=== PATIENT | female | born 1990 | race Caucasian/White ===

== ENCOUNTER 2019-09-01 00:07 | Outpatient (CLI) | payer OTHER, SELFPAY ==
[2019-09-01 18:06] LABS: SARS-CoV-2 RNA PCR Negative
== END 2019-09-01 00:08 | disposition home or self-care (01) ==
LOC: ANHCOVIDDT 00:07
PROVIDERS: PCP Internal Medicine; Visit Provider Surgery Plastic and Reconstructive Surgery
DX: Z01.812 Encounter for preprocedural laboratory examination (principal); Z20.828 Contact with and (suspected) exposure to other viral communicable diseases
CPT/HCPCS: 87635; C9803; U0003

== ENCOUNTER 2019-09-02 00:29 | Day surgery (SDC) | payer OTHER, SELFPAY ==
[2019-08-24 09:45] VITALS: BMI 21.4
[2019-09-02] VITALS (11 sets, daily range): BP systolic 100–120; BP diastolic 60–76; PULSE 66–99; RESP 11–26; TEMP 36.7–36.9; O2SAT 96–100; BMI 21.9
[2019-09-02] MEDS: LACTATED RINGERS 1,000 ML 30 ML IV CONT ×2 (07:45→10:05)
--- NOTE | 2019-09-02 08:25 | WPDHPUPDATE1 ---
History and Physical Update Update Date/Time: 09/02/19 08:25 History and Physical has been reviewed, including an updated exam of the patient. There are NO changes in the patient's condition. Risks, benefits, and alternatives have been discussed and questions answered. Patient agrees to proceed with procedure.
--- NOTE | 2019-09-02 08:26 | P.PNAN_ITS ---
Anes - Initial Pre Proc Eval Procedure: Operation Date: 09/02/19 09:00 Proposed Procedures p Bilateral Breast Augmentation - Gregor Nava MD Date/Time: 09/02/19 08:26 Surgeon: Gregor Nava MD Pre Op Diagnosis: Micromastia Patient Data Age: 29 Gender: F Height: 5 ft 4 in Weight: 57.9 kg Last Vital Signs Temp 36.9 C 09/02/19 07:59 Pulse 75 09/02/19 07:59 Resp 16 09/02/19 07:59 BP 101/71 09/02/19 07:59 Pulse Ox 100 09/02/19 07:59 Allergies Allergy/AdvReac Type Severity Reaction Status Date / Time No Known Drug Allergies Allergy Unknown Other Verified 09/02/19 08:02 Home Medications Medication Instructions Recorded Confirmed Type venlafaxine 37.5 mg 37.5 mg PO DAILY #90 cap 07/05/19 09/02/19 Rx capsule,extended release 24 hr alprazolam [Xanax] 0.25 mg PO HS PRN 08/24/19 09/02/19 History Patient hx anesthesia problems: none Family hx anesthesia problems: none [facility] Past Medical History Medical History (Updated 09/02/19 @ 08:26 by Artis Norris MD) Anxiety Family History Family History Mother Family history of type 2 diabetes mellitus Father Family history of type 2 diabetes mellitus Social History Social History Smoking status: Never smoker Alcohol intake: current Anes - Eval Final PreProcedure Day of Procedure 09/02/19 08:26 Patient weight: normal Heart: regular rate and rhythm Lungs: clear to auscultation Airway: Mallampati scale class II Neurological: alert and oriented Last oral intake: >/= 8 hours ASA classification: II Emergent: no Anesthetic plan: proceed Anesthesia type and monitoring: general LMA and standard monitoring Informed Consent: The patient's anesthetic plan and its attendant risks and benefits were discussed with the patient/family/POA. Questions were solicited and answers provided to the satisfaction of the patient/family/POA.
--- NOTE | 2019-09-02 08:43 | PM.PROC ---
Procedure Note - Detailed Date of procedure: 09/02/19 Pre-op diagnosis: Micromastia Post-op diagnosis: same Procedure performed: Bilateral Augmentation Mammoplasty Description of procedure: She is here today for bilateral breast augmentation. Previously and again today the risks, benefits, alternatives were discussed in extensive detail. I wanted her to be very realistic about the risks involved as well as expectations. We discussed aftercare and what to monitor for. Made sure answered all of her questions to her satisfaction today and consent was obtained. Marked in the preoperative holding area with their verification. The patient was taken to the operating room placed supine on the operating table. Anesthesia was provided by anesthesiology. A surgical time-out was taken. We cleansed the skin and 1% lidocaine and 0.25% Marcaine with epinephrine was used anesthetize as a field block. She was prepped and draped in a standard sterile fashion. Tegaderm nipple Altamirano were placed. A 15 blade used to make an incision along the inframammary fold. Dissection was continued at 45 degree angle until the chest wall as identified. I incised the pectoralis major along its inferior border and completely released the inferior border leaving the medial border intact. I created a subpectoral pocket in the appropriate dimensions based on our preoperative planning for the implant. I then copiously irrigated with saline solution and verified a strict hemostasis. Next the use a triple antibiotic and Betadine containing solution to irrigate the pocket. I washed my gloves with the triple antibiotic and Betadine solution. We washed the implant immediately upon opening it with this solution and only opened it when we needed it. I used implant funnel and no-touch technique. The implant was introduced into the pocket using the funnel. Having verified positioning of the implant this was closed using 2-0 Vicryl followed by 3-0 Monocryl in a running subcuticular 4-0 Monocryl followed by tissue glue. Fluffs, Emanuel wrap, and surgical bra were placed. Patient was awoke and taken to PACU without difficulty. All instrument sponge counts were correct at the end of the case. Implants: Karthik Mckeon SofTouch 360cc Right: REF SSM-360 SN [id number] Left: REF SSM-360 SN [id number] Anesthesia: GLMA Surgeon: Gregor Nava MD Estimated blood loss (mL): 10 Drains: No Packing: No Pathology: none sent Complications: No immediate complications Condition: stable Disposition: PACU
--- NOTE | 2019-09-02 08:49 | SUR.PREOP ---
0839; DR NOEL MARKED PT. RN IN ROOM
[2019-09-02] MEDS: ceFAZolin 2 GM/D5W 50 ML 2 GM/50 ML BAG IVPB (08:52)
[2019-09-02] MEDS: LIDO 1%/EPINEPHRINE 1:100,000 20 ML VIAL 80 ML INFILTRATE (09:27)
[2019-09-02] MEDS: ONDANSETRON INJ 4 MG/2 ML VIAL IV PUSH (11:47)
== END 2019-09-02 12:43 | disposition home or self-care (01) ==
PROVIDERS: PCP Internal Medicine; Visit Provider Surgery Plastic and Reconstructive Surgery
PROC: (CPT 19325; principal; 2019-09-02 09:00)
DX: Z41.1 Encounter for cosmetic surgery (principal); N64.82 Hypoplasia of breast; F41.9 Anxiety disorder, unspecified
CPT/HCPCS: 19325; A9270; J0131; J0690; J1100; J1580; J2250; J2405; J2704; J3010; J7120

== ENCOUNTER 2019-10-02 17:18 | Emergency (ER) | payer OTHER, SELFPAY ==
[2019-10-02 17:40] VITALS: BP 109/75; PULSE 66; RESP 16; TEMP 36.7; O2SAT 100
[2019-10-02 18:04] LABS: Basophils Percent Auto 0.6 % (0.2-1.2); Eosinophils Absolute Auto 0.2 K/mm3 (0-0.3); Eosinophils Percent Auto 2.6 % (0-4.4); Hemoglobin 14.2 g/dL (12.0-15.0); Immature Granulocyte Absolute 0.01 K/mm3 (0.00-0.031); Immature Granulocyte Percent A 0.2 % (0-0.5); Lymphocytes Absolute Auto 1.84 K/mm3 (0.9-3.2); Lymphocytes Percent Auto 29.3 % (18.3-44.2); Mean Corpuscular HGB Conc 34.6 g/dl (32-36); Mean Corpuscular Hemoglobin 30.5 pg (26-34); Mean Platelet Volume 9.3 fl (7.4-10.4); Monocytes Absolute Auto 0.5 K/mm3 (0.1-0.6); Neutrophils Absolute Auto 3.7 K/mm3 (1.3-6.7); Neutrophils Percent Auto 59.3 % (45.5-73.1); Platelet Count Result 260 k/mm3 (150-375); Red Blood Count 4.66 M/mm3 (4.2-5.4); White Blood Count 6.3 K/mm3 (4.5-10.0)
[2019-10-02 18:08] LABS: Add Urine Microscopic? YES; Appearance Urine Clear (Clear); Bacteria Urine Trace /hpf; Bilirubin Urine Negative (Negative); Blood Urine Negative (Negative); Color Urine Colorless (Yellow); Glucose Urine UA Negative (Negative); Ketones Urine Negative (Negative); Leukocyte Esterase Ur 2+ LEU/UL (Negative); Nitrate Urine Negative (Negative); Protein Urine Negative (Negative); RBC Urine 0-2 /hpf (0-2); Specific Grav Ur 1.005 (1.001-1.035); Squamous Epithelial Cell Urine Moderate /hpf (Few); Urobilinogen Urine Negative mg/dL (<2.0)
[2019-10-02 18:16] LABS: Alanine Aminotransferase 11 U/L (4-35); Albumin Level 4.7 g/dL (3.5-5.1); Alkaline Phosphatase 58 U/L (38-126); Aspartate Amino Transferase 22 U/L (14-36); Bilirubin,Total 0.2 mg/dL (0.2-1.3); Blood Urea Nitrogen 8 mg/dL (7-17); Calcium 9.4 mg/dL (8.4-10.2); Carbon Dioxide 32 mmol/L (22-30); Chloride 100 mmol/L (98-107); Estimated CRCL calculation 102 ml/min; Estimated Glomerular Filt Rate > 60; Glucose 95 mg/dL (65-105); Potassium 4.1 mmol/L (3.4-5.0); Sodium 139 mmol/L (137-145)
--- NOTE | 2019-10-02 18:39 | ED.GENADULT ---
HPI - General Adult General Chief complaint: Dizziness Stated complaint: dizzy, vertigo Time Seen by Provider: 10/02/19 18:39 Source: patient Mode of arrival: ambulatory Limitations: no limitations History of Present Illness HPI narrative: 22-year-old female patient presents to the emergency department with complaints of dizziness that started this morning. Patient states that she woke up and started having some dizziness and did have an episode of nausea and vomiting. Patient denies any vomiting since then. Patient states that the dizziness is worse when moving her head especially when she bends down and moves her head side to side. Patient states that she also did wake up with a slight sore throat but that has since resolved. Patient states she has been stuffy recently with her sinuses and did use some Flonase today. Patient denies any pain to the face. Headaches. Denies any lightheadedness. Patient denies any chest pain, shortness of breath, abdominal pain or diarrhea at this time. Patient denies or breast-feeding. Patient states she is currently not on control. Patient states that she did have 1 glass of wine last night. Denies any recreational drugs. Related Data Home Medications Medication Instructions Recorded Confirmed alprazolam [Xanax] 0.25 mg PO HS PRN 08/24/19 09/02/19 venlafaxine 37.5 mg PO HS 10/02/19 Allergies Allergy/AdvReac Type Severity Reaction Status Date / Time No Known Drug Allergies Allergy Unknown Other Verified 10/02/19 19:22 Review of Systems Review of Systems: Narrative: CONSTITUTIONAL: Denies fever, chills, or sweats. EYES: Denies visual changes, redness, or discharge. ENT: Positive rhinorrhea, congestion, sore throat that has since resolved, denies otalgia. CARDIOVASCULAR: Denies chest pain, palpitations, or edema. RESPIRATORY: Denies cough or dyspnea. GASTROINTESTINAL: Denies abdominal pain, nausea, vomiting, or diarrhea. GENITOURINARY: Denies dysuria or hematuria. SKIN: Denies rash or itching. MUSCULOSKELETAL: Denies back pain, joint pain, or myalgia. NEUROLOGIC: Denies headache, numbness, or weakness. Positive dizziness PSYCHIATRIC: Denies anxiety or depression. [facility] Past Medical History Medical History Anxiety Family History Family History Mother Family history of type 2 diabetes mellitus Father Family history of type 2 diabetes mellitus Social History Social History Smoking status: Never smoker Alcohol intake: current Comments At the time of my signature I agree with nursing past medical history, surgical, social, and family history. There is no relevant family history pertinent to the presenting complaint. Exam Narrative: Exam Narrative: GENERAL: Well-appearing, well-nourished, and in no acute distress. HEAD: Normocephalic, atraumatic. No tenderness noted to frontal maxillary sinuses on palpation EYES: PERRLA and EOMI. ENT: Nares with erythema and edema noted bilaterally, no active rhinorrhea or epistaxis. Mucous membranes moist. Posterior pharynx no erythema, tonsil management, exudates or lesions present. There is quite a bit of fluid noted to bilateral ears but no erythema, bulging. No foreign bodies noted to the canals NECK: Supple. No lymphadenopathy CHEST: Clear to auscultation. No respiratory distress. Patient able talk in clear complete sentences. No tripoding noted. HEART: Regular rate and rhythm. No murmur heard. Normal peripheral pulses. ABDOMEN: Soft, nontender, nondistended, normal active bowel sounds. EXTREMITIES: Normal range of motion. No edema. SKIN: Warm, dry, no rash. NEURO: Alert and oriented x4, GCS 15. Cranial nerves II through XII grossly intact. No focal neurological deficits. Normal muscle strength and tone. Normal deep tendon reflexes. Negative Babinski, normal
--- NOTE | 2019-10-02 18:48 | ECG_ITS ---
Measurements Intervals Paradox Rate: 50 P: 62 GA: 146 QRS: 64 QRSD: 93 T: 63 QT: 467 QTc: 429 Interpretive Statements SINUS BRADYCARDIA INCOMPLETE RIGHT BUNDLE BRANCH BLOCK BORDERLINE ECG Electronically Signed On 10-02-2019 19:32:21 CDT by Chema Altamirano D.O.
[2019-10-02] MEDS: MECLIZINE HCL 25 MG TABLET PO (19:04)
[2019-10-02] MEDS: SODIUM CHLORIDE 0.9% IV 1,000 ML 999 ML IV CONT (19:04)
[2019-10-02 19:19] VITALS: BP 111/77; PULSE 45; RESP 18; O2SAT 100
[2019-10-02 19:34] VITALS: BP 111/70; PULSE 58
[2019-10-02 19:35] VITALS: BP 116/74; PULSE 53
[2019-10-02 19:36] VITALS: BP 116/87; PULSE 68
[2019-10-02 20:27] VITALS: BP 104/70; PULSE 50; RESP 16; TEMP 36.6; O2SAT 100
== END 2019-10-02 20:31 | disposition home or self-care (01) ==
PROVIDERS: Emergency Medicine; Emergency Provider Nurse Practitioner Family; PCP Internal Medicine
DX: R42 Dizziness and giddiness (principal); H93.8X9 Other specified disorders of ear, unspecified ear; F41.9 Anxiety disorder, unspecified; R00.1 Bradycardia, unspecified; I45.10 Unspecified right bundle-branch block
CPT/HCPCS: 36415; 80053; 81001; 81025; 85025; 93005; 96360; 99283; A9270; J7030

== ENCOUNTER 2020-12-27 06:48 | Outpatient (CLI) | payer OTHER, SELFPAY ==
--- NOTE | ~2020-12-27 | MR_ITS ---
EXAMINATION: MR brain/brain stem wo/w con DATE: 12/27/2020 07:57 INDICATION: Headache, unspecified. TECHNIQUE: Magnetic resonance imaging (MRI) of the brain and brainstem was performed without and with 10 mL MultiHance intravenous contrast. Sequences included sagittal and axial T1-weighted FSE, axial diffusion-weighted FS EPI, axial T2*-weighted GRE, axial T2-weighted FLAIR Propeller, and axial T2-we ighted Propeller. Postcontrast sequences included axial and coronal T1-weighted FSE. Apparent diffusi on coefficient (ADC) maps were created. COMPARISON: None. FINDINGS: There is no intracranial hemorrhage, acute infarction, or abnormal intracranial mass lesion . The ventricles are normal in size. The paranasal sinuses are clear. The orbits are normal. The mast oid air cells are normal. IMPRESSION: 1. Normal brain. Reviewed, dictated and finalized at location A. IMPRESSION: 1. Normal brain.
[2020-12-27 07:22] LABS: Estimated Glomerular Filt Rate > 60
== END 2020-12-27 06:49 | disposition home or self-care (01) ==
LOC: ANHIMG 06:59
PROVIDERS: PCP Internal Medicine; Visit Provider Nurse Practitioner
DX: R51.9 Headache, unspecified (principal)
CPT/HCPCS: 70553; A9577

== ENCOUNTER 2024-04-05 09:24 | Emergency (ER) | payer OTHER, SELFPAY ==
--- NOTE | ~2024-04-05 | US_ITS ---
EXAMINATION: US OB <=14 wk fetus w TV DATE: 04/05/2024 12:09 TACO MAKER INDICATION: Left lower quadrant pain with vaginal bleeding. Intrauterine gestation on intraoffice ult rasound. No beta hCG. COMPARISON: None TECHNIQUE: Real-time transabdominal and transvaginal obstetric ultrasound. FINDINGS: 3 para 0 Estimated date of delivery by last menstrual period is 11/09/2024 The uterus measures 9.8 x 4.6 x 5.6 cm. No gestational sac is identified within the uterus. Multiple simple cysts detected within the lower u terine segment, within the cervix, the largest measuring 9.6 mm. The right ovary measures 2.3 x 1.5 x 2.2 cm. The left ovary measures 2.1 x 2.5 x 1.7 cm. IMPRESSION: No intrauterine gestation is identified. No significant free fluid within the pelvis Reviewed, dictated and finalized at location A. MAKER
[2024-04-05 09:40] VITALS: BP 121/77; PULSE 86; RESP 18; TEMP 36.4; O2SAT 100
--- NOTE | 2024-04-05 11:40 | ED.PREGNANCY ---
HPI - General Chief complaint: Vaginal Bleeding Stated complaint: vaginal bleeding, 8 weeks Time Seen by Provider: 04/05/24 11:11 Source: patient Mode of arrival: ambulatory Limitations: no limitations History of Present Illness HPI Narrative: Patient is a 33-year-old female who presents the ED with report of vaginal bleeding. Patient reports she was approximately 8 weeks gestation, , but began having bleeding on 03/27. States she has passed a large amount of blood with some tissue present, consistent with miscarriage. She has seen her OB for this. The bleeding has since persisted, but slowed significantly. She is now reporting feeling dizzy and lightheaded with movements. Was referred to the ED by OBGYN (Dr. Adams with [facility]). Had had confirmed IUP via ultrasound. Hx of previous miscarriage. C/o pain to L lower abdomen, nausea. Denies vomiting, fevers. Related Data Home Medications ?Medication ?Instructions ?Recorded ?Confirmed ?Last Taken ?Type fluticasone propionate 50 2 spray intranasal DAILY 02/01/20 12/22/20 Unknown History mcg/actuation nasal spray,suspension melatonin 5 mg capsule mg PO .QHS 02/01/20 12/22/20 Unknown History Allergies Allergy/AdvReac Type Severity Reaction Status Date / Time amoxicillin Allergy Mild Hives Verified 04/05/24 12:03 No Known Drug Allergies Allergy Unknown Other Verified 04/05/24 12:02 Review of Systems Review of Systems: All systems reviewed & are unremarkable except as noted in HPI. All systems reviewed & are unremarkable except as noted in HPI and below PMFSH Past Medical History Medical History Depression PCOS (polycystic ovarian syndrome) Hypercalcemia Low vitamin D level Headache Anxiety Surgical History Surgical History H/O breast augmentation August 2019 Family History Family History Mother Family history of type 2 diabetes mellitus Acute myocardial infarction Brain aneurysm Father Family history of type 2 diabetes mellitus Schizophrenia Social History Social History Smoking status: Never smoker Alcohol intake: current Exam Narrative: GENERAL: Well appearing, well-nourished, non-toxic, in no acute distress. HEAD: Normocephalic, atraumatic. RESPIRATORY: Airway patent, respirations nonlabored. Clear to auscultation bilaterally, no rales, rhonchi, wheezing. CARDIOVASCULAR: Regular rate and rhythm without murmurs, rubs, or gallops. ABDOMINAL: Soft, mild tenderness palpation in left lower quadrant, nondistended. Normoactive BS. MUSCULOSKELETAL: Moves all extremities. No gross deformities. SKIN: Warm, dry, normal color. NEURO: A&O X3. Speech clear. Cranial nerves II-XII grossly intact. Steady gait. No ataxic movements. PSYCHIATRIC: Mildly anxious, tearful. Normal interaction. Course Vital Signs Vital signs: Vital Signs Temperature 97.5 F L 04/05/24 09:40 Pulse Rate 86 04/05/24 09:40 Respiratory Rate 18 04/05/24 09:40 Blood Pressure 121/77 04/05/24 09:40 Pulse Oximetry 100 04/05/24 09:40 Oxygen Delivery Room Air 04/05/24 09:40 Temperature 97.5 F L 04/05/24 09:40 Pulse Rate 86 04/05/24 09:40 Respiratory Rate 18 04/05/24 09:40 Blood Pressure 121/77 04/05/24 09:40 Pulse Oximetry 100 04/05/24 09:40 Oxygen Delivery Room Air 04/05/24 09:40 MDM - OB/Uterine Contractions MDM Narrative Medical decision making narrative: Patient presented to ED with vaginal bleeding, confirmed miscarriage beginning last week. Was approximately 8 weeks gestation, . Vital signs stable upon arrival today. Patient does not appear in any acute distress. Laboratory studies are fairly unremarkable. No leukocytosis. Stable H&H, though no records to compare to. Stable electrolytes, stable kidney function. Beta hCG is 905. No records to compare to here, though patient reported her hcg prior to when the bleeding began was around 12,000. Urinalysis is clear here. Patient's blood type is A positive, no indication for RhoGAM. Ob ultrasound was obtained and without evidence of intrauterine gestation or retained products. Otherwise unremarkable. Patient updated on lab and imaging findings. She is feeling improved after fluids in the ED. Feel she is safe for discharge home with close follow-up with OB. Recommended to contact office today to make follow-up appointment for further evaluation. Given return precautions. She is in agreement with plan and feels comfortable discharge home. Discharged in stable condition. Medical Records Attestation: I reviewed the patient's medical records. Lab Data Attestation: I reviewed the patient's lab results. 04/05/24 12:04 04/05/24 12:04 Labs: Lab Results 04/05/24 04/05/24 Range/Units 12:04 12:53 WBC 7.4 (4.5-10.0) K/mm3 RBC 4.31 (4.2-5.4) M/mm3 Hgb 12.6 (12.0-15.0) g/dL Hct 38.0 (37.0-47.0) % MCV 88.2 (80-100) fl MCH 29.2 (26-34) pg MCHC 33.2 (32-36) g/dl RDW 13.1 (11.5-14.5) % Plt Count 416 H D (150-375) k/mm3 MPV 8.4 (7.4-10.4) fl Immature Gran % (Auto) 0.4 (0-0.5) % Neut % (Auto) 64.2 (45.5-73.1) % Lymph % (Auto) 28.2 (18.3-44.2) % [place] % (Auto) 5.5 (2.6-8.5) % Eos % (Auto) 1.3 (0-4.4) % Baso % (Auto) 0.4 (0.2-1.2) % Lymph # (Auto) 2.09 (0.9-3.2) K/mm3 [place] # (Auto) 0.4 (0.1-0.6) K/mm3 Eos # (Auto) 0.1 (0-0.3) K/mm3 Baso # (Auto) 0.0 (0.0-0.1) K/mm3 Abs Immat Gran (auto) 0.03 (0.00-0.031) K/mm3 Absolute Neuts (auto) 4.8 (1.3-6.7) K/mm3 Absolute Nucleated RBC 0.000 (0.0-0.012) K/mm3 Nucleated RBC % 0.0 (0.0-0.2) % PT 12.6 (11.1-14.7) Seconds INR 0.9 APTT 25.5 (22.3-36.8) Seconds Sodium 139 (137-145) mmol/L Potassium 4.1 (3.4-5.0) mmol/L Chloride 104 (98-107) mmol/L Carbon Dioxide 30 (22-30) mmol/L Anion Gap 5 (4-12) mmol/L BUN 5 L (7-17) mg/dL Creatinine 0.60 L (0.7-1.0) mg/dL Estim Creat Clear Calc 90 ml/min Estimated GFR > 60 (59 - ) Glucose 84 (65-110) mg/dL Calcium 9.2 (8.4-10.2) mg/dL Total Bilirubin 0.5 (0.2-1.3) mg/dL AST 25 (14-36) U/L ALT 24 (6-35) U/L Alkaline Phosphatase 72 (38-126) U/L Total Protein 8.0 (6.3-8.2) g/dL Albumin 4.4 (3.5-5.1) g/dL Beta HCG, Quant 905.03 mIU/ML Urine Color Yellow (Yellow) Urine Appearance Clear (Clear) Urine pH 7.5 (5.0-9.0) Ur Specific Beason 1.004 (1.001-1.035) Urine Protein Negative (Negative) mg/dL Urine Glucose (UA) Negative (Negative) mg/dL Urine Ketones Negative (Negative) mg/dL Ur Blood (Man) Trace (Negative) Urine Nitrate Negative (Negative) Urine Bilirubin Negative (Negative) Urine Urobilinogen 0.2 (<2.0) mg/dL Leukocyte Esterase Rfl Negative (Negative) STEFANIE/UL Urine RBC 0-2 (0-2) /hpf Urine WBC 0-5 (0-3) /hpf Ur Squamous Epith Cells None seen (Few) /hpf Urine Bacteria None seen /hpf Urine Casts 0-2 Blood Type A Positive Antibody Screen Negative Doses of RhIg Required 0 Imaging Data Attestation: I personally reviewed and interpreted this imaging study as follows: Radiologist's impression: ITS Impressions Obstetrics Ultrasound 04/05/24 12:02 IMPRESSION: No intrauterine gestation is identified. No significant free fluid within the pelvis ADDENDUM: 04/05/24 1217 Please correlate these findings to the serum beta hCG, which was not obtained at the time of this dictation. Discharge Plan Discharge Clinical Impression: Spontaneous , Lightheadedness Patient Disposition: Home, Self-Care Condition: Stable Instructions: Antibiotic Form, Miscarriage (ED), Abnormal (Dysfunctional) Uterine Bleeding (ED), Lightheadedness (ED) Additional Instructions: Your workup here was reassuring. Stay well hydrated at home. Rest as needed. Follow-up closely with your OBGYN for further evaluation and continued management. Return to the ED if you experience worsening or severe symptoms, severe bleeding, passing out, unable to keep down food or drink, persistent fevers, or any other symptoms of concern. Patient Language: Puerto Rican Prescriptions: No Action venlafaxine 37.5 mg capsule,extended release 24hr 37.5 mg PO HS Qty: 30 0RF melatonin 5 mg capsule PO .QHS fluticasone propionate 50 mcg/actuation spray,suspension 2 spray intranasal DAILY Rx Instructions: administer into each nostril cetirizine [Zyrtec] 10 mg tablet 10 mg PO DAILY Qty: 30 0RF sumatriptan succinate [Imitrex] 50 mg tablet See Rx Instructions PO .COMPLEX Qty: 10 0RF Rx Instructions: take 1 tab at onset of headache; if no relief may repeat 1 tab after at least 2 hrs; max = 4 tabs/24 hr PO Follow-up/Referrals: Gabriel Oh DO [Physician] - Time of Disposition: 14:30
[2024-04-05] MEDS: SODIUM CHLORIDE 0.9% IV 1,000 ML 999 ML IV CONT ×2 (12:07→13:05)
[2024-04-05] MEDS: ONDANSETRON INJ 4 MG/2 ML VIAL IV PUSH (12:08)
[2024-04-05 12:15] LABS: Basophils Percent Auto 0.4 % (0.2-1.2); Eosinophils Absolute Auto 0.1 K/mm3 (0-0.3); Eosinophils Percent Auto 1.3 % (0-4.4); Hemoglobin 12.6 g/dL (12.0-15.0); Immature Granulocyte Absolute 0.03 K/mm3 (0.00-0.031); Immature Granulocyte Percent A 0.4 % (0-0.5); Lymphocytes Absolute Auto 2.09 K/mm3 (0.9-3.2); Lymphocytes Percent Auto 28.2 % (18.3-44.2); Mean Corpuscular HGB Conc 33.2 g/dl (32-36); Mean Corpuscular Hemoglobin 29.2 pg (26-34); Mean Corpuscular Volume 88.2 fl (80-100); Mean Platelet Volume 8.4 fl (7.4-10.4); Monocytes Absolute Auto 0.4 K/mm3 (0.1-0.6); Monocytes Percent Auto 5.5 % (2.6-8.5); Neutrophils Absolute Auto 4.8 K/mm3 (1.3-6.7); Neutrophils Percent Auto 64.2 % (45.5-73.1); Platelet Count Result 416 k/mm3 (150-375); Red Blood Count 4.31 M/mm3 (4.2-5.4); Red Cell Distribution Width 13.1 % (11.5-14.5); White Blood Count 7.4 K/mm3 (4.5-10.0)
[2024-04-05 12:25] LABS: INR 0.9; Prothrombin Time 12.6 Seconds (11.1-14.7)
[2024-04-05 12:26] LABS: Partial Thromboplastin Time 25.5 Seconds (22.3-36.8)
[2024-04-05 12:33] LABS: Alanine Aminotransferase 24 U/L (6-35); Albumin Level 4.4 g/dL (3.5-5.1); Alkaline Phosphatase 72 U/L (38-126); Anion Gap 5 mmol/L (4-12); Aspartate Amino Transferase 25 U/L (14-36); Bilirubin,Total 0.5 mg/dL (0.2-1.3); Blood Urea Nitrogen 5 mg/dL (7-17); Calcium 9.2 mg/dL (8.4-10.2); Carbon Dioxide 30 mmol/L (22-30); Chloride 104 mmol/L (98-107); Estimated CRCL calculation 90 ml/min; Estimated Glomerular Filt Rate > 60; Glucose 84 mg/dL (65-110); Potassium 4.1 mmol/L (3.4-5.0); Sodium 139 mmol/L (137-145)
[2024-04-05 12:43] LABS: Beta HCG Quantitative 905.03 mIU/ML
[2024-04-05 13:04] LABS: Add Urine Microscopic? YES; Appearance Urine Clear (Clear); Bacteria Urine None Seen /hpf; Bilirubin Urine Negative (Negative); Blood Urine Trace (Negative); Color Urine Yellow (Yellow); Glucose Urine UA Negative (Negative); Ketones Urine Negative (Negative); Leukocyte Esterase Ur Negative LEU/UL (Negative); Nitrate Urine Negative (Negative); Non Pathogenic Casts 0-2; Protein Urine Negative (Negative); RBC Urine 0-2 /hpf (0-2); Specific Grav Ur 1.004 (1.001-1.035); Squamous Epithelial Cell Urine None Seen /hpf (Few); Urobilinogen Urine 0.2 mg/dL (<2.0); WBC Urine 0-5 /hpf (0-3); pH Urine 7.5 (5.0-9.0)
--- OUTSIDE RECORDS SUMMARY | 2024-04-12 22:17 | XMS_ITS | Encounter Summary ---
Author Organization [facility] Address [address] [place] [address]. [place] [address] [place] [address] Care Team Providers Care Import Coordination And Production Head Name Role Phone Unavailable Primary Care Provider Unavailabl e Encounter Details Date Type Department Care Team (Late st Contact Info) Description 05/10/2014 Abstract [facility] Family & Internal Medicine - [place] [address] [place] [address] Marylu Arroyo APNP Social History Tobacco Use Types Packs/Day Years Used Date Smoking Tobacco: Never Assessed Comments Unknown Sex and Gender Information Value Date Recorded Sex Assigned at Not on file Legal Sex Female 6:05 PM CDT Gender Identity Not on file Sexual Orientation Not on file documented as of this encounter Last Filed Vital Signs Vital Sign Reading Time Taken Comments Blood Pressure 92/62 05/10/2014 9:31 AM OCCUPATIONAL WORK EXPERIENCE TEACHER Pulse 84 05/10/2014 9:31 AM OCCUPATIONAL WORK EXPERIENCE TEACHER Temperature - - Respiratory Rate - - Oxygen Saturation - - Inhaled Oxygen Concentration - - Weight 50.8 kg (112 lb) 05/10/2014 9:31 AM OCCUPATIONAL WORK EXPERIENCE TEACHER Height 157.5 cm (5' 2 ) 05/10/2014 9:31 AM OCCUPATIONAL WORK EXPERIENCE TEACHER Body Mass Index 20.49 05/10/2014 9:31 AM OCCUPATIONAL WORK EXPERIENCE TEACHER documented in this encounter Progress Notes * DAYANA Barrios - 05/10/2014 9:30 AM CST Reason For Visit Reason For Visit: Acute Visit Chief Complaint pt c/o last swollen lymph nodes and nasal congestion, symptoms have gotten worse. OTC Mucinex this morning. History of Present Illness The patient is being seen for an initial evaluation of sinusitis. The sinusitis involves the frontal sinuses. The sinusitis is classified as acute. facial pressure nasal congestion The patient presents with complaints of gradual onset of constant episodes of moderate bilateral purulent rhinorrhea. Episodes started about 6 days ago. She is currently experiencing purulent rhinorrhea. Her symptoms are caused by no known event. Symptoms are worsening. Pertinent Medical History: allergic rhinitis. postnasal drainage Associated symptoms: ear fullness. Review of Systems See HPI for pertinent positives. Constitutional: feeling poorly. ENT: nasal discharge. Cardiovascular: Normal. Respiratory: Normal. Gastrointestinal: Normal. Genitourinary: Normal. Integumentary: Normal. Musculoskeletal: Normal. Neurological: Normal. Psychiatric: anxiety. Active Problems 1. Anxiety (300.00) (F41.9) 2. Depression (311) (F32.9) 3. Polycystic ovarian syndrome (256.4) (E28.2) Past Medical History 1. Denied: History of Epilepsy And Recurrent Seizures 2. History of chest pain (V13.89) (Z87.898) 3. History of fatigue (V13.89) (Z87.898) 4. History of hypotension (V12.59) (Z86.79) 5. History of polycystic ovarian syndrome (V13.29) (Z87.42) Surgical History 1. History of Dental Surgery ?? wisdom teeth Family History Mother 1. Family history of Bipolar Disorder NOS 2. Family history of Cancer 3. Family history of Diabetes Mellitus (V18.0) ?? onset age 45, overweight, sedentary, on disability 4. Family history of Hypertension (V17.49) 5. Family history of Stroke Syndrome (V17.1) Father 6. Family history of Bipolar Disorder NOS Family History 7. Family history of Bipolar Disorder NOS Social History ?? Being A Social Drinker ?? Denied: History of Exercising Regularly ?? Never a smoker ?? Sports Activities Tennis Current Meds 1. No Reported Medications Recorded CORRY = N; Record; Last Updated By: Lorena Galan; 05/10/2014 9:51:58 AM Allergies 1. No Known Drug Allergies Recorded By: Tara Rodriguez; 05/08/2012 1:26:09 PM Vitals Vital Signs [Data Includes: Current Encounter] Recorded by : Lorena Galan at [id number] 09:31AM Temperature 98.3 F Heart Rate 84 Respiration 16 Systolic 92 Diastolic 62 O2 Saturation 98 Height 5 ft 2 in Weight 112 lb BMI Calculated 20.49 BSA Calculated 1.49 Physical Exam Constitutional General appearance: Abnormal. Acutely ill and appears tired. Eyes Conjunctiva and lids: Abnormal. Conjunctiva Findings: bilateral hyperemia. Ears, Nose, Mouth, and Throat External inspection of ears and nose: Normal. Otoscopic examination: Tympanic membranes translucent with normal light reflex. Canals patent without erythema. Oropharynx: Abnormal. The posterior pharynx was erythematous. Pulmonary Respiratory effort: No increased work of breathing or signs of respiratory distress. Auscultation of lungs: Clear to auscultation. Cardiovascular Auscultation of heart: Normal rate and rhythm, normal S1 and S2, without murmurs. Lymphatic Palpation of lymph nodes in neck: Abnormal. Bilateral submandibular node enlargement. Musculoskeletal Gait and station: Normal. Psychiatric Orientation to person, place, and time: Normal. Mood and affect: Abnormal. Mood and Affect: anxious. Assessment 1. Acute sinusitis (461.9) (J01.90) Plan Acute sinusitis 1. Start: Azithromycin 250 MG Oral Tablet; TAKE 2 TABLETS ON DAY 1 THEN TAKE 1 TABLET A DAY FOR 4 DAYS Rx By: Marylu Arroyo; Dispense: 5 Days ; #:6 Tablet; Refill: 0; For: Acute sinusitis; CORRY = N; Verified Transmission to [facility] 43265; Last Updated By: [employer]; 05/10/2014 9:52:19 AM 2. Start: Loratadine-Pseudoephedrine ER 10-240 MG Oral Tablet Extended Release 24 Hour; TAKE 1 TABLET DAILY DIRECTED Rx By: Marylu Arroyo; Dispense: 7 Days ; #:7 Tablet Extended Release 24 Hour; Refill: 0; For: Acute sinusitis; CORRY = N; Print Rx 3. Start: Nasacort Allergy 24HR 55 MCG/ACT Nasal Aerosol; INSTILL 2 SQUIRT Every twelve hours Rx By: Marylu Arroyo; Dispense: 0 Days ; #:1 X 10.8 ML Bottle; Refill: 0; For: Acute sinusitis; CORRY = N; Verified Transmission to [facility] 12526; Last Updated By: ChinaCache; 05/10/2014 9:52:19 AM Discussion/Summary Acute Sinusitis in pt with allergies- ZPack, increased oral fluid intake, Nasocort and Tylenol/Ibuprofen. Instructed to reprot to ED if dysphagia or SOB with airway constriction. FU PRN Signatures Electronically signed by : Marylu Arroyo NP; May 10 2014 2:40PM OCCUPATIONAL WORK EXPERIENCE TEACHER (Author) documented in this encounter Plan of Treatment Not on file documented as of this encounter Visit Diagnoses Not on filedocumented in this encounter
--- OUTSIDE RECORDS SUMMARY | 2024-04-12 22:17 | XMS_ITS | Encounter Summary ---
Author Organization [facility] Address [address] [place] [address]. [place] [address] [place] [address] Care Team Providers Care Government Affairs Specialist Name Role Phone Unavailable Primary Care Provider Unavailabl e Encounter Details Date Type Department Care Team (Late st Contact Info) Description 03/17/2014 Abstract [facility] [address] [place] [id number] Milana Reyna APNP Social History Tobacco Use Types Packs/Day Years Used Date Smoking Tobacco: Never Assessed Comments Unknown Sex and Gender Information Value Date Recorded Sex Assigned at Not on file Legal Sex Female 6:05 PM CDT Gender Identity Not on file Sexual Orientation Not on file documented as of this encounter Plan of Treatment Not on file documented as of this encounter Visit Diagnoses Diagnosis Vomiting alone documented in this encounter
--- OUTSIDE RECORDS SUMMARY | 2024-04-12 22:17 | XMS_ITS | Encounter Summary ---
Author Organization [facility] Address [address] [place] [address]. [place] [address] [place] [address] Care Team Providers Care Water Treatment Plant Engineer Name Role Phone Unavailable Primary Care Provider Unavailabl e Encounter Details Date Type Department Care Team (Latest Contact Info) Description 05/08/2012 Abstract [facility] [place] [address] [facility] [address] [place] [id number] Social History Tobacco Use Types Packs/Day Years Used Date Smoking Tobacco: Never Assessed Comments Unknown Sex and Gender Information Value Date Recorded Sex Assigned at Not on file Legal Sex Female 6:05 PM CDT Gender Identity Not on file Sexual Orientation Not on file documented as of this encounter Last Filed Vital Signs Vital Sign Reading Time Taken Comments Blood Pressure 94/48 05/08/2012 1:20 PM ACUTE CARE ASSISTANT Pulse 80 05/08/2012 1:20 PM ACUTE CARE ASSISTANT Temperature - - Respiratory Rate - - Oxygen Saturation - - Inhaled Oxygen Concentration - - Weight 53.5 kg (118 lb) 05/08/2012 1:20 PM ACUTE CARE ASSISTANT Height 157.5 cm (5' 2 ) 05/08/2012 1:20 PM ACUTE CARE ASSISTANT Body Mass Index 21.58 05/08/2012 1:20 PM ACUTE CARE ASSISTANT documented in this encounter Progress Notes * Gabriel Houston MD - 05/08/2012 1:00 PM CST Reason For Visit Reason For Visit: New Patient Visit Chief Complaint Patient referred to us by Dr. Feliciano. She is having some depression/anxiety issues. She states her chest pain is only present when feeling anxious. History of Present Illness HPI Free Text: Dr. Feliciano thought would benefit from meds for depression and anxiety. Severe depressionn age 12, given Lexapro and Wellbutrin together, which helped. No meds for 6 years. Hard time falling asleep, frequent awakenings. Then naps during day. Gradual o nset of depression, fatigue, anxiety, panic attacks, episodes of hyperventilation. Chest pain occurs random times, never with exertion. Was frequent, now not happening very often, was once/day, now once/week. Review of Systems Complete ROS Female: Cardiovascular: palpitations and chest pain. Psychiatric: anxiety and depression. Complete-Female: Constitutional: fatigue. Cardiovascular: racing heart. Active Problems 1. Anxiety 300.00 2. Chest Pain 786.50 3. Depression 311 Past Medical History 1. History of Hypotension 458.9 2. History of Polycystic Ovarian Syndrome 256.4 Denied 3. History of Epilepsy And Recurrent Seizures Surgical History 08/15 wisdom teeth extracted Family History 1. Paternal history of Bipolar Disorder NOS 2. Maternal history of Bipolar Disorder NOS 3. Maternal history of Cancer 4. Maternal history of Diabetes Mellitus V18.0 onset age 45, overweight, sedentary, on disability 5. Maternal history of Hypertension V17.49 6. Maternal history of Stroke Syndrome V17.1 7. Family history of Bipolar Disorder NOS Social History ?? Being A Social Drinker ?? Never A Smoker ?? Sports Activities Tennis Denied ?? History of Exercising Regularly drinks glass of V8 juice daily raised by father's parents Current Meds 1. No Reported Medications Recorded; Record; Last Updated By: Tara Rodriguez Allergies 1. No Known Drug Allergies No Known Drug Allergies Vitals Vital Signs [Data Includes: Current Encounter] [id number] 01:20PM Temperature 98.3 F Heart Rate 80 Respiration 16 Systolic 94 Diastolic 48 O2 Saturation 99 BMI Calculated 21.71 BSA Calculated 1.52 Height 5 ft 2 in Weight 118 lb Physical Exam Constitutional General appearance: No acute distress, well appearing and well nourished. Well developed, well nourished, within normal limits of ideal weight, rested and not exhausted. Pulmonary Auscultation of lungs: Clear to auscultation. Cardiovascular Auscultation of heart: Normal rate and rhythm, normal S1 and S2, no murmurs. Examination of extremities for edema and/or varicosities: Normal. Psychiatric Judgment and insight: Normal. Orientation to person, place, and time: Normal. Mood and affect: Abnormal. Mood and Affect: anxious. Assessment 1. Chest Pain 786.50 2. Anxiety 300.00 3. Depression 311 4. Health Maintenance V70.0 5. Fatigue 780.79 Plan 1. EKG In Office Done: 08May2012 04:59PM Ordered; For: Chest Pain (786.50); Ordered By: Gabriel Houston Perform: In Office Due: 15May2012; Last Updated By: Tara Rodriguez 2. Venlafaxine HCl ER 37.5 MG Oral Capsule Extended Release 24 Hour; TAKE 1 CAPSULE After meals at breakfast daily, after two weeks may increase to two with breakfast daily; Therapy: [id number] to (Evaluate:[id number]) Requested for: 08May2012; Last Rx:[id number]; Edited Ordered; For: Chest Pain (786.50), Depression (311); Rx By: Gabriel Houston; Dispense: 15 Days ; #:45Capsule Extended Release 24 Hour; Refill: 11; Verified Transmission to [facility]; Msg to Pharmacy: can refill at 75 mg dose when refills 3. Vitamin B12 And Folate Requested for: 08May2012 Ordered; For: Fatigue (780.79); Ordered By: Gabriel Houston Perform: [facility] Due: 15May2012; Last Updated By: Tara Rodriguez 4. Hemoglobin A1C ( HA1C ) Requested for: 08May2012 Ordered; For: Health Maintenance (V70.0); Ordered By: Gabriel Houston Perform: [facility] Due: 15May2012; Last Updated By: Tara Rodriguez 5. Lipid W Direct LDL Requested for: 08May2012 Ordered; For: Health Maintenance (V70.0); Ordered By: Gabriel Houston Perform: [facility] Due: 15May2012; Last Updated By: Tara Rodriguez 6. Compr Metabolic Prof ( CMP ) Requested for: 08May2012 Ordered; For: Health Maintenance (V70.0), Chest Pain (786.50), Depression (311); Ordered By: Gabriel Houston Perform: [facility] Due: 15May2012; Last Updated By: Tara Rodriguez begin walking or light tennis aim for 30 minutes/day at least 5 days/week plant based diet--just watch the YouTube videos Follow-up visit in 6 weeks Outpatient Follow-up Status: Hold For - Scheduling Requested for: 08May2012 Ordered; For: Chest Pain (786.50), Depression (311), Fatigue (780.79); Ordered By: Gabriel Houston Performed: Due: [id number] Discussion/Summary obtain office notes from Viviana Adams RN TURN OPERATOR in [place] Signatures Electronically signed by : Gabriel Houston M.D.; Aug 04 2012 4:57AM (Author) E CARE ASSISTANT documented in this encounter Plan of Treatment Not on file documented as of this encounter Visit Diagnoses Not on filedocumented in this encounter
--- OUTSIDE RECORDS SUMMARY | 2024-04-12 22:17 | XMS_ITS | Encounter Summary ---
Author Organization [facility] Address [address] [place] [address]. [place] [address] [place] [address] Care Team Providers Care Guard Supervisor Name Role Phone Unavailable Primary Care Provider Unavailabl e Encounter Details Date Type Department Care Team (Late st Contact Info) Description 08/04/2012 Abstract [facility] Emergency Room [address] [place] [address] Tobi Baig MD Social History Tobacco Use Types Packs/Day Years [...] of this encounter Visit Diagnoses Diagnosis Vomiting of , antepartum (HHS/HCC) Unspecified vomiting of , antepartum documented in this encounter
--- OUTSIDE RECORDS SUMMARY | 2024-04-12 22:17 | XMS_ITS | Encounter Summary ---
Author Organization [facility] Address [address] [place] [address]. [place] [address] [place] [address] Care Team Providers Care Associate Professor Of Mathematics Name Role Phone Unavailable Primary Care Provider Unavailabl e Encounter Details Date Type Department Care Team (Late st Contact Info) Description 03/01/2013 Abstract [facility] [address] [place] [id number] , Generic Conversion, Social History Tobacco Use Types Packs/Day Years [...]
--- OUTSIDE RECORDS SUMMARY | 2024-04-12 22:17 | XMS_ITS | Encounter Summary ---
Author Organization [facility] Address [address] [place] [address]. [place] [address] [place] [address] Care Team Providers Care General Surgeon Name Role Phone Unavailable Primary Care Provider Unavailabl e Encounter Details Date Type Department Care Team (Late st Contact Info) Description 08/20/2015 Abstract [facility] [address] [place] [address] Social History Tobacco Use Types Packs/Day Years Used Date Smoking Tobacco: Never Assessed Comments Unknown Sex and Gender Information Value Date Recorded Sex Assigned at Not on file Legal Sex Female 6:05 PM CDT Gender Identity Not on file Sexual Orientation Not on file documented as of this encounter Plan of Treatment Not on file documented as of this encounter Visit Diagnoses Diagnosis Respiratory system disease complicating in second trimester (HHS/HCC) Other current maternal conditions classifiable elsewhere, antepartum documented in this encounter
--- OUTSIDE RECORDS SUMMARY | 2024-04-12 22:17 | XMS_ITS | Encounter Summary ---
Author Organization [facility] Address [address] [place] [address]. [place] [address] [place] [address] Care Team Providers Care Charge Hand Name Role Phone Unavailable Primary Care Provider Unavailabl e Encounter Details Date Type Department Care Team (Latest Contact Info) Description 05/15/2012 Abstract [facility] , Luba Hobbs MD Social History Tobacco Use Types Packs/Day Years Used Date Smoking Tobacco: Never Assessed Comments Unknown Sex and Gender Information Value Date Recorded Sex Assigned at Not on file Legal Sex Female 6:05 PM CDT Gender Identity Not on file Sexual Orientation Not on file documented as of this encounter Progress Notes * Gabriel Houston MD - 05/15/2012 2:17 PM CST Message Leanna called in stating the venlafaxine she is on isn't working for her. She feels groggy, tired, and nauseous. She was wondering what else she could try. We suggested zoloft 50mg daily and she stated she has previously tried and failed on this. Dr. Houston's next suggestion was to give her a Viibryd starter kit. LVM for Leanna in regards to this and asked her to call the office and let us know ifnkechi is interested. MIW Current Meds 1. Venlafaxine HCl ER 37.5 MG Oral Capsule Extended Release 24 Hour; TAKE 1 CAPSULE After meals at breakfast daily, after two weeks may increase to two with breakfast daily; Therapy: [id number] to (Evaluate:[id number]) Requested for: [id number]; Last Rx:[id number] Signatures Electronically signed by : Amber Mccall, ; May 15 2012 2:20PM (Author) TAPPER documented in this encounter Plan of Treatment Not on file documented as of this encounter Visit Diagnoses Not on filedocumented in this encounter
--- OUTSIDE RECORDS SUMMARY | 2024-04-12 22:17 | XMS_ITS | Encounter Summary ---
Author Organization [facility] Address [address] [place] [address]. [place] [address] [place] [address] Care Team Providers Care Sort Worker Name Role Phone Unavailable Primary Care Provider Unavailabl e Encounter Details Date Type Department Care Team (Late st Contact Info) Description 06/03/2014 Abstract [facility] [address] [place] [address] Gabriel Oh, DO [address] [place] [id number] Social History Tobacco Use Types Packs/Day Years [...]
--- OUTSIDE RECORDS SUMMARY | 2024-04-12 22:17 | XMS_ITS | Encounter Summary ---
Author Organization [facility] Address [address] [place] [address]. [place] [address] [place] [address] Care Team Providers Care Code Enforcement Officer Name Role Phone Unavailable Primary Care Provider Unavailabl e Encounter Details Date Type Department Care Team (Late st Contact Info) Description 09/13/2016 Abstract [facility] Emergency Room [address] [facility] [place] [place] [id number] Social History Tobacco Use Types Packs/Day Years Used Date Smoking Tobacco: Never Assessed Comments Unknown Sex and Gender Information Value Date Recorded Sex Assigned at Not on file Legal Sex Female 6:05 PM CDT Gender Identity Not on file Sexual Orientation Not on file documented as of this encounter Plan of Treatment Not on file documented as of this encounter Visit Diagnoses Diagnosis Other chest pain documented in this encounter
--- OUTSIDE RECORDS SUMMARY | 2024-04-12 22:17 | XMS_ITS | Encounter Summary ---
Author Organization [facility] Address [address] [place] [address]. [place] [address] [place] [address] Care Team Providers Care Operations Research Group Manager Name Role Phone Unavailable Primary Care Provider Unavailabl e Encounter Details Date Type Department Care Team (Late st Contact Info) Description 06/02/[address] [facility] [address] [facility] [address] [place] [id number] Social History Tobacco Use Types Packs/Day Years Used Date Smoking Tobacco: Never Assessed Comments Unknown Sex and Gender Information Value Date Recorded Sex Assigned at Not on file Legal Sex Female 6:05 PM CDT Gender Identity Not on file Sexual Orientation Not on file documented as of this encounter Plan of Treatment Not on file documented as of this encounter Visit Diagnoses Diagnosis Chronic sinusitis Unspecified sinusitis (chronic) documented in this encounter
--- OUTSIDE RECORDS SUMMARY | 2024-04-12 22:17 | XMS_ITS | Encounter Summary ---
Author Organization [facility] Address [address] [place] [address]. [place] [address] [place] [address] Care Team Providers Care Conference Assistant Name Role Phone Unavailable Primary Care Provider Unavailabl e Encounter Details Date Type Department Care Team (Latest Contact Info) Description 06/15/2013 Abstract [facility] Medical Group Social History Tobacco Use Types Packs/Day Years [...]
--- OUTSIDE RECORDS SUMMARY | 2024-04-12 22:17 | XMS_ITS | Clinical Summary ---
Author Organization [facility] Address [address] [place] [address]. [place] [address] [place] [address] Care Team Providers Care Featheredge Machine Operator Name Role Phone Unavailable Primary Care Provider Unavailabl e Social History Tobacco Use Types Packs/Day Years Used Date Smoking Tobacco: Never Assessed Comments Unknown Sex and Gender Information Value Date Recorded Sex Assigned at Not on file Legal Sex Female 6:05 PM CDT Gender Identity Not on file Sexual Orientation Not on file Last Filed Vital Signs Vital Sign Reading Time Taken Comments Blood Pressure 92/62 05/10/2014 9:31 AM MUNICIPAL ENGINEER Pulse 84 05/10/2014 9:31 AM MUNICIPAL ENGINEER Temperature - - Respiratory Rate - - Oxygen Saturation - - Inhaled Oxygen Concentration - - Weight 50.8 kg (112 lb) 05/10/2014 9:31 AM MUNICIPAL ENGINEER Height 157.5 cm (5' 2 ) 05/10/2014 9:31 AM MUNICIPAL ENGINEER Body Mass Index 20.49 05/10/2014 9:31 AM MUNICIPAL ENGINEER Plan of Treatment Health Maintenance Due Date Last Done Comments Cervical Cancer Screening Pa p Smear (Age 30 to 64) Every 3 Years 1990 Annual Physical 1993 Hepatitis C 2008 DTaP, Tdap and Td Vaccines ( 1 - Tdap) 2009 Hepatitis B Vaccines (1 of 3 - 19+ 3-dose series) 2009 Cervical Cancer Screening Pa p with HPV Testing (Age 30 to 64) Every 5 Years 2020 Cervical Cancer Screening with HPV 2020 COVID-19 Vaccine ( - 2023-2 5 season) 2023 Influenza Adult (#1) 2024 HPV Vaccines Aged Out No longer eligi ble based on patient's age to complete this topic Meningococcal Vaccine Aged Out No elle nato eligible based on patient's age to complete this topic Pneumococcal Vaccine: Pediat rics (0 to 5 Years) and At-Risk Patients (6 to 64 Years) Aged Out No longer eligible b ased on patient's age to complete this topic RSV Immunizations Under 20 Months Aged Out No longer eligible based on patient's age to complete this topic
--- OUTSIDE RECORDS SUMMARY | 2024-04-12 22:18 | XMS_ITS | Encounter Summary ---
Author Organization [facility] Address [address] [place] [address]. [place] [address] [place] [address] Care Team Providers Care Lead Military Analyst Name Role Phone Unavailable Primary Care Provider Unavailabl e Encounter Details Date Type Department Care Team (Late st Contact Info) Description 04/13/2012 Abstract [facility] [address] [place] [address] Viviana Adams, DISPATCHER CHIEF COAL SLURRY [address] [place] [address] Social History Tobacco Use Types Packs/Day Years Used Date Smoking Tobacco: Never Assessed Comments Unknown Sex and Gender Information Value Date Recorded Sex Assigned at Not on file Legal Sex Female 6:05 PM CDT Gender Identity Not on file Sexual Orientation Not on file documented as of this encounter Plan of Treatment Not on file documented as of this encounter Visit Diagnoses Diagnosis Symptom associated with female genital organs Unspecified symptom associated with female genital organs documented in this encounter
--- OUTSIDE RECORDS SUMMARY | 2024-04-12 22:18 | XMS_ITS | Encounter Summary ---
Author Organization [facility] Address [address] [place] [address]. [place] [address] [place] [address] Care Team Providers Care Embroiderer Name Role Phone Unavailable Primary Care Provider Unavailabl e Encounter Details Date Type Department Care Team (Late st Contact Info) Description 04/08/2012 Abstract [facility] [address] [place] [address] Viviana Adams, ORANGE PICKER MACHINE OPERATOR [address] [place] [address] Social History Tobacco Use Types Packs/Day Years Used Date Smoking Tobacco: Never Assessed Comments Unknown Sex and Gender Information Value Date Recorded Sex Assigned at Not on file Legal Sex Female 6:05 PM CDT Gender Identity Not on file Sexual Orientation Not on file documented as of this encounter Plan of Treatment Not on file documented as of this encounter Visit Diagnoses Diagnosis Scanty or infrequent menstruation documented in this encounter
--- OUTSIDE RECORDS SUMMARY | 2024-04-12 22:25 | XMS_ITS | Encounter Summary ---
Author Organization [facility] Healthcare Address [address] [place] [address] Care Team Providers Care Washing Machine Mechanic Name Role Phone Guilherme Michelle MD Primary Care Provider [phone] Tiago Randle MD Unavailable [phone] Encounter Details Date Type Department Care Team (Late st Contact Info) Description 03/12/2024 10:00 AM FARM MACHINERY ERECTOR Lab [facility] Medical [facility] Outpatient Lab at [address] [address] Encounter for medical examination to establish care (Primary Dx) Social History Tobacco Use Types Packs/Day Years Used Date Smoking Tobacco: Never Smokeless Tobacco: Never AUDIT-C Answer Date Recorded Q1: How often do you have a drink containing alc ohol? 2-4 times a month 02/04/2023 Q2: How many drinks containi ng alcohol do you have on a typical day when you are drinking? 1 or 2 02/04/2023 Q3: How often do you have si x or more drinks on one occasion? Never 02/04/2023 PHQ-2 Answer Date Recorded PHQ-2 Total Score 0 06/09/2023 Education Answer Date Recorded What is the highest level of school you have completed or the highest degree you have received? 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
--- OUTSIDE RECORDS SUMMARY | 2024-04-12 22:25 | XMS_ITS | Encounter Summary ---
Author Organization [facility] Healthcare Address [address] [place] [address] Care Team Providers Care Optical Lab Technician Name Role Phone Guilherme Michelle MD Primary Care Provider [phone] Tiago Randle MD [facility] [phone] Encounter Details Date Type Department Care Team (Late st Contact Info) Description 06/02/2023 Orders Only [facility] Medical [facility] Women's Health Care at [address] [address] Racheal Adams MD [address] [place] [address] Social History Tobacco Use Types Packs/Day Years [...] PHQ-2 Answer Date Recorded PHQ-2 Total Score (If total score is 3 or more points, staff should administer the PHQ-9) 6 02/04/2023 Education Answer Date Recorded What is the highest level of school you have completed or the highest degree you have received? 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 Comment [facility] - 01 Comment: Material submitted: ?. uterus - PRODUCTS OF CONCEPTION . Comment [facility] - 01 Comment: Clinician provided ICD-10: O20.0 . Comment [facility] 02 Comment: Diagnosis: PRODUCTS OF CONCEPTION: NECROTIC DECIDUA. NO CHORIONIC VILLI IDENTIFIED. COMMENT: ALL MATERIAL IS SUBMITTED FOR REVIEW. SHN ??06/05/2023 ??1144 Local . Comment [facility] 02 Comment: Electronically signed: ? . Boris Baig MD, Pathologist . Comment [facility] 03 Comment: Gross description: ? . 1 Container, formalin-filled, labeled with patient identification. PRODUCTS OF CONCEPTION: RECEIVED ARE 11.0 GRAMS OF PINK-CAMILO AND RED TISSUE. ??NO PARTS ARE IDENTIFIED GROSSLY. ALL MATERIAL IS SUBMITTED IN CASSETTE(S) A1-A5. THE WEIGHT IS CONFIRMED TO THE NEAREST TENTH OF A GRAM. JASIEL/JASIEL ??06/04/2023 ??0159 Local . Comment [facility] 02 Comment: Pathologist provided ICD-10: O03.9 . Comment [facility] 02 Comment: CPT ?. [id number] 06/02/2023 06/02/2023 Narrative [facility] - 06/05/2023 12:12 PM HOSPITAL LIBRARIAN Performed at: ??01 - [facility] [address] [place] [address] ??[id number] Design Engineering Specialist: Bhavik Barillas MD, Phone: ??[phone] Performed at: ??02 - [facility] [address] [facility] [address], [place], [place] ??[id number] Design Engineering Specialist: Aundrea Blandon MD, Phone: ??[phone] Performed at: ??03 - [facility] [address] [place] [address] ??[id number] Design Engineering Specialist: Bhavik Barillas MD, Phone: ??[phone] Specimen Comment: No. of containers..01 Tissue us Racheal Adams MD LAB PATHOLOGY ORDER FELICITAS Final Result [facility] - 01 [facility] 02 [facility] 03 documented in this encounter Visit Diagnoses Not on filedocumented in this encounter Care Teams Optical Lab Technician Relationship Specialty Start Date End Date Guilherme Michelle MD [address] [place] [address] PCP - General Family Medicine 07/06/21 Tiago Randle MD [address] [place] [address] Referring Physician Obstetrics and Gynecology 07/11/21 Thalia Hopper 07/11/21 documented as of this encounter
--- OUTSIDE RECORDS SUMMARY | 2024-04-12 22:25 | XMS_ITS | Encounter Summary ---
Author Organization [facility] Healthcare Address [address] [place] [address] Care Team Providers Care Pump Servicer Name Role Phone Guilherme Michelle MD Primary Care Provider [phone] Tiago Randle MD Unavailable [phone] Encounter Details Date Type Department Care Team (Late st Contact Info) Description 08/30/2023 Orders Only [facility] Primary Care at [address] [address] Guilherme Michelle MD [address] [place] [address] [address] [place] [address] Mood disorder of depressed type (Primary Dx) Social History Tobacco Use Types [...] Master's degree (e.g., MA, MS, Verenice, MEd, COMPUTER HARDWARE ENGINEER, GIOVANNI) 07/11/2021 Comments Yes Sex and Gender Information Value Date Recorded Sex Assigned at Not on file Legal Sex Female 8:21 AM GENERAL LOT ATTENDANT Gender Identity Female 11/14/2021 10:22 AM CDT Sexual Orientation Not on file 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 Not on file Not on f ile documented as of this encounter Ordered Prescriptions Prescription Sig Dispense Quantity Refills Last Filled Start Date End Date venlafaxine XR (EFFEXOR-XR) 75 mg 24 hr capsuleIndications :major depressive disorder Take 1 capsule (75 mg total) by mouth daily 90 capsule 3 08/30/2023 documented in this encounter Plan of Treatment Not on file documented as of this encounter Visit Diagnoses Diagnosis Mood disorder of depressed type- Primary documented in this encounter Discontinued Medications Medication Sig Discontinue Reason Start Date End Da te venlafaxine XR (EFFEXOR-XR) 75 mg 24 hr capsuleIndications:major depressive disorder Take 1 capsule (75 mg total) by mouth daily Reorder 07/25/2023 08/30/2023 documented as of this encounter Care Teams Pump Servicer Relationship Specialty Start Date End Date Guilherme Michelle MD [address] [place] [address] PCP - General Family Medicine 07/06/21 Tiago Randle MD [address] [place] [address] Referring Physician Obstetrics and Gynecology 07/11/21 Thalia Hopper 07/11/21 documented as of this encounter
--- OUTSIDE RECORDS SUMMARY | 2024-04-12 22:25 | XMS_ITS | Encounter Summary ---
Author Organization [facility] Healthcare Address [address] [place] [address] Care Team Providers Care Airport Maintenance Chief Name Role Phone Guilherme Michelle MD Primary Care Provider [phone] Tiago Randle MD Unavailable [phone] Reason for Visit * Reason Comments Ultrasound * Diagnostic Imaging (Routine) - Closed Specialty Diagnoses / Procedures Referred By Asim t Referred To Contact Diagnoses Threatened Procedures US Ob Transvaginal Racheal Adams MD [address] [place] [address] [place] [address] Phone: tel: Charli Devi [address] [place] [address] [facility] [address] [place] [address] Phone: tel: fax: Referral ID Status Reason Start Date Expiration Date Visits Re quested Visits Authorized [id number] Closed 06/02/2023 07/01/2024 1 1 Encounter Details Date Type Department Care Team (Latest Contact Info) Description 06/04/2023 8:30 AM DIRECTOR PAYER Ancillary Procedure Charli Devi [address] [place] [address] [address] [place] [address] Threatened Social History Tobacco Use Types Packs/Day Years [...] Master's degree (e.g., MA, MS, Verenice, MEd, AQUATICS ASSISTANT DEPARTMENT HEAD, GIOVANNI) 07/11/2021 Comments Yes Sex and Gender Information Value Date Recorded Sex Assigned at Not on file Legal Sex Female 8:21 AM DIRECTOR PAYER Gender Identity Female 11/14/2021 10:22 AM CDT Sexual Orientation Not on file 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 ?? The uterus is enlarged. ??The lower uterine segment contains a collapsed gestational sac. ??There is no evidence of viable . ??This is consistent with a missed or incomplete AB please correlate clinically.2. ??Normal appearing ovaries. ?? Narrative Procedure Note Racheal Adams MD - 06/04/2023 IMPRESSION: 1. The uterus is enlarged. The lower uterine segment contains acollapsed gestational sac. There is no evidence of viable .This is consistent with a missed or incomplete AB please correlateclinically.2. Normal appearing ovaries. us Racheal Adams MD IMG OB US PROCEDURE S Final Result documented in this encounter Visit Diagnoses Diagnosis Threatened documented in this encounter Care Teams Airport Maintenance Chief Relationship Specialty Start Date End Date Guilherme Michelle MD [address] [place] [address] PCP - General Family Medicine 07/06/21 Tiago Randle MD [address] [place] [address] Referring Physician Obstetrics and Gynecology 07/11/21 Thalia Hopper 07/11/21 documented as of this encounter
--- OUTSIDE RECORDS SUMMARY | 2024-04-12 22:25 | XMS_ITS | Referral Summary ---
Author Organization [facility] [address] [place] [id number] Care Team Providers Care Pain Management Specialist Name Role Phone Guilherme Michelle MD Primary Care Provider [phone] Tiago Randle MD Unavailable [phone] Encounters Date Type Department Care Team Description 04/05/2024 Telephone [facility] Care at [address] [address] Racheal Adams MD 04/02/2024 Telephone Lila Devi [address] [place] [address] [place] [address] Racheal Adams MD 03/24/2024 8:40 PM DIRECTOR OF HEMOPHILIA - 03/24/2024 11:59 PM DIRECTOR OF HEMOPHILIA Hospital Encounter [address] [address] Iron deficiency Discharge Disposition: Discharge to home or self care 03/24/2024 11:30 AM DIRECTOR OF HEMOPHILIA Lab [facility] Outpatient Lab at [address] [address] Encounter for medical examination to establish care (Primary Dx) 03/22/2024 2:00 PM DIRECTOR OF HEMOPHILIA Ancillary Procedure Lila Devi [address] [facility] [address] [place] [address] Encounter to determine viability of , single or unspecified fetus 03/12/2024 9:54 AM DIRECTOR OF HEMOPHILIA - 03/12/2024 11:59 PM DIRECTOR OF HEMOPHILIA Hospital Encounter [address] [address] Missed period Discharge Disposition: Discharge to home or self care 03/12/2024 10:00 AM DIRECTOR OF HEMOPHILIA Lab [facility] Outpatient Lab at [address] [address] Encounter for medical examination to establish care (Primary Dx) 03/10/2024 Telephone Lila GUAMAN [facility] [address] [facility] [address] [place] [address] Racheal Adams MD Test Results 03/09/2024 10:27 AM DIRECTOR OF HEMOPHILIA - 03/09/2024 11:59 PM DIRECTOR OF HEMOPHILIA Hospital Encounter [address] [address] Missed period Discharge Disposition: Discharge to home or self care 03/09/2024 10:30 AM DIRECTOR OF HEMOPHILIA Lab [facility] Outpatient Lab at [address] [address] Missed period (Primary Dx) 03/08/2024 4:00 PM DIRECTOR OF HEMOPHILIA Ancillary Procedure Lila GUAMAN [facility] [address] [facility] [address] [place] [address] Missed period; Encounter to establish gestational age using ultrasound 02/12/2024 Telephone Lila GUAMAN [employer] [address] [facility] [address] [place] [address] Racheal Adams MD 02/09/2024 9:58 AM DIRECTOR OF HEMOPHILIA - 02/09/2024 11:59 PM DIRECTOR OF HEMOPHILIA Hospital Encounter [address] [address] Screening for STD (sexually transmitted disease) Discharge Disposition: Discharge to home or self care 02/09/2024 10:15 AM DIRECTOR OF HEMOPHILIA Lab [facility] Outpatient Lab at [address] [address] Weight gain (Primary Dx); Vitamin D deficiency; Well woman exam 02/09/2024 9:15 AM DIRECTOR OF HEMOPHILIA Office Visit [facility] at [address] [address] Racheal Adams MD Well woman exam (Primary Dx); Encounter for evaluation regarding contraception options; Pelvic and perineal pain; Diarrhea, unspecified type; Screening for STD (sexually transmitted disease); Encounter to establish care 02/03/2024 3:00 PM CDT Lab [facility] 4 [place], [place] Healthcare maintenance 02/03/2024 2:30 PM CDT Ancillary Procedure [facility] [address] [place] [phone] Abnormal uterine bleeding from Last 3 Months Allergies Active Allergy Reactions Criticality Noted Date Comments Sulfamethoxazole-Trimethoprim Hives Medium 2021 Medications ondansetron ODT (ZOFRAN-ODT) 4 mg disintegrating tabletIndications: Excessive Vomiting in Take 1 tablet (4 mg total) by mouth every 8 (eight) hours as needed for nausea or vomiting 40 tablet 2 09/24/19 23 Active cholecalciferol (VITAMIN D-3) 5,000 unit capsule Take one capsule daily with food. 30 capsule 11 04/18/19 24 Active venlafaxine XR (EFFEXOR-XR) 75 mg 24 hr capsuleIndications :major depressive disorder Take 1 capsule (75 mg total) by mouth daily 90 capsule 3 08/30/19 24 Active etonogestreL-ethin yl estradioL (NUVARING, ELURYNG) 0.12-0.015 mg/24 hr vaginal ring Insert vaginally and leave in place for 3 consecutive weeks, then remove for 1 week. 1 each 12 11/10/19 24 025 Active Active Problems Problem Noted Date Diagnosed Date Pelvic and perineal pain 02/09/2024 Assessment & Plan (02/09/2024 4:25 PM DIRECTOR OF HEMOPHILIA): Will see how it is if she can get the diarrhea under control Will see how it is if she leaves the ring in during sex and gets her full hormone dose To std testing Encounter for evaluation regarding contraception options 02/09/2024 Assessment & Plan (02/09/2024 9:46 AM DIRECTOR OF HEMOPHILIA): Options discussed She will stay with the ring for now Not to take out when she is having sex. Diarrhea 02/09/2024 Assessment & Plan (02/09/2024 4:24 PM DIRECTOR OF HEMOPHILIA): Has been going on for about four weeks. Pain started about three weeks ago. To see PCP Mood disorder of depressed type 02/08/2023 Overview (02/08/2023): refilled Effexor XR Assessment & Plan (02/08/2023 12:02 PM CDT): Will cross taper to Wellbutrin, which should cause less weight gain, less risk of withdrawal, also spares the libido more Discussed supplements that might be helpful, e.g Lion's Toan, Cashiers tail, ashwagandha. Interactions are still possible, of course, between those and the prescriptions Well woman exam 10/18/2022 Assessment & Plan (02/09/2024 9:51 AM DIRECTOR OF HEMOPHILIA): Will do at her next appt To gc/ct and serum screening today Assessment & Plan (06/04/2023 2:54 PM DIRECTOR OF HEMOPHILIA): She will need to have Pap smear 6 weeks after she completes her miscarriage Assessment & Plan (10/18/2022 6:59 PM CDT): She is due Weight gain 10/18/2022 Assessment & Plan (10/18/2022 7:00 PM CDT): She was seeing Dr. Michelle for this Did not get the labs he ordered Will reorder Diet/activity level briefly reviewed. Incomplete 09/23/2022 Assessment & Plan (06/23/2023 2:25 PM CDT): She will come for ultrasound so that we can see what is left of the uterus I will see her afterwards She is interested in active management of her incomplete Bleeding profile was reviewed Hemodynamically she is currently stable Assessment & Plan (06/09/2023 2:21 PM DIRECTOR OF HEMOPHILIA): I think she has passed everything To beta in 2 weeks Rto 6 weeks for pelvic exam Will try to do the nexplanon at the same time. Will send for labs them Assessment & Plan (06/04/2023 2:53 PM DIRECTOR OF HEMOPHILIA): Ultrasound shows retained products of conception This is not surprising based on her history and exam from Friday Options were discussed She would like to avoid surgery She use Cytotec last time and will do again Use was reviewed She was encouraged to call me if she feels that she has passed everything Otherwise I will follow up with her next week She will need serial beta-hCGs to make sure her levels go down to 0 Her partner was here today and voices understanding We briefly reviewed the workup of labs and ultrasound that we will do at 6 weeks as this is her 2nd loss We briefly discussed progesterone supplementation and other options for her next . Assessment & Plan (10/18/2022 6:58 PM CDT): I think the uterus is empty Will follow betas to zero No sex until then Emotions around loss discussed Assessment & Plan (10/10/2022 10:53 AM CDT): Usg done that confirms exam Options discussed She will take the second dose of cytotec Wants to avoid D&C Has my number if she has concerns F/u Friday in [facility]. Assessment & Plan (10/09/2022 9:45 AM CDT): Options discussed She would like to try the cytotec Use reviewed and outcomes discussed We discussed that this is not an pill Bleeding precautions given Rto tomorrow at 9am. Assessment & Plan (09/27/2022 1:25 AM CDT): Options discuss Since she had the episode of bleeding it is possible that she does not have a viable To serial beta To usg We discussed the order of appearance in and that as she is early there may not yet be a baby with FHT She will return after. Recurrent major depression 03/06/2022 Cyndie Martínez infection 08/16/2021 Vitamin D deficiency 08/16/2021 Encounter for medical examination to establish c are 07/13/2021 Assessment & Plan (07/13/2021 10:26 AM CDT): A initial well visit to establish care has been performed today. Leanna Kaur is not up to date on screening tests. She is in need of Cervical cancer screening- these have been ordered. She is not up to date on needed preventative vaccinations; She is in need of Covid-19 (booster). These have been ordered/arranged unless otherwise indicated. Awaiting labs. EBV test ordered, possible the pharyngitis caused by that virus (or CMV, which I might test for if it is negative) ENT referral is likely Thyroid dysfunction will be ruled out (it could be possibly causative for menstrual dysfunction, weight gain, fatigue) History of mononucleosis syndrome 07/13/2021 Pharyngitis, chronic 07/11/2021 Estimated Date of Delivery Comme nts Yes 11/06/2024 Based on Ultraso und Resolved Problems Problem Noted Date Diagnosed Date Resolved Date Missed menses 09/27/2022 09/27/2022 Immunizations Name Administration Dates Next Due Influenza, Trivalent, Preser vative Free, Intramuscular 01/14/2017 Influenza, Unspecified 02/04/2023(Deferr ed: Patient Refused),04/07/2022(Deferred: Patient Refused),03/06/2022(Deferred: Patient Refused),04/07/2020(Deferred: Patient Refused) Moderna SARS-CoV-2 Monovalen t Vaccination (12+ YRS) 06/24/2020 Tdap 10/07/2015 Social History Tobacco Use Types Packs/Day Years Used Date Smoking Tobacco: Never Smokeless Tobacco: Never Tobacco Cessation:Counseling Given: Not Answered AUDIT-C Answer Date Recorded Q1: How often [...] Master's degree (e.g., MA, MS, Verenice, MEd, PROMOTIONAL MARKETING ANALYST, GIOVANNI) 07/11/2021 Estimated Date of Delivery Comme nts Yes 11/06/2024 Based on Ultraso und Sex and Gender Information Value Date Recorded Sex Assigned at Not on file Legal Sex Female 8:21 AM DIRECTOR OF HEMOPHILIA Gender Identity Female 11/14/2021 10:22 AM CDT Sexual Orientation Not on file 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 Not on file Not on file Not on f ile Last Filed Vital Signs Vital Sign Reading Time Taken Comments Blood Pressure 110/70 02/09/2024 9:18 AM DIRECTOR OF HEMOPHILIA Pulse 70 06/09/2023 2:12 PM DIRECTOR OF HEMOPHILIA Temperature 37.1 ??C (98.7 ??F) 05/22/2023 4:22 PM CS T Respiratory Rate 20 05/22/2023 4:22 PM DIRECTOR OF HEMOPHILIA Oxygen Saturation 98% 05/22/2023 4:22 PM DIRECTOR OF HEMOPHILIA Inhaled Oxygen Concentration - - Weight 60.3 kg (133 lb) 02/09/2024 9:18 AM DIRECTOR OF HEMOPHILIA Height 162.6 cm (5' 4 ) 02/09/2024 9:18 AM DIRECTOR OF HEMOPHILIA Body Mass Index 22.83 02/09/2024 9:18 AM DIRECTOR OF HEMOPHILIA Plan of Treatment Not on file Procedures Procedure Name Priority Date/Time Associated Diagnosis Comments DIFFERENTIAL AUTO Routine 03/24/2024 11: 30 AM DIRECTOR OF HEMOPHILIA Iron deficiency IRON PROFILE W/ IBC Routine 03/24/2024 1 1:30 AM DIRECTOR OF HEMOPHILIA Iron deficiency CBC WITH AUTO DIFFERENTIAL Routine 03/24/2024 11:30 AM DIRECTOR OF HEMOPHILIA Iron deficiency US OB LIMITED Schedule Routine, Read Routine (OP Routine) 03/22/2024 4:32 PM DIRECTOR OF HEMOPHILIA Encounter to determine viability of , single or unspecified fetus HCG, BLOOD, QUANTITATIVE Routine 03/12/2024 9:54 AM DIRECTOR OF HEMOPHILIA Missed period HCG, BLOOD, QUANTITATIVE Routine 03/09/2024 10:27 AM DIRECTOR OF HEMOPHILIA Missed period US OB TRANSVAGINAL Schedule Routine, Read Routine (OP Routine) 03/08/2024 4:52 PM DIRECTOR OF HEMOPHILIA Missed period Encounter to establish gestational age using ultrasound HEPATITIS B SURFACE ANTIGEN Routine 02/09/2024 9:58 AM DIRECTOR OF HEMOPHILIA Screening for STD (sexually transmitted disease) HEPATITIS C ANTIBODY Routine 02/09/2024 9:58 AM DIRECTOR OF HEMOPHILIA Screening for STD (sexually transmitted disease) RPR Routine 02/09/2024 9:58 AM DIRECTOR OF HEMOPHILIA Screening for STD (sexually transmitted disease) HIV 1/2 ANTIBODY PLUS P24 ANTIGEN Routine 02/09/2024 9:58 AM DIRECTOR OF HEMOPHILIA Screening for STD (sexually transmitted disease) HSV 1 ANTIBODY, IGG Routine 02/09/2024 9 :58 AM DIRECTOR OF HEMOPHILIA Screening for STD (sexually transmitted disease) HSV 2 ANTIBODY, IGG Routine 02/09/2024 9 :58 AM DIRECTOR OF HEMOPHILIA Screening for STD (sexually transmitted disease) N. GONORRHOEAE/C. TRACHOMATIS AMPLIFICATION Routine 02/09/2024 9:58 AM DIRECTOR OF HEMOPHILIA Screening for STD (sexually transmitted disease) US TRANSVAGINAL Routine 02/03/2024 3:09 PM CDT Abnormal uterine bleeding VITAMIN D 25 HYDROXY Routine 02/03/2024 3:00 PM CDT Healthcare maintenance IRON PROFILE W/ IBC Routine 02/03/2024 3 :00 PM CDT Healthcare maintenance from Last 3 Months Results * Differential, auto (03/24/2024 11:30 AM DIRECTOR OF HEMOPHILIA) Neutrophil abs 5.9 1.5 - 6.5 K/cumm Imm gran abs 0.0 0.0 - 0.1 K/cumm [facility] Lymphocyte abs 1.7 0.8 - 3.3 K/cumm [facility] Monocyte abs 0.7 0.2 - 0.8 K/cumm [facility] Eosinophil abs 0.1 0.0 - 0.5 K/cumm [facility] Basophil abs 0.0 0.0 - 0.1 K/cumm [facility] Neutrophil pct 70.8 % [facility] Comment: Interpretive Data Percent cell count reference ranges are not reported, since discordance with absolute values may lead to misinterpretation of CBC data. Current Interpretive Data was last revised on 2017. Imm gran pct 0.4 % [facility] Comment: Interpretive Data Percent cell count reference ranges are not reported, since discordance with absolute values may lead to misinterpretation of CBC data. Current Interpretive Data was last revised on 2017. Lymphocyte pct 20.0 % [facility] Comment: Interpretive Data Percent cell count reference ranges are not reported, since discordance with absolute values may lead to misinterpretation of CBC data. Current Interpretive Data was last revised on 2017. Monocyte pct 7.8 % [facility] Comment: Interpretive Data Percent cell count reference ranges are not reported, since discordance with absolute values may lead to misinterpretation of CBC data. Current Interpretive Data was last revised on 2017. Eosinophil pct 0.6 % [facility] Comment: Interpretive Data Percent cell count reference ranges are not reported, since discordance with absolute values may lead to misinterpretation of CBC data. Current Interpretive Data was last revised on 2017. Basophil pct 0.4 % [facility] Comment: Interpretive Data Percent cell count reference ranges are not reported, since discordance with absolute values may lead to misinterpretation of CBC data. Current Interpretive Data was last revised on 2017. Blood 03/24/2024 11:3 0 AM DIRECTOR OF HEMOPHILIA 03/24/2024 8:43 PM DIRECTOR OF HEMOPHILIA us Guilherme Michelle MD LAB BLOOD ORDERABLES Final Result [facility] [id number] [place] [address] * Iron profile w/ IBC (03/24/2024 11:30 AM DIRECTOR OF HEMOPHILIA) Iron 76 35 - 145 mcg/dL Comment:Testing performed by : [facility], [address] [place] [address] TIBC 299 250 - 400 mcg/dL [facility] CH Comment:Testing performed by : [facility], [address] [place]., [address] Transferrin saturation 25 20 - 50 % [facility] CH Comment:Testing performed by : [facility], [address] [place]., [address] Blood 03/24/2024 11:3 0 AM DIRECTOR OF HEMOPHILIA 03/24/2024 8:42 PM DIRECTOR OF HEMOPHILIA Guilherme Michelle MD LAB BLOOD ORDERABLES Final Result [facility] [id number] [place] [address] * (ABNORMAL) CBC with auto differential (03/24/2024 11:30 AM DIRECTOR OF HEMOPHILIA) WBC 8.3 3.8 - 9.9 K/cumm Hgb 12.6 11.9 - 15.5 g/dL [facility] Hct 40.2 35.6 - 45.5 % [facility] Plt 253 150 - 400 K/cumm [facility] MPV 9.2 9.1 - 12.3 fL [facility] RBC 4.42 3.90 - 5.20 M/cumm [facility] MCV 91.0 81.3 - 96.4 fL [facility] MCH 28.5 27.1 - 33.3 pg [facility] MCHC 31.3(L) 32.3 - 35.7 g/dL [facility] RDW CV 13.2 11.1 - 14.9 % [facility] RDW SD 44.6 35.7 - 48.1 fL [facility] NRBC abs 0.00 0.00 - 0.01 K/cumm [facility] Blood 03/24/2024 11:3 0 AM DIRECTOR OF HEMOPHILIA 03/24/2024 8:43 PM DIRECTOR OF HEMOPHILIA Guilherme Michelle MD LAB BLOOD ORDERABLES Final Result [facility] KILPATRICK [id number] [place] [address] * US Ob Limited (03/22/2024 4:32 PM DIRECTOR OF HEMOPHILIA) Anatomical Region Laterality Modality Abdomen N/A Ultrasound 03/22/2024 2:33 PM DIRECTOR OF HEMOPHILIA Impressions 03/24/2024 3:45 PM DIRECTOR OF HEMOPHILIA There is a single IUP at 6 weeks and 6 days and an EDC of 8/5/25. ??When compared to the prior ultrasound dated 03/08/2024, there has been appropriate interval development. Narrative Procedure Note Racheal Adams MD - 03/24/2024 IMPRESSION: There is a single IUP at 6 weeks and 6 days and an EDC of 8/25. Whencompared to the prior ultrasound dated 03/08/2024, there has beenappropriate interval development. us Racheal Adams MD IMG OB US PROCEDURE S Final Result * (ABNORMAL) hCG, blood, quantitative (03/12/2024 9:54 AM DIRECTOR OF HEMOPHILIA) hCG, quant 12,234.0( H) 0.0 - 5.0 IUnits/L Comment: Interpretive Data Male: < 5 IU/L Non- premenopausal Female: <5 IU/L The [employer] hCG Beta Quant assay procedure was used. Results from different manufacturers or methods may not be comparable. ??Serial testing should be performed using the same method. Interpretive Data was last revised on 2023 Blood 03/12/2024 9:54 AM DIRECTOR OF HEMOPHILIA 03/12/2024 3:44 PM DIRECTOR OF HEMOPHILIA us Racheal Adams MD LAB BLOOD ORDERABLE S Final Result [facility] [id number] [place] [address] * (ABNORMAL) hCG, blood, quantitative (03/09/2024 10:27 AM DIRECTOR OF HEMOPHILIA) hCG, quant 3,770.0(H ) 0.0 - 5.0 IUnits/L Comment: Interpretive Data Male: < 5 IU/L Non- premenopausal Female: <5 IU/L The [employer] hCG Beta Quant assay procedure was used. Results from different manufacturers or methods may not be comparable. ??Serial testing should be performed using the same method. Interpretive Data was last revised on 2023 Blood 03/09/2024 10:2 7 AM DIRECTOR OF HEMOPHILIA 03/09/2024 5:04 PM DIRECTOR OF HEMOPHILIA us Racheal Adams MD LAB BLOOD ORDERABLE S Final Result [facility] [id number] [place] [address] * US OB Transvaginal (03/08/2024 4:52 PM DIRECTOR OF HEMOPHILIA) Anatomical Region Laterality Modality Abdomen N/A Ultrasound 03/08/2024 4:44 PM DIRECTOR OF HEMOPHILIA Impressions 03/10/2024 5:16 PM DIRECTOR OF HEMOPHILIA 1. ?? There is a single gestational sac within the endometrium measuring 5 weeks 2 days with EDC of 11/06/24. ??Recommend repeat ultrasound in 2 weeks to ensure appropriate interval development.2. Normal pelvic anatomy. Narrative Procedure Note Racheal Adams MD - 03/10/2024 IMPRESSION: 1. There is a single gestational sac within the endometrium measuring 5weeks 2 days with EDC of 8. Recommend repeat ultrasound in 2 weeksto ensure appropriate interval development.2. Normal pelvic anatomy. us Racheal Adams MD IMG OB US PROCEDURE S Final Result * N. gonorrhoeae/C. trachomatis Amplification Urine (02/09/2024 9:58 AM DIRECTOR OF HEMOPHILIA) C. trachomatis Not Detected [facility] Comment:Testing performed by : [facility], [address] [place]., [address] N. gonorrhoeae Not Detected [facility] KILPATRICK Comment: Interpretive Data This assay detects Chlamydia trachomatis and Neisseria gonorrhoeae by nucleic acid amplification testing (NAAT). This assay has been cleared by the [place] Food and Drug administration. The performance characteristics of this test have been verified by the [facility] Infectious Disease laboratory. The performance characteristics of this test have not been evaluated in individuals less than 14 years of age. Current Interpretive Data was last revised on 2023. Testing performed by: [facility], [address] [place]., [address] Urine (None) 02/09/2024 9:58 AM DIRECTOR OF HEMOPHILIA 02/10/2024 10:39 AM DIRECTOR OF HEMOPHILIA Racheal Adams MD LAB MICROBIOLOGY - GENERAL ORDERABLES Final Result Performing Organization Address [facility] Co de Phone Number [facility] KILPATRICK [id number] [place] [address] [facility] * HIV 1/2 Antibody plus p24 Antigen Blood (02/09/2024 9:58 AM DIRECTOR OF HEMOPHILIA) HIV 1/2 ab + p24 ag Nonreactive Nonreactive Comment: Nonreactive for HIV-1 antigen and HIV-1/HIV-2 antibodies. No laboratory evidence of HIV infection. If acute HIV infection is suspected, consider testing for HIV-1 RNA. Blood 02/09/2024 9:58 AM DIRECTOR OF HEMOPHILIA 02/09/2024 6:08 PM DIRECTOR OF HEMOPHILIA Racheal Adams MD LAB MICROBIOLOGY - GENERAL ORDERABLES Final Result Performing Organization Address [facility] [place] [address] [address] [place] [address] * Hepatitis C antibody Blood (02/09/2024 9:58 AM DIRECTOR OF HEMOPHILIA) Hep C Ab Nonreactive Nonreactive Comment: Interpretive Data Nonreactive: Antibodies to HCV not detected. Does NOT exclude the possibility of recent exposure to HCV. Equivocal: Equivocal for HCV antibodies. Supplemental molecular testing will be automatically performed to determine infection status in accordance with current CDC screening recommendations. ?? Reactive: Positive for HCV antibodies. ??This may represent current or past HCV infection. Supplemental molecular testing will be automatically performed to determine ??current infection status in accordance with current CDC screening recommendations. Interpretive data was last revised on 2019. Blood 02/09/2024 9:58 AM DIRECTOR OF HEMOPHILIA 02/09/2024 6:08 PM DIRECTOR OF HEMOPHILIA Racheal Adams MD LAB MICROBIOLOGY - GENERAL ORDERABLES Final Result Performing Organization Address [facility] de Phone Number ALLYN [id number] [facility] [place] [address] * HSV 2 IgG Antibody Blood (02/09/2024 9:58 AM DIRECTOR OF HEMOPHILIA) HSV 2 IgG Nonreactive Nonreactive Comment: Interpretive Data 1. Nonreactive: No detectable IgG antibody to HSV-2. 2. Equivocal: Presence or absence of detectable antibodies to HSV-2 cannot be determined and the test should be repeated. 3. Reactive: Indicates presence of detectable IgG antibody to HSV-2. Current interpretive data was last revised on 2022. Testing performed by: [facility], [address] [place] [address]., [id number] Blood 02/09/2024 9:58 AM DIRECTOR OF HEMOPHILIA 02/10/2024 9:44 AM DIRECTOR OF HEMOPHILIA Racheal Adams MD LAB MICROBIOLOGY - GENERAL ORDERABLES Final Result Performing Organization Address [facility] de Phone Number [facility] [address] [address] [facility] [place] [address] * (ABNORMAL) HSV 1 IgG Antibody Blood (02/09/2024 9:58 AM DIRECTOR OF HEMOPHILIA) HSV 1 IgG Equivocal (A) Nonreactive Comment: Interpretive Data 1. Nonreactive: No detectable IgG antibody to HSV-1. 2. Equivocal: Presence or absence of detectable antibodies to HSV-1 cannot be determined and the test should be repeated. 3. Reactive: Indicates presence of detectable IgG antibody to HSV-1. Current interpretive data was last revised on 2016. Testing performed by: [facility], [address] [facility], [place]., [address] Blood 02/09/2024 9:58 AM DIRECTOR OF HEMOPHILIA 02/10/2024 9:44 AM DIRECTOR OF HEMOPHILIA Racheal Adams MD LAB MICROBIOLOGY - GENERAL ORDERABLES Final Result Performing Organization Address [facility] Co de Phone Number ALLYN KILPATRICK [address] [place] [address] * RPR Blood (02/09/2024 9:58 AM DIRECTOR OF HEMOPHILIA) RPR Nonreactive Nonreactive Blood 02/09/2024 9:58 AM DIRECTOR OF HEMOPHILIA 02/09/2024 6:08 PM DIRECTOR OF HEMOPHILIA us Racheal Adams MD LAB MICROBIOLOGY - GENERAL ORDERABLES Final Result Performing Organization Address [facility] Co de Phone Number ALLYN [address] [place] [address] * Hepatitis B Surface Antigen Blood (02/09/2024 9:58 AM DIRECTOR OF HEMOPHILIA) HepBsAg Nonreactive Nonreactive Blood 02/09/2024 9:58 AM DIRECTOR OF HEMOPHILIA 02/09/2024 6:08 PM DIRECTOR OF HEMOPHILIA Racheal Adams MD LAB MICROBIOLOGY - GENERAL ORDERABLES Final Result Performing Organization Address [facility] Co de Phone Number ALLYN [address] [address] [facility] [place] [address] * US Transvaginal (02/03/2024 3:09 PM CDT) Cul de Sac No free fluid visualized VIEWPOINT Endometrial Thickness 6.4 mm&millim eters VIEWPOINT Anatomical Region Laterality Modality Pelvis N/A Ultrasound 02/03/2024 3:02 PM CDT Impressions 02/09/2024 9:35 AM DIRECTOR OF HEMOPHILIA Normal pelvic ultrasound. ?? Narrative Procedure Note Racheal Adams MD - 02/09/2024 IMPRESSION: Normal pelvic ultrasound. us Racheal Adams MD IMG US PROCEDURES F inal Result * (ABNORMAL) Iron profile w/ IBC (02/03/2024 3:00 PM CDT) Iron 51 35 - 145 mcg/dL TIBC 416(H) 250 - 400 mcg/dL [facility] ([place]) Transferrin saturation 12(L) 20 - 50 % [facility] ([place]) Blood 02/03/2024 3:00 PM CDT 02/03/2024 3:50 PM CDT Lisy Snyder FINANCIAL SERVICES PROFESSIONAL LAB BLOOD ORDERABLES Final Result Performing Organization Address [facility] Co de Phone Number [facility] ([place]) 1 [facility] [employer] [address] * Vitamin D 25 hydroxy (02/03/2024 3:00 PM CDT) Vitamin D 25-OH 43 30 - 80 ng/mL Blood 02/03/2024 3:00 PM CDT 02/03/2024 3:50 PM CDT Lisy Snyder FINANCIAL SERVICES PROFESSIONAL LAB BLOOD ORDERABLES Final Result Performing Organization Address City/[facility]/ZIP Co de Phone Number [facility] ([facility] 1 [facility] [place] [address] from Last 3 Months Insurance [facility] CHOICE PLUS [facility] CHOICE PLUS Care Teams Pain Management Specialist Relationship Specialty Start Date End Date Guilherme Michelle MD [address] [place] [address] PCP - General Family Medicine 07/06/21 Tiago Randle MD [address] [place] [address] Referring Physician Obstetrics and Gynecology 07/11/21 Thalia Hopper 07/11/21
--- OUTSIDE RECORDS SUMMARY | 2024-04-12 22:25 | XMS_ITS | Encounter Summary ---
Author Organization [facility] Healthcare Address [address] [place] [address] Care Team Providers Care Boot And Saddle Repair Person Name Role Phone Guilherme Michelle MD Primary Care Provider [phone] Tiago Randle MD [facility] [phone] Encounter Details Date Type Department Care Team (Latest Contact Info) Description 02/09/2024 9:58 AM TECHNICAL SYSTEMS ARCHITECT - 02/09/2024 11:59 PM TECHNICAL SYSTEMS ARCHITECT Hospital Encounter [address] [phone] Screening for STD (sexually transmitted disease) Discharge Disposition: Discharge to home or self care Social History Tobacco Use Types Packs/Day Years [...] degree (e.g., MA, MS, Verenice, MEd, SUPERVISOR CD AREA, GIOVANNI) 07/11/2021 Comments No Sex and Gender Information Value Date Recorded Sex Assigned at Not on file Legal Sex Female 8:21 AM TECHNICAL SYSTEMS ARCHITECT Gender Identity Female 11/14/2021 10:22 AM CDT Sexual Orientation Not on file 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 30 capsule 11 04/18/2023 etonogestreL-ethiny l estradioL (NUVARING, ELURYNG) 0.12-0.015 mg/24 hr vaginal ring Insert vaginally and leave in place for 3 consecutive weeks, then remove for 1 week. 1 each 12 11/10/2023 11/10/19 25 ondansetron ODT (ZOFRAN-ODT) 4 mg disintegrating tabletIndications:E xcessive Vomiting in Take 1 tablet (4 mg total) by mouth every 8 (eight) hours as needed for nausea or vomiting 40 tablet 2 09/23/2022 venlafaxine XR (EFFEXOR-XR) 75 mg 24 hr capsuleIndications: major depressive disorder Take 1 capsule (75 mg total) by mouth daily 90 capsule 3 08/30/2023 documented as of this encounter Discharge Disposition Disposition Code Departure Means Destination Discharge to home or self care documented in this encounter Plan of Treatment Not on file documented as of this encounter Procedures Procedure Name Priority Date/Time Associated Diagnosis Comments N. GONORRHOEAE/C. TRACHOMATIS AMPLIFICATION Routine 02/09/2024 9:58 AM TECHNICAL SYSTEMS ARCHITECT Screening for STD (sexually transmitted disease) HIV 1/2 ANTIBODY PLUS P24 ANTIGEN Routine 02/09/2024 9:58 AM TECHNICAL SYSTEMS ARCHITECT Screening for STD (sexually transmitted disease) HEPATITIS C ANTIBODY Routine 02/09/2024 9:58 AM TECHNICAL SYSTEMS ARCHITECT Screening for STD (sexually transmitted disease) HSV 2 ANTIBODY, IGG Routine 02/09/2024 9 :58 AM TECHNICAL SYSTEMS ARCHITECT Screening for STD (sexually transmitted disease) HSV 1 ANTIBODY, IGG Routine 02/09/2024 9 :58 AM TECHNICAL SYSTEMS ARCHITECT Screening for STD (sexually transmitted disease) RPR Routine 02/09/2024 9:58 AM TECHNICAL SYSTEMS ARCHITECT Screening for STD (sexually transmitted disease) HEPATITIS B SURFACE ANTIGEN Routine 02/09/2024 9:58 AM TECHNICAL SYSTEMS ARCHITECT Screening for STD (sexually transmitted disease) documented in this encounter Results * Hepatitis B Surface Antigen Blood (02/09/2024 9:58 AM TECHNICAL SYSTEMS ARCHITECT) Pathologist [facility] HepBsAg Nonreactive Nonreactive Blood 02/09/2024 9:58 AM TECHNICAL SYSTEMS ARCHITECT 02/09/2024 6:08 PM TECHNICAL SYSTEMS ARCHITECT Racheal Adams MD LAB MICROBIOLOGY - GENERAL ORDERABLES Final Result Performing Organization Address [facility] de Phone Number ALLYN [address] [place] [address] * Hepatitis C antibody Blood (02/09/2024 9:58 AM TECHNICAL SYSTEMS ARCHITECT) Pathologist [facility] Hep C Ab Nonreactive Nonreactive Comment: Interpretive [...] revised on 2019. Blood 02/09/2024 9:58 AM TECHNICAL SYSTEMS ARCHITECT 02/09/2024 6:08 PM TECHNICAL SYSTEMS ARCHITECT Racheal Adams MD LAB MICROBIOLOGY - GENERAL ORDERABLES Final Result Performing Organization Address [facility] [place] Number [place] [address] [address] [facility] [email or web address] [email or web address], [place] [id number] * RPR Blood (02/09/2024 9:58 AM TECHNICAL SYSTEMS ARCHITECT) Pathologist [facility] RPR Nonreactive Nonreactive Blood 02/09/2024 9:58 AM TECHNICAL SYSTEMS ARCHITECT 02/09/2024 6:08 PM TECHNICAL SYSTEMS ARCHITECT Racheal Adams MD LAB MICROBIOLOGY - GENERAL ORDERABLES Final Result Performing Organization Address City/[facility] Co de Phone Number ALLYN KILPATRICK [address] [address] Department [employer] [place], [place] [id number] * HIV 1/2 Antibody plus p24 Antigen Blood (02/09/2024 9:58 AM TECHNICAL SYSTEMS ARCHITECT) Pathologist [facility] HIV 1/2 ab + p24 ag Nonreactive Nonreactive Comment: Nonreactive for HIV-1 antigen and HIV-1/HIV-2 antibodies. No laboratory evidence of HIV infection. If acute HIV infection is suspected, consider testing for HIV-1 RNA. Blood 02/09/2024 9:58 AM TECHNICAL SYSTEMS ARCHITECT 02/09/2024 6:08 PM TECHNICAL SYSTEMS ARCHITECT Racheal Adams MD LAB MICROBIOLOGY - GENERAL ORDERABLES Final Result Performing Organization Address [facility] de Phone Number ALLYN KILPATRICK [address] [address] Department [employer] [place], [place] [id number] * (ABNORMAL) HSV 1 IgG Antibody Blood (02/09/2024 9:58 AM TECHNICAL SYSTEMS ARCHITECT) [facility] HSV 1 IgG Equivocal (A) Nonreactive Comment: Interpretive Data 1. Nonreactive: No detectable IgG antibody to HSV-1. 2. Equivocal: Presence or absence of detectable antibodies to HSV-1 cannot be determined and the test should be repeated. 3. Reactive: Indicates presence of detectable IgG antibody to HSV-1. Current interpretive data was last revised on 2016. Testing performed by: [facility], [address] [place]., [address] Blood 02/09/2024 9:58 AM TECHNICAL SYSTEMS ARCHITECT 02/10/2024 9:44 AM TECHNICAL SYSTEMS ARCHITECT Racheal Adams MD LAB MICROBIOLOGY - GENERAL ORDERABLES Final Result Performing Organization Address [facility] Co de Phone Number ALLYN KILPATRICK [address] [address] [facility] [place] [address] * HSV 2 IgG Antibody Blood (02/09/2024 9:58 AM TECHNICAL SYSTEMS ARCHITECT) [facility] HSV 2 IgG Nonreactive Nonreactive Comment: Interpretive Data 1. Nonreactive: No detectable IgG antibody to HSV-2. 2. Equivocal: Presence or absence of detectable antibodies to HSV-2 cannot be determined and the test should be repeated. 3. Reactive: Indicates presence of detectable IgG antibody to HSV-2. Current interpretive data was last revised on 2022. Testing performed by: [facility], [address] [place]., [address] Blood 02/09/2024 9:58 AM TECHNICAL SYSTEMS ARCHITECT 02/10/2024 9:44 AM TECHNICAL SYSTEMS ARCHITECT Racheal Adams MD LAB MICROBIOLOGY - GENERAL ORDERABLES Final Result Performing Organization Address City/[facility] Co de Phone Number ALLYN KILPATRICK [address] [address] [email or web address] [address] * N. gonorrhoeae/C. trachomatis Amplification Urine (02/09/2024 9:58 AM TECHNICAL SYSTEMS ARCHITECT) Pathologist [facility] C. trachomatis Not Detected [facility] Comment:Testing performed by : [facility], [address] [place] [address]., [id number] N. gonorrhoeae Not Detected ALLYN KILPATRICK Comment: Interpretive Data This assay detects Chlamydia trachomatis and Neisseria gonorrhoeae by nucleic acid amplification testing (NAAT). This assay has been cleared by the [place] Food and Drug administration. The performance characteristics of this test have been verified by the [facility] Molecular Infectious Disease laboratory. The performance characteristics of this test have not been evaluated in individuals less than 14 years of age. Current Interpretive Data was last revised on 2023. Testing performed by: [facility], [address] [place] [address]., [id number] Urine (None) 02/09/2024 9:58 AM TECHNICAL SYSTEMS ARCHITECT 02/10/2024 10:39 AM TECHNICAL SYSTEMS ARCHITECT Racheal Adams MD LAB MICROBIOLOGY - GENERAL ORDERABLES Final Result Performing Organization Address City/[facility]/ZIP Co de Phone Number ALLYN KILPATRICK [address] [address] [place] [address] [facility] documented in this encounter Visit Diagnoses Diagnosis Screening for STD (sexually transmitted disease) documented in this encounter Care Teams Boot And Saddle Repair Person Relationship Specialty Start Date End Date Guilherme Michelle MD [address] [place] [address] PCP - General Family Medicine 07/06/21 Tiago Randle MD [address] [place] [address] Referring Physician Obstetrics and Gynecology 07/11/21 Thalia Hopper 07/11/21 documented as of this encounter
--- OUTSIDE RECORDS SUMMARY | 2024-04-12 22:25 | XMS_ITS | Encounter Summary ---
Author Organization [facility] Healthcare Address [address] [place] [address] Care Team Providers Care Commissary Helper Name Role Phone Guilherme Michelle MD Primary Care Provider [phone] Tiago Randle MD [facility] [phone] Encounter Details Date Type Department Care Team (Late st Contact Info) Description 04/05/2024 Telephone [facility] Medical Group [facility] at [address] [phone] Racheal Adams MD [address] [place] [address] Social History Tobacco Use Types Packs/Day Years [...] Master's degree (e.g., MA, MS, Verenice, MEd, EMR TRAINER, GIOVANNI) 07/11/2021 Estimated Date of Delivery Comme nts Yes 11/06/2024 Based on Ultraso und Sex and Gender Information Value Date Recorded Sex Assigned at Not on file Legal Sex Female 8:21 AM CUT OUT OPERATOR Gender Identity Female 11/14/2021 10:22 AM CDT Sexual Orientation Not on file 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 She will keep us posted. PARAG Keller RN OUT OPERATOR * Telephone Encounter - Kusum Meza RN - 04/05/2024 8:48 AM CST [phone] Called patient after she sent my chart message stating she has been out of town and that is why shenever messaged because regarding her new patient appt. Patient states she started bleeding a week ago on Friday and then had heavier bleeding on . Patient states she was changing 1-2 pads an hour and passing clots. Patient states she is not bleeding now, but does feel like her heart isracing and fatigue. Spoke with Dr. Adams and we will send for a beta and CBC today and then a repeat beta on Friday. We will update her with those results and then decide on an usg time. PARAG Keller, ARTEM OUT OPERATOR documented in this encounter Plan of Treatment Scheduled Orders Name Type Priority Associated Diagnoses Orde r Schedule hCG, blood, quantitative Lab Routine Threatened Expected: 04/07/2024, Expires: 04/05/2025 hCG, blood, quantitative Lab Routine Threatened Expected: 04/05/2024, Expires: 04/05/2025 CBC with auto differential Lab Routine Threatened Expected: 04/05/2024, Expires: 04/05/2025 documented as of this encounter Visit Diagnoses Diagnosis Threatened - Primary documented in this encounter Care Teams Commissary Helper Relationship Specialty Start Date End Date Guilherme Michelle MD [address] [place] [address] PCP - General Family Medicine 07/06/21 Tiago Randle MD [address] [place] [address] Referring Physician Obstetrics and Gynecology 07/11/21 Thalia Hopper 07/11/21 documented as of this encounter
--- OUTSIDE RECORDS SUMMARY | 2024-04-12 22:25 | XMS_ITS | Encounter Summary ---
Author Organization [facility] Address [address] [place] [address] Care Team Providers Care Rn Delivery Name Role Phone Guilherme Michelle MD Primary Care Provider [phone] Tiago Randle MD Unavailable [phone] Reason for Visit * Reason Comments Ultrasound * Diagnostic Imaging (Routine) - Pending Review Specialty Diagnoses / Procedures Referred By Contac t Referred To Contact Diagnoses Missed period Encounter to establish gestational age using ultrasound Procedures US OB Transvaginal US Ob Under 14 Weeks Racheal Adams MD [address] [place] [address] [address] [place] [address] Phone: tel: [facility] [address] [place] [address] [address] [place] [address] Phone: tel: fax: Referral ID Status Reason Start Date Expiration Date V isits Requested Visits Authorized [id number] Pending Review 03/08/2024 04/07/2025 1 1 Encounter Details Date Type Department Care Team (Latest Contact Info) Description 03/08/2024 4:00 PM FISHER EEL Ancillary Procedure [facility]byl[facility]i [address] [place] [address] [address] [place] [address] Missed period; Encounter to establish gestational age using ultrasound Social History Tobacco Use Types Packs/Day Years [...] Master's degree (e.g., MA, MS, Verenice, MEd, GASOLINE TESTER, GIOVANNI) 07/11/2021 Comments No Sex and Gender Information Value Date Recorded Sex Assigned at Not on file Legal Sex Female 8:21 AM FISHER EEL Gender Identity Female 11/14/2021 10:22 AM CDT Sexual Orientation Not on file 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 ?? There is a single gestational sac within the endometrium measuring 5 weeks 2 days with EDC of 8/2/25. ??Recommend repeat ultrasound in 2 weeks to ensure appropriate interval development.2. Normal pelvic anatomy. Narrative Procedure Note Racheal Adams MD - 03/10/2024 IMPRESSION: 1. There is a single gestational sac within the endometrium measuring 5weeks 2 days with EDC of 8/2/25. Recommend repeat ultrasound in 2 weeksto ensure appropriate interval development.2. Normal pelvic anatomy. us Racheal Adams MD IMG OB US PROCEDURE S Final Result documented in this encounter Visit Diagnoses Diagnosis Missed period Encounter to establish gestational age using ultrasound Encounter for routine screening for malformation using ultrasonics documented in this encounter Care Teams Rn Delivery Relationship Specialty Start Date End Date Guilherme Michelle MD [address] [place] [address] PCP - General Family Medicine 07/06/21 Tiago Randle MD [address] [place] [address] Referring Physician Obstetrics and Gynecology 07/11/21 Thalia Hopper 07/11/21 documented as of this encounter
--- OUTSIDE RECORDS SUMMARY | 2024-04-12 22:25 | XMS_ITS | Encounter Summary ---
Author Organization [facility] Healthcare Address [address] [place] [address] Care Team Providers Care Clearing House Clerk Name Role Phone Guilherme Michelle MD Primary Care Provider [phone] Tiago Randle MD [facility] [phone] Encounter Details Date Type Department Care Team (Late st Contact Info) Description 08/11/2023 10:15 AM CDT [address] Incomplete Social History Tobacco Use Types Packs/Day Years [...] Master's degree (e.g., MA, MS, Verenice, MEd, TUBE CARRIER, GIOVANNI) 07/11/2021 Comments Yes Sex and Gender Information Value Date Recorded Sex Assigned at Not on file Legal Sex Female 8:21 AM LIBRARY MONITOR Gender Identity Female 11/14/2021 10:22 AM CDT Sexual Orientation Not on file 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 It will not let me send in her orthocyclen. Could you try please? LM 08/11/23 @ 2:58 PM Racheal Adams MD documented in this encounter Plan of Treatment Not on file documented as of this encounter Procedures Procedure Name Priority Date/Time Associated Diagnosis Comments HCG, BLOOD, QUANTITATIVE Routine 08/11/2023 10:16 AM CDT Incomplete documented in this encounter Results * hCG, blood, quantitative (08/11/2023 10:16 AM CDT) hCG, quant <5.0 0.0 - 5.0 IUnits/L Comment: Interpretive Data Male: < 5 IU/L Non- premenopausal Female: <5 IU/L The [employer] hCG Beta Quant assay procedure was used. Results from different manufacturers or methods may not be comparable. ??Serial testing should be performed using the same method. Interpretive Data was last revised on 2023 Blood 08/11/2023 10:1 6 AM CDT 08/11/2023 1:37 PM CDT us Racheal Adams MD LAB BLOOD ORDERABLE S Edited Result - Final [facility]) 1 [facility] [place] [address] documented in this encounter Visit Diagnoses Diagnosis Incomplete Legally unspecified , incomplete, without mention of complication documented in this encounter Discontinued Medications Medication Sig Discontinue Reason Start Date End Da te norgestimate-ethinyl estradioL (ORTHO-CYCLEN) 0.25-35 mg-mcg per tablet Take 1 tablet by mouth daily Alternate therapy 01/10/2023 08/11/2023 documented as of this encounter Care Teams Clearing House Clerk Relationship Specialty Start Date End Date Guilherme Michelle MD [address] [place] [address] PCP - General Family Medicine 07/06/21 Tiago Randle MD [address] [place] [address] Referring Physician Obstetrics and Gynecology 07/11/21 Thalia Hopper 07/11/21 documented as of this encounter
--- OUTSIDE RECORDS SUMMARY | 2024-04-12 22:25 | XMS_ITS | Encounter Summary ---
Author Organization [facility] Healthcare Address [address] [place] [address] Care Team Providers Care Railroad Track Mechanic Name Role Phone Guilherme Michelle MD Primary Care Provider [phone] Tiago Randle MD Unavailable [phone] Reason for Visit * Reason Comments Follow-up Pt is here for a f/u p after usg, TAB. Pt states that she still bleeding, changing once every 4 hours. Encounter Details Date Type Department Care Team (Late st Contact Info) Description 06/04/2023 9:00 AM WARM IN Office Visit [facility] [address] [place] [address] [address] [place] [address] Racheal Adams MD [address] [place] [address] Incomplete (Primary Dx); Well woman exam Social History Tobacco Use Types Packs/Day Years [...] Master's degree (e.g., MA, MS, Verenice, MEd, CUTTER OPERATOR HELPER, GIOVANNI) 07/11/2021 Comments Yes Sex and Gender Information Value Date Recorded Sex Assigned at Not on file Legal Sex Female 8:21 AM WARM IN Gender Identity Female 11/14/2021 10:22 AM CDT Sexual Orientation Not on file 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 file Not on file Not on f ile documented as of this encounter Last Filed Vital Signs Vital Sign Reading Time Taken Comments Blood Pressure 120/76 06/04/2023 9:01 AM WARM IN Pulse 67 06/04/2023 9:01 AM WARM IN Temperature - - Respiratory Rate - - Oxygen Saturation - - Inhaled Oxygen Concentration - - Weight 65.5 kg (144 lb 6.4 oz) 06/04/2023 9:01 A M WARM IN Height 162.6 cm (5' 4 ) 06/04/2023 9:01 AM WARM IN Body Mass Index 24.79 06/04/2023 9:01 AM WARM IN documented in this encounter Ordered Prescriptions Prescription Sig Dispense Quantity Refills Last Filled Start Date End Date miSOPROStoL (CYTOTEC) 200 mcg tablet Take 4 tablets (800 mcg total) by mouth nightly Can repeat in 24 hours if needed. 8 tablet 06/04/2023 documented in this encounter Progress Notes * Racheal Admas MD - 06/04/2023 9:00 AM CST Images from the original note were not included. Fur Dyer Visit Follow-up (Pt is here for a f/up after usg, TAB. /Pt states that she still bleeding, changing once every 4 hours. ) Subjective: Leanna Kaur is a 33 y.o. year old female who presents for follow-up after ultrasound. Please see the nursing note. Patient's last menstrual period was 04/14/2023 (exact date). Menstrual History: Patient's last menstrual period was 04/14/2023 (exact date). Sexual History: OB History 5 Para 2 Term 2 AB 1 Living 2 SAB 1 IAB Ectopic Multiple Live Births 2 # Outcome Date GA Labor/2nd Weight Sex Delivery Anes PTL Lv A1 A5 1 SAB 2 3 Term 03/2013 3.402 kg (7 lb 8 oz) M Vag-Spont Living 4 Term 01/2016 3.402 kg (7 lb 8 oz) F Vag-Spont Living 5 Current Objective: BP 120/76 (BP Location: Right arm, Patient Position: Sitting) Pulse 67 Ht 162.6 cm (5' 4 ) Wt144 lb 6.4 oz (65.5 kg) LMP 04/14/2023 (Exact Date) BMI 24.79 kg/m?? Physical Exam: She is a well-developed well-nourished female in no apparent distress OBGyn Exam Assessment and Plan: Diagnoses and all orders for this visit: Incomplete (Primary) Assessment & Plan: Ultrasound shows retained products of conception This [...] at 6 weeks as this is her 2ndloss We briefly discussed progesterone supplementation and other options for her next . Well woman exam Assessment & Plan: She will need to have Pap smear 6 weeks after she completes her miscarriage Other orders - miSOPROStoL (CYTOTEC) 200 mcg tablet; Take 4 tablets (800 mcg total) by mouth nightly Can repeat in 24 hours if needed. Return in about 1 week (around 06/11/2023) for f/u of incomplete ab. Racheal Adams MD 06/04/2023 IN documented in this encounter Miscellaneous Notes * Assessment & Plan Note - Racheal Adams MD - 06/04/2023 2:54 PM CSTAssociated Problem(s): Well woman exam She will need to have Pap smear 6 weeks after she completes her miscarriage IN * Assessment & Plan Note - Racheal Adams MD - 06/04/2023 2:53 PM CSTAssociated Problem(s): Incomplete Ultrasound shows retained products of conception This [...] at 6 weeks as this is her 2ndloss We briefly discussed progesterone supplementation and other options for her next . IN documented in this encounter Plan of Treatment Not on file documented as of this encounter Visit Diagnoses Diagnosis Incomplete - Primary Legally unspecified , incomplete, without mention of complication Well woman exam Routine general medical examination at a health care facility documented in this encounter Care Teams Railroad Track Mechanic Relationship Specialty Start Date End Date Guilherme Michelle MD [address] [place] [address] PCP - General Family Medicine 07/06/21 Tiago Randle MD [address] [place] [address] Referring Physician Obstetrics and Gynecology 07/11/21 Thalia Hopper 07/11/21 documented as of this encounter
--- OUTSIDE RECORDS SUMMARY | 2024-04-12 22:25 | XMS_ITS | Encounter Summary ---
Author Organization [facility] Healthcare Address [address] [place] [address] Care Team Providers Care Summer Associate Name Role Phone Guilherme Michelle MD Primary Care Provider [phone] Tiago Randle MD [facility] [phone] Encounter Details Date Type Department Care Team (Late st Contact Info) Description 04/02/2024 Telephone [employer] [address] [facility] [address] [place] [address] Racheal Adams MD [address] [place] [address] [address] [place] [address] Social History Tobacco Use Types Packs/Day [...] Master's degree (e.g., MA, MS, Verenice, MEd, FIELD STAFF MANAGER, GIOVANNI) 07/11/2021 Estimated Date of Delivery Comme nts Yes 11/06/2024 Based on Ultraso und Sex and Gender Information Value Date Recorded Sex Assigned at Not on file Legal Sex Female 8:21 AM INFORMATION ENGINEER Gender Identity Female 11/14/2021 10:22 AM CDT Sexual Orientation Not on file 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 With Dr. Adams. I advised patient to call back and stated I would send her a my chart messageas well. Kusum RN RMATION ENGINEER documented in this encounter Plan of Treatment Not on file documented as of this encounter Visit Diagnoses Not on filedocumented in this encounter Care Teams Summer Associate Relationship Specialty Start Date End Date Guilherme Michelle MD [address] [place] [address] PCP - General Family Medicine 07/06/21 Tiago Randle MD [address] [place] [address] Referring Physician Obstetrics and Gynecology 07/11/21 Thalia Hopper 07/11/21 documented as of this encounter
--- OUTSIDE RECORDS SUMMARY | 2024-04-12 22:25 | XMS_ITS | Encounter Summary ---
Author Organization [facility] Healthcare Address [address] [place] [address] Care Team Providers Care Armored Machine Operator Name Role Phone Guilherme Michelle MD Primary Care Provider [phone] Tiago Randle MD [facility] [phone] Encounter Details Date Type Department Care Team (Late st Contact Info) Description 08/11/2023 Telephone [facility] at [address] [address] Racheal Adams MD [address] [place] [address] Social History Tobacco Use Types Packs/Day [...] Master's degree (e.g., MA, MS, Verenice, MEd, GEAR MACHINE OPERATOR, GIOVANNI) 07/11/2021 Comments Yes Sex and Gender Information Value Date Recorded Sex Assigned at Not on file Legal Sex Female 8:21 AM CARRIER WASHER Gender Identity Female 11/14/2021 10:22 AM CDT Sexual Orientation Not on file 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 file Not on file Not on f ile documented as of this encounter Ordered Prescriptions Prescription Sig Dispense Quantity Refills Last Filled Start Date End Date norgestimate-ethin yl estradioL (ORTHO-CYCLEN) 0.25-35 mg-mcg per tablet Take 1 tablet by mouth daily 28 tablet 12 08/11/2023 11/10/2023 documented in this encounter Miscellaneous Notes * Telephone Encounter - Indy Delgado RN - 08/11/2023 3:22 PM CDT See mychart message * Telephone Encounter - Indy Delgado RN - 08/11/2023 3:08 PM CDT ----- Message from Racheal Adams MD sent at 08/11/2023 3:02 PM CDT ----- Spoke with patient Reviewed results She had [...] tired and I will send her for [facility], where do we stand with her Nexplanon. It will not let me send in her orthocyclen. Could you try please? LM 08/11/23 @ 2:58 PM Racheal Adams MD documented in this encounter Plan of Treatment Not on file documented as of this encounter Visit Diagnoses Not on filedocumented in this encounter Care Teams Armored Machine Operator Relationship Specialty Start Date End Date Guilherme Michelle MD [address] [place] [address] PCP - General Family Medicine 07/06/21 Tiago Randle MD [address] [place] [address] Referring Physician Obstetrics and Gynecology 07/11/21 Thalia Hopper 07/11/21 documented as of this encounter
--- OUTSIDE RECORDS SUMMARY | 2024-04-12 22:25 | XMS_ITS | Encounter Summary ---
Author Organization [facility] Healthcare Address [address] [place] [address] Care Team Providers Care Stick Roller Name Role Phone Guilherme Michelle MD Primary Care Provider [phone] Tiago Randle MD [facility] [phone] Encounter Details Date Type Department Care Team (Late st Contact Info) Description 02/03/2024 3:[address] PM [address]T [address] Healthcare maintenance Social History Tobacco Use Types Packs/Day Years [...] Master's degree (e.g., MA, MS, Verenice, MEd, CAR CONSTRUCTION SUPERINTENDENT, GIOVANNI) 07/11/2021 Comments Yes Sex and Gender Information Value Date Recorded Sex Assigned at Not on file Legal Sex Female 8:21 AM BOX REPAIRER Gender Identity Female 11/14/2021 10:22 AM CDT Sexual Orientation Not on file 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 on file Not on file Not on f ile documented as of this encounter Plan of Treatment Not on file documented as of this encounter Procedures Procedure Name Priority Date/Time Associated Diagnosis Comments IRON PROFILE W/ IBC Routine 02/03/2024 3 :00 PM CDT Healthcare maintenance VITAMIN D 25 HYDROXY Routine 02/03/2024 3:00 PM CDT Healthcare maintenance documented in this encounter Results * Vitamin D 25 hydroxy (02/03/2024 3:00 PM CDT) Vitamin D 25-OH 43 30 - 80 ng/mL Blood 02/03/2024 3:00 PM CDT 02/03/2024 3:50 PM CDT Lisy Snyder [facility] LAB BLOOD ORDERABLES Final Result [facility] ([place]) [facility] [address] [place] [address] * (ABNORMAL) Iron profile w/ IBC (02/03/2024 3:00 PM CDT) Iron 51 35 - 145 mcg/dL TIBC 416(H) 250 - 400 mcg/dL [facility] ([place]) Transferrin saturation 12(L) 20 - 50 % [facility] ([place]) Blood 02/03/2024 3:00 PM CDT 02/03/2024 3:50 PM CDT Lisy Snyder NP LAB BLOOD ORDERABLES Final Result ALL[facility] HERNANDEZ ([place]) 1 [facility] [address] [place] [address] documented in this encounter Visit Diagnoses Diagnosis Healthcare maintenance documented in this encounter Care Teams Stick Roller Relationship Specialty Start Date End Date Guilherme Michelle MD [address] [place] [address] PCP - General Family Medicine 07/06/21 Tiago Randle MD [address] [place] [address] Referring Physician Obstetrics and Gynecology 07/11/21 Thalia Hopper 07/11/21 documented as of this encounter
--- OUTSIDE RECORDS SUMMARY | 2024-04-12 22:25 | XMS_ITS | Encounter Summary ---
Author Organization [facility] Healthcare Address [address] [place] [address] Care Team Providers Care Dairy Manager Name Role Phone Guilherme Michelle MD Primary Care Provider [phone] Tiago Randle MD Unavailable [phone] Reason for Visit * Diagnostic Imaging (Routine) - Closed Specialty Diagnoses / Procedures Referred By Contlorne roldan Referred To Contact Diagnoses Abnormal uterine bleeding Procedures US Transvaginal US Pelvis W Endovaginal Racheal Adams MD [address] [place] [address] [address] Phone: tel: [facility] Medical Group Referral ID Status Reason Start Date Expiration Date Visits Re quested Visits Authorized [id number] Closed 01/27/2024 02/25/2025 1 1 Encounter Details Date Type Department Care Team (Latest Contact Info) Description 02/03/2024 2:30 PM CDT Ancillary Procedure [facility] [address] [place] [address] Abnormal uterine bleeding Social History Tobacco Use Types Packs/Day Years [...] Master's degree (e.g., MA, MS, Verenice, MEd, WORD PROCESSING MACHINE OPERATOR, GIOVANNI) 07/11/2021 Comments Yes Sex and Gender Information Value Date Recorded Sex Assigned at Not on file Legal Sex Female 8:21 AM POURER Gender Identity Female 11/14/2021 10:22 AM CDT Sexual Orientation Not on file 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 Not on file Not on file Not on f ile documented as of this encounter Plan of Treatment Not on file documented as of this encounter Procedures Procedure Name Priority Date/Time Associated Diagnosis Comments US TRANSVAGINAL Routine 02/03/2024 3:09 PM CDT Abnormal uterine bleeding documented in this encounter Results * US Transvaginal (02/03/2024 3:09 PM CDT) Cul de Sac No free fluid visualized [facility] Endometrial Thickness 6.4 mm&millim eters [facility] Anatomical Region Laterality Modality Pelvis N/A Ultrasound 02/03/2024 3:02 PM CDT Impressions 02/09/2024 9:35 AM POURER Normal pelvic ultrasound. ?? Narrative Procedure Note Racheal Adams MD - 02/09/2024 IMPRESSION: Normal pelvic ultrasound. us Racheal Adams MD IMG US PROCEDURES F inal Result documented in this encounter Visit Diagnoses Diagnosis Abnormal uterine bleeding Unspecified disorder of menstruation and other abnormal bleeding from female genital tract documented in this encounter Care Teams Dairy Manager Relationship Specialty Start Date End Date Guilherme Michelle MD [address] [place] [address] PCP - General Family Medicine 07/06/21 Tiago Randle MD [address] [place] [address] Referring Physician Obstetrics and Gynecology 07/11/21 Thalia Hopper 07/11/21 documented as of this encounter
--- OUTSIDE RECORDS SUMMARY | 2024-04-12 22:25 | XMS_ITS | Encounter Summary ---
Author Organization [facility] Address [address] [place] [address] Care Team Providers Care Broacher Name Role Phone Guilherme Michelle MD Primary Care Provider [phone] Tiago Randle MD Unavailable [phone] Reason for Referral * Consultation (Routine) - Closed Specialty Diagnoses / Procedures Referred By Contlorne t Referred To Contact Internal Medicine Diagnoses Encounter to establish care Racheal Adams MD [address] [place] [address] [address] SMALLS [address] [place] [address] Phone: tel: Guilherme Michelle MD [address] [place] [address] Phone: tel: fax: Referral ID Status Reason Start Date Expiration Date V isits Requested Visits Authorized [id number] Closed Specialty Services Required 02/09/2024 03/10/2025 1 1 Question Answer Please select the performing region: [facility] [[id number]] To provider: GUILHERME MICHELLE [[id number]] # of visits: 1 R SERVICES TECHNICIAN Reason for Visit * Reason Comments follow up after ultrasound Encounter Details Date Type Department Care Team (Late st Contact Info) Description 02/09/2024 9:15 AM DONOR SERVICES TECHNICIAN Office Visit [facility] Women's Health Care at [address] [address] Racheal Adams MD [address] [place] [address] [address] Well woman exam (Primary Dx); Encounter for evaluation regarding contraception options; Pelvic and perineal pain; Diarrhea, unspecified type; Screening for STD (sexually transmitted disease); Encounter to establish care Social History Tobacco Use Types Packs/Day [...] Master's degree (e.g., MA, MS, Verenice, MEd, REMELT FURNACE EXPEDITER, GIOVANNI) 07/11/2021 Comments No Sex and Gender Information Value Date Recorded Sex Assigned at Not on file Legal Sex Female 8:21 AM DONOR SERVICES TECHNICIAN Gender Identity Female 11/14/2021 10:22 AM CDT Sexual Orientation Not on file 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 on file Not on file Not on f ile documented as of this encounter Last Filed Vital Signs Vital Sign Reading Time Taken Comments Blood Pressure 110/70 02/09/2024 9:18 AM DONOR SERVICES TECHNICIAN Pulse - - Temperature - - Respiratory Rate - - Oxygen Saturation - - Inhaled Oxygen Concentration - - Weight 60.3 kg (133 lb) 02/09/2024 9:18 AM DONOR SERVICES TECHNICIAN Height 162.6 cm (5' 4 ) 02/09/2024 9:18 AM DONOR SERVICES TECHNICIAN Body Mass Index 22.83 02/09/2024 9:18 AM DONOR SERVICES TECHNICIAN documented in this encounter Progress Notes * Racheal Adams MD - 02/09/2024 9:15 AM CST Field Map Technician Visit follow up after ultrasound Subjective: Leanna Kaur is a 33 y.o. year old female who presents for f/u after usg for pelvic pain. It was reviewed as normal. Her pain persist, mostly on the left Bm 4 times a day Not related to eating. All diarrhea. She is taking ozympic Doesn't think the diarrhea is related to it She is having pain with sex Better this past week. Contraceptive options dicussed. She had bleeding a week early this month with the ring This is her third month. She is changing q 1 hour x 12 days this past month when she started bleeding early Usually it is six days. She could not remember to take the pill. This amount of bleeding is no worse. Contraception:Nuvaring Are you wanting to be in the next year?no Patient's last menstrual period was 01/23/2024 (exact date). Menstrual History: Patient's last menstrual period was 01/23/2024 (exact date). Sexual History: OB History 5 Para 2 Term 2 AB 1 Living 2 SAB 1 IAB Ectopic Multiple Live Births 2 # Outcome Date GA Labor/2nd Weight Sex Type Anes PTL Lv A1 A5 1 SAB 2 3 Term 03/2013 3.402 kg (7 lb 8 oz) M Vag-Spont Living 4 Term 01/2016 3.402 kg (7 lb 8 oz) F Vag-Spont Living 5 Objective: BP 110/70 Ht 162.6 cm (5' 4 ) Wt 133 lb (60.3 kg) LMP 01/23/2024 (Exact Date) BreastfeedingUnknown BMI 22.83 kg/m?? Physical Exam: wdwn female in nad OBGyn Exam Assessment and Plan: Diagnoses and all orders for this visit: Well woman exam (Primary) Assessment & Plan: Will do at her next appt To gc/ct and serum screening today Encounter for evaluation regarding contraception options Assessment & Plan: Options discussed She will stay with the ring for now Not to take out when she is having sex. Pelvic and perineal pain Assessment & Plan: Will see how it is if she can get the diarrhea under control Will see how it is if she leaves the ring in during sex and gets her full hormone dose To std testing Diarrhea, unspecified type Assessment & Plan: Has been going on for about four weeks. Pain started about three weeks ago. To see PCP Screening for STD (sexually transmitted disease) - Hepatitis B Surface Antigen Blood; Future - Hepatitis C antibody Blood; Future - RPR Blood; Future - HIV 1/2 Antibody plus p24 Antigen Blood; Future - HSV 1 IgG Antibody Blood; Future - HSV 2 IgG Antibody Blood; Future - N. gonorrhoeae/C. trachomatis Amplification Urine; Future Encounter to establish care - Ambulatory referral to Internal Medicine; Future Return in about 3 months (around 05/11/2024) for wwe and f/u on DUB. Racheal Adams MD 02/09/2024 R SERVICES TECHNICIAN documented in this encounter Miscellaneous Notes * Assessment & Plan Note - Racheal Adams MD - 02/09/2024 4:25 PM CSTAssociated Problem(s): Pelvic and perineal pain Will see how it is if she can get the diarrhea under control Will see how it is if she leaves the ring in during sex and gets her full hormone dose To std testing R SERVICES TECHNICIAN * Assessment & Plan Note - Racheal Adams MD - 02/09/2024 9:51 AM CSTAssociated Problem(s): Well woman exam Will do at her next appt To gc/ct and serum screening today R SERVICES TECHNICIAN * Assessment & Plan Note - Racheal Adams MD - 02/09/2024 9:46 AM CSTAssociated Problem(s): Encounter for evaluation regarding contraception options Options discussed She will stay with the ring for now Not to take out when she is having sex. R SERVICES TECHNICIAN * Assessment & Plan Note - Racheal Adams MD - 02/09/2024 9:46 AM CSTAssociated Problem(s): Diarrhea Has been going on for about four weeks. Pain started about three weeks ago. To see PCP R SERVICES TECHNICIAN R SERVICES TECHNICIAN documented in this encounter Plan of Treatment Scheduled Referrals Name Type Priority Associated Diagnoses Order Schedule Ambulatory referral to Internal Medicine Outpatient Referral Routine Encounter to establish care Expected: 02/23/2024 (Approximate), Expires: 02/08/2025 documented as of this encounter Results * N. gonorrhoeae/C. trachomatis Amplification Urine (02/09/2024 9:58 AM DONOR SERVICES TECHNICIAN) C. trachomatis Not Detected [facility] Comment:Testing performed by : [facility], [address] [place] [address]., [id number] N. gonorrhoeae Not Detected [facility] Comment: Interpretive Data This assay detects Chlamydia trachomatis and Neisseria gonorrhoeae by nucleic acid amplification testing (NAAT). This assay has been cleared by the [place] Food and Drug administration. The performance characteristics of this test have been verified by the [facility] Molecular Infectious Disease laboratory. The performance characteristics of this test have not been evaluated in individuals less than 14 years of age. Current Interpretive Data was last revised on 2023. Testing performed by: [facility], [address] [place] [address]., [id number] Urine (None) 02/09/2024 9:58 AM DONOR SERVICES TECHNICIAN 02/10/2024 10:39 AM DONOR SERVICES TECHNICIAN Racheal Adams MD LAB MICROBIOLOGY - GENERAL ORDERABLES Final Result [facility] [address] [address] Department [place] [address] [facility] * HSV 2 IgG Antibody Blood (02/09/2024 9:58 AM DONOR SERVICES TECHNICIAN) HSV 2 IgG Nonreactive Nonreactive Comment: Interpretive Data 1. Nonreactive: No detectable IgG antibody to HSV-2. 2. Equivocal: Presence or absence of detectable antibodies to HSV-2 cannot be determined and the test should be repeated. 3. Reactive: Indicates presence of detectable IgG antibody to HSV-2. Current interpretive data was last revised on 2022. Testing performed by: [facility], [address] [place] [address]., [id number] Blood 02/09/2024 9:58 AM DONOR SERVICES TECHNICIAN 02/10/2024 9:44 AM DONOR SERVICES TECHNICIAN Racheal Adams MD LAB MICROBIOLOGY - GENERAL ORDERABLES Final Result Performing Organization Address [facility] Co de Phone Number [facility] [address] [address] [facility] [place] [address] * (ABNORMAL) HSV 1 IgG Antibody Blood (02/09/2024 9:58 AM DONOR SERVICES TECHNICIAN) HSV 1 IgG Equivocal (A) Nonreactive Comment: Interpretive Data 1. Nonreactive: No detectable IgG antibody to HSV-1. 2. Equivocal: Presence or absence of detectable antibodies to HSV-1 cannot be determined and the test should be repeated. 3. Reactive: Indicates presence of detectable IgG antibody to HSV-1. Current interpretive data was last revised on 2016. Testing performed by: [facility], [address] [place] [address]., [id number] Blood 02/09/2024 9:58 AM DONOR SERVICES TECHNICIAN 02/10/2024 9:44 AM DONOR SERVICES TECHNICIAN Racheal Adams MD LAB MICROBIOLOGY - GENERAL ORDERABLES Final Result Performing Organization Address [facility] Co de Phone Number [facility] [address] [address] [facility] [address] * HIV 1/2 Antibody plus p24 Antigen Blood (02/09/2024 9:58 AM DONOR SERVICES TECHNICIAN) HIV 1/2 ab + p24 ag Nonreactive Nonreactive Comment: Nonreactive for HIV-1 antigen and HIV-1/HIV-2 antibodies. No laboratory evidence of HIV infection. If acute HIV infection is suspected, consider testing for HIV-1 RNA. Blood 02/09/2024 9:58 AM DONOR SERVICES TECHNICIAN 02/09/2024 6:08 PM DONOR SERVICES TECHNICIAN Racheal Adams MD LAB MICROBIOLOGY - GENERAL ORDERABLES Final Result Performing Organization Address [facility] Co de Phone Number [facility] [address] [address] [facility] [address] * RPR Blood (02/09/2024 9:58 AM DONOR SERVICES TECHNICIAN) [facility] RPR Nonreactive Nonreactive Blood 02/09/2024 9:58 AM DONOR SERVICES TECHNICIAN 02/09/2024 6:08 PM DONOR SERVICES TECHNICIAN Racheal Adams MD LAB MICROBIOLOGY - GENERAL ORDERABLES Final Result Performing Organization Address [facility] Co de Phone Number [facility] [address] [address] [facility] [address] * Hepatitis C antibody Blood (02/09/2024 9:58 AM DONOR SERVICES TECHNICIAN) [facility] Hep C Ab Nonreactive Nonreactive Comment: Interpretive [...] revised on 2019. Blood 02/09/2024 9:58 AM DONOR SERVICES TECHNICIAN 02/09/2024 6:08 PM DONOR SERVICES TECHNICIAN Racheal Adams MD LAB MICROBIOLOGY - GENERAL ORDERABLES Final Result Performing Organization Address [facility] Co de Phone Number [facility] [address] [address] [facility] [address] * Hepatitis B Surface Antigen Blood (02/09/2024 9:58 AM DONOR SERVICES TECHNICIAN) [facility] HepBsAg Nonreactive Nonreactive Blood 02/09/2024 9:58 AM DONOR SERVICES TECHNICIAN 02/09/2024 6:08 PM DONOR SERVICES TECHNICIAN Racheal Adams MD LAB MICROBIOLOGY - GENERAL ORDERABLES Final Result [facility] [address] [address] Department [place] [address] documented in this encounter Visit Diagnoses Diagnosis Well woman exam- Primary Routine general medical examination at a health care facility Encounter for evaluation regarding contraception options Pelvic and perineal pain Diarrhea, unspecified type Screening for STD (sexually transmitted disease) Encounter to establish care documented in this encounter Discontinued Medications Medication Sig Discontinue Reason Start Date End Da te buPROPion (WELLBUTRIN) 75 mg tablet Take 1 tablet (75 mg total) by mouth 2 (two) times a day for 7 days, THEN 2 tablets (150 mg total) 2 (two) times a day for 23 days. Therapy completed 02/08/2023 02/09/2024 cyclobenzaprine (FLEXERIL) 5 mg tablet Take 1 tablet (5 mg total) by mouth 3 (three) times a day as needed for muscle spasms Therapy completed 02/04/2023 02/09/2024 miSOPROStoL (CYTOTEC) 200 mcg tablet Take 4 tablets (800 mcg total) by mouth nightly Can repeat in 24 hours if needed. Therapy completed 06/04/2023 02/09/2024 documented as of this encounter Care Teams Broacher Relationship Specialty Start Date End Date Guilherme Michelle MD [address] [place] [address] PCP - General Family Medicine 07/06/21 Tiago Randle MD [address] [place] [address] Referring Physician Obstetrics and Gynecology 07/11/21 Thalia Hopper 07/11/21 documented as of this encounter
--- OUTSIDE RECORDS SUMMARY | 2024-04-12 22:25 | XMS_ITS | Encounter Summary ---
Author Organization [facility] Healthcare Address [address] [place] [address] Care Team Providers Care Newborn Hearing Screener Name Role Phone Guilherme Michelle MD Primary Care Provider [phone] Tiago Randle MD Unavailable [phone] Reason for Visit * Reason Onset Date Comments Test Results 03/10/2024 Encounter Details Date Type Department Care Team (Late st Contact Info) Description 03/10/2024 Telephone [facility] [address] 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 I stated that Dr. Adams would like us to repeat her level tomorrow to see how it is rising. Patient is aware to go tomorrow for repeat labs and then we will notify her once that result is back. Patient verbalized understanding. ARTEM Noe H DESIGNER documented in this encounter Plan of Treatment Not on file documented as of this encounter Results * (ABNORMAL) hCG, blood, quantitative (03/12/2024 9:54 AM FLASH DESIGNER) hCG, quant 12,234.0( H) 0.0 - 5.0 IUnits/L Comment: Interpretive Data Male: < 5 IU/L Non- premenopausal Female: <5 IU/L The [employer] hCG Beta Quant assay procedure was used. Results from different manufacturers or methods may not be comparable. ??Serial testing should be performed using the same method. Interpretive Data was last revised on 2023 Blood 03/12/2024 9:54 AM FLASH DESIGNER 03/12/2024 3:44 PM FLASH DESIGNER us Racheal Adams MD LAB BLOOD ORDERABLE S Final Result [facility] [address] [address] Department [place] [address] documented in this encounter Visit Diagnoses Diagnosis Missed period- Primary documented in this encounter Care Teams Newborn Hearing Screener Relationship Specialty Start Date End Date Guilherme Michelle MD [address] [place] [address] PCP - General Family Medicine 07/06/21 Tiago Randle MD [address] [place] [address] Referring Physician Obstetrics and Gynecology 07/11/21 Thalia Hopper 07/11/21 documented as of this encounter
--- OUTSIDE RECORDS SUMMARY | 2024-04-12 22:25 | XMS_ITS | Encounter Summary ---
Author Organization [facility] Healthcare Address [address] [place] [address] Care Team Providers Care Distribution Specialist Name Role Phone Guilherme Michelle MD Primary Care Provider [phone] Tiago Randle MD Unavailable [phone] Encounter Details Date Type Department Care Team (Late st Contact Info) Description 03/09/2024 10:30 AM SUPERVISOR ASSEMBLY Lab [facility] Medical Group Outpatient Lab at [address] [address] Missed period (Primary Dx) Social History Tobacco Use Types [...] Master's degree (e.g., MA, MS, Verenice, MEd, FINAL CANOE INSPECTOR, GIOVANNI) 07/11/2021 Comments No Sex and Gender Information Value Date Recorded Sex Assigned at Not on file Legal Sex Female 8:21 AM SUPERVISOR ASSEMBLY Gender Identity Female 11/14/2021 10:22 AM CDT Sexual Orientation Not on file 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
--- OUTSIDE RECORDS SUMMARY | 2024-04-12 22:25 | XMS_ITS | Encounter Summary ---
Author Organization [facility] Healthcare Address [address] [place] [address] Care Team Providers Care Conservation Agent Name Role Phone Guilherme Michelle MD Primary Care Provider [phone] Tiago Randle MD [facility] [phone] Encounter Details Date Type Department Care Team (Latest Contact Info) Description 03/09/2024 10:27 AM CRAB FISHERMAN - 03/09/2024 11:59 PM CRAB FISHERMAN Hospital Encounter [address] [id number] Missed period Discharge Disposition: Discharge to home [...] Master's degree (e.g., MA, MS, Verenice, MEd, SIZE ROLLER OPERATOR, GIOVANNI) 07/11/2021 Comments No Sex and Gender Information Value Date Recorded Sex Assigned at Not on file Legal Sex Female 8:21 AM CRAB FISHERMAN Gender Identity Female 11/14/2021 10:22 AM CDT Sexual Orientation Not on file 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 30 capsule 11 04/18/2023 etonogestreL-ethiny l estradioL (NUVARING, ELURYNG) 0.12-0.015 mg/24 hr vaginal ring Insert vaginally and leave in place for 3 consecutive weeks, then remove for 1 week. 1 each 11/10/2023 11/10/19 25 ondansetron ODT (ZOFRAN-ODT) 4 [...] Associated Diagnosis Comments HCG, BLOOD, QUANTITATIVE Routine 03/09/2024 10:27 AM CRAB FISHERMAN Missed period documented in this encounter Results * (ABNORMAL) hCG, blood, quantitative (03/09/2024 10:27 AM CRAB FISHERMAN) hCG, quant 3,770.0(H ) 0.0 - 5.0 IUnits/L Comment: Interpretive Data Male: < 5 IU/L Non- premenopausal Female: <5 IU/L The [facility] hCG Beta Quant assay procedure was used. Results from different manufacturers or methods may not be comparable. ??Serial testing should be performed using the same method. Interpretive Data was last revised on 2023 Blood 03/09/2024 10:2 7 AM CRAB FISHERMAN 03/09/2024 5:04 PM CRAB FISHERMAN us Racheal Adams MD LAB BLOOD ORDERABLE S Final Result [facility] [address] [address] Department [place] [address] documented in this encounter Visit Diagnoses Diagnosis Missed period documented in this encounter Care Teams Conservation Agent Relationship Specialty Start Date End Date Guilherme Michelle MD [address] [place] [address] PCP - General Family Medicine 07/06/21 Tiago Randle MD [address] [place] [address] Referring Physician Obstetrics and Gynecology 07/11/21 Thalia Hopper 07/11/21 documented as of this encounter
--- OUTSIDE RECORDS SUMMARY | 2024-04-12 22:25 | XMS_ITS | Encounter Summary ---
Author Organization [facility] Healthcare Address [address] [place] [address] Care Team Providers Care Park Interpretive Ranger Name Role Phone Guilherme Michelle MD Primary Care Provider [phone] Tiago Randle MD Unavailable [phone] Encounter Details Date Type Department Care Team (Late st Contact Info) Description 07/01/2023 Telephone [facility] Medical Group Primary Care at [address] [address] Brittany Shrestha MA Social History Tobacco Use Types Packs/Day Years [...] degree (e.g., MA, MS, Verenice, MEd, SUPERVISOR ADULT EDUCATION, GIOVANNI) 07/11/2021 Comments Yes Sex and Gender Information Value Date Recorded Sex Assigned at Not on file Legal Sex Female 8:21 AM CLOUD AUTOMATION TESTER Gender Identity Female 11/14/2021 10:22 AM CDT Sexual Orientation Not on file 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 file Not on file Not on f ile documented as of this encounter Miscellaneous Notes * Telephone Encounter - Brittany Shrestha MA - 07/01/2023 8:54 AM CDT No Show, called pt, left message documented in this encounter Plan of Treatment Not on file documented as of this encounter Visit Diagnoses Not on filedocumented in this encounter Care Teams Park Interpretive Ranger Relationship Specialty Start Date End Date Guilherme Michelle MD [address] [place] [address] PCP - General Family Medicine 07/06/21 Tiago Randle MD [address] [place] [address] Referring Physician Obstetrics and Gynecology 07/11/21 Thalia Hopper 07/11/21 documented as of this encounter
--- OUTSIDE RECORDS SUMMARY | 2024-04-12 22:25 | XMS_ITS | Encounter Summary ---
Author Organization [facility] Healthcare Address [address] [place] [address] Care Team Providers Care Branch Operations Specialist Name Role Phone Guilherme Michelle MD Primary Care Provider [phone] Tiago Randle MD [facility] [phone] Encounter Details Date Type Department Care Team (Late st Contact Info) Description 02/12/2024 Telephone [facility] [address] [facility] [address] [place] [address] Racheal Adams MD [address] [place] [address] [address] [place] [address] Social History Tobacco Use Types [...] Master's degree (e.g., MA, MS, Verenice, MEd, WINDOWS APPLICATION PACKAGER, GIOVANNI) 07/11/2021 Comments No Sex and Gender Information Value Date Recorded Sex Assigned at Not on file Legal Sex Female 8:21 AM MILL HELPER Gender Identity Female 11/14/2021 10:22 AM CDT Sexual Orientation Not on file 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 HELPER * Telephone Encounter - Mel Otto MA - 02/12/2024 5:45 PM MILL HELPER ----- Message from Racheal Adams MD sent at 02/12/2024 9:06 AM MILL HELPER ----- Please let who ever ordered the hsv that I do not do that one. Please let Leanna know these are all negative once the gc/ct are back HELPER documented in this encounter Plan of Treatment Not on file documented as of this encounter Visit Diagnoses Not on filedocumented in this encounter Care Teams Branch Operations Specialist Relationship Specialty Start Date End Date Guilherme Michelle MD [address] [place] [address] PCP - General Family Medicine 07/06/21 Tiago Randle MD [address] [place] [address] Referring Physician Obstetrics and Gynecology 07/11/21 Thalia Hopper 07/11/21 documented as of this encounter
--- OUTSIDE RECORDS SUMMARY | 2024-04-12 22:25 | XMS_ITS | Encounter Summary ---
Author Organization [facility] Healthcare Address [address] [place] [address] Care Team Providers Care Certified Technician Specialist Name Role Phone Guilherme Michelle MD Primary Care Provider [phone] Tiago Randle MD Unavailable [phone] Encounter Details Date Type Department Care Team (Late st Contact Info) Description 06/09/[address] 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 on file Not on file Not on f ile documented as of this encounter Miscellaneous Notes * Telephone Encounter - Morales Ching - 06/09/2023 3:44 PM CST Lvm to have pt call us back to schedule 6wk bc insertion PRINTER INSTALLER documented in this encounter Plan of Treatment Not on file documented as of this encounter Visit Diagnoses Not on filedocumented in this encounter Care Teams Certified Technician Specialist Relationship Specialty Start Date End Date Guilherme Michelle MD [address] [place] [address] PCP - General Family Medicine 07/06/21 Tiago Randle MD [address] [place] [address] Referring Physician Obstetrics and Gynecology 07/11/21 Thalia Hopper 07/11/21 documented as of this encounter
--- OUTSIDE RECORDS SUMMARY | 2024-04-12 22:25 | XMS_ITS | Encounter Summary ---
Author Organization [facility] Healthcare Address [address] [place] [address] Care Team Providers Care Medical Lab Scientist Name Role Phone Guilherme Michelle MD Primary Care Provider [phone] Tiago Randle MD Unavailable [phone] Reason for Visit * Reason Comments Follow-up Pt is here for a f/u p, incomplete AB Encounter Details Date Type Department Care Team (Late st Contact Info) Description 06/09/2023 2:15 PM SUPERINTENDENT OVERHEAD DISTRIBUTION Office Visit [facility] Medical Group Women's Health Care at [address] [address] Racheal Adams MD [address] [place] [address] Incomplete (Primary Dx) Social History Tobacco Use Types [...] Master's degree (e.g., MA, MS, Verenice, MEd, BUSINESS TRANSFORMATION MANAGER, GIOVANNI) 07/11/2021 Comments Yes Sex and Gender Information Value Date Recorded Sex Assigned at Not on file Legal Sex Female 8:21 AM SUPERINTENDENT OVERHEAD DISTRIBUTION Gender Identity Female 11/14/2021 10:22 AM CDT Sexual Orientation Not on file 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 Not on file Not on file Not on f ile documented as of this encounter Last Filed Vital Signs Vital Sign Reading Time Taken Comments Blood Pressure 110/72 06/09/2023 2:12 PM SUPERINTENDENT OVERHEAD DISTRIBUTION Pulse 70 06/09/2023 2:12 PM SUPERINTENDENT OVERHEAD DISTRIBUTION Temperature - - Respiratory Rate - - Oxygen Saturation - - Inhaled Oxygen Concentration - - Weight 64.1 kg (141 lb 4.8 oz) 06/09/2023 2:12 P M SUPERINTENDENT OVERHEAD DISTRIBUTION Height 162.6 cm (5' 4 ) 06/09/2023 2:12 PM SUPERINTENDENT OVERHEAD DISTRIBUTION Body Mass Index 24.25 06/09/2023 2:12 PM SUPERINTENDENT OVERHEAD DISTRIBUTION documented in this encounter Progress Notes * Racheal Adams MD - 06/09/2023 2:15 PM CST Images from the original note were not included. International Trade Analyst Visit Follow-up (Pt is here for a f/up, incomplete AB ) Subjective: Leanna Kaur is a 33 y.o. year old female who presents for f/u of incomplete ab. She took the cytotec and had a large amount of cramping and bleeding Cramping is better Still bleeding some. Changing one time a day She would like to get the nexplanon Bleeding profile reviewed Will sign papers Contraception:None Are you wanting to be in the next year?no Patient's last menstrual period was 04/14/2023 (exact [...] F Vag-Spont Living 5 Current Objective: BP 110/72 (BP Location: Left arm, Patient Position: Sitting) Pulse 70 Ht 162.6 cm (5' 4 ) Wt 141 lb 4.8 oz (64.1 kg) LMP 04/14/2023 (Exact Date) BMI 24.25 kg/m?? Physical Exam: wdwn female in nad OBGyn Exam Assessment and Plan: Diagnoses and all orders for this visit: Incomplete (Primary) Assessment & Plan: I think she has passed everything To beta in 2 weeks Rto 6 weeks for pelvic exam Will try to do the nexplanon at the same time. Will send for labs them Return in about 6 weeks (around 07/21/2023) for pelvic exam and labs after SAB. Racheal Adams MD 06/09/2023 RINTENDENT OVERHEAD DISTRIBUTION documented in this encounter Miscellaneous Notes * Assessment & Plan Note - Racheal Adams MD - 06/09/2023 2:21 PM CSTAssociated Problem(s): Incomplete I think she has passed everything To beta in 2 weeks Rto 6 weeks for pelvic exam Will try to do the nexplanon at the same time. Will send for labs them RINTENDENT OVERHEAD DISTRIBUTION * Addendum Note - Linda Otto MA - 06/09/2023 2:15 PM CSTAddended by: LINDA OTTO on: 06/09/2023 02:30 PM Modules accepted: Orders RINTENDENT OVERHEAD DISTRIBUTION * Addendum Note - Ciara Hartman CLT - 06/09/2023 2:15 PM CSTAddended by: CIARA HARTMAN on: 08/11/2023 10:16 AM Modules accepted: Orders documented in this encounter Plan of Treatment Not on file documented as of this encounter Results * hCG, blood, quantitative [...] BLOOD ORDERABLE S Edited Result - Final [facility] [place] [address] documented in this encounter Visit Diagnoses Diagnosis Incomplete - Primary Legally unspecified , incomplete, without mention of complication documented in this encounter Care Teams Medical Lab Scientist Relationship Specialty Start Date End Date Guilherme Michelle MD [address] [place] [address] PCP - General Family Medicine 07/06/21 Tiago Randle MD [address] [place] [address] Referring Physician Obstetrics and Gynecology 07/11/21 Thalia Hopper 07/11/21 documented as of this encounter
--- OUTSIDE RECORDS SUMMARY | 2024-04-12 22:25 | XMS_ITS | Encounter Summary ---
Author Organization [facility] Healthcare Address [address] [place] [address] Care Team Providers Care Green Belt Name Role Phone Guilherme Michelle MD Primary Care Provider [phone] Tiago Randle MD Unavailable [phone] Reason for Visit * Reason Onset Date Comments Med Refill 08/30/2023 Encounter Details Date Type Department Care Team (Late st Contact Info) Description 08/30/2023 Telephone [facility] Medical Group Primary Care at [address] [address] Guilherme Michelle MD [address] [place] [address] [address] [place] [address] Med Refill Social History Tobacco Use Types Packs/Day Years [...] Master's degree (e.g., MA, MS, Verenice, MEd, VISUAL STYLIST, GIOVANNI) 07/11/2021 Comments Yes Sex and Gender Information Value Date Recorded Sex Assigned at Not on file Legal Sex Female 8:21 AM WAN SUPPORT SPECIALIST Gender Identity Female 11/14/2021 10:22 AM CDT Sexual Orientation Not on file 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 LVM regarding above. * Telephone Encounter - Joanie Granger RN - 08/30/2023 8:31 PM CDT Pt stated her pharmacy has contacted the office multiple times for a refill of her Effexor and no response. Pt is concerned since she called this morning, has no medication and her pharmacy is closing. Pt also expressed concerns about being suddenly off of the medication. Pt is requesting a refill be sent to her pharmacy. Pt also expressed concerns about being suddenly off of the medication. Above discussed via secure chat with Dr. Michelle and then LVM secure chat present. * Telephone Encounter - Stephanie Sanz - 08/30/2023 11:13 AM CDT Medication Refill Patient's last Office/Video Visit: 07/01/23 Patient's next Office/Video Visit: NA Medication(s) Name/Dose: EFFEXOR Pharmacy (s) medication(s) should be sent to: [facility] [phone] Additional Comments: NO Does message need to be routed? Yes-Action Needed documented in this encounter Plan of Treatment Not on file documented as of this encounter Visit Diagnoses Not on filedocumented in this encounter Care Teams Green Belt Relationship Specialty Start Date End Date Guilherme Michelle MD [address] [place] [address] PCP - General Family Medicine 07/06/21 Tiago Randle MD [address] [place] [address] Referring Physician Obstetrics and Gynecology 07/11/21 Thalia Hopper 07/11/21 documented as of this encounter
--- OUTSIDE RECORDS SUMMARY | 2024-04-12 22:25 | XMS_ITS | Encounter Summary ---
Author Organization [facility] Healthcare Address [address] [place] [address] Care Team Providers Care School Childcare Attendant Name Role Phone Guilherme Michelle MD Primary Care Provider [phone] Tiago Randle MD [facility] [phone] Encounter Details Date Type Department Care Team (Late st Contact Info) Description 06/10/2023 Telephone [facility] [address] [place] [address] Racheal Adams MD [address] [place] [address] [address] [place] [address] Social History Tobacco Use Types [...] Master's degree (e.g., MA, MS, Verenice, MEd, BANKING AND FINANCE INSTRUCTOR, GIOVANNI) 07/11/2021 Comments Yes Sex and Gender Information Value Date Recorded Sex Assigned at Not on file Legal Sex Female 8:21 AM PROCESS ANALYST Gender Identity Female 11/14/2021 10:22 AM CDT Sexual Orientation Not on file 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 CT wants to see her in about 6wks for Nexplanon Insertion, Pelvic Exam, And f\up SAB/Labs. Informed pt in the message that the appt was scheduled without talking to her so the spot could be saved since CT's schedule is so busy. Told her if this does not work to call us back and we could see what else we could find, but CT is rather booked out. ESS ANALYST documented in this encounter Plan of Treatment Not on file documented as of this encounter Visit Diagnoses Not on filedocumented in this encounter Care Teams School Childcare Attendant Relationship Specialty Start Date End Date Guilherme Michelle MD [address] [place] [address] PCP - General Family Medicine 07/06/21 Tiago Randle MD [address] [place] [address] Referring Physician Obstetrics and Gynecology 07/11/21 Thalia Hopper 07/11/21 documented as of this encounter
--- OUTSIDE RECORDS SUMMARY | 2024-04-12 22:25 | XMS_ITS | Encounter Summary ---
Author Organization [facility] Healthcare Address [address] [place] [address] Care Team Providers Care Bin Worker Name Role Phone Guilherme Michelle MD Primary Care Provider [phone] Tiago Randle MD [facility] [phone] Encounter Details Date Type Department Care Team (Latest Contact Info) Description 03/12/2024 9:54 AM CONTROL SYSTEM COMPUTER SCIENTIST - 03/12/2024 11:59 PM CONTROL SYSTEM COMPUTER SCIENTIST Hospital Encounter [address] [id number] Missed period Discharge Disposition: Discharge to home [...] Master's degree (e.g., MA, MS, Verenice, MEd, AMERICAN HISTORY PROFESSOR, GIOVANNI) 07/11/2021 Estimated Date of Delivery Comme nts Yes 11/06/2024 Based on Ultraso und Sex and Gender Information Value Date Recorded Sex Assigned at Not on file Legal Sex Female 8:21 AM CONTROL SYSTEM COMPUTER SCIENTIST Gender Identity Female 11/14/2021 10:22 AM CDT Sexual Orientation Not on file 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 Results from different manufacturers or methods may not be comparable. ??Serial testing should be performed using the same method. Interpretive Data was last revised on 2023 Blood 03/12/2024 9:54 AM CONTROL SYSTEM COMPUTER SCIENTIST 03/12/2024 3:44 PM CONTROL SYSTEM COMPUTER SCIENTIST us Racheal Adams MD LAB [place]LOOD [place] [address] [address] Department of Laboratories [place], [place] [id number] documented in this encounter Visit Diagnoses Diagnosis Missed period documented in this encounter Care Teams Bin Worker Relationship Specialty Start Date End Date Guilherme Michelle MD [address] [place] [address] PCP - General Family Medicine 07/06/21 Tiago Randle MD [address] [place] [address] Referring Physician Obstetrics and Gynecology 07/11/21 Thalia Hopper 07/11/21 documented as of this encounter
--- OUTSIDE RECORDS SUMMARY | 2024-04-12 22:25 | XMS_ITS | Encounter Summary ---
Author Organization [facility] Address [address] [place] [address] Care Team Providers Care Bull Fiddle Player Name Role Phone Guilherme Michelle MD Primary Care Provider [phone] Tiago Randle MD Unavailable [phone] Reason for Visit * Reason Comments Ultrasound * Diagnostic Imaging (Routine) - Closed Specialty Diagnoses / Procedures Referred By Contac t Referred To Contact Diagnoses Encounter to determine viability of , single or unspecified fetus Procedures US Ob Limited Racheal Adams MD [address] [facility] [address] [address] Phone: tel: Referral ID Status Reason Start Date Expiration Date Visits Re quested Visits Authorized [id number] Closed 03/12/2024 04/11/2025 1 1 Encounter Details Date Type Department Care Team (Latest Contact Info) Description 03/22/2024 2:00 PM SUPERVISOR STRIPPING Ancillary Procedure [facility] [address] [place] [address] Encounter to determine viability of , single or unspecified fetus Social History Tobacco Use Types Packs/Day Years [...] Master's degree (e.g., MA, MS, Verenice, MEd, TALENT ACQUISITION ASSISTANT, GIOVANNI) 07/11/2021 Estimated Date of Delivery Comme nts Yes 11/06/2024 Based on Ultraso und Sex and Gender Information Value Date Recorded Sex Assigned at Not on file Legal Sex Female 8:21 AM SUPERVISOR STRIPPING Gender Identity Female 11/14/2021 10:22 AM CDT Sexual Orientation Not on file 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 Not on file Not on file Not on f ile documented as of this encounter Plan of Treatment Not on file documented as of this encounter Procedures Procedure Name Priority Date/Time Associated Diagnosis Comments US OB LIMITED Schedule Routine, Read Routine (OP Routine) 03/22/2024 4:32 PM SUPERVISOR STRIPPING Encounter to determine viability of , single or unspecified fetus documented in this encounter Results * US Ob Limited (03/22/2024 4:32 PM SUPERVISOR STRIPPING) Anatomical Region Laterality Modality Abdomen N/A Ultrasound 03/22/2024 2:33 PM SUPERVISOR STRIPPING Impressions 03/24/2024 3:45 PM SUPERVISOR STRIPPING There is a single IUP at 6 weeks and 6 days and an EDC of 8/5/25. ??When compared to the prior ultrasound dated 03/08/2024, there has been appropriate interval development. Narrative Procedure Note Racheal Adams MD - 03/24/2024 IMPRESSION: There is a single IUP at 6 weeks and 6 days and an EDC of 8/5/25. Whencompared to the prior ultrasound dated 03/08/2024, there has beenappropriate interval development. us Racheal Adams MD IMG OB US PROCEDURE S Final Result documented in this encounter Visit Diagnoses Diagnosis Encounter to determine viability of , single or unspecified fetus documented in this encounter Care Teams Bull Fiddle Player Relationship Specialty Start Date End Date Guilherme Michelle MD [address] [place] [address] PCP - General Family Medicine 07/06/21 Tiago Randle MD [address] [place] [address] Referring Physician Obstetrics and Gynecology 07/11/21 Thalia Hopper 07/11/21 documented as of this encounter
--- OUTSIDE RECORDS SUMMARY | 2024-04-12 22:25 | XMS_ITS | Clinical Summary ---
Author Organization [facility] [place] [address] [place] Address [address] [place] [phone] Care Team Providers Care Applied Research Director Name Role Phone Guilherme Michelle MD Primary Care Provider [phone] Tiago Randle MD Unavailable [phone] Allergies Active Allergy Reactions Criticality Noted Date [...] 02/09/2024 Assessment & Plan (02/09/2024 4:25 PM JUNIOR ACCOUNTANT): Will see how it is if she can get the diarrhea under control Will see how it is if she leaves the ring in during sex and gets her full hormone dose To std testing Encounter for evaluation regarding contraception options 02/09/2024 Assessment & Plan (02/09/2024 9:46 AM JUNIOR ACCOUNTANT): Options discussed She will stay with the ring for now Not to take out when she is having sex. Diarrhea 02/09/2024 Assessment & Plan (02/09/2024 4:24 PM JUNIOR ACCOUNTANT): Has been going on for about four [...] that might be helpful, e.g Lion's Toan, Sunset tail, ashwagandha. Interactions are still possible, of course, between those and the prescriptions Well woman exam 10/18/2022 Assessment & Plan (02/09/2024 9:51 AM JUNIOR ACCOUNTANT): Will do at her next appt To gc/ct and serum screening today Assessment & Plan (06/04/2023 2:54 PM JUNIOR ACCOUNTANT): She will need to have Pap smear [...] stable Assessment & Plan (06/09/2023 2:21 PM JUNIOR ACCOUNTANT): I think she has passed everything To beta in 2 weeks Rto 6 weeks for pelvic exam Will try to do the nexplanon at the same time. Will send for labs them Assessment & Plan (06/04/2023 2:53 PM JUNIOR ACCOUNTANT): Ultrasound shows retained products of conception This [...] if she has concerns F/u Friday in [facility]. Assessment & Plan (10/09/2022 9:45 AM [...] Date Resolved Date Missed menses 09/27/2022 09/27/2022 Encounters Date Type Department Care Team Description 04/05/2024 Telephone [facility] Women's Health Care at [address] [phone] Racheal Adams MD 04/02/2024 Telephone [facility] [address] [place] [address] [address] [place] [address] Racheal Adams MD 03/24/2024 8:40 PM JUNIOR ACCOUNTANT - 03/24/2024 11:59 PM JUNIOR ACCOUNTANT Hospital Encounter [address] [address] Iron deficiency Discharge Disposition: Discharge to home or self care 03/24/2024 11:30 AM JUNIOR ACCOUNTANT Lab [facility] Outpatient Lab at [address] [phone] Encounter for medical examination to establish care (Primary Dx) 03/22/2024 2:00 PM JUNIOR ACCOUNTANT Ancillary Procedure [facility] [address] [facility] [address] [place] [address] Encounter to determine viability of , single or unspecified fetus 03/12/2024 10:00 AM JUNIOR ACCOUNTANT Lab [facility] Outpatient Lab at [address] [phone] Encounter for medical examination to establish care (Primary Dx) 03/12/2024 9:54 AM JUNIOR ACCOUNTANT - 03/12/2024 11:59 PM JUNIOR ACCOUNTANT Hospital Encounter [address] [address] Missed period Discharge Disposition: Discharge to home or self care 03/10/2024 Telephone [facility] 4 [facility] [address] [place] [phone] Racheal Adams MD Test Results 03/09/2024 10:30 AM JUNIOR ACCOUNTANT Lab [facility] Outpatient Lab at [address] [phone] Missed period (Primary Dx) 03/09/2024 10:27 AM JUNIOR ACCOUNTANT - 03/09/2024 11:59 PM JUNIOR ACCOUNTANT Hospital Encounter [address] [address] Missed period Discharge Disposition: Discharge to home or self care 03/08/2024 4:00 PM JUNIOR ACCOUNTANT Ancillary Procedure Lila Devi [address] [facility] [address] [place] [address] Missed period; Encounter to establish gestational age using ultrasound 02/12/2024 Telephone [facility] 4 [facility] [address], [place] [address] Racheal Adams MD 02/09/2024 10:15 AM JUNIOR ACCOUNTANT Lab [facility] Outpatient Lab at [address] [phone] Weight gain (Primary Dx); Vitamin D deficiency; Well woman exam 02/09/2024 9:58 AM JUNIOR ACCOUNTANT - 02/09/2024 11:59 PM JUNIOR ACCOUNTANT Hospital Encounter [address] [address] Screening for STD (sexually transmitted disease) Discharge Disposition: Discharge to home or self care 02/09/2024 9:15 AM JUNIOR ACCOUNTANT Office Visit [facility] Women's Health Care at [address] [phone] Racheal Adams MD Well woman exam (Primary Dx); Encounter for evaluation regarding contraception options; Pelvic and perineal pain; Diarrhea, unspecified type; Screening for STD (sexually transmitted disease); Encounter to establish care 02/03/2024 3:00 PM CDT Lab [address] Healthcare maintenance 02/03/2024 2:30 PM CDT Ancillary Procedure [facility] [address] [place] [address] [address] [place] [address] Abnormal uterine bleeding from Last 3 Months Immunizations Name Administration Dates Next Due Influenza, Trivalent, Preser vative Free, Intramuscular 01/14/2017 Influenza, Unspecified 02/04/2023(Deferr ed: Patient Refused),04/07/2022(Deferred: Patient Refused),03/06/2022(Deferred: Patient Refused),04/07/2020(Deferred: Patient Refused) Moderna SARS-CoV-2 Monovalen t Vaccination (12+ YRS) 06/24/2020 Tdap 10/07/2015 Surgical History Surgery Date Site/Laterality Comments BREAST SURGERY augmentation WISDOM TOOTH EXTRACTION 04/07/2011 - 04/06/2012 TRANSUMBILICAL AUGMENTATION MAMMAPLASTY 04/07/2019 - 04/06/2020 silicon Medical History Medical History Date Comments Anxiety Depression Dysmenorrhea as of 2021, work up has been noncontributory History of mononucleosis syndrome 07/13/2021 Vitamin D deficiency 08/16/2021 Family History Medical History Relation Name Comments Depression Brother Depression Father No Known Problems Maternal Grandfather No Known Problems Maternal Grandmother Bipolar disorder Mother Breast cancer Mother stage 4; on Ho spice Cerebral aneurysm Mother Diabetes Mother Heart disease Mother Lung cancer Mother Schizophrenia Mother Stroke Mother No Known Problems Paternal Grandfather No Known Problems Paternal Grandmother Depression Sister 1 Depression Sister 2 Relation Name Status Comments Brother Alive Father Alive Maternal Grandfather Maternal Grandmother Mother Paternal Grandfather Paternal Grandmother Sister 1 Alive Sister 2 Alive Social History Tobacco Use Types Packs/Day Years [...] degree you have received? 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 Not on file Not on file Not on f ile Obstetrics History Para Term AB IAB SAB Ectopic Multiple Livin g Live Births 6 2 2 1 1 2 2 Date Outcome GA Total Labor Labor/2nd/3rd Weight Sex Type Anes PTL Carolyne A1 A5 Name Clin SAB 3 Term 3.402 kg (7 lb 8 oz) M Vag-S pont Living 6 Term 3.402 kg (7 lb 8 oz) F Vag-S pont Living Current Summary Episode Dates Number of Fetuses Estimated Date of Delivery 03/10/2024 - Present (04/12/2024) 11/06/2024 (set by Mel Otto MA on 03/11/2024 based on Ultrasound on 03/08/2024) Dating Summary Based On [place] Diff Last Menstrual Period on 01/23/2024 10/29/2024 +1w1d Ultrasound on 03/08/2024 11/06/2024 Working GA:5w2d Ultrasound on 03/22/2024 11/09/2024 -3d GA:6w6d Last Filed Vital Signs Vital Sign Reading Time Taken Comments Blood Pressure 110/70 02/09/2024 9:18 AM JUNIOR ACCOUNTANT Pulse 70 06/09/2023 2:12 PM JUNIOR ACCOUNTANT Temperature 37.1 ??C (98.7 ??F) 05/22/2023 4:22 PM CS T Respiratory Rate 20 05/22/2023 4:22 PM JUNIOR ACCOUNTANT Oxygen Saturation 98% 05/22/2023 4:22 PM JUNIOR ACCOUNTANT Inhaled Oxygen Concentration - - Weight 60.3 kg (133 lb) 02/09/2024 9:18 AM JUNIOR ACCOUNTANT Height 162.6 cm (5' 4 ) 02/09/2024 9:18 AM JUNIOR ACCOUNTANT Body Mass Index 22.83 02/09/2024 9:18 AM JUNIOR ACCOUNTANT Plan of Treatment Health Maintenance Due Date Last Done Comments Cervical Cancer Screening 1990 Varicella Vaccines (1 of 2 - 13+ 2-dose series) 2003 Hepatitis B Screening 2008 Regular Well Visit/Exam 18-64 07/11/2022 07/11/2021 Covid-19 Vaccine (3 - season) 2023 06/24/2020, 05/25/2020 Influenza Vaccine (#1) 2023 01/14/2017 Depression Screening 06/08/2024 06/09/2023, 02/04/2023, 02/04/2023, Additional history exists DTaP/Tdap/Td Vaccine (2 - Td or Tdap) 10/06/2025 10/07/2015 Hepatitis C Screening Completed 02/09/2024 HPV Vaccines Aged Out No longer eligi ble based on patient's age to complete this topic Pneumococcal vaccine <65 Aged Out No longer eligible based on patient's age to complete this topic Procedures Procedure Name Priority Date/Time Associated Diagnosis Comments DIFFERENTIAL AUTO Routine 03/24/2024 11: 30 AM JUNIOR ACCOUNTANT Iron deficiency IRON PROFILE W/ IBC Routine 03/24/2024 1 1:30 AM JUNIOR ACCOUNTANT Iron deficiency CBC WITH AUTO DIFFERENTIAL Routine 03/24/2024 11:30 AM JUNIOR ACCOUNTANT Iron deficiency US OB LIMITED Schedule Routine, Read Routine (OP Routine) 03/22/2024 4:32 PM JUNIOR ACCOUNTANT Encounter to determine viability of , single or unspecified fetus HCG, BLOOD, QUANTITATIVE Routine 03/12/2024 9:54 AM JUNIOR ACCOUNTANT Missed period HCG, BLOOD, QUANTITATIVE Routine 03/09/2024 10:27 AM JUNIOR ACCOUNTANT Missed period US OB TRANSVAGINAL Schedule Routine, Read Routine (OP Routine) 03/08/2024 4:52 PM JUNIOR ACCOUNTANT Missed period Encounter to establish gestational age using ultrasound HEPATITIS B SURFACE ANTIGEN Routine 02/09/2024 9:58 AM JUNIOR ACCOUNTANT Screening for STD (sexually transmitted disease) HEPATITIS C ANTIBODY Routine 02/09/2024 9:58 AM JUNIOR ACCOUNTANT Screening for STD (sexually transmitted disease) RPR Routine 02/09/2024 9:58 AM JUNIOR ACCOUNTANT Screening for STD (sexually transmitted disease) HIV 1/2 ANTIBODY PLUS P24 ANTIGEN Routine 02/09/2024 9:58 AM JUNIOR ACCOUNTANT Screening for STD (sexually transmitted disease) HSV 1 ANTIBODY, IGG Routine 02/09/2024 9 :58 AM JUNIOR ACCOUNTANT Screening for STD (sexually transmitted disease) HSV 2 ANTIBODY, IGG Routine 02/09/2024 9 :58 AM JUNIOR ACCOUNTANT Screening for STD (sexually transmitted disease) N. GONORRHOEAE/C. TRACHOMATIS AMPLIFICATION Routine 02/09/2024 9:58 AM JUNIOR ACCOUNTANT Screening for STD (sexually transmitted disease) US TRANSVAGINAL Routine 02/03/2024 3:09 PM CDT Abnormal uterine bleeding VITAMIN D 25 HYDROXY Routine 02/03/2024 3:00 PM CDT Healthcare maintenance IRON PROFILE W/ IBC Routine 02/03/2024 3 :00 PM CDT Healthcare maintenance from Last 3 Months Results * Differential, auto (03/24/2024 11:30 AM JUNIOR ACCOUNTANT) Neutrophil abs 5.9 1.5 - 6.5 K/cumm Imm gran abs 0.0 0.0 - 0.1 K/cumm [facility] Lymphocyte abs 1.7 0.8 - 3.3 K/cumm [facility] Monocyte abs 0.7 0.2 - 0.8 K/cumm [facility] Eosinophil abs 0.1 0.0 - 0.5 K/cumm [facility] Basophil abs 0.0 0.0 - 0.1 K/cumm [facility] Neutrophil pct 70.8 % [facility] Comment: Interpretive Data Percent cell count reference ranges are not reported, since discordance with absolute values may lead to misinterpretation of CBC data. Current Interpretive Data was last revised on 2017. Imm gran pct 0.4 % [facility] Comment: Interpretive Data Percent cell count reference ranges are not reported, since discordance with absolute values may lead to misinterpretation of CBC data. Current Interpretive Data was last revised on 2017. Lymphocyte pct 20.0 % [facility] Comment: Interpretive Data Percent cell count reference ranges are not reported, since discordance with absolute values may lead to misinterpretation of CBC data. Current Interpretive Data was last revised on 2017. Monocyte pct 7.8 % [facility] Comment: Interpretive Data Percent cell count reference ranges are not reported, since discordance with absolute values may lead to misinterpretation of CBC data. Current Interpretive Data was last revised on 2017. Eosinophil pct 0.6 % [facility] Comment: Interpretive Data Percent cell count reference ranges are not reported, since discordance with absolute values may lead to misinterpretation of CBC data. Current Interpretive Data was last revised on 2017. Basophil pct 0.4 % [facility] Comment: Interpretive Data Percent cell count reference ranges are not reported, since discordance with absolute values may lead to misinterpretation of CBC data. Current Interpretive Data was last revised on 2017. Blood 03/24/2024 11:3 0 AM JUNIOR ACCOUNTANT 03/24/2024 8:43 PM JUNIOR ACCOUNTANT Guilherme Michelle MD LAB BLOOD ORDERABLES Final Result Performing Organization Address City/[facility]/ZIP Co de Phone Number ALLYN KILPATRICK [address] [address] [facility] [email or web address] [place], [place] [id number] * Iron profile w/ IBC (03/24/2024 11:30 AM JUNIOR ACCOUNTANT) Pathologist [facility] Iron 76 35 - 145 mcg/dL Comment:Testing performed by : [facility], [address] [place]., [address] TIBC 299 250 - 400 mcg/dL [facility] Comment:Testing performed by : [facility], [address] [place]., [address] Transferrin saturation 25 20 - 50 % [facility] Comment:Testing performed by : [facility], [address] [place]., [address] Blood 03/24/2024 11:3 0 AM JUNIOR ACCOUNTANT 03/24/2024 8:42 PM JUNIOR ACCOUNTANT Guilherme Michelle MD LAB BLOOD ORDERABLES Final Result Performing Organization Address [facility] Co de Phone Number ALLYN KILPATRICK [address] [address] Department [email or web address] [address] * (ABNORMAL) CBC with auto differential (03/24/2024 11:30 AM JUNIOR ACCOUNTANT) Pathologist [facility] WBC 8.3 3.8 - 9.9 K/cumm Hgb 12.6 11.9 - 15.5 g/dL [facility] Hct 40.2 35.6 - 45.5 % [facility] Plt 253 150 - 400 K/cumm [facility] MPV 9.2 9.1 - 12.3 fL [facility] RBC 4.42 3.90 - 5.20 M/cumm [facility] MCV 91.0 81.3 - 96.4 fL [facility] MCH 28.5 27.1 - 33.3 pg [facility] MCHC 31.3(L) 32.3 - 35.7 g/dL [facility] RDW CV 13.2 11.1 - 14.9 % [facility] RDW SD 44.6 35.7 - 48.1 fL [facility] NRBC abs 0.00 0.00 - 0.01 K/cumm [facility] Blood 03/24/2024 11:3 0 AM JUNIOR ACCOUNTANT 03/24/2024 8:43 PM JUNIOR ACCOUNTANT us Guilherme Michelle MD LAB BLOOD ORDERABLES Final Result ALLYN [address] [address] Department [place] [address] * US Ob Limited (03/22/2024 4:32 PM JUNIOR ACCOUNTANT) Anatomical Region Laterality Modality Abdomen N/A Ultrasound 03/22/2024 2:33 PM JUNIOR ACCOUNTANT Impressions 03/24/2024 3:45 PM JUNIOR ACCOUNTANT There is a single IUP at 6 [...] (ABNORMAL) hCG, blood, quantitative (03/12/2024 9:54 AM JUNIOR ACCOUNTANT) hCG, quant 12,234.0( H) 0.0 - 5.0 IUnits/L Comment: Interpretive Data Male: < 5 IU/L Non- premenopausal Female: <5 IU/L [employer] hCG Beta Quant assay procedure was used. Results from different manufacturers or methods may not be comparable. ??Serial testing should be performed using the same method. Interpretive Data was last revised on 2023 Blood 03/12/2024 9:54 AM JUNIOR ACCOUNTANT 03/12/2024 3:44 PM JUNIOR ACCOUNTANT Racheal Adams MD LAB BLOOD ORDERABLE S Final Result Performing Organization Address [facility] de Phone Number ALLYN KILPATRICK [address] [address] [facility] [place] [address] * (ABNORMAL) hCG, blood, quantitative (03/09/2024 10:27 AM JUNIOR ACCOUNTANT) hCG, quant 3,770.0(H ) 0.0 - 5.0 IUnits/L Comment: Interpretive Data Male: < 5 IU/L Non- premenopausal Female: <5 IU/L [employer] hCG Beta Quant assay procedure was used. Results from different manufacturers or methods may not be comparable. ??Serial testing should be performed using the same method. Interpretive Data was last revised on 2023 Blood 03/09/2024 10:2 7 AM JUNIOR ACCOUNTANT 03/09/2024 5:04 PM JUNIOR ACCOUNTANT Racheal Adams MD LAB BLOOD ORDERABLE S Final Result Performing Organization Address [facility] de Phone Number ALLYN KILPATRICK [address] [address] [facility] [email or web address] [address] * US OB Transvaginal (03/08/2024 4:52 PM JUNIOR ACCOUNTANT) Anatomical Region Laterality Modality Abdomen N/A Ultrasound 03/08/2024 4:44 PM JUNIOR ACCOUNTANT Impressions 03/10/2024 5:16 PM JUNIOR ACCOUNTANT 1. ?? There is a single gestational sac within the endometrium measuring 5 weeks 2 days with EDC of 11/06/24. ??Recommend repeat ultrasound in 2 weeks to ensure appropriate interval development.2. Normal pelvic anatomy. Narrative Procedure Note Racheal Adams MD - 03/10/2024 IMPRESSION: 1. There is a single gestational sac within the endometrium measuring 5weeks 2 days with EDC of 11/06/24. Recommend repeat ultrasound in 2 weeksto ensure appropriate interval development.2. Normal pelvic anatomy. Result [facility] Racheal Adams MD IMG OB US PROCEDURE S Final Result * N. gonorrhoeae/C. trachomatis Amplification Urine (02/09/2024 9:58 AM JUNIOR ACCOUNTANT) C. trachomatis Not Detected [facility] Comment:Testing performed by : [facility], [address] [place] [address]., [address] N. gonorrhoeae Not Detected ALLYN KILPATRICK Comment: Interpretive Data This assay detects Chlamydia trachomatis and Neisseria gonorrhoeae by nucleic acid amplification testing (NAAT). This assay has been cleared by the [place] Food and Drug administration. The performance characteristics of this test have been verified by the [facility] Molecular Infectious Disease laboratory. The performance characteristics of this test have not been evaluated in individuals less than 14 years of age. Current Interpretive Data was last revised on 2023. Testing performed by: [facility], [address] [place] [address]., [address] Urine (None) 02/09/2024 9:58 AM JUNIOR ACCOUNTANT 02/10/2024 10:39 AM JUNIOR ACCOUNTANT Result [facility] Racheal Adams MD LAB MICROBIOLOGY - GENERAL ORDERABLES Final Result ALLYN [address] [address] Department of Laboratories [place], [place] [id number] [facility] * HIV 1/2 Antibody plus p24 Antigen Blood (02/09/2024 9:58 AM JUNIOR ACCOUNTANT) HIV 1/2 ab + p24 ag Nonreactive Nonreactive Comment: Nonreactive for HIV-1 antigen and HIV-1/HIV-2 antibodies. No laboratory evidence of HIV infection. If acute HIV infection is suspected, consider testing for HIV-1 RNA. Blood 02/09/2024 9:58 AM JUNIOR ACCOUNTANT 02/09/2024 6:08 PM JUNIOR ACCOUNTANT Result [facility] Racheal Adams MD LAB MICROBIOLOGY - GENERAL ORDERABLES Final Result Performing Organization Address [facility] [place] [address] [address] Department [email or web address] [address] * Hepatitis C antibody Blood (02/09/2024 9:58 AM JUNIOR ACCOUNTANT) Hep C Ab Nonreactive Nonreactive Comment: Interpretive [...] revised on 2019. Blood 02/09/2024 9:58 AM JUNIOR ACCOUNTANT 02/09/2024 6:08 PM JUNIOR ACCOUNTANT Racheal Adams MD LAB MICROBIOLOGY - GENERAL ORDERABLES Final Result Performing Organization Address [facility] [place] [address] [address] [email or web address] [address] * HSV 2 IgG Antibody Blood (02/09/2024 9:58 AM JUNIOR ACCOUNTANT) HSV 2 IgG Nonreactive Nonreactive Comment: Interpretive Data 1. Nonreactive: No detectable IgG antibody to HSV-2. 2. Equivocal: Presence or absence of detectable antibodies to HSV-2 cannot be determined and the test should be repeated. 3. Reactive: Indicates presence of detectable IgG antibody to HSV-2. Current interpretive data was last revised on 2022. Testing performed by: [facility], [address] [place]., [address] Blood 02/09/2024 9:58 AM JUNIOR ACCOUNTANT 02/10/2024 9:44 AM JUNIOR ACCOUNTANT Racheal Adams MD LAB MICROBIOLOGY - GENERAL ORDERABLES Final Result Performing Organization Address City/[facility]/ZIP Co de Phone Number ALLYN KILPATRICK [address] [address] Department [email or web address] [address] * (ABNORMAL) HSV 1 IgG Antibody Blood (02/09/2024 9:58 AM JUNIOR ACCOUNTANT) Pathologist [facility] HSV 1 IgG Equivocal (A) Nonreactive Comment: Interpretive Data 1. Nonreactive: No detectable IgG antibody to HSV-1. 2. Equivocal: Presence or absence of detectable antibodies to HSV-1 cannot be determined and the test should be repeated. 3. Reactive: Indicates presence of detectable IgG antibody to HSV-1. Current interpretive data was last revised on 2016. Testing performed by: [facility], [address] [place] [address]., [address] Blood 02/09/2024 9:58 AM JUNIOR ACCOUNTANT 02/10/2024 9:44 AM JUNIOR ACCOUNTANT Racheal Adams MD LAB MICROBIOLOGY - GENERAL ORDERABLES Final Result Performing Organization Address [facility] Co de Phone Number ALLYN [address] [address] Department [email or web address] [address] * RPR Blood (02/09/2024 9:58 AM JUNIOR ACCOUNTANT) Pathologist [facility] RPR Nonreactive Nonreactive Blood 02/09/2024 9:58 AM JUNIOR ACCOUNTANT 02/09/2024 6:08 PM JUNIOR ACCOUNTANT Racheal Adams MD LAB MICROBIOLOGY - GENERAL ORDERABLES Final Result Performing Organization Address City/[facility] [place] [address] [address] Department [email or web address] [address] * Hepatitis B Surface Antigen Blood (02/09/2024 9:58 AM JUNIOR ACCOUNTANT) Pathologist [facility] HepBsAg Nonreactive Nonreactive Blood 02/09/2024 9:58 AM JUNIOR ACCOUNTANT 02/09/2024 6:08 PM JUNIOR ACCOUNTANT Racheal Adams MD LAB MICROBIOLOGY - GENERAL ORDERABLES Final Result Performing Organization Address [facility]/ZIP Co de Phone Number ALLYN [address] [address] [place] [address] * US Transvaginal (02/03/2024 3:09 PM CDT) Cul de Sac No free fluid visualized [facility] Endometrial Thickness 6.4 mm&millim eters [facility] Anatomical Region Laterality Modality Pelvis N/A Ultrasound 02/03/2024 3:02 PM CDT Impressions 02/09/2024 9:35 AM JUNIOR ACCOUNTANT Normal pelvic ultrasound. ?? Narrative Procedure Note Racheal Adams MD - 02/09/2024 IMPRESSION: Normal pelvic ultrasound. Racheal Adams MD IMG US PROCEDURES F inal Result * (ABNORMAL) Iron profile w/ IBC (02/03/2024 3:00 PM CDT) Pathologist [facility] Iron 51 35 - 145 mcg/dL TIBC 416(H) 250 - 400 mcg/dL [facility] ([facility]) Transferrin saturation 12(L) 20 - 50 % [facility] ([facility]) Blood 02/03/2024 3:00 PM CDT 02/03/2024 3:50 PM CDT Lisy Snyder NP LAB BLOOD ORDERABLES Final Result [facility] ([facility]) 1 [facility] [place] [address] * Vitamin D 25 hydroxy (02/03/2024 3:00 PM CDT) Vitamin D 25-OH 43 30 - 80 ng/mL Blood 02/03/2024 3:00 PM CDT 02/03/2024 3:50 PM CDT Lisy M. Hoem[employer] LAB BLOOD ORDERABLES Final Result Performing Organization Address City/State/[facility] de Phone Number [facility]) 1 [facility] Department of Laboratories [place] [phone] from Last 3 Months Insurance [facility] Care Teams Applied Research Director Relationship Specialty Start Date End Date Guilherme Michelle MD [address] [place] [address] PCP - General Family Medicine 07/06/21 Tiago Randle MD [address] [address] [facility] [address] [place] [address] Referring Physician Obstetrics and Gynecology 07/11/21 Thalia Hopper 07/11/21
--- OUTSIDE RECORDS SUMMARY | 2024-04-12 22:25 | XMS_ITS | Encounter Summary ---
Author Organization [facility] Healthcare Address [address] [place] [address] Care Team Providers Care Environmental Planner Name Role Phone Guilherme Michelle MD Primary Care Provider [phone] Tiago Randle MD Unavailable Reason for Referral * Diagnostic Imaging (Routine) - Closed Specialty Diagnoses / Procedures Referred By Contlorne t Referred To Contact Diagnoses Threatened Procedures Ob Transvaginal Racheal Adams MD [address] [place] [address] [address] [place] [address] Phone: tel: [facility] [address] [facility] [address] [place] [address] Phone: tel: fax: Referral ID Status Reason Start Date Expiration Date Visits Re quested Visits Authorized [id number] Closed 06/02/2023 07/01/2024 1 1 HBOARD FILLING MACHINE OPERATOR Reason for Visit * Reason Comments Follow-up Encounter Details Date Type Department Care Team (Late st Contact Info) Description 06/02/2023 4:00 PM PUNCHBOARD FILLING MACHINE OPERATOR Office Visit [facility] Women's Health Care at [address] [address] Racheal Adams MD [address] [facility] [address] [place] [address] Threatened (Primary Dx); Incomplete Social History Tobacco Use Types Packs/Day [...] Master's degree (e.g., MA, MS, Verenice, MEd, DREDGE OPERATOR SUPERVISOR, GIOVANNI) 07/11/2021 Comments Yes Sex and Gender Information Value Date Recorded Sex Assigned at Not on file Legal Sex Female 8:21 AM PUNCHBOARD FILLING MACHINE OPERATOR Gender Identity Female 11/14/2021 10:22 AM CDT Sexual Orientation Not on file 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 Machine Specialist Visit Follow-up Subjective: Leanna Kaur is a 33 y.o. year old female who presents for f/u. She had labs on Friday for confirmation. Friday started bleeding. It has gotten progressively worse as has the cramping Now it is worse than when she had her SAB. She is changing q 2 hours with clots. Are you wanting to be in the next year?yes. Patient's last menstrual period was 04/14/2023 (exact [...] F Vag-Spont Living 5 Current Objective: BP 102/60 (BP Location: Left arm, Patient Position: Sitting) LMP 04/14/2023 (Exact Date) Physical Exam: Physical Exam Vitals reviewed. Exam conducted with a special delivery mail carrier present. Constitutional: Appearance: Normal appearance. She is normal weight. HENT: Head: Normocephalic and atraumatic. Genitourinary: Pelvic exam was performed with patient supine. Rectum normal, vagina normal and uterus normal. Right labia: normal. Left Labia: normal. Right adnexa: normal. Left adnexa: normal. Cervix: Normal exam. Genitourinary Comments: BUS negative There appears to be products of conception at the cervical os I tried to tease out with a ring forceps but the patient was unable to tolerate this The small amount that was retrieved will be sent for pathology. The cervix is 1 cm dilated. Musculoskeletal: Right lower leg: No edema. Left lower leg: No edema. Neurological: Mental Status: She is alert. Psychiatric: Mood and Affect: Mood normal. Behavior: Behavior normal. Thought Content: Thought content normal. Judgment: Judgment normal. Assessment and Plan: Diagnoses and all orders for this visit: Threatened (Primary) - Surgical pathology; Future - US Ob Transvaginal; Future Incomplete Assessment & Plan: She will come for ultrasound so that we can see what is left of the uterus I will see her afterwards She is interested in active management of her incomplete Bleeding profile was reviewed Hemodynamically she is currently stable No follow-ups on file. Racheal Adams MD 06/02/2023 documented in this encounter Miscellaneous Notes * Assessment & Plan Note - Racheal Adams MD - 06/23/2023 2:24 PM CDTAssociated Problem(s): Incomplete She will come for ultrasound so that we can see what is left of the uterus I will see her afterwards She is interested in active management of her incomplete Bleeding profile was reviewed Hemodynamically she is currently stable documented in this encounter Plan of Treatment Scheduled Orders Name Type Priority Associated Diagnoses Orde r Schedule Surgical pathology Pathology and Cytology Routine Threatened Expected: 06/02/2023, Expires: 06/02/2024 documented as of this encounter Results * US Ob Transvaginal (06/04/2023 8:36 AM PUNCHBOARD FILLING MACHINE OPERATOR) Endometrial Thickness 16.7 mm&millime ters VIEWPOINT Anatomical Region Laterality Modality Abdomen N/A Ultrasound 06/04/2023 8:57 AM PUNCHBOARD FILLING MACHINE OPERATOR Impressions 06/04/2023 9:16 AM PUNCHBOARD FILLING MACHINE OPERATOR 1. ?? The uterus is enlarged. ??The [...] incomplete AB please correlateclinically.2. Normal appearing ovaries. Racheal Adams MD IMG OB US PROCEDURE S Final Result documented in this encounter Visit Diagnoses Diagnosis Threatened - Primary Incomplete Legally unspecified , incomplete, without mention of complication Threatened documented in this encounter Care Teams Environmental Planner Relationship Specialty Start Date End Date Guilherme Michelle MD [address] [place] [address] PCP - General Family Medicine 07/06/21 Tiago Randle MD [address] [place] [address] Referring Physician Obstetrics and Gynecology 07/11/21 Thalia Hopper 07/11/21 documented as of this encounter
--- OUTSIDE RECORDS SUMMARY | 2024-04-12 22:25 | XMS_ITS | Encounter Summary ---
Author Organization [facility] Healthcare Address [address] [place] [address] Care Team Providers Care Personal Care Worker Name Role Phone Guilherme Michelle MD Primary Care Provider [phone] Tiago Randle MD Unavailable [phone] Encounter Details Date Type Department Care Team (Late st Contact Info) Description 02/09/2024 10:15 AM MECHANICAL MAINTENANCE FOREMAN Lab [facility] Outpatient Lab at [address] [address] Weight gain (Primary Dx); Vitamin D deficiency; Well woman exam Social History Tobacco Use [...] Master's degree (e.g., MA, MS, Verenice, MEd, SENIOR COPYWRITER, GIOVANNI) 07/11/2021 Comments No Sex and Gender Information Value Date Recorded Sex Assigned at Not on file Legal Sex Female 8:21 AM MECHANICAL MAINTENANCE FOREMAN Gender Identity Female 11/14/2021 10:22 AM CDT Sexual Orientation Not on file 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 on file Not on file Not on f ile documented as of this encounter Plan of Treatment Not on file documented as of this encounter Visit Diagnoses Diagnosis Weight gain- Primary Other symptoms concerning nutrition, metabolism, and development Vitamin D deficiency Well woman exam Routine general medical examination at a health care facility documented in this encounter Care Teams Personal Care Worker Relationship Specialty Start Date End Date Guilherme Michelle MD [address] [place] [address] PCP - General Family Medicine 07/06/21 Tiago Randle MD [address] [place] [address] Referring Physician Obstetrics and Gynecology 07/11/21 Thalia Hopper 07/11/21 documented as of this encounter
--- OUTSIDE RECORDS SUMMARY | 2024-04-12 22:25 | XMS_ITS | Encounter Summary ---
Author Organization [facility] Healthcare Address [address] [place] [address] Care Team Providers Care Mask Layout Designer Name Role Phone Guilherme Michelle MD Primary Care Provider [phone] Tiago Randle MD Unavailable [phone] Reason for Visit * Reason Comments Cold Symptoms Has had symptoms for at least two months. Will start to get better for a couple of days and then get sick. Headache Nasal Congestion Fatigue Cough Greenish yellow sput um every once in awhile. At home covid tests have been negative. Encounter Details Date Type Department Care Team (Late st Contact Info) Description 05/22/2023 4:15 PM MANAGER PACKAGING Office Visit [facility] Convenient Care at [address] [address] Tracie Westbrook, OFFENSIVE COORDINATOR [address] [place] [address] [address] [place] [address] Acute bacterial sinusitis (Primary Dx) Social History Tobacco Use Types [...] degree (e.g., MA, MS, Verenice, MEd, TUBE KNITTER, GIOVANNI) 07/11/2021 Comments Unknown Sex and Gender Information Value Date Recorded Sex Assigned at Not on file Legal Sex Female 8:21 AM MANAGER PACKAGING Gender Identity Female 11/14/2021 10:22 AM CDT Sexual Orientation Not on file 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 on file Not on file Not on f ile documented as of this encounter Last Filed Vital Signs Vital Sign Reading Time Taken Comments Blood Pressure 116/70 05/22/2023 4:22 PM MANAGER PACKAGING Pulse 71 05/22/2023 4:22 PM MANAGER PACKAGING Temperature 37.1 ??C (98.7 ??F) 05/22/2023 4:22 PM CS T Respiratory Rate 20 05/22/2023 4:22 PM MANAGER PACKAGING Oxygen Saturation 98% 05/22/2023 4:22 PM MANAGER PACKAGING Inhaled Oxygen Concentration - - Weight 65.8 kg (145 lb) 05/22/2023 4:22 PM MANAGER PACKAGING Height 162.6 cm (5' 4 ) 05/22/2023 4:22 PM MANAGER PACKAGING Body Mass Index 24.89 05/22/2023 4:22 PM MANAGER PACKAGING documented in this encounter Patient Instructions * Patient Instructions* Tracie Westbrook NP - 05/22/2023 4:15 PM MANAGER PACKAGING If you have no improvement or worsening of your symptoms, please follow up with your Primary Care Provider, Convenient Care and or Emergency Room. I strive to provide you with EXCELLENT service. You may receive a survey after your visit today. If you cannot rate your experience as EXCELLENT, please let us know how we can improve and better meet your needs. Thank you for choosing [facility]! It was my pleasure to see you today, I hope you feel better soon! Tracie Westbrook POULTRY HATCHERY MANAGER GER PACKAGING * Attachments The following attachments cannot be sent through Care Everywhere. * Sinusitis (AfterCare(R) Instructions(ER/ED)) (Ukrainian) documented in this encounter Ordered Prescriptions Prescription Sig Dispense Quantity Refills Last Filled Start Date End Date amoxicillin-clavul anate (AUGMENTIN) 875-125 mg per tabletIndications: Acute bacterial sinusitis Take 1 tablet by mouth 2 (two) times a day for 10 days 20 tablet 05/22/2023 06/01/2023 documented in this encounter Progress Notes * Tracie Westbrook, OFFENSIVE COORDINATOR - 05/22/2023 4:15 PM CST Images from the original note were not included. Subjective/Objective Patient ID: Leanna Kaur is a 33 y.o. female. Chief Complaint Cold Symptoms (Has had symptoms for at least two months. Will start to get better for a couple of days and then get sick. ), Headache, Nasal Congestion, Fatigue, and Cough (Greenish yellow sputum every once in awhile. At home covid tests have been negative. ) 33-year-old female patient presents today with complaints of intermittent cold symptoms, headache, congestion, fatigue, cough over the last several months. Patient reports that she we will start feeling better for a few days and then get sick again. Patient reports sinus pressure and pain. Denies sob or chest pain. Reports she is 5-6 weeks . Headache Fatigue Associated symptoms include coughing, fatigue and headaches. Cough Associated symptoms include headaches. Review of Systems Constitutional: Positive for fatigue. Respiratory: Positive for cough. Neurological: Positive for headaches. All other systems reviewed and are negative. Physical Exam Constitutional: Appearance: Normal appearance. She is normal weight. She is not ill-appearing. HENT: Head: Normocephalic. Right Ear: Tympanic membrane, ear canal and external ear normal. Left Ear: Tympanic membrane, ear canal and external ear normal. Nose: Right Turbinates: Enlarged. Left Turbinates: Enlarged. Right Sinus: Maxillary sinus tenderness and frontal sinus tenderness present. Left Sinus: Maxillary sinus tenderness and frontal sinus tenderness present. Mouth/Throat: Mouth: Mucous membranes are moist. Pharynx: Oropharynx is clear. Eyes: Pupils: Pupils are equal, round, and reactive to light. Cardiovascular: Rate and Rhythm: Normal rate and regular rhythm. Pulses: Normal pulses. Heart sounds: Normal heart sounds. Pulmonary: Effort: Pulmonary effort is normal. Breath sounds: Normal breath sounds. Musculoskeletal: General: Normal range of motion. Cervical back: Normal range of motion. Skin: General: Skin is warm and dry. Capillary Refill: Capillary refill takes less than 2 seconds. Neurological: General: No focal deficit present. Mental Status: She is alert and oriented to person, place, and time. Mental status is at baseline. Psychiatric: Mood and Affect: Mood normal. Behavior: Behavior normal. Thought Content: Thought content normal. Judgment: Judgment normal. Vitals: 05/22/23 1622 BP: 116/70 BP Location: Left arm Patient Position: Sitting Pulse: 71 Resp: 20 Temp: 37.1 ??C (98.7 ??F) TempSrc: Oral SpO2: 98% Weight: 65.8 kg (145 lb) Height: 162.6 cm (5' 4 ) No results found. Past Medical History: Diagnosis Date Anxiety Depression Dysmenorrhea as of 2021, workup has been noncontributory History of mononucleosis syndrome 07/13/2021 Vitamin D deficiency 08/16/2021 Current Outpatient Medications: cholecalciferol (VITAMIN D-3) 5,000 unit capsule, Take one capsule daily with food., Disp: 30 capsule, Rfl: 11 norgestimate-ethinyl estradioL (ORTHO-CYCLEN) 0.25-35 mg-mcg per tablet, Take 1 tablet by mouth daily, Disp: 28 tablet, Rfl: 2 ondansetron ODT (ZOFRAN-ODT) 4 mg disintegrating tablet, Take 1 tablet (4 mg total) by mouth every 8 (eight) hours as needed for nausea or vomiting, Disp: 40 tablet, Rfl: 2 amoxicillin-clavulanate (AUGMENTIN) 875-125 mg per tablet, Take 1 tablet by mouth 2 (two) times a day for 10 days, Disp: 20 tablet, Rfl: 0 buPROPion (WELLBUTRIN) 75 mg tablet, Take 1 tablet (75 mg total) by mouth 2 (two) times a day for 7days, THEN 2 tablets (150 mg total) 2 (two) times a day for 23 days., Disp: 106 tablet, Rfl: 0 cyclobenzaprine (FLEXERIL) 5 mg tablet, Take 1 tablet (5 mg total) by mouth 3 (three) times a day as needed for muscle spasms, Disp: 45 tablet, Rfl: 0 venlafaxine XR (EFFEXOR-XR) 37.5 mg 24 hr capsule, Take 2 capsules (75 mg total) by mouth daily for7 days, THEN 1 capsule (37.5 mg total) daily for 7 days., Disp: 21 capsule, Rfl: 0 Allergies Allergen Reactions Bactrim [Sulfamethoxazole-Trimethoprim] Hives Social History Tobacco Use Smoking status: Never Smokeless tobacco: Never Substance and Sexual Activity Drug use: Yes Types: Alcohol, Marijuana Comment: Pt states that she uses MJ and drinks occasionally Sexual activity: Yes Partners: Male control/protection: None Alcohol Use: Not At Risk (02/04/2023) AUDIT-C Frequency of Alcohol Consumption: 2-4 times a month Average Number of Drinks: 1 or 2 Frequency of Binge Drinking: Never Past Surgical History: Procedure Laterality Date BREAST SURGERY augmentation TRANSUMBILICAL AUGMENTATION MAMMAPLASTY 2019 silicon WISDOM TOOTH EXTRACTION 2011 Procedures Assessment/Plan No results found for this or any previous visit (from the past 4 hour(s)). Diagnoses and all orders for this visit: Acute bacterial sinusitis (Primary) - amoxicillin-clavulanate (AUGMENTIN) 875-125 mg per tablet; Take 1 tablet by mouth 2 (two) times aday for 10 days Patient has had intermittent symptoms for several weeks including sinus pressure/pain which has notresolved. Possibly bacterial in nature. Will give patient course of Augmentin. If continued issues,recommend follow up with pcp. Disposition Treatment plan including expectations, follow up, and return precautions discussed with patient/parent, verbalizes understanding. Medication dosage, use, and potential adverse reactions discussed with patient/parent. Advised to follow up with PCP if symptoms do not resolve as expected or sooner if condition worsens. Signs/symptoms warranting ER evaluation reviewed. Patient and/or guardian was given an opportunity to ask questions, questions answered. Tracie Westbrook NP GER PACKAGING documented in this encounter Plan of Treatment Not on file documented as of this encounter Visit Diagnoses Diagnosis Acute bacterial sinusitis- Primary Acute sinusitis, unspecified documented in this encounter Care Teams Mask Layout Designer Relationship Specialty Start Date End Date Guilherme Michelle MD [address] [place] [address] PCP - General Family Medicine 07/06/21 Tiago Randle MD [address] [place] [address] Referring Physician Obstetrics and Gynecology 07/11/21 Thalia Hopper 07/11/21 documented as of this encounter
--- OUTSIDE RECORDS SUMMARY | 2024-04-12 22:25 | XMS_ITS | Encounter Summary ---
Author Organization [facility] Healthcare Address [address] [place] [address] Care Team Providers Care Cable Installation Technician Name Role Phone Guilherme Michelle MD Primary Care Provider [phone] Tiago Randle MD Unavailable [phone] Encounter Details Date Type Department Care Team (Late st Contact Info) Description 03/24/2024 11:30 AM CIVIL LABORATORY TECHNICIAN Lab [facility] Outpatient Lab at [address] [address] Encounter for medical examination to [...] Master's degree (e.g., MA, MS, Verenice, MEd, ANCILLARY SPECIALIST, GIOVANNI) 07/11/2021 Estimated Date of Delivery Comme nts Yes 11/06/2024 Based on Ultraso und Sex and Gender Information Value Date Recorded Sex Assigned at Not on file Legal Sex Female 8:21 AM CIVIL LABORATORY TECHNICIAN Gender Identity Female 11/14/2021 10:22 AM CDT Sexual Orientation Not on file 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
--- OUTSIDE RECORDS SUMMARY | 2024-04-12 22:25 | XMS_ITS | Encounter Summary ---
Author Organization [facility] Healthcare Address [address] [place] [address] Care Team Providers Care Explosive Operator Grenade Name Role Phone Guilherme Michelle MD Primary Care Provider [phone] Tiago Randle MD [facility] [phone] Encounter Details Date Type Department Care Team (Latest Contact Info) Description 03/24/2024 8:40 PM PAINTING TECHNICIAN - 03/24/2024 11:59 PM PAINTING TECHNICIAN Hospital Encounter [address] [id number] Iron deficiency Discharge Disposition: Discharge to home [...] Master's degree (e.g., MA, MS, Verenice, MEd, AIR HOIST OPERATOR, GIOVANNI) 07/11/2021 Estimated Date of Delivery Comme nts Yes 11/06/2024 Based on Ultraso und Sex and Gender Information Value Date Recorded Sex Assigned at Not on file Legal Sex Female 8:21 AM PAINTING TECHNICIAN Gender Identity Female 11/14/2021 10:22 AM CDT Sexual Orientation Not on file 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 Not on file Not [...] DIFFERENTIAL AUTO Routine 03/24/2024 11: 30 AM PAINTING TECHNICIAN Iron deficiency IRON PROFILE W/ IBC Routine 03/24/2024 1 1:30 AM PAINTING TECHNICIAN Iron deficiency CBC WITH AUTO DIFFERENTIAL Routine 03/24/2024 11:30 AM PAINTING TECHNICIAN Iron deficiency documented in this encounter Results * Differential, auto (03/24/2024 11:30 AM PAINTING TECHNICIAN) Neutrophil abs 5.9 1.5 - 6.5 K/cumm Imm gran abs 0.0 0.0 - 0.1 K/cumm [facility] Lymphocyte abs 1.7 0.8 - 3.3 K/cumm [facility] Monocyte abs 0.7 0.2 - 0.8 K/cumm [facility] Eosinophil abs 0.1 0.0 - 0.5 K/cumm [facility] Basophil abs 0.0 0.0 - 0.1 K/cumm [facility] Neutrophil pct 70.8 % [facility] Comment: Interpretive Data Percent cell count reference [...] revised on 2017. Lymphocyte pct 20.0 % [facility] Comment: Interpretive Data Percent cell count reference [...] revised on 2017. Basophil pct 0.4 % [facility] Comment: Interpretive Data Percent cell count reference ranges are not reported, since discordance with absolute values may lead to misinterpretation of CBC data. Current Interpretive Data was last revised on 2017. Blood 03/24/2024 11:3 0 AM PAINTING TECHNICIAN 03/24/2024 8:43 PM PAINTING TECHNICIAN us Guilherme Michelle MD LAB BLOOD ORDERABLES Final Result [facility] [address] [address] [place] [address] * Iron profile w/ IBC (03/24/2024 11:30 AM PAINTING TECHNICIAN) Iron 76 35 - 145 mcg/dL Comment:Testing performed by : [facility], [address] [place]., [address] TIBC 299 250 - 400 mcg/dL [facility] Comment:Testing performed by : [facility], [address] [place]., [address] Transferrin saturation 25 20 - 50 % [facility] Comment:Testing performed by : [facility], [address] [place]., [address] Blood 03/24/2024 11:3 0 AM PAINTING TECHNICIAN 03/24/2024 8:42 PM PAINTING TECHNICIAN Guilherme Michelle MD LAB BLOOD ORDERABLES Final Result [facility] [address] [address] [address] * (ABNORMAL) CBC with auto differential (03/24/2024 11:30 AM PAINTING TECHNICIAN) WBC 8.3 3.8 - 9.9 K/cumm Hgb 12.6 11.9 - 15.5 g/dL [facility] Hct 40.2 35.6 - 45.5 % [facility] Plt 253 150 - 400 K/cumm [facility] MPV 9.2 9.1 - 12.3 fL [facility] RBC 4.42 3.90 - 5.20 M/cumm [facility] MCV 91.0 81.3 - 96.4 fL [facility] MCH 28.5 27.1 - 33.3 pg [facility] MCHC 31.3(L) 32.3 - 35.7 g/dL [facility] RDW CV 13.2 11.1 - 14.9 % [facility] RDW SD 44.6 35.7 - 48.1 fL [facility] NRBC abs 0.00 0.00 - 0.01 K/cumm [facility] Blood 03/24/2024 11:3 0 AM PAINTING TECHNICIAN 03/24/2024 8:43 PM PAINTING TECHNICIAN Guilherme Michelle MD LAB BLOOD ORDERABLES Final Result Performing Organization Address City/[facility]/ZIP Co de Phone Number [facility] [address] [address] [facility] [employer] [place] [address] documented in this encounter Visit Diagnoses Diagnosis Iron deficiency Disorders of iron metabolism documented in this encounter Care Teams Explosive Operator Grenade Relationship Specialty Start Date End Date Guilherme Michelle MD [address] [place] [address] PCP - General Family Medicine 07/06/21 Tiago Randle MD [address] [place] [address] Referring Physician Obstetrics and Gynecology 07/11/21 Thalia Hopper 07/11/21 documented as of this encounter
--- OUTSIDE RECORDS SUMMARY | 2024-04-12 22:25 | XMS_ITS | Encounter Summary ---
Author Organization [facility] Address [address] [place] [address] Care Team Providers Care Electronics Recycler Name Role Phone Guilherme Michelle MD Primary Care Provider [phone] Tiago Randle MD Unavailable [phone] Reason for Visit * Reason Onset Date Comments Nexplanon-CM 11/03/2023 Encounter Details Date Type Department Care Team (Late st Contact Info) Description 11/03/2023 Telephone Vault Dragon 4 [facility] [address] [place] [address] Racheal Adams MD [address] [place] [address] Nexplanon-CM Social History Tobacco Use Types Packs/Day Years [...] Master's degree (e.g., MA, MS, Verenice, MEd, RELAY ENGINEER, GIOVANNI) 07/11/2021 Comments Yes Sex and Gender Information Value Date Recorded Sex Assigned at Not on file Legal Sex Female 8:21 AM CELL TENDER HELPER Gender Identity Female 11/14/2021 10:22 AM CDT Sexual Orientation Not on file 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 1 each 11/10/2023 documented in this encounter Miscellaneous Notes * Addendum Note - Briana Gonzales MA - 11/10/2023 4:27 PM CDTAddended by: BRIANA GONZALES on: 11/10/2023 04:27 PM Modules accepted: Orders * Telephone Encounter - Briana Gonzales MA - 11/03/2023 3:[phone] Adams, Reached out to pt to see if she was still interested in Nexplanon. States she is and would like to come in Friday. Advised Dr. Adams is out this week and we are unable to insert this week. Asked LMP, states 10/20/23. Encouraged to call on first day of next period and we will schedule her within a five day window. Pt refused stating it will not work with her schedule and she needs to schedule ead. States it has been difficult to get in but she cancelled twice and no showed twice. Offered 2 week process, to come in and complete urine hcg and then repeat in two weeks at the same time as insertion as long as test remains negative and she does not have intercourse in that time. Pt asked if it was necessary to be scheduled for urine hcg as she can just stop in. Advised we need to have it on the schedule for documenting and results. Pt then refused and said our office has charged her enough this year and she will not be coming in for multiple appts. Pt asked for Nuvaryng to be sent in and she would not like to schedule an appt. Advised you were out of office until 11/11/23 and she hung up on me. Nexplanon being put back in rotation. documented in this encounter Plan of Treatment Not on file documented as of this encounter Visit Diagnoses Not on filedocumented in this encounter Discontinued Medications Medication Sig Discontinue Reason Start Date End Da te norgestimate-ethinyl estradioL (ORTHO-CYCLEN) 0.25-35 mg-mcg per tablet Take 1 tablet by mouth daily Alternate therapy 08/11/2023 11/10/2023 documented as of this encounter Care Teams Electronics Recycler Relationship Specialty Start Date End Date Guilherme Michelle MD [address] [place] [address] PCP - General Family Medicine 07/06/21 Tiago Randle MD [address] [place] [address] Referring Physician Obstetrics and Gynecology 07/11/21 Thalia Hopper 07/11/21 documented as of this encounter
--- OUTSIDE RECORDS SUMMARY | 2024-04-12 22:26 | XMS_ITS | Encounter Summary ---
Author Organization [facility] Healthcare Address [address] [place] [address] Care Team Providers Care Phonograph Cartridge Assembler Name Role Phone Guilherme Michelle MD Primary Care Provider [phone] Tiago Randle MD [facility] [phone] Encounter Details Date Type Department Care Team (Late st Contact Info) Description 10/07/2022 2:10 PM CDT Lab [address] Threatened Social History Tobacco Use Types Packs/Day Years Used Date Smoking Tobacco: Never Smokeless Tobacco: Never AUDIT-C Answer Date Recorded Q1: How often do you have a drink containing alc ohol? 2-3 times a week 09/26/2022 Q2: How many drinks containi ng alcohol do you have on a typical day when you are drinking? 1 or 2 09/26/2022 Q3: How often do you have si x or more drinks on one occasion? Less than monthly 09/26/2022 PHQ-2 Answer Date Recorded PHQ-2 Total Score 3 09/26/2022 Education Answer Date Recorded What is the highest level of school you have completed or the highest degree you have received? 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 Not on file Not on f ile documented as of this encounter Plan of Treatment Not on file documented as of this encounter Procedures Procedure Name Priority Date/Time Associated Diagnosis Comments ABO/RH Routine 10/07/2022 2:14 PM CDT Threatened ANTIBODY SCREEN Routine 10/07/2022 2:14 PM CDT Threatened HC ANTIBODY SCREEN RBC Routine 10/07/2022 2:14 PM CDT Threatened HCG, BLOOD, QUANTITATIVE Routine 10/07/2022 2:14 PM CDT Threatened documented in this encounter Results * Antibody screen (10/07/2022 2:14 PM CDT) Sachin, indirect, Gel Interpretation Negative ABSC [facility] Blood 10/07/2022 2:14 PM CDT 10/07/2022 3:51 PM CDT Narrative [facility] - 10/07/2022 4:54 PM CDT Has the patient had Daratumumab or Isatuximab in the past 6 months?->Unknown Racheal Adams MD LAB BLOOD BANK TEST ORDERABLES Final Result Performing Organization Address City/[facility]/ZIP Co de Phone Number [facility] ([place]) [address] [facility] [place] [address] * ABO/Rh (10/07/2022 2:14 PM CDT) ABO/Rh A Positive [facility] Blood 10/07/2022 2:14 PM CDT 10/07/2022 3:51 PM CDT Narrative [facility] - 10/07/2022 4:54 PM CDT Has the patient had Daratumumab or Isatuximab in the past 6 months?->Unknown Racheal Adams MD LAB BLOOD BANK TEST ORDERABLES Final Result [facility] ([place] [address] [facility] [place] [address] * (ABNORMAL) hCG, blood, quantitative (10/07/2022 2:14 PM CDT) hCG, quant 24,621.0( H) 0.0 - 5.0 IUnits/L [facility] ([place]) Comment: Interpretive Data Non- Female premenopausal: < or = 5.0 IUnits/L Men: < 5.0 IUnits/L Weeks of Gestation ? Reference Interval ?? 3 to 6 ? 5.8-31,795 IUnits/L ?? 7 to 10 ? 3,697-186,977 IUnits/L ??12 to 15 ?27,832- 70,791 IUnits/L ??16 to 18 ? 9,040- 58,179 IUnits/L The [employer] hCG Beta Quant assay procedure was used. Results from different manufacturers or methods may not be comparable. Serial testing should be performed using the same method. Current Interpretive Data was last revised on 2021. Blood 10/07/2022 2:14 PM CDT 10/07/2022 3:51 PM CDT us Racheal Adams MD LAB BLOOD ORDERABLE S Final Result [facility] [address] [facility] [place] [address] documented in this encounter Visit Diagnoses Diagnosis Threatened documented in this encounter Care Teams Phonograph Cartridge Assembler Relationship Specialty Start Date End Date Guilherme Michelle MD [address] [place] [address] PCP - General Family Medicine 07/06/21 Tiago Randle MD [address] [place] [address] Referring Physician Obstetrics and Gynecology 07/11/21 Thalia Hopper 07/11/21 documented as of this encounter
--- OUTSIDE RECORDS SUMMARY | 2024-04-12 22:26 | XMS_ITS | Encounter Summary ---
Author Organization [facility] Healthcare Address [address] [place] [address] Care Team Providers Care Board Finisher Name Role Phone Guilherme Michelle MD Primary Care Provider [phone] Tiago Randle MD Unavailable [phone] Encounter Details Date Type Department Care Team (Late st Contact Info) Description 01/29/2023 Documentation [facility] Primary Care at [address] [address] Cee Adams MA Social History Tobacco Use Types Packs/Day [...] Master's degree (e.g., MA, MS, Verenice, MEd, WORKFORCE CONSULTANT, GIOVANNI) 07/11/2021 Comments No Sex and Gender Information Value Date Recorded Sex Assigned at Not on file Legal Sex Female 8:21 AM REGIONAL CONSTRUCTION 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 No answer, LMOM to call back. documented in this encounter Plan of Treatment Not on file documented as of this encounter Visit Diagnoses Not on filedocumented in this encounter Care Teams Board Finisher Relationship Specialty Start Date End Date Guilherme Michelle MD [address] [place] [address] PCP - General Family Medicine 07/06/21 Tiago Randle MD [address] [place] [address] Referring Physician Obstetrics and Gynecology 07/11/21 Thalia Hopper 07/11/21 documented as of this encounter
--- OUTSIDE RECORDS SUMMARY | 2024-04-12 22:26 | XMS_ITS | Encounter Summary ---
Author Organization [facility] Address [address] [address] Care Team Providers Care Channel Opener Outsoles Name Role Phone Guilherme Michelle MD Primary Care Provider [phone] Tiago Randle MD Unavailable [phone] Reason for Visit * Reason Comments Follow-up Encounter Details Date Type Department Care Team (Late st Contact Info) Description 10/14/2022 1:00 PM CDT Office Visit [facility] Women's Health Care at [address] [address] Racheal Adams MD [address] [place] [id number] SAB (spontaneous ) (Primary Dx); Weight gain; Incomplete ; Well woman exam Social History Tobacco Use [...] Master's degree (e.g., MA, MS, Verenice, MEd, GIZZARD PULLER, GIOVANNI) 07/11/2021 Comments No Sex and Gender Information Value Date Recorded Sex Assigned at Not on file Legal Sex Female 8:21 AM TIRE MOLDER Gender Identity Female 11/14/2021 10:22 AM CDT Sexual Orientation Not on file 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 Alliance Director Visit Follow-up Subjective: Leanna Kaur is a 32 y.o. year old female who presents for f/u of incomplete ab. She had bleeding off and on over the weekend off and on. Did pass clots. Down to spotting today. Phenergan helped nausea. Are you wanting to be in the next year?no Patient's last menstrual period was 08/18/2022 (approximate). Menstrual History: Patient's last menstrual period was 08/18/2022 (approximate). Sexual History: OB History 3 Para 2 Term 2 AB 1 Living 2 SAB 1 IAB Ectopic Multiple Live Births 2 # Outcome Date GA Labor/2nd Weight Sex Delivery Anes PTL Lv A1 A5 1 SAB 2 Term 03/2013 3.402 kg (7 lb 8 oz) M Vag-Spont Living 3 Term 01/2016 3.402 kg (7 lb 8 oz) F Vag-Spont Living Objective: BP 114/76 (BP Location: Right arm, Patient Position: Sitting) Pulse 78 Wt 141 lb (64 kg) LMP 08/18/2022 (Approximate) BMI 24.98 kg/m?? Physical Exam: Physical Exam Vitals reviewed. Exam conducted with a fire and safety helper present. Constitutional: Appearance: Normal appearance. She is normal weight. HENT: Head: Normocephalic and atraumatic. Genitourinary: Pelvic exam was performed with patient supine. Rectum normal, vagina normal and uterus normal. Right labia: normal. Left Labia: normal. Right adnexa: normal. Cervix: Normal exam. Genitourinary Comments: BUS negative Bleeding is less Os is closed Musculoskeletal: Right lower leg: No edema. Left lower leg: No edema. Neurological: Mental Status: She is alert. Psychiatric: Mood and Affect: Mood normal. Behavior: Behavior normal. Thought Content: Thought content normal. Judgment: Judgment normal. Assessment and Plan: Diagnoses and all orders for this visit: SAB (spontaneous ) (Primary) - hCG, blood, quantitative; Future Weight gain - TSH; Future - Vitamin D 25 hydroxy; Future Incomplete Assessment & Plan: I think the uterus is empty Will follow betas to zero No sex until then Emotions around loss discussed Return in about 4 weeks (around 11/11/2022). Racheal Adams MD 10/14/2022 documented in this encounter Miscellaneous Notes * Assessment & Plan Note - Racheal Adams MD - 10/18/2022 7:00 PM CDTAssociated Problem(s): Weight gain She was seeing Dr. Michelle for this Did not get the labs he ordered Will reorder Diet/activity level briefly reviewed. * Assessment & Plan Note - Racheal Adams MD - 10/18/2022 6:59 PM CDTAssociated Problem(s): Well woman exam She is due * Assessment & Plan Note - Racheal Adams MD - 10/18/2022 6:58 PM CDTAssociated Problem(s): Incomplete I think the uterus is empty Will follow betas to zero No sex until then Emotions around loss discussed * Addendum Note - Megan Salas - 10/14/2022 1:00 PM CDTAddended by: MEGAN SALAS on: 04/14/2023 11:26 AM Modules accepted: Orders MOLDER documented in this encounter Plan of Treatment Not on file documented as of this encounter Results * (ABNORMAL) Vitamin D 25 hydroxy (04/14/2023 11:26 AM TIRE MOLDER) Vitamin D 25-OH 20(L) 30 - 80 ng/mL [facility] Blood 04/14/2023 11:2 6 AM TIRE MOLDER 04/14/2023 7:56 PM TIRE MOLDER us Racheal Adams MD LAB BLOOD ORDERABLE S Final Result Performing Organization Address [facility] de Phone Number [facility] [address] [place] [address] * TSH (04/14/2023 11:26 AM TIRE MOLDER) Thyroid Stimulating Hormone 0.56 0.30 - 4.20 mcIUnit/mL [facility] Blood 04/14/2023 11:2 6 AM TIRE MOLDER 04/14/2023 7:56 PM TIRE MOLDER us Racheal Adams MD LAB BLOOD ORDERABLE S Final Result Performing Organization Address [facility] de Phone Number [facility] [address] [place] [address] * hCG, blood, quantitative (04/14/2023 11:26 AM TIRE MOLDER) hCG, quant <0.1 0.0 - 5.0 IUnits/L [facility] Comment: Interpretive Data Non- Female premenopausal: < [...] Data was last revised on 2021. Blood 04/14/2023 11:2 6 AM TIRE MOLDER 04/14/2023 7:56 PM TIRE MOLDER us Racheal Adams MD LAB BLOOD ORDERABLE S Final Result Performing Organization Address City/State/[facility] Phone Number [facility] [address] Department [place] [address] documented in this encounter Visit Diagnoses Diagnosis SAB (spontaneous )- Primary Unspecified spontaneous without mention of complication Weight gain Other symptoms concerning nutrition, metabolism, and development Incomplete Legally unspecified , incomplete, without mention of complication Well woman exam Routine general medical examination at a health care facility documented in this encounter Care Teams Channel Opener Outsoles Relationship Specialty Start Date End Date Guilherme Michelle MD [address] [place] [address] PCP - General Family Medicine 07/06/21 Tiago Randle MD [address] [place] [address] Referring Physician Obstetrics and Gynecology 07/11/21 Thalia Hopper 07/11/21 documented as of this encounter
--- OUTSIDE RECORDS SUMMARY | 2024-04-12 22:26 | XMS_ITS | Encounter Summary ---
Author Organization [facility] Address [address] [facility] [address] [place] [address] Care Team Providers Care Printing Grey Cloth Tender Name Role Phone Guilherme Michelle MD Primary Care Provider [phone] Tiago Randle MD Unavailable [phone] Reason for Visit * Reason Onset Date Comments Cough 07/16/2022 Encounter Details Date Type Department Care Team (Late st Contact Info) Description 07/16/2022 Nurse Triage [facility] Primary Care at [address] [address] Guilherme Michelle MD [address] [place] [address] [address] [place] [address] Social History Tobacco Use Types Packs/Day Years Used Date Smoking Tobacco: Never Smokeless Tobacco: Never AUDIT-C Answer Date Recorded Q1: How often do you have a drink containing alcohol? 4 or more times a week 07/11/2021 Q2: How many drinks containi ng alcohol do you have on a typical day when you are drinking? 1 or 2 Q3: How often do you have si x or more drinks on one occasion? Never 07/11/2021 PHQ-2 Answer Date Recorded PHQ-2 Total Score (If total score is 3 or more points, staff should administer the PHQ-9) 0 07/10/2022 Education Answer Date Recorded What is the highest level of school you have completed or the highest degree you have received? 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 Hx: Seen in office on: 07/10. Rx'd: - azithromycin (ZITHROMAX) 250 mg - benzonatate (TESSALON) 100 mg Sx Onset: worsening over the past few days Sx: productive cough with green phlegm, deeper, more frequent. Patient denies fever, SOB, trouble breathing. Action requested: Patient states abx/medication have not helped her Sx. Refusing SDA and requestingPCP guidance from Dr. Michelle. Message routed for PCP determination Callback # [phone] Preferred Pharmacy [id number] - [place], [place] - [address] [facility] [address] [id number] [address] Allergies as of 07/16/2022 - Reviewed 07/10/2022 Allergen Reaction Noted ??? Bactrim [sulfamethoxazole-trimethoprim] Hives 08/16/2021 Reason for Disposition ??? Continuous (nonstop) coughing interferes with work or school and no improvement using cough treatment per Care Advice Protocols used: [id number] * Telephone Encounter - Virginia Vang RN - 07/16/2022 9:24 AM CDT Regarding: shortness of breath, worsening cough ----- Message from Aisha Au MA sent at 07/16/2022 9:22 AM CDT ----- Symptom Based Call Caller's Callback #: [phone] Chief Complaint(s): shortness of breath, worsening cough Duration: 2 months but worsening What type of symptom(s) is the patient experiencing? Red Flag. Is the patient concerned they are experiencing a medical emergency requiring an ambulance? No Additional Comments: Patient called to report that she is experiencing a worsening cough & shortness of breath. She states that it's difficult to walk up steps. (Unable to answer from 9:30 - 10am) Does message need to be routed?Yes-Action Needed documented in this encounter Plan of Treatment Not on file documented as of this encounter Visit Diagnoses Not on filedocumented in this encounter Care Teams Printing Grey Cloth Tender Relationship Specialty Start Date End Date Guilherme Michelle MD [address] [place] [address] PCP - General Family Medicine 07/06/21 Tiago Randle MD [address] [place] [address] Referring Physician Obstetrics and Gynecology 07/11/21 Thalia Hopper 07/11/21 documented as of this encounter
--- OUTSIDE RECORDS SUMMARY | 2024-04-12 22:26 | XMS_ITS | Encounter Summary ---
Author Organization [facility] Address [address] [place] [address] Care Team Providers Care Boiler House Inspector Name Role Phone Guilherme Michelle MD Primary Care Provider [phone] Tiago Randle MD Unavailable [phone] Reason for Visit * Reason Comments Follow-up Encounter Details Date Type Department Care Team (Late st Contact Info) Description 10/10/2022 9:00 AM CDT Office Visit [facility] 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 Garbage Stoker Visit Follow-up Subjective: Leanna Kaur is a 32 y.o. year old female who presents for f/u of incomplete ab. She states she took the cytotec, but only had minimal cramping. Bleeding has been better. Patient's last menstrual period was 08/18/2022 (approximate). [...] 8 oz) F Vag-Spont Living Objective: BP 130/68 (BP Location: Right arm, Patient Position: Sitting) Wt 143 lb (64.9 kg) LMP 08/18/2022 (Approximate) BMI 25.33 kg/m?? Physical Exam: Physical Exam Vitals reviewed. Exam conducted with a eyeglass frame truer present. Constitutional: Appearance: Normal appearance. She is normal weight. HENT: Head: Normocephalic and atraumatic. Genitourinary: Pelvic exam was performed with patient supine. Rectum normal, vagina normal and uterus normal. Right labia: normal. Left Labia: normal. Right adnexa: normal. Left adnexa: normal. Cervix: Normal exam. Genitourinary Comments: BUS negative Minimal blood in the vault today. Os is open and I can still feel products. Musculoskeletal: Right lower leg: No edema. Left lower leg: No edema. Neurological: Mental Status: She is alert. Psychiatric: Mood and Affect: Mood normal. Behavior: Behavior normal. Thought Content: Thought content normal. Judgment: Judgment normal. Assessment and Plan: Diagnoses and all orders for this visit: Threatened (Primary) Incomplete Assessment & Plan: Usg done that confirms exam Options discussed She will take the second dose of cytotec Wants to avoid D&C Has my number if she has concerns F/u Friday in [facility]. No follow-ups on file. Racheal Adams MD 10/10/2022 documented in this encounter Miscellaneous Notes * Assessment & Plan Note - Racheal Adams MD - 10/10/2022 10:53 AM CDTAssociated Problem(s): Incomplete Usg done that confirms exam Options discussed She will take the second dose of cytotec Wants to avoid D&C Has my number if she has concerns F/u Friday in [facility]. documented in this encounter Plan of Treatment Not on file documented as of this encounter Visit Diagnoses Diagnosis Threatened - Primary Incomplete Legally unspecified , incomplete, without mention of complication documented in this encounter Care Teams Boiler House Inspector Relationship Specialty Start Date End Date Guilherme Michelle MD [address] [place] [address] PCP - General Family Medicine 07/06/21 Tiago Randle MD [address] [place] [address] Referring Physician Obstetrics and Gynecology 07/11/21 Thalia Hopper 07/11/21 documented as of this encounter
--- OUTSIDE RECORDS SUMMARY | 2024-04-12 22:26 | XMS_ITS | Encounter Summary ---
Author Organization [facility] Address [address] [place] [address] Care Team Providers Care Property Custodian Name Role Phone Guilherme Michelle MD Primary Care Provider [phone] Tiago Randle MD Unavailable Reason for Visit * Reason Comments Sore Throat Pt states she has brar d a cough for a few months and throat started hurting over the weekend. Also c/o sharp lower back pain and sharp abdominal pain Encounter Details Date Type Department Care Team (Late st Contact Info) Description 07/08/2022 6:15 PM CDT Office Visit [facility] [address] [address] [place] [address] [place] [address] [address] [place] [address] Acute pharyngitis, unspecified etiology (Primary Dx); Left upper quadrant abdominal pain; Urinary frequency; Exposure to strep throat; Chronic cough Social History Tobacco Use Types Packs/Day Years [...] points, staff should administer the PHQ-9) 6 03/06/2022 Education Answer Date Recorded What is the highest level of school you have completed or the highest degree you have received? 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 file Not on file Not on f ile documented as of this encounter Last Filed Vital Signs Vital Sign Reading Time Taken Comments Blood Pressure 118/74 07/08/2022 6:16 PM CDT Pulse 81 07/08/2022 6:16 PM CDT Temperature 36.7 ??C (98.1 ??F) 07/08/2022 6:16 PM CD T Respiratory Rate 18 07/08/2022 6:16 PM CDT Oxygen Saturation 97% 07/08/2022 6:16 PM CDT Inhaled Oxygen Concentration - - Weight 65.3 kg (144 lb) 07/08/2022 6:16 PM CDT Height 162.6 cm (5' 4 ) 07/08/2022 6:16 PM CDT Body Mass Index 24.72 07/08/2022 6:16 PM CDT documented in this encounter Progress Notes * Celi Bella NP - 07/08/2022 6:15 PM CDT Images from the original note were not included. Subjective/Objective Patient ID: Leanna Kaur is a 32 y.o. female. Chief Complaint Sore Throat (Pt states she has had a cough for a few months and throat started hurting over the weekend. Also c/o sharp lower back pain and sharp abdominal pain) Pt [facility] for: Cough for couple months, worse after talking a lot at work Then this weekend started feeling run down . No nausea, vomiting, or diarrhea. Patient denies any recent travel Family had covid 1 month ago (pt tested negative) and strep couple weeks ago. Patient is vaccinated for COVID No flu vaccine. Cough This is a recurrent problem. The current episode started more than 1 month ago. The problem has been gradually worsening. The problem occurs every few hours. The cough is Non-productive. Associated symptoms include a sore throat. Pertinent negatives include no chest pain, chills, ear pain, fever, headaches, myalgias, postnasal drip, rash, rhinorrhea, shortness of breath or wheezing. Exacerbated by: Talking. Risk factors: Denies. Treatments tried: Mucinex, ibuporfen. The treatment provided mild relief. There is no history of asthma, bronchiectasis, bronchitis, COPD, emphysema or pneumonia. Gastric reflux UTI This is a new problem. The current episode started in the past 7 days. The problem occurs intermittently. The problem has been unchanged. The pain is at a severity of 0/10. The patient is experiencing no pain. There has been no fever. Associated symptoms include frequency. Pertinent negatives include no chills, flank pain, hematuria, nausea, urgency or vomiting. Treatments tried: AZO. The treatment provided no relief. There is no history of catheterization, kidney stones, recurrent UTIs or a urological procedure. Gastric reflux Review of Systems Constitutional: Negative for appetite change, chills, diaphoresis, fatigue and fever. HENT: Positive for sore throat. Negative for congestion, ear discharge, ear pain, postnasal drip, rhinorrhea, sinus pressure, sinus pain, sneezing and trouble swallowing. Respiratory: Positive for cough. Negative for chest tightness, shortness of breath and wheezing. Cardiovascular: Negative. Negative for chest pain. Gastrointestinal: Positive for abdominal pain. Negative for constipation, diarrhea, nausea and vomiting. Patient states she has chronic gastric reflux Genitourinary: Positive for frequency. Negative for difficulty urinating, dysuria, flank pain, hematuria, urgency, vaginal bleeding and vaginal discharge. Musculoskeletal: Positive for back pain. Negative for myalgias, neck pain and neck stiffness. Skin: Negative for rash. Neurological: Negative for dizziness and headaches. Hematological: Negative for adenopathy. Physical Exam Vitals and nursing note reviewed. Constitutional: General: She is awake. She is not in acute distress. Appearance: Normal appearance. She is not ill-appearing. HENT: Head: Normocephalic and atraumatic. Right Ear: Tympanic membrane and ear canal normal. Left Ear: Tympanic membrane and ear canal normal. Nose: No congestion or rhinorrhea. Right Sinus: No maxillary sinus tenderness or frontal sinus tenderness. Left Sinus: No maxillary sinus tenderness or frontal sinus tenderness. Mouth/Throat: Lips: [place]. Mouth: Mucous membranes are moist. Tongue: Tongue does not deviate from midline. Pharynx: Uvula midline. Posterior oropharyngeal erythema present. No pharyngeal swelling, oropharyngeal exudate or uvula swelling. Tonsils: No tonsillar exudate or tonsillar abscesses. 0 on the right. 0 on the left. Eyes: General: Lids are normal. Pupils: Pupils are equal, round, and reactive to light. Cardiovascular: Rate and Rhythm: Normal rate and regular rhythm. Pulses: Normal pulses. Heart sounds: Normal heart sounds. Pulmonary: Effort: Pulmonary effort is normal. No respiratory distress. Breath sounds: Normal breath sounds. No decreased breath sounds, wheezing, rhonchi or rales. Comments: No cough noted on exam or with deep breath Abdominal: General: Bowel sounds are normal. Palpations: Abdomen is soft. Tenderness: There is abdominal tenderness (mild) in the left upper quadrant. There is no right CVA tenderness, left CVA tenderness, guarding or rebound. Musculoskeletal: Cervical back: Full passive range of motion without pain, normal range of motion and neck supple. Lymphadenopathy: Cervical: No cervical adenopathy. Skin: General: Skin is warm and dry. Neurological: Mental Status: She is alert and oriented to person, place, and time. Gait: Gait is intact. Gait normal. Psychiatric: Mood and Affect: Mood normal. Behavior: Behavior normal. Behavior is cooperative. Vitals: 07/08/22 1816 BP: 118/74 Pulse: 81 Resp: 18 Temp: 36.7 ??C (98.1 ??F) SpO2: 97% Weight: 65.3 kg (144 lb) Height: 162.6 cm (5' 4 ) No results found. Past Medical History: Diagnosis Date Anxiety Depression Dysmenorrhea as of 2021, workup has been noncontributory History of mononucleosis syndrome 07/13/2021 Vitamin D deficiency 08/16/2021 Current Outpatient Medications: fluticasone propionate (FLONASE) 50 mcg/actuation nasal spray, Administer 1 spray into each nostrildaily, Disp: , Rfl: venlafaxine XR (EFFEXOR-XR) 75 mg 24 hr capsule, Take 1 capsule (75 mg total) by mouth daily, Disp:90 capsule, Rfl: 3 ergocalciferol (VITAMIN D) 50,000 unit capsule, Take 1 capsule (50,000 Units total) by mouth once aweek, Disp: 8 capsule, Rfl: 0 Allergies Allergen Reactions Bactrim [Sulfamethoxazole-Trimethoprim] Hives Social History Tobacco Use Smoking status: Never Smokeless tobacco: Never Substance and Sexual Activity Drug use: Yes Types: Alcohol, Marijuana Sexual activity: Not on file Alcohol Use: Not At Risk Frequency of Alcohol Consumption: 4 or more times a week Average Number of Drinks: 1 or 2 Frequency of Binge Drinking: Never Past Surgical History: Procedure Laterality Date BREAST SURGERY augmentation TRANSUMBILICAL AUGMENTATION MAMMAPLASTY 2019 silicon WISDOM TOOTH EXTRACTION 2011 Assessment/Plan Diagnoses and all orders for this visit: Acute pharyngitis, unspecified etiology (Primary) - POCT rapid strep A - Throat culture Throat; Future - Influenza A/B, RSV, and COVID-19 PCR Nasopharyngeal; Future Left upper quadrant abdominal pain Urinary frequency - POCT UA, AUTO W/O SCOPE - Urine culture Urine, clean voided; Future Exposure to strep throat - POCT rapid strep A - Throat culture Throat; Future - Influenza A/B, RSV, and COVID-19 PCR Nasopharyngeal; Future Chronic cough - Influenza A/B, RSV, and COVID-19 PCR Nasopharyngeal; Future Follow-up with Dr. Michelle Recent Results (from the past 4 hour(s)) POCT rapid strep A Collection Time: 07/08/22 6:37 PM Result Value Ref Range Rapid Strep A, POC Negative Negative POCT UA, AUTO W/O SCOPE Collection Time: 07/08/22 6:42 PM Result Value Ref Range Color, Urine, POC [place] Clarity, ur, POC Clear Clear Glucose, ur, POC Negative Negative MG/DL Bilirubin, ur, POC Negative Negative, Small, Moderate, Large Ketones, ur, POC Negative Negative Specific [place], POC 1.005 1.005 - 1.030 Blood, ur, POC Negative Negative pH, ur, POC 5.5 5.0 - 8.0 Protein, ur, POC Negative Negative Urobilinogen, Urine, POC 0.2 mg/dL Leukocytes, ur, POC Negative Negative Nitrite, ur, POC Negative Negative Appearance, fld Clear Clear Discussed with patient the need for follow-up with Dr. Michelle, her primary care provider. Advised ifsymptoms worsen at all, increased abdominal pain, fever, vomiting etc. present to the emergency room. Patient states understanding. Patient Education: -Take all antibiotic medications as prescribed. -We will notify you of urine culture results -Push fluids, especially water. This also helps prevent future infections. -Urinate when you feel the urge. Do not hold your urine. Urinate as soon as you feel you have to. -Cranberry juice has been shown to promote healing, use at your discretion. -Make sure to always wipe from front to back after urinating. -If you are sexually active make sure to urinate Before AND after sex to help prevent bladder infections. -Avoid intercourse until your symptoms are resolved for one week. -Do not drink alcohol, caffeine, and citrus juices. These can irritate your bladder and increase your symptoms. Seek care (go to Urgent Care or ER) immediately if: ?? You are urinating very little or not at all. ?? You are vomiting. ?? You have a high fever with shaking chills. ?? You have side or back pain that gets worse. ??Contact your primary care doctor or SENIOR CREDIT ANALYST if: ?? You have a fever. ?? You have white or yellow discharge from your vagina. ?? You do not feel better after 2 days of taking antibiotics. Disposition Treatment plan including expectations, follow up, and return precautions discussed with patient/parent, verbalizes understanding. Medication dosage, use, and potential adverse reactions discussed with patient/parent. Advised to follow up with PCP if symptoms do not resolve as expected or sooner if condition worsens. Signs/symptoms warranting ER evaluation reviewed. Patient and/or guardian was given an opportunity to ask questions, questions answered. Celi Bella NP Cosigned by Gabriel Monte MD at 07/08/2022 7:28 PM CDT documented in this encounter Plan of Treatment Not on file documented as of this encounter Procedures Procedure Name Priority Date/Time Associated Diagnosis Comments POCT URINALYSIS, AUTO W/O SCOPE Routine 07/08/2022 6:42 PM CDT Urinary frequency POCT RAPID STREP Routine 07/08/2022 6:37 PM CDT Acute pharyngitis, unspecified etiology Exposure to strep throat documented in this encounter Results * Influenza A/B, RSV, and COVID-19 PCR Nasopharyngeal (07/08/2022 6:44 PM CDT) COVID-19 RNA Negative Negative [facility] Influenza A RNA Negative Negative [facility] Influenza B RNA Negative Negative [facility] RSV RNA Negative Negative [facility] Comment: Interpretive data: This test is performed using the [employer] Xpert Xpress CoV-2/Flu/RSV plus assay. This is a multiplex, real-time reverse transcriptase PCR assay intended for the qualitative detection of nucleic acid from SARS-CoV-2, influenza A, influenza B, and respiratory syncytial virus. This assay has been reviewed by the FDA for Emergency Use Authorization (EUA). The performance characteristics have been verified by the performing laboratory. Results must be considered in the clinical context, and a negative result does not rule out infection. Interpretive Data last revised 2021. Nasopharyngeal 07/08/2022 6: 44 PM CDT 07/08/2022 9:39 PM CDT Narrative [facility] - 07/08/2022 10:41 PM CDT Is the Patient experiencing symptoms consistent with COVID?->Yes Date of Symptom Onset->06/02/22 Reason for testing?->Symptomatic Celi Bella NP LAB MICROBIOLOGY - GENERAL JONH FOWLER Final Result [facility] [id number] Department of Laboratories [place], [place] [id number] * Throat culture Throat (07/08/2022 6:44 PM CDT) Report Final Report: No growth of pathogens. [facility] Comment:Testing performed by : [facility], [address] [place]., [address] Throat 07/08/2022 6:44 PM CDT 07/09/2022 12:46 AM CDT Narrative [facility] - 07/09/2022 7:36 PM CDT Testing performed by [facility] ([phone]). Celi Bella NP LAB MICROBIOLOGY - GENERAL ORDE RABCIRA Final Result Performing Organization Address [facility] Co de Phone Number HERNANDEZLARRY KILPATRICK [id number] Department [place] [address] * Urine culture Urine, clean voided (07/08/2022 6:44 PM CDT) Report Final Report: Less than 100,000 colonies/mL (clinically insignificant growth based on current clinical standards) [facility] Comment:Testing performed by : [facility], [address] [place]., [address] Organism (CLINICALLY INSIGNIFICANT GROWTH [facility] Urine, clean voided 07/08/2022 6:44 PM CDT 07/09/2022 12:45 AM CDT Narrative [facility] - 07/10/2022 10:09 AM CDT Testing performed by [facility] ([phone]) Celi Bella NP LAB MICROBIOLOGY - GENERAL ORDE MALCOLM Final Result Performing Organization Address [facility] Co de Phone Number [facility] FINESSE [address] [facility] [place] [address] * POCT UA, AUTO W/O SCOPE (07/08/2022 6:42 PM CDT) Color, Urine, POC [place] Clarity, ur, POC Clear Clear Glucose, ur, POC Negative Negative MG/DL Bilirubin, ur, POC Negative Negative, Small, Moderate, Large Ketones, ur, POC Negative Negative Specific [place], POC 1.005 1.005 - 1.030 Blood, ur, POC Negative Negative pH, ur, POC 5.5 5.0 - 8.0 Protein, ur, POC Negative Negative Urobilinogen, Urine, POC 0.2 mg/dL Leukocytes, ur, POC Negative Negative Nitrite, ur, POC Negative Negative Appearance, fld Clear Clear Urine, clean voided 07/08/2022 6:42 PM CDT Celi Bella REEL CUTTER POINT OF CARE TEST ORDERABLES F inal Result * POCT rapid strep A (07/08/2022 6:37 PM CDT) Rapid Strep A, POC Negative Negative Swab 07/08/2022 6:37 PM CDT Celi Bella REEL CUTTER POINT OF CARE TEST ORDERABLES F inal Result documented in this encounter Visit Diagnoses Diagnosis Acute pharyngitis, unspecified etiology- Primary Left upper quadrant abdominal pain Urinary frequency Exposure to strep throat Contact with or exposure to other communicable diseases Chronic cough Cough Acute pharyngitis, unspecified etiology Exposure to strep throat Contact with or exposure to other communicable diseases Chronic cough Cough Urinary frequency documented in this encounter Care Teams Property Custodian Relationship Specialty Start Date End Date Guilherme Michelle MD [address] [place] [address] PCP - General Family Medicine 07/06/21 Tiago Randle MD [address] [facility] [address] [place] [address] Referring Physician Obstetrics and Gynecology 07/11/21 Thalia Hopper 07/11/21 documented as of this encounter
--- OUTSIDE RECORDS SUMMARY | 2024-04-12 22:26 | XMS_ITS | Encounter Summary ---
Author Organization [facility] Address [address] [place] [address] Care Team Providers Care Tension Worker Name Role Phone Guilherme Michelle MD Primary Care Provider [phone] Tiago Randle MD Unavailable [phone] Reason for Visit * Reason Onset Date Comments Lab Reminders 11/07/2022 Encounter Details Date Type Department Care Team (Late st Contact Info) Description 11/07/2022 Telephone [facility] [address] [place] [address] Racheal Adams MD [address] [place] [address] [address] [place] [address] Lab Reminders Social History Tobacco Use Types Packs/Day Years [...] Master's degree (e.g., MA, MS, Verenice, MEd, CAMPUS SECURITY DIRECTOR, [employer]) 07/11/2021 Comments No Sex and Gender Information Value Date Recorded Sex Assigned at Not on file Legal Sex Female 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 Every1Mobile message also sent on 11/19/22 that has not been read. * Telephone Encounter - Briana Bhakta MA - 11/19/2022 2:27 PM CDT LVM that labs still need to be completed. To call back with any questions. * Telephone Encounter - Brinaa Bhakta MA - 11/07/2022 8:30 AM CDT LVM that she has labs that need to be completed this month. If any questions to give us a return call. documented in this encounter Plan of Treatment Not on file documented as of this encounter Visit Diagnoses Not on filedocumented in this encounter Care Teams Tension Worker Relationship Specialty Start Date End Date Guilherme Michelle MD [address] [place] [address] PCP - General Family Medicine 07/06/21 Tiago Randle MD [address] [facility] [address] [place] [address] Referring Physician Obstetrics and Gynecology 07/11/21 Thalia Hopper 07/11/21 documented as of this encounter
--- OUTSIDE RECORDS SUMMARY | 2024-04-12 22:26 | XMS_ITS | Encounter Summary ---
Author Organization [facility] Healthcare Address [address] [place] [address] Care Team Providers Care Fiber Glass Worker Name Role Phone Guilherme Michelle MD Primary Care Provider [phone] Tiago Randle MD [facility] [phone] Encounter Details Date Type Department Care Team (Latest Contact Info) Description 07/08/2022 6:44 PM CDT - 07/08/2022 11:59 PM CDT Hospital Encounter [address] [id number] Acute pharyngitis, unspecified etiology; Exposure to strep throat; Chronic cough; Urinary frequency Discharge Disposition: Discharge to home or self [...] Master's degree (e.g., MA, MS, Verenice, MEd, GROUND CONTROL APPROACH TECHNICIAN, GIOVANNI) 07/11/2021 Comments No Sex and Gender Information Value Date Recorded Sex Assigned at Not on file Legal Sex Female 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 Gender Identity Female 11/14/2021 10:22 AM CDT Sexual Orientation Not on file 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 Not on file Not on file Not on f ile documented as of this encounter Medications at Time of Discharge ergocalciferol (VITAMIN D) 50,000 unit capsule Take 1 capsule (50,000 Units total) by mouth once a week 8 capsule 09/20/2021 3 fluticasone propionate (FLONASE) 50 mcg/actuation nasal spray Administer 1 spray into each nostril daily 3 venlafaxine XR (EFFEXOR-XR) 75 mg 24 hr capsuleIndicatio ns:major depressive disorder Take 1 capsule (75 mg total) by mouth daily 90 capsule 3 03/06/2022 3 documented as of this encounter Discharge Disposition Disposition Code Departure Means Destination Discharge to home or self care documented in this encounter Miscellaneous Notes * Result Encounter Note - Ifeoma Nunez NP - 07/08/2022 11:59 PM CDT Please notify patient of negative COVID-19/FLU/RSV test. Patient should rest, stay hydrated, and take OTC medications as needed. Monitor symptoms and if they worsen follow up with primary care doctoror ER if needed. * Result Encounter Note - Jeffery Adams MA - 07/08/2022 11:59 PM CDT Viewed on muzu tvhart * Result Encounter Note - Celi Bella NP - 07/08/2022 11:59 PM CDT Please notify patient that urine culture was negative. Patient can stop taking antibiotics if they were prescribed at the time of visit. If s/s are still present patient should follow up PCP. documented in this encounter Plan of Treatment Not on file documented as of this encounter Procedures Procedure Name Priority Date/Time Associated Diagnosis Comments INFLUENZA A/B, RSV, AND COVID-19 PCR Routine 07/08/2022 6:44 PM CDT Acute pharyngitis, unspecified etiology Exposure to strep throat Chronic cough URINE CULTURE Routine 07/08/2022 6:44 PM CDT Urinary frequency THROAT CULTURE Routine 07/08/2022 6:44 PM CDT Acute pharyngitis, unspecified etiology Exposure to strep throat documented in this encounter Results * Urine culture Urine, clean voided (07/08/2022 6:44 PM CDT) Report Final Report: Less than 100,000 colonies/mL (clinically insignificant growth based on current clinical standards) ALLYN KILPATRICK Comment:Testing performed by : [facility], [address] [place] [address]., [id number] Organism (CLINICALLY INSIGNIFICANT GROWTH ALLYN KILPATRICK Urine, clean voided 07/08/2022 6:44 PM CDT 07/09/2022 12:45 AM CDT Narrative ALLYN KILPATRICK - 07/10/2022 10:09 AM CDT Testing performed by [facility] Microbiology Laboratory ([phone]) Celi Bella NP LAB MICROBIOLOGY - [facility] Final Result ALLYN KILPATRICK [address] Department of Laboratories [place], [place] [id number] * Throat culture Throat (07/08/2022 6:44 PM CDT) Report Final Report: No growth of pathogens. ALLYN KILPATRICK Comment:Testing performed by : [address] [address] Throat 07/08/2022 6:44 PM CDT 07/09/2022 12:46 AM CDT Narrative ALLYN KILPATRICK - 07/09/2022 7:36 PM CDT Testing performed by [facility] Microbiology Laboratory ([phone]). Celi Bella NP LAB MICROBIOLOGY - [facility] Final Result Performing Organization Address [facility]/ZIP Co de Phone Number ALLYN KILPATRICK [address] [place] [employer] [place] [address] * Influenza A/B, RSV, and COVID-19 PCR Nasopharyngeal (07/08/2022 6:44 PM CDT) [facility] COVID-19 RNA Negative Negative [facility] Influenza A RNA Negative Negative [facility] Influenza B RNA Negative Negative [facility] RSV RNA Negative Negative [facility] Comment: Interpretive data: This test is performed using the Sample6 Xpert Xpress CoV-2/Flu/RSV plus assay. This is [...] PM CDT 07/08/2022 9:39 PM CDT Narrative [facility] - 07/08/2022 10:41 PM CDT Is the Patient experiencing symptoms consistent with COVID?->Yes Date of Symptom Onset->06/02/22 Reason for testing?->Symptomatic Celi Bella NP LAB MICROBIOLOGY [facility] Final Result ALLYN KILPATRICK [address] Department [employer] [place], [place] [id number] documented in this encounter Visit Diagnoses Diagnosis Acute pharyngitis, unspecified etiology Exposure to strep throat Contact with or exposure to other communicable diseases Chronic cough Cough Urinary frequency documented in this encounter Additional Health Concerns Infection Onset Date Last Indicated Resolved Time COVID: Suspected 07/08/2022 07/08/2022 07/08/2022 10:42 PM CDT documented as of this encounter Care Teams Fiber Glass Worker Relationship Specialty Start Date End Date Guilherme Michelle MD [address] [place] [address] PCP - General Family Medicine 07/06/21 Tiago Randle MD [address] [place] [address] Referring Physician Obstetrics and Gynecology 07/11/21 Thalia Hopper 07/11/21 documented as of this encounter
--- OUTSIDE RECORDS SUMMARY | 2024-04-12 22:26 | XMS_ITS | Encounter Summary ---
Author Organization [facility] Healthcare Address [address] [place] [address] Care Team Providers Care Pathologist Assistant Name Role Phone Guilherme Michelle MD Primary Care Provider [phone] Tiago Randle MD Unavailable [phone] Reason for Visit * Reason Onset Date Comments Depression 01/29/2023 Encounter Details Date Type Department Care Team (Late st Contact Info) Description 01/29/2023 Nurse Triage [facility] Medical [facility] Primary Care at [address] [address] Guilherme Michelle MD [address] [place] [address] [address] [place] [address] Social History Tobacco Use Types [...] Master's degree (e.g., MA, MS, Verenice, MEd, RN NIGHT, GIOVANNI) 07/11/2021 Comments No Sex and Gender Information Value Date Recorded Sex Assigned at Not on file 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 Protocols used: [id number] Pt is depressed, is unable to work due to crying and hasn't eaten today. Pt feels hopeless, crying,has no support. She denies suicidal thoughts and states she has no intention of hurting herself. Her kids are going to be with their father jose. She states she has been taking care of them and her personal hygiene. Disposition per guideline: GO TO ED NOW. Advised pt of [facility] Behavioral [facility] urgent care and [facility] behavioral health. She declines both. Only wants to talk to PCP. No appts this week. Secure chat sent to PCP PCP/STORE STOCK ASSOCIATE contacted via secure chat for ED disposition consult. Recommendation from provider:Other: per PCP the office will reach out to her. Attempted to call pt and let her know. Message left for pt * Telephone Encounter - Kayleen Perdomo RN - 01/29/2023 3:04 PM CDT Regarding: epression, hopelessness ----- Message from Rayna Cabello sent at 01/29/2023 2:56 PM CDT ----- Symptom Based Call Chief Complaint(s): depression, hopelessness Duration: about a week What type of symptom(s) is the patient experiencing? Red Flag. Is the patient concerned they are experiencing a medical emergency requiring an ambulance? No Additional Comments: Patient called to schedule appointment today or tomorrow to be seen to discussmedication changes and her depression. Patient crying and inconsolable, stating she feels depressedand hopeless. Patient states she does not feel suicidal or have any thoughts of harming herself or others. Patient states she feels very lost. Patient very upset. Due to patients current emotional state [facility] is sending high priority. Patient denies 911 symptoms/suicidal and homicidal thoughts. Does message need to be routed? Yes-Action Needed documented in this encounter Plan of Treatment Not on file documented as of this encounter Visit Diagnoses Not on filedocumented in this encounter Care Teams Pathologist Assistant Relationship Specialty Start Date End Date Guilherme Michelle MD [address] [place] [address] PCP - General Family Medicine 07/06/21 Tiago Randle MD [address] [place] [address] Referring Physician Obstetrics and Gynecology 07/11/21 Thalia Hopper 07/11/21 documented as of this encounter
--- OUTSIDE RECORDS SUMMARY | 2024-04-12 22:26 | XMS_ITS | Encounter Summary ---
Author Organization [facility] Healthcare Address [address] [place] [address] Care Team Providers Care Parking Garage Manager Name Role Phone Guilherme Michelle MD Primary Care Provider [phone] Tiago Randle MD Unavailable [phone] Reason for Visit * Reason Comments Depression Believes depression is causing her headaches Encounter Details Date Type Department Care Team (Late st Contact Info) Description 02/04/2023 4:15 PM CDT Office Visit [facility] Primary Care at [address] [address] Guilherme Michelle MD [address] [place] [address] [address] [place] [address] Mood disorder of depressed type [...] Master's degree (e.g., MA, MS, Verenice, MEd, STUDY HALL SUPERVISOR, GIOVANNI) 07/11/2021 Comments Unknown Sex and Gender Information Value Date Recorded Sex Assigned at Not on file 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 Gender Identity Female 11/14/2021 10:22 AM CDT Sexual Orientation Not on file 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 file Not on file Not on f ile documented as of this encounter Last Filed Vital Signs Vital Sign Reading Time Taken Comments Blood Pressure 98/72 02/04/2023 4:09 PM CDT Pulse 71 02/04/2023 4:09 PM CDT Temperature 36.8 ??C (98.2 ??F) 02/04/2023 4:09 PM CD T Respiratory Rate 17 02/04/2023 4:09 PM CDT Oxygen Saturation 98% 02/04/2023 4:09 PM CDT Inhaled Oxygen Concentration - - Weight 66.1 kg (145 lb 11.2 oz) 02/04/2023 4:09 PM CDT Height 162.6 cm (5' 4 ) 02/04/2023 4:09 PM CDT Body Mass Index 25.01 02/04/2023 4:09 PM CDT documented in this encounter Patient Instructions * Patient Instructions* Guilherme Michelle MD - 02/04/2023 4:15 PM CDT Will cross taper to Wellbutrin, which should cause less weight gain, less risk of withdrawal, also spares the libido more Cyclobenzaprine short-term to affect neck spasm Discussed supplements that might be helpful, e.g Lion's Toan, Firth tail, ashwagandha. Interactions are still possible, of course, between those and the prescriptions. Thanks for coming in today! My medical assistants and I are thankful you have trusted us with your care, and hope that you received EXCELLENT care today! Please do not hesitate to call if you have any questions or concerns at [phone]. You may receive a phone call, text, MYCHART message, or e-mail asking about your care today. We would love to hear your feedback on how EXCELLENT your care wastoday! Wishing you better health, always. Dr. Michelle * Attachments The following attachments cannot be sent through Care Everywhere. * Neck Exercises (General Information) (Brazilian) documented in this encounter Ordered Prescriptions Prescription Sig Dispense Quantity Refills Last Filled Start Date End Date buPROPion (WELLBUTRIN) 75 mg tablet Take 1 tablet (75 mg total) by mouth 2 (two) times a day for 7 days, THEN 2 tablets (150 mg total) 2 (two) times a day for 23 days. 106 tablet 02/08/2023 4 buPROPion (WELLBUTRIN) 75 mg tablet Take 1 tablet (75 mg total) by mouth 2 (two) times a day for 7 days, THEN 2 tablets (150 mg total) 2 (two) times a day for 23 days. 106 tablet 02/04/2023 3 venlafaxine XR (EFFEXOR-XR) 37.5 mg 24 hr capsuleIndications :major depressive disorder Take 2 capsules (75 mg total) by mouth daily for 7 days, THEN 1 capsule (37.5 mg total) daily for 7 days. 21 capsule 02/04/2023 4 documented in this encounter Progress Notes * Guilherme Michelle MD - 02/04/2023 4:15 PM CDT Images from the original note were not included. Subjective/Objective Patient ID: Leanna Kaur is a 32 y.o. female. Chief Complaint Depression (Believes depression is causing her headaches ) Headache not improving despite remedies. It start in the neck and works cephalad. She is seeing a counselor now, and feels that she is better mentally. Anxiety component is fixed but there is stillsadness. Her counselor (Estrella Patel) wants her checked into IOP or similar (Leanna is not interest). She sees the counselor 1ce a week. She had stopped going to counseling in June, but resumed after her call to us last week. The headache doesn't feel like a migraine. Pressure and cloudiness Mother passed, miscarried in October. DepressionPatient presents with the following symptoms: decreased concentration and nervousness/anxiety. Patient is not experiencing: palpitations, shortness of breath and suicidal ideas. Current Outpatient Medications: norgestimate-ethinyl estradioL (ORTHO-CYCLEN) 0.25-35 mg-mcg per tablet, Take 1 tablet by mouth daily, Disp: 28 tablet, Rfl: 2 ondansetron ODT (ZOFRAN-ODT) 4 mg disintegrating tablet, Take 1 tablet (4 mg total) by mouth every 8 (eight) hours as needed for nausea or vomiting, Disp: 40 tablet, Rfl: 2 buPROPion (WELLBUTRIN) 75 mg tablet, Take 1 [...] 7 days., Disp: 21 capsule, Rfl: 0 Review of Systems Constitutional: Negative. HENT: Negative. Respiratory: Negative for cough, shortness of breath and wheezing. Cardiovascular: Negative for chest pain and palpitations. Gastrointestinal: Negative. Genitourinary: Negative. Musculoskeletal: Negative for neck pain. Neurological: Negative for headaches. Psychiatric/Behavioral: Positive for decreased concentration, dysphoric mood and sleep disturbance.Negative for suicidal ideas. The patient is nervous/anxious. BP 98/72 (BP Location: Left arm, Patient Position: Sitting) Pulse 71 Temp 36.8 ??C (98.2 ??F) (Temporal) Resp 17 Ht 162.6 cm (5' 4 ) Wt 66.1 kg (145 lb 11.2 oz) SpO2 98% BMI 25.01 kg/m?? Physical Exam Vitals reviewed. Neurological: Mental Status: She is alert and oriented to person, place, and time. Mental status is at baseline. Psychiatric: Mood and Affect: Mood is depressed. Mood is not anxious or elated. Affect is not flat. Speech: Speech normal. Behavior: Behavior is uncooperative. Thought Content: Thought content does not include suicidal ideation. Thought content does not include suicidal plan. Cognition and Memory: Cognition and memory normal. No visits with results within 1 Month(s) from this visit. Latest known visit with results is: Ancillary Procedure on 10/10/2022 Component Date Value Ref Range Status Endometrial Thickness 10/10/2022 15.3 mm&millimeters Final Assessment/Plan Diagnoses and all orders for this visit: Mood disorder of depressed type (Primary) Assessment & Plan: Will cross taper to Wellbutrin, which should cause less weight gain, less risk of withdrawal, also spares the libido more Discussed supplements that might be helpful, e.g Lion's Toan, Firth tail, ashwagandha. Interactions are still possible, of course, between those and the prescriptions Orders: - venlafaxine XR (EFFEXOR-XR) 37.5 mg 24 hr capsule; Take 2 capsules (75 mg total) by mouth daily for 7 days, THEN 1 capsule (37.5 mg total) daily for 7 days. Other orders - buPROPion (WELLBUTRIN) 75 mg tablet; Take 1 tablet (75 mg total) by mouth 2 (two) times a day for7 days, THEN 2 tablets (150 mg total) 2 (two) times a day for 23 days. My total encounter time on 02/04/2023 was 30 minutes which was spent in the activities documented in the note. This includes time spent prior to the visit and after the visit in direct care of the patient. This time does not include time spent in any separately reportable services. Guilherme Michelle MD This office note has been partially dictated using [employer] software, and as a result portions of the record may have been created with this software. Occasional wrong-word or '[id number]' substitutions may have occurred due to the inherent limitations of voice recognition software. Read the chartcarefully and recognize, using context, where substitutions have occurred. documented in this encounter Miscellaneous Notes * Assessment & Plan Note - Guilherme Michelle MD - 02/08/2023 12:02 PM CDT Associated Problem(s): Mood disorder of depressed type Will cross taper to Wellbutrin, which should cause less weight gain, less risk of withdrawal, also spares the libido more Discussed supplements that might be helpful, e.g Lion's Toan, Firth tail, ashwagandha. Interactions are still possible, of course, between those and the prescriptions documented in this encounter Plan of Treatment Not on file documented as of this encounter Visit Diagnoses Diagnosis Mood disorder of depressed type- Primary documented in this encounter Discontinued Medications Medication Sig Discontinue Reason Start Date End Da te ergocalciferol (VITAMIN D) 50,000 unit capsule Take 1 capsule (50,000 Units total) by mouth once a week Therapy completed 09/20/2021 02/04/2023 promethazine (PHENERGAN) 25 mg tabletIndications:Thre atened Take 1 tablet (25 mg total) by mouth every 6 (six) hours as needed for nausea or vomiting 10/11/2022 02/04/2023 promethazine (PHENERGAN) 12.5 mg suppository Insert 1 suppository (12.5 mg total) into the rectum every 6 (six) hours as needed for nausea or vomiting 10/11/2022 02/04/2023 miSOPROStoL (CYTOTEC) 200 mcg tabletIndications:inco mplete ab Take 4 tablets (800 mcg total) by mouth daily May repeat in 24 hours per doctors instructions. 10/09/2022 02/04/2023 venlafaxine XR (EFFEXOR-XR) 75 mg 24 hr capsuleIndications:sanchez or depressive disorder Take 1 capsule (75 mg total) by mouth daily Reorder 07/10/2022 02/04/2023 buPROPion (WELLBUTRIN) 75 mg tablet Take 1 tablet (75 mg total) by mouth 2 (two) times a day for 7 days, THEN 2 tablets (150 mg total) 2 (two) times a day for 23 days. 02/06/2023 02/08/2023 documented as of this encounter Care Teams Parking Garage Manager Relationship Specialty Start Date End Date Guilherme Michelle MD [address] [place] [address] PCP - General Family Medicine 07/06/21 Tiago Randle MD [address] [place] [address] Referring Physician Obstetrics and Gynecology 07/11/21 Thalia Hopper 07/11/21 documented as of this encounter
--- OUTSIDE RECORDS SUMMARY | 2024-04-12 22:26 | XMS_ITS | Encounter Summary ---
Author Organization [facility] Healthcare Address [address] [place] [address] Care Team Providers Care Superintendent Recreation Name Role Phone Guilherme Michelle MD Primary Care Provider [phone] Tiago Randle MD [facility] [phone] Encounter Details Date Type Department Care Team (Latest Contact Info) Description 09/25/2022 3:20 PM CDT - 09/25/2022 11:59 PM CDT Hospital Encounter [address] [phone] Threatened ; Healthcare maintenance Discharge Disposition: Discharge to home or self [...] Master's degree (e.g., MA, MS, Verenice, MEd, SOLID PLASTERER, GIOVANNI) 07/11/2021 Comments Yes Sex and Gender Information Value Date Recorded Sex Assigned at Not on file Legal 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 Gender Identity Female 11/14/2021 10:22 AM CDT Sexual Orientation Not on file 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 Not on file Not on f ile documented as of this encounter Medications at Time of Discharge ondansetron ODT (ZOFRAN-ODT) 4 mg disintegrating tabletIndications:Ex cessive Vomiting in Take 1 tablet (4 mg total) by mouth every 8 (eight) hours as needed for nausea or vomiting 40 tablet 2 09/23/2022 ergocalciferol (VITAMIN D) 50,000 unit capsule Take 1 capsule (50,000 Units total) by mouth once a week 8 capsule 09/20/2021 3 promethazine (PHENERGAN) 25 mg tabletIndications:Th reatened Take 1 tablet (25 mg total) by mouth every 6 (six) hours as needed for nausea or vomiting 30 tablet 2 09/23/2022 3 venlafaxine XR (EFFEXOR-XR) 75 mg 24 hr capsuleIndications:m ajor depressive disorder Take 1 capsule (75 mg total) by mouth daily 90 capsule 3 07/10/2022 3 documented as of this encounter Discharge Disposition Disposition Code Departure Means Destination Discharge to home or self care documented in this encounter Plan of Treatment Not on file documented as of this encounter Procedures Procedure Name Priority Date/Time Associated Diagnosis Comments DIFFERENTIAL AUTO Routine 09/25/2022 3:2 0 PM CDT Threatened IRON PROFILE W/ IBC Routine 09/25/2022 3 :20 PM CDT Healthcare maintenance CBC WITH AUTO DIFFERENTIAL Routine 09/25/2022 3:20 PM CDT Threatened HCG, BLOOD, QUANTITATIVE Routine 09/25/2022 3:20 PM CDT Threatened FERRITIN Routine 09/25/2022 3:20 PM CDT Healthcare maintenance documented in this encounter Results * Differential, auto (09/25/2022 3:20 PM CDT) Neutrophil abs 4.7 1.7 - 6.5 K/cumm [facility] Imm gran abs 0.0 0.0 - 0.1 K/cumm [facility] Lymphocyte abs 2.1 0.8 - 3.3 K/cumm [facility] Monocyte abs 0.6 0.2 - 0.8 K/cumm [facility] Eosinophil abs 0.1 0.0 - 0.5 K/cumm [facility] Basophil abs 0.0 0.0 - 0.1 K/cumm [facility] Neutrophil pct 63.1 % [facility] Comment: Interpretive Data Percent cell count reference ranges are not reported, since discordance with absolute values may lead to misinterpretation of CBC data. Current Interpretive Data was last revised on 2017. Imm gran pct 0.4 % [facility] Comment: Interpretive Data Percent cell count reference ranges are not reported, since discordance with absolute values may lead to misinterpretation of CBC data. Current Interpretive Data was last revised on 2017. Lymphocyte pct 27.3 % [facility] Comment: Interpretive Data Percent cell count reference ranges are not reported, since discordance with absolute values may lead to misinterpretation of CBC data. Current Interpretive Data was last revised on 2017. Monocyte pct 8.0 % [facility] Comment: Interpretive Data Percent cell count reference ranges are not reported, since discordance with absolute values may lead to misinterpretation of CBC data. Current Interpretive Data was last revised on 2017. Eosinophil pct 0.7 % [facility] Comment: Interpretive Data Percent cell count reference ranges are not reported, since discordance with absolute values may lead to misinterpretation of CBC data. Current Interpretive Data was last revised on 2017. Basophil pct 0.5 % [facility] Comment: Interpretive Data Percent cell count reference ranges are not reported, since discordance with absolute values may lead to misinterpretation of CBC data. Current Interpretive Data was last revised on 2017. Blood 09/25/2022 3:20 PM CDT 09/25/2022 7:42 PM CDT us Racheal Adams MD LAB BLOOD ORDERABLE S Final Result ALLYN [address] Department [place] [address] * Ferritin (09/25/2022 3:20 PM CDT) Ferritin 19 15 - 150 ng/mL [facility] Blood 09/25/2022 3:20 PM CDT 09/25/2022 7:42 PM CDT Racheal Adams MD LAB BLOOD ORDERABLE S Final Result Performing Organization Address [facility]/ZIP Co de Phone Number [facility] [address] [address] Department [place] [email or web address] [address] * (ABNORMAL) Iron profile w/ IBC (09/25/2022 3:20 PM CDT) Pathologist [facility] Iron 38 35 - 145 mcg/dl [facility] TIBC 348 250 - 400 mcg/dL [facility] Transferrin saturation 11(L) 20 - 50 % [facility] Blood 09/25/2022 3:20 PM CDT 09/25/2022 7:42 PM CDT Racheal Adams MD LAB BLOOD ORDERABLE S Final Result Performing Organization Address [facility] de Phone Number [facility] [address] [facility] [email or web address] [address] * (ABNORMAL) hCG, blood, quantitative (09/25/2022 3:20 PM CDT) Pathologist [facility] hCG, quant 7,827.0(H ) 0.0 - 5.0 IUnits/L [facility] Comment: Interpretive Data Non- Female premenopausal: < [...] Data was last revised on 2021. Blood 09/25/2022 3:20 PM CDT 09/25/2022 7:42 PM CDT Racheal Adams MD LAB BLOOD ORDERABLE S Final Result Performing Organization Address [facility] Co de Phone Number [facility] KILPATRICK [address] [address] [place] [address] * CBC with auto differential (09/25/2022 3:20 PM CDT) WBC 7.5 3.8 - 9.9 K/cumm [facility] Hgb 13.5 11.9 - 15.5 g/dL [facility] Hct 41.3 35.6 - 45.5 % [facility] Plt 295 150 - 400 K/cumm [facility] MPV 9.9 9.1 - 12.3 fL [facility] RBC 4.51 3.90 - 5.20 M/cumm [facility] MCV 91.6 81.3 - 96.4 fL [facility] MCH 29.9 27.1 - 33.3 pg [facility] MCHC 32.7 32.3 - 35.7 g/dL [facility] RDW CV 13.4 11.1 - 14.9 % [facility] RDW SD 45.3 35.7 - 48.1 fL [facility] NRBC abs 0.00 0.00 - 0.01 K/cumm [facility] Blood 09/25/2022 3:20 PM CDT 09/25/2022 7:42 PM CDT Racheal Adams MD LAB BLOOD ORDERABLE S Final Result Performing Organization Address City/[facility]/ZIP Co de Phone Number HERNANDEZLARRY KILPATRICK [address] [address] Department [email or web address] [address] documented in this encounter Visit Diagnoses Diagnosis Threatened Healthcare maintenance documented in this encounter Care Teams Superintendent Recreation Relationship Specialty [place] [address] [place] [address] PCP - General Family Medicine 07/06/21 Tiago Randle MD [address] [place] [address] Referring Physician Obstetrics and Gynecology 07/11/21 Thalia Hopper 07/11/21 documented as of this encounter
--- OUTSIDE RECORDS SUMMARY | 2024-04-12 22:26 | XMS_ITS | Encounter Summary ---
Author Organization [facility] Healthcare Address [address] [place] [address] Care Team Providers Care [employer] Team Member Name Role Phone Guilherme Michelle MD Primary Care Provider [phone] Tiago Randle MD Unavailable [phone] Reason for Visit * Reason Onset Date Comments Headache 02/04/2023 medication question 02/04/2023 Encounter Details Date Type Department Care Team (Late st Contact Info) Description 02/04/2023 Nurse Triage [facility] Primary Care at [address] [address] Guilherme Michelle MD [address] [place] [address] Social History Tobacco Use Types Packs/Day [...] Master's degree (e.g., MA, MS, Verenice, MEd, BULK PALLET BUILDER, GIOVANNI) 07/11/2021 Comments Unknown Sex and Gender Information Value Date Recorded Sex Assigned at Not on file Legal Sex Female 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 Calling back frustrated as she went to milk pickup driver rx, but muscle relaxer was not sent to pharmacy (Cyclobenzaprine). Asking if you could send this in tonoc as she is having severe GEE. Also notes unable to milk pickup driver Wellbutrin. Pharmacy is stating that an outside pharmacy has already billed insurance for this rx. Pt would have to pay out of pocket for this. Pharmacy says pt will needto call her insurance company to sort this out. They were able to send Effexor rx through her insurance. Disp: call pcp now. Will [place] provider to see if he can send in muscle relaxer tonoc. Rx sent to pharmacy per Dr Michelle. Call placed to pt to make aware rx had been sent. Advised the Effexor could be filled, but she willneed to f/u with her insurance company regarding the Wellbutrin. Care advice given. Patient agrees to call back with any worsening symptoms or further questions/concerns. Reason for Disposition [1] Caller has URGENT medicine question about med that PCP or specialist prescribed AND [2] triagerunable to answer question [1] Prescription not at pharmacy AND [2] was prescribed by PCP recently (Exception: Triager has access to EMR and prescription is recorded there. Go to Home Care and confirm for pharmacy.) Protocols used: Medication Question [id number] * Telephone Encounter - Amber Blanton RN - 02/04/2023 6:03 PM CDT Regarding: Severe Headache ----- Message from Tara Rowe sent at 02/04/2023 5:59 PM CDT ----- Symptom Based Call Chief Complaint(s): Severe Headache Duration: A week What type of symptom(s) is the patient experiencing? Red Flag. Is the patient concerned they are experiencing a medical emergency requiring an ambulance? No Additional Comments: The patient stated that she is currently experiencing severe headaches and wasseen in the office today however she has been unable to get the medications that was prescribed andis needing some medical advice Does message need to be routed? Yes-Action Needed documented in this encounter Plan of Treatment Not on file documented as of this encounter Visit Diagnoses Not on filedocumented in this encounter Care Teams [employer] Team Member Relationship Specialty Start Date End Date Guilherme Michelle MD [address] [place] [address] PCP - General Family Medicine 07/06/21 Tiago Randle MD [address] [facility] [address] [place] [address] Referring Physician Obstetrics and Gynecology 07/11/21 Thalia Hopper 07/11/21 documented as of this encounter
--- OUTSIDE RECORDS SUMMARY | 2024-04-12 22:26 | XMS_ITS | Encounter Summary ---
Author Organization [facility] Medical Group Address [address] [facility] [address] [place] [address] Care Team Providers Care Phone Screener Name Role Phone Guilherme Michelle MD Primary Care Provider [phone] Tiago Randle MD Unavailable [phone] Encounter Details Date Type Department Care Team (Late st Contact Info) Description 10/09/2022 Orders Only [facility] Medical [facility] Care at [address] [address] Racheal Rebolledo MD [address] [place] [address] Social History Tobacco Use Types Packs/Day Years [...] Master's degree (e.g., ALEX, MS, Verenice, MEd, GI ASST, GIOVANNI) 07/11/2021 Comments No Sex and Gender Information Value Date Recorded Sex Assigned at Not on file Legal Sex Female 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 Comment [facility] - 01 Comment: Material submitted: ?. uterus - PRODUCTS OF CONCEPTION . Comment [facility] 02 Comment: Diagnosis: PRODUCTS OF CONCEPTION: THE SPECIMEN CONSISTS OF BLOOD, DECIDUA AND ONE FRAGMENT OF ATYPICAL TISSUE WHICH IS MOST CONSISTENT WITH REACTIVE TROPHOBLAST. IN ORDER TO EXCLUDE THIS FROM BEING SQUAMOUS DYSPLASIA A P16 STAIN WAS PERFORMED. IT IS NEGATIVE AND THEREFOR SUPPORTS THIS NOT BEING SQUAMOUS IN ORIGIN. IT IS ENTIRELY LIKELY THAT THE ATYPIA IS SIMPLY THE MORE USUAL TYPE OF REACTIVE CHANGES SEEN IN TROPHOBLAST. THE OFFICE WAS NOTIFIED OF THE FINDINGS BY VOICEMAIL TO DR REBOLLEDO'S NURSE BY DR OSORIO ON 10/24/22 AT 10:31 AM EDT. Note: Unless stated otherwise, special stains listed use formalin-fixed paraffin-embedded tissue and results are interpreted manually. Control tissues were confirmed to stain appropriately for the microscopic tissue targets, including individual components of multiplex assays. Technical component was performed by [facility] [place], [place]. ??Tests with Analyte Specific Reagents (ASRs) were developed and their performance characteristics determined by the analyzing laboratory, which have not been cleared or approved by the U.S. FDA. ??ASRs do not require FDA approval because these laboratories are CLIA-certified to perform high complexity tests. [facility] ??10/24/2022 ??1033 Local . Comment [facility] 02 Comment: Electronically signed: ? . Sheila Osorio MD, Pathologist . Comment [facility] - Comment: Gross description: ? . RECEIVED IN FORMALIN LABELED WITH THE PATIENT'S NAME IS A 5.4G PORTION OF DARK RED CLOTTED BLOOD AND POSSIBLE TISSUE MEASURING 4.3 X 2.4 X 1.4 CM. NO PARTS ARE IDENTIFIED GROSSLY. ENTIRELY SUBMITTED IN FOUR CASSETTES. ??/SL BETHANY/TMZ ??10/17/2022 ??1312 Local . Comment [facility] 02 Comment: CPT ?. [id number] 10/09/2022 1:14 PM CDT 10/10/2022 Narrative [facility] - 10/24/2022 11:12 AM CDT Performed at: ??01 - [facility] [address] [place] [id number] Facilities Assistant: Steve Roberts MD, Phone: ??[phone] Performed at: ??02 - [facility] [address], [place] ??[id number] Facilities Assistant: Sheila Osorio MD, Phone: ??[phone] us Racheal Rebolledo MD LAB PATHOLOGY ORDER FELICITAS Final Result Performing Organization Address City/State/[facility] Co de Phone Number [facility] - 01 [facility] 02 documented in this encounter Visit Diagnoses Not on filedocumented in this encounter Care Teams Phone Screener Relationship Specialty Start Date End Date Guilherme Michelle MD [address] [place] [address] PCP - General Family Medicine 07/06/21 Tiago Randle MD [address] [place] [address] Referring Physician Obstetrics and Gynecology 07/11/21 Thalia Hopper 07/11/21 documented as of this encounter
--- OUTSIDE RECORDS SUMMARY | 2024-04-12 22:26 | XMS_ITS | Encounter Summary ---
Author Organization [facility] Medical Group Address [address] [facility] [address] [place] [address] Care Team Providers Care Enrobing Machine Corder Name Role Phone Guilherme Michelle MD Primary Care Provider [phone] Tiago Randle MD Unavailable [phone] Encounter Details Date Type Department Care Team (Late st Contact Info) Description 10/24/2022 Telephone [facility] [address] [facility] [address] [place] [address] Racheal Adams MD [address] [facility] [address] [place] [address] Social History Tobacco Use Types [...] Master's degree (e.g., ALEX, MS, Verenice, MEd, LEAN LEADER, GIOVANNI) 07/11/2021 Comments No Sex and Gender Information Value Date Recorded Sex Assigned at Not on file 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 Gender Identity Female 11/14/2021 10:22 AM CDT Sexual Orientation Not on file 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 file Not on file Not on f ile documented as of this encounter Miscellaneous Notes * Telephone Encounter - Mel Otto MA - 10/24/2022 10:43 AM CDT Sheila Blandon MD, Pathologist with [facility] left a VM stating that no return call needed but wanted to notify Dr Adams that she is releasing the pathology results Dr Adams Please review and advise Thank you Mel documented in this encounter Plan of Treatment Not on file documented as of this encounter Visit Diagnoses Not on filedocumented in this encounter Care Teams Enrobing Machine Corder Relationship Specialty Start Date End Date Guilherme Michelle MD [address] [place] [address] PCP - General Family Medicine 07/06/21 Tiago Randle MD [address] [place] [address] Referring Physician Obstetrics and Gynecology 07/11/21 Thalia Hopper 07/11/21 documented as of this encounter
--- OUTSIDE RECORDS SUMMARY | 2024-04-12 22:26 | XMS_ITS | Encounter Summary ---
Author Organization [facility] Medical [facility] Address [address] [facility] [address] [place] [address] Care Team Providers Care Canoe Inspector Final Name Role Phone Guilherme Michelle MD Primary Care Provider [phone] Tiago Randle MD Unavailable [phone] Reason for Referral * Diagnostic Imaging (Routine) - Closed Specialty Diagnoses / Procedures Referred By Asim t Referred To Contact Diagnoses Threatened Procedures US OB Transvaginal US Ob Under 14 Weeks Racheal Adams MD [address] [place] [address] [address] [place] [address] Phone: tel: [facility] [address] [place] [address] DR [address] [place] [id number] Phone: tel: fax: Referral ID Status Reason Start Date Expiration Date Visits Re quested Visits Authorized [id number] Closed 09/23/2022 10/23/2023 1 1 Reason for Visit * Reason Comments Amenorrhea Missed period Encounter Details Date Type Department Care Team (Late st Contact Info) Description 09/23/2022 1:30 PM CDT Office Visit [facility] at [address] [address] Racheal Adams MD [address] [place] [address] [address]S [address] [place] [address] Threatened (Primary Dx) Social History Tobacco Use Types [...] Master's degree (e.g., MA, MS, Verenice, MEd, MIDDLE SCHOOL FOOTBALL COACH, GIOVANNI) 07/11/2021 Comments Yes Sex and Gender Information Value Date Recorded Sex Assigned at Not on file Legal Sex Female 8:21 AM HAND UPPER AND BOTTOM LACER Gender Identity Female 11/14/2021 10:22 AM CDT Sexual Orientation Not on file 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 file Not on file Not on f ile documented as of this encounter Last Filed Vital Signs Vital Sign Reading Time Taken Comments Blood Pressure 120/74 09/23/2022 2:29 PM CDT Pulse - - Temperature - - Respiratory Rate - - Oxygen Saturation - - Inhaled Oxygen Concentration - - Weight 64.4 kg (142 lb) 09/23/2022 2:29 PM CDT Height 162.6 cm (5' 4 ) 09/23/2022 2:29 PM CDT Body Mass Index 24.37 09/23/2022 2:29 PM CDT documented in this encounter Ordered Prescriptions Prescription Sig Dispense Quantity Refills Last Filled Start Date End Date ondansetron ODT (ZOFRAN-ODT) 4 mg disintegrating tabletIndications:Ex cessive Vomiting in Take 1 tablet (4 mg total) by mouth every 8 (eight) hours as needed for nausea or vomiting 40 tablet 2 09/23/2022 promethazine (PHENERGAN) 25 mg tabletIndications:Th reatened Take 1 tablet (25 mg total) by mouth every 6 (six) hours as needed for nausea or vomiting 30 tablet 2 09/23/2022 3 documented in this encounter Progress Notes * Racheal Adams MD - 09/23/2022 1:30 PM CDT Images from the original note were not included. Initial director of extension work visit Subjective: Pateint presents for: Amenorrhea (Missed period) Leanna Kaur is a 32 y.o. year old female who presents for threatened Ab. She was not desiring and is very upset. Her friend is with her today. No SI She had an episode of vaginal bleeding a few day ago. Contraception:None. Are you wanting to get in the next year?no Lab: Pap: Lipid: TSH: CBC: CMP: Marisa: Colonoscopy: BMD: Gardasil: Patient's last menstrual period was 08/18/2022. Menstrual History: Patient's last menstrual period was 08/18/2022. Sexual History: OB History 2 Para 2 Term 2 AB Living 2 SAB IAB Ectopic Multiple Live Births 2 # Outcome Date GA Labor/2nd Weight Sex Delivery Anes PTL Lv A1 A5 1 Term 03/2013 3.402 kg (7 lb 8 oz) M Vag-Spont Living 2 Term 01/2016 3.402 kg (7 lb 8 oz) F Vag-Spont Living Review of Systems- significant for nausea Objective: BP 120/74 (BP Location: Right arm, Patient Position: Sitting) Ht 162.6 cm (5' 4 ) Wt 142 lb (64.4 kg) LMP 08/18/2022 BMI 24.37 kg/m?? OBGyn Examwdwn female in nad Assessment and Plan: Diagnoses and all orders for this visit: Threatened (Primary) Assessment & Plan: Options discuss Since she had the episode of bleeding it is possible that she does not have a viable To serial beta To usg We discussed the order of appearance in and that as she is early there may not yet be a baby with FHT She will return after. Orders: - ondansetron ODT (ZOFRAN-ODT) 4 mg disintegrating tablet; Take 1 tablet (4 mg total) by mouth every 8 (eight) hours as needed for nausea or vomiting - promethazine (PHENERGAN) 25 mg tablet; Take 1 tablet (25 mg total) by mouth every 6 (six) hours as needed for nausea or vomiting - hCG, blood, quantitative; Future - CBC with auto differential; Future - hCG, blood, quantitative; Future - US OB Transvaginal; Future Recommended screenings and preventive care discussed: Breast cancer: Breast Self Exam encouraged. Pap deferred. Return for after usg. Racheal Adams MD 09/23/2022 documented in this encounter Miscellaneous Notes * Assessment & Plan Note - Racheal Adams MD - 09/27/2022 1:25 AM CDTAssociated Problem(s): Incomplete Options discuss Since she had the episode of bleeding it is possible that she does not have a viable To serial beta To usg We discussed the order of appearance in and that as she is early there may not yet be a baby with FHT She will return after. documented in this encounter Plan of Treatment Not on file documented as of this encounter Results * US OB Transvaginal (09/26/2022 8:26 AM CDT) Anatomical Region Laterality Modality Abdomen N/A Ultrasound 09/26/2022 8:25 AM CDT Impressions 09/26/2022 4:35 PM CDT 1. ??Intrauterine gestational sac measuring 5.4 weeks. ??At this point, I would expect to see a pole and this is not visualized. ??Differential diagnosis includes missed AB. ??Clinical correlation/repeat ultrasound recommended. ??2. ??Normal pelvic anatomy. ?? Narrative Procedure Note Racheal Adams MD - 09/26/2022 IMPRESSION: 1. Intrauterine gestational sac measuring 5.4 weeks. At this point, Iwould expect to see a pole and this is not visualized. Differentialdiagnosis includes missed AB. Clinical correlation/repeat ultrasoundrecommended. 2. Normal pelvic anatomy. us Racheal Adams MD IMG OB US PROCEDURE S Final Result * (ABNORMAL) hCG, blood, quantitative (09/25/2022 3:20 PM CDT) hCG, quant 7,827.0(H ) 0.0 - 5.0 IUnits/L [facility] Comment: Interpretive Data Non- Female premenopausal: < [...] MD LAB BLOOD ORDERABLE S Final Result [facility] [address] [address] Department [place] [address] * CBC with auto differential (09/25/2022 3:20 PM CDT) WBC 7.5 3.8 - 9.9 K/cumm [facility] Hgb 13.5 11.9 - 15.5 g/dL [facility] Hct 41.3 35.6 - 45.5 % [facility] Plt 295 150 - 400 K/cumm [facility] MPV 9.9 9.1 - 12.3 fL [facility] RBC 4.51 3.90 - 5.20 M/cumm [facility] MCV 91.6 81.3 - 96.4 fL [facility] MCH 29.9 27.1 - 33.3 pg [facility] MCHC 32.7 32.3 - 35.7 g/dL [facility] RDW CV 13.4 11.1 - 14.9 % [facility] RDW SD 45.3 35.7 - 48.1 fL [facility] NRBC abs 0.00 0.00 - 0.01 K/cumm [facility] Blood 09/25/2022 3:20 PM CDT 09/25/2022 7:42 PM CDT Racheal Adams MD LAB BLOOD ORDERABLE S Final Result Performing Organization Address [facility] de Phone Number [facility] [address] [address] Department [place] [address] * (ABNORMAL) hCG, blood, quantitative (09/23/2022 3:31 PM CDT) hCG, quant 3,642.0(H ) 0.0 - 5.0 IUnits/L [facility] Comment: Interpretive Data Non- Female premenopausal: < [...] Data was last revised on 2021. Blood 09/23/2022 3:31 PM CDT 09/23/2022 9:03 PM CDT us Racheal Adams MD LAB BLOOD ORDERABLE S Final Result Performing Organization Address [facility]/State/[facility] Co de Phone Number [facility] [address] [address] Department [place] [address] documented in this encounter Visit Diagnoses Diagnosis Threatened - Primary Threatened documented in this encounter Discontinued Medications Medication Sig Discontinue Reason Start Date End Da te benzonatate (TESSALON) 100 mg capsuleIndications:Cou gh Take 1 capsule (100 mg total) by mouth 3 (three) times a day as needed for cough Therapy completed 07/10/2022 09/23/2022 fluticasone propionate (FLONASE) 50 mcg/actuation nasal spray Administer 1 spray into each nostril daily Therapy completed 09/23/2022 documented as of this encounter Care Teams Canoe Inspector Final Relationship Specialty Start Date End Date Guilherme Michelle MD [address] [place] [address] PCP - General Family Medicine 07/06/21 Tiago Randle MD [address] [place] [address] Referring Physician Obstetrics and Gynecology 07/11/21 Thalia Hopper 07/11/21 documented as of this encounter
--- OUTSIDE RECORDS SUMMARY | 2024-04-12 22:26 | XMS_ITS | Encounter Summary ---
Author Organization [facility] Address [address] [place] [address] Care Team Providers Care Affirmative Action Specialist Name Role Phone Guilherme Michelle MD Primary Care Provider [phone] Tiago Randle MD Unavailable [phone] Reason for Visit * Reason Onset Date Comments Appointment Request 01/29/2023 Encounter Details Date Type Department Care Team (Late st Contact Info) Description 01/29/2023 Telephone [facility] Primary Care at [address] [address] Guilherme Michelle MD [address] [place] [address] [address] [place] [address] Appointment Request Social History Tobacco Use Types Packs/Day Years [...] Master's degree (e.g., MA, MS, Verenice, MEd, GOAT DRIVER, GIOVANNI) 07/11/2021 Comments No Sex and Gender Information Value Date Recorded Sex Assigned at Not on file Legal Sex Female 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 Pt is scheduled for Friday. * Telephone Encounter - July - 01/29/2023 4:44 PM CDT Call Back Caller???s Concern: pt was giving Cee a call back for an appointment// please call the pt desmond Does message need to be routed? Yes-Action Needed documented in this encounter Plan of Treatment Not on file documented as of this encounter Visit Diagnoses Not on filedocumented in this encounter Care Teams Affirmative Action Specialist Relationship Specialty Start Date End Date Guilherme Michelle MD [address] [place] [address] PCP - General Family Medicine 07/06/21 Tiago Randle MD [address] [place] [address] Referring Physician Obstetrics and Gynecology 07/11/21 Thalia Hopper 07/11/21 documented as of this encounter
--- OUTSIDE RECORDS SUMMARY | 2024-04-12 22:26 | XMS_ITS | Encounter Summary ---
Author Organization [facility] Address [address] [facility] [address] [place] [address] Care Team Providers Care Survey Research Associate Name Role Phone Guilherme Michelle MD Primary Care Provider [phone] Tiago Randle MD Unavailable [phone] Reason for Visit * Reason Onset Date Comments Unwanted 09/23/2022 Encounter Details Date Type Department Care Team (Late st Contact Info) Description 09/23/2022 Telephone [facility] Primary Care at [address] [address] Guilherme Michelle MD [address] [place] [address] [address] [place] [address] Unwanted Social History Tobacco Use Types Packs/Day Years [...] Master's degree (e.g., ALEX, MS, Verenice, MEd, LAWN AND GARDEN TECHNICIAN, GIOVANNI) 07/11/2021 Comments Yes Sex and Gender Information Value Date Recorded Sex Assigned at Not on file Legal Sex Female 8:21 AM MANAGER [place] Gender Identity Female 11/14/2021 10:22 AM CDT Sexual Orientation Not on file 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 She wanted to know if the appointment is still available today and if so, can she get an ultrasound at that time. Warmed transferred back line. Caller???s Call back #: [phone] Does message need to be routed? No * Telephone Encounter - Brittany Gamez MA - 09/23/2022 12:18 PM CDT Patient called very upset. She has found out that she is 5 weeks and its an unwanted . She asked if there was a medication that could help her abort it and I explained to her that, that medication is called plan B and that is to be used within 24 hours of intercourse. I offered her an appointment to see you or Jenise today and she declined. I referred the patient to call planned parent agudelo and talk with them to see if they can assist herin her needs. documented in this encounter Plan of Treatment Not on file documented as of this encounter Visit Diagnoses Not on filedocumented in this encounter Care Teams Survey Research Associate Relationship Specialty Start Date End Date Guilherme Michelle MD [address] [place] [address] PCP - General Family Medicine 07/06/21 Tiago Randle MD [address] [place] [address] Referring Physician Obstetrics and Gynecology 07/11/21 Thalia Hopper 07/11/21 documented as of this encounter
--- OUTSIDE RECORDS SUMMARY | 2024-04-12 22:26 | XMS_ITS | Encounter Summary ---
Author Organization [facility] Medical Group Address [address] [facility] [address] [place] [address] Care Team Providers Care Transfer Station Attendant Name Role Phone Guilherme Michelle MD Primary Care Provider [phone] Tiago Randle MD Unavailable [phone] Encounter Details Date Type Department Care Team (Late st Contact Info) Description 07/12/2021 Telephone [facility] Primary Care at [place] [address] [place] [address] Guilherme Michelle MD [address] [place] [address] [address] [place] [address] Social History Tobacco Use Types [...] more points, staff should administer the PHQ-9) 2 07/11/2021 Education Answer Date Recorded What is the highest level of school you have completed or the highest degree you have received? Master's degree (e.g., MA, MS, Verenice, MEd, SR. 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 Otherwise she shouldbe fine to go out of town. * Telephone Encounter - Brittany Shrestha MA - 07/12/2021 1:46 PM CDT Spoke to pt, informed pt that she will receive a my chart message from Dr Michelle when lab results have been reviewed. Pt voiced understanding. [facility] * Telephone Encounter - Guilherme Michelle MD - 07/12/2021 12:43 PM CDT I haven't reviewed them yet. We will get results to her after I've looked them over (she should watch her mychart) * Telephone Encounter - Ignacio Pereira - 07/12/2021 10:36 AM CDT Patient is calling in about her lab results. She would like to speak with someone about them. If you could please call her back at your earliest. [phone] documented in this encounter Plan of Treatment Not on file documented as of this encounter Visit Diagnoses Not on filedocumented in this encounter Care Teams Transfer Station Attendant Relationship Specialty Start Date End Date Guilherme Michelle MD [address] [place] [address] PCP - General Family Medicine 07/06/21 Tiago Randle MD [address] [place] [address] Referring Physician Obstetrics and Gynecology 07/11/21 Thalia Hopper 07/11/21 documented as of this encounter
--- OUTSIDE RECORDS SUMMARY | 2024-04-12 22:26 | XMS_ITS | Encounter Summary ---
Author Organization [facility] Address [address] [facility] [address] [place] [address] Care Team Providers Care Balance Weigher Name Role Phone Guilherme Michelle MD Primary Care Provider [phone] Tiago Randle MD Unavailable [phone] Reason for Visit * Reason Comments Follow-up Pt is here for a 4 w k follow up Encounter Details Date Type Department Care Team (Late st Contact Info) Description 08/16/2021 2:00 PM CDT Office Visit [facility] Primary Care at [address] [address] Guilherme Michelle MD [address] [place] [address] [address] [place] [address] Pharyngitis, chronic (Primary Dx); Cyndie Martínez infection; Vitamin D deficiency; Acute cystitis with hematuria Social History Tobacco Use Types Packs/Day Years [...] Master's degree (e.g., MA, MS, Verenice, MEd, BOTTLE WASHING MACHINE OPERATOR, GIOVANNI) 07/11/2021 Comments No Sex and Gender Information Value Date Recorded Sex Assigned at Not on file Legal Sex Female 8: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 Gender Identity Female 11/14/2021 10:22 AM CDT Sexual Orientation Not on file 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 Not on file Not on file Not on f ile documented as of this encounter Last Filed Vital Signs Vital Sign Reading Time Taken Comments Blood Pressure 108/72 08/16/2021 1:58 PM CDT Pulse 60 08/16/2021 1:58 PM CDT Temperature 36.7 ??C (98 ??F) 08/16/2021 1:58 PM CDT Respiratory Rate 16 08/16/2021 1:58 PM CDT Oxygen Saturation 99% 08/16/2021 1:58 PM CDT Inhaled Oxygen Concentration - - Weight 63.4 kg (139 lb 12.8 oz) 08/16/2021 1:58 PM CDT Height 162.6 cm (5' 4.02 ) 08/16/2021 1:58 PM CD T Body Mass Index 23.98 08/16/2021 1:58 PM CDT documented in this encounter Patient Instructions * Patient Instructions* Guilherme Michelle MD - 08/16/2021 2:00 PM CDT Hematuria noticed on urinalysis, may be confounded by menses however we will send culture. Startingnitrofurantoin empirically for 3 days Continue vitamin-D, vitamin-C, vitamin B12 supplement We will recheck vitamin-D in about 3 months for follow-up. Update me after visit with counselor today at your leisure. We will discuss also if going to go up on the venlafaxine again, but I would like to see how the counselor visit goes 1st Thanks for coming in today! My medical assistants and I are thankful you have trusted us with your care, and hope that you received EXCELLENT care today! Please do not hesitate to call if you have any questions or concerns at [phone]. You may receive a phone call, text, MYCHART message, or e-mail asking about your care today. We would love to hear your feedback on how EXCELLENT your care wastoday! Wishing you better health, always. Dr. Michelle documented in this encounter Ordered Prescriptions Prescription Sig Dispense Quantity Refills Last Filled Start Date End Date nitrofurantoin monohydrate (MACROBID) 100 mg capsuleIndications :Acute cystitis with hematuria Take 1 capsule (100 mg total) by mouth 2 (two) times a day for 3 days 6 capsule 08/16/2021 2 documented in this encounter Progress Notes * Guilherme Michelle MD - 08/16/2021 2:00 PM CDT Images from the original note were not included. Subjective/Objective Patient ID: Leanna Kaur is a 31 y.o. female. Chief Complaint Follow-up (Pt is here for a 4 wk follow up ) Her throat has improved, no more pain or swelling. Her energy level is stable, though she is under more stress (her mother 2 weeks ago). She has started with a new counselor, has first appointment today. She is grieving, obviously. Having urinary symptoms x 5 days. Current Outpatient Medications: ??? ergocalciferol (VITAMIN D) 50,000 unit capsule, Take 1 capsule (50,000 Units total) by mouth once a week, Disp: 8 capsule, Rfl: 0 ??? fluticasone propionate (FLONASE) 50 mcg/actuation nasal spray, Administer 1 spray into each nostril daily, Disp: , Rfl: ??? venlafaxine XR (EFFEXOR-XR) 37.5 mg 24 hr capsule, Take 37.5 mg by mouth daily , Disp: , Rfl: Review of Systems Constitutional: Positive for fatigue. Negative for chills and fever. Gastrointestinal: Negative for nausea and vomiting. Genitourinary: Positive for flank pain, frequency and urgency. Negative for dysuria and hematuria. Musculoskeletal: Positive for back pain. BP 108/72 (BP Location: Left arm, Patient Position: Sitting) Pulse 60 Temp 36.7 ??C (98 ??F) (Temporal) Resp 16 Ht 162.6 cm (5' 4.02 ) Wt 63.4 kg (139 lb 12.8 oz) SpO2 99% BMI 23.98 kg/m?? Physical Exam Assessment/Plan Diagnoses and all orders for this visit: Pharyngitis, chronic (Primary) Comments: resolved Cyndie Martínez infection Comments: expect gradual improvement of fatigue discussed avoiding contact sports etc Vitamin D deficiency - Vitamin D 25 hydroxy; Future Acute cystitis with hematuria Comments: Hematuria noticed on urinalysis, may be confounded by menses however we will send culture. Startingnitrofurantoin empirically for 3 days Orders: - POCT urinalysis dipstick - nitrofurantoin monohydrate (MACROBID) 100 mg capsule; Take 1 capsule (100 mg total) by mouth 2 (two) times a day for 3 days - Urine culture Urine, clean voided; Future Guilherme Michelle MD This office note has been partially dictated using [employer] software, and as a result portions of the record may have been created with this software. Occasional wrong-word or '[id number]' substitutions may have occurred due to the inherent limitations of voice recognition software. Read the chartcarefully and recognize, using context, where substitutions have occurred. documented in this encounter Plan of Treatment Not on file documented as of this encounter Procedures Procedure Name Priority Date/Time Associated Diagnosis Comments POCT URINALYSIS DIPSTICK Routine 08/16/2021 2:27 PM CDT Acute cystitis with hematuria documented in this encounter Results * Urine culture Urine, clean voided (08/16/2021 2:51 PM CDT) Report Final Report: Less than 100,000 colonies/mL (clinically insignificant growth based on current clinical standards) ALLYN KILPATRICK Comment:Testing performed by : [facility], [address] [facility], [place]., [address] Organism (CLINICALLY INSIGNIFICANT GROWTH ALLYN KILPATRICK Urine, clean voided 08/16/2021 2:51 PM CDT 08/16/2021 10:18 PM CDT Narrative ALLYN KILPATRICK - 08/18/2021 11:25 AM CDT Testing performed by [facility] ([phone]) Guilherme Michelle MD LAB MICROBIOLOGY - GENERAL ORDERABLES Final Result Performing Organization Address City/State/ZIP Co nm Phone Number ALLYN KILPATRICK [id number] [address] Department [place] [address] * (ABNORMAL) POCT urinalysis dipstick (08/16/2021 2:27 PM CDT) Color, Urine, POC Yellow Clarity, ur, POC Clear Clear Glucose, ur, POC Negative Negative mg/dL Bilirubin, ur, POC Negative Negative, Small, Moderate, Large Ketones, ur, POC Negative Negative Specific Vida, POC 1.025 1.005 - 1.030 Blood, ur, POC Moderate(A) Negative pH, ur, POC 7.0 5.0 - 8.0 Protein, ur, POC Negative Negative Urobilinogen, urine, POC 0.2 0.2 - 1.0 mg/dL Nitrite, ur, POC Negative Negative Leukocytes, ur, POC Negative Negative Lot Number [id number] Urine 08/16/2021 2:27 PM CDT Guilherme Michelle MD POINT OF CARE TEST ORDERABL ES Final Result documented in this encounter Visit Diagnoses Diagnosis Pharyngitis, chronic- Primary Chronic pharyngitis Cyndie Martínez infection Infectious mononucleosis Vitamin D deficiency Acute cystitis with hematuria Acute cystitis without hematuria documented in this encounter Historical Medications * This list may reflect changes made after this encounter. ascorbic acid (VITAMIN C ORAL) Take by mouth 03/06/2022 added in this encounter Care Teams Balance Weigher Relationship Specialty Start Date End Date Guilherme Michelle MD [address] [place] [address] PCP - General Family Medicine 07/06/21 Tiago Randle MD [address] [place] [address] Referring Physician Obstetrics and Gynecology 07/11/21 Thalia Hopper 07/11/21 documented as of this encounter
--- OUTSIDE RECORDS SUMMARY | 2024-04-12 22:26 | XMS_ITS | Encounter Summary ---
Author Organization [facility] Healthcare Address [address] [place] [address] Care Team Providers Care Coat Finisher Name Role Phone Guilherme Michelle MD Primary Care Provider [phone] Tiago Randle MD [facility] [phone] Encounter Details Date Type Department Care Team (Late st Contact Info) Description 08/16/2021 6:05 PM CDT Lab [address] [address] Acute cystitis without hematuria Social History Tobacco Use Types Packs/Day [...] Master's degree (e.g., MA, MS, Verenice, MEd, FINISHER HOT STRIP, GIOVANNI) 07/11/2021 Comments No Sex and Gender Information Value Date Recorded Sex Assigned at Not on file Legal Sex Female 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 Gender Identity Female 11/14/2021 10:22 AM CDT Sexual Orientation Not on file 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 on file Not on file Not on f ile documented as of this encounter Plan of Treatment Not on file documented as of this encounter Procedures Procedure Name Priority Date/Time Associated Diagnosis Comments URINE CULTURE Routine 08/16/2021 2:51 PM CDT Acute cystitis without hematuria documented in this encounter Results * Urine culture Urine, clean voided (08/16/2021 2:51 PM CDT) Report Final Report: Less than 100,000 colonies/mL (clinically insignificant growth based on current clinical standards) ALLYN KILPATRICK Comment:Testing performed by : [facility], [address] [facility] [place]., [address] Organism (CLINICALLY INSIGNIFICANT GROWTH ALLYN Urine, clean voided 08/16/2021 2:51 PM CDT 08/16/2021 10:18 PM CDT Narrative ALLYN KILPATRICK - 08/18/2021 11:25 AM CDT Testing performed by [facility] ([phone]) us Guilherme Michelle MD LAB MICROBIOLOGY - GENERAL ORDERABLES Final Result [facility] [address] [facility] Department [place] [address] documented in this encounter Visit Diagnoses Diagnosis Acute cystitis without hematuria documented in this encounter Care Teams Coat Finisher Relationship Specialty Start Date End Date Guilherme Michelle MD [address] [place] [address] PCP - General Family Medicine 07/06/21 Tiago Randle MD [address] [place] [address] Referring Physician Obstetrics and Gynecology 07/11/21 Thalia Hopper 07/11/21 documented as of this encounter
--- OUTSIDE RECORDS SUMMARY | 2024-04-12 22:26 | XMS_ITS | Encounter Summary ---
Author Organization [facility] Healthcare Address [address] [place] [address] Care Team Providers Care Obiee Obia Solution Architect Name Role Phone Guilherme Michelle MD Primary Care Provider [phone] Tiago Randle MD Unavailable [phone] Reason for Visit * Reason Onset Date Comments Medication Request 02/04/2023 Encounter Details Date Type Department Care Team (Late st Contact Info) Description 02/04/2023 Telephone [facility] Primary Care at [address] [address] Guilherme Michelle MD [address] [place] [address] [address] [place] [address] Medication Request Social History Tobacco Use Types Packs/Day [...] degree (e.g., MA, MS, Verenice, MEd, TALENT COORDINATOR, GIOVANNI) 07/11/2021 Comments Unknown Sex and Gender Information Value Date Recorded Sex Assigned at Not on file Legal Sex Female 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 Gender Identity Female 11/14/2021 10:22 AM CDT Sexual Orientation Not on file 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 The patient stated that her pharmacy informed her that they never received a script for a muscle relaxant and that they are unable to fill the pativenlafaxine and buPROPion because according to them the script was sent to multiple pharmacies. If needed, Pharmacy(s) medication(s) should be sent to: [id number] Additional Comments: The patient also noted that the pharmacy was unable to inform her what pharmacy her prescriptions was sent to and informed her that she would have to pay out of pocket for them. The patient stated that she is needing her medications as soon as possible Does message need to be routed? Yes-Action Needed documented in this encounter Plan of Treatment Not on file documented as of this encounter Visit Diagnoses Not on filedocumented in this encounter Care Teams Obiee Obia Solution Architect Relationship Specialty Start Date End Date Guilherme Michelle MD [address] [place] [address] PCP - General Family Medicine 07/06/21 Tiago Randle MD [address] [place] [address] Referring Physician Obstetrics and Gynecology 07/11/21 Thalia Hopper 07/11/21 documented as of this encounter
--- OUTSIDE RECORDS SUMMARY | 2024-04-12 22:26 | XMS_ITS | Encounter Summary ---
Author Organization [facility] Healthcare Address [address] [place] [address] Care Team Providers Care Film Casting Operator Name Role Phone Guilherme Michelle MD Primary Care Provider [phone] Tiago Randle MD 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 Gender Identity Female 11/14/2021 10:22 AM CDT Sexual Orientation Not on file 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 on file Not on file [...] Associated Diagnosis Comments HCG, BLOOD, QUANTITATIVE Routine 09/23/2022 3:31 PM CDT Threatened documented in this encounter Results * (ABNORMAL) hCG, blood, quantitative (09/23/2022 3:31 PM CDT) hCG, quant 3,642.0(H ) 0.0 - 5.0 IUnits/L ALLYN Comment: Interpretive Data Non- Female premenopausal: < [...] ORDERABLE S Final Result Performing Organization Address City/State/ZIP Co [place] Phone Number ALLYN [address] Department [place] [address] documented in this encounter Visit Diagnoses Diagnosis Threatened documented in this encounter Care Teams Film Casting Operator Relationship Specialty Start Date End Date Guilherme Michelle MD [address] [place] [address] PCP - General Family Medicine 07/06/21 Tiago Randle MD [address] [place] [address] Referring Physician Obstetrics and Gynecology 07/11/21 Thalia Hopper 07/11/21 documented as of this encounter
--- OUTSIDE RECORDS SUMMARY | 2024-04-12 22:26 | XMS_ITS | Encounter Summary ---
Author Organization [facility] Address [address] [facility] [address] [place] [address] Care Team Providers Care Tea Leaf Reader Name Role Phone Guilherme Michelle MD Primary Care Provider [phone] Tiago Randle MD Unavailable [phone] Reason for Visit * Reason Onset Date Comments Follow-up 10/11/2022 Encounter Details Date Type Department Care Team (Late st Contact Info) Description 10/11/2022 Telephone [facility] [address] [facility] [address] [place] [address] Racheal Adams MD [address] [place] [address] [address] [place] [address] Follow-up Social History Tobacco Use Types Packs/Day Years [...] Master's degree (e.g., MA, MS, Verenice, MEd, SOFTWARE DEVELOPER INTERN, GIOVANNI) 07/11/2021 Comments No Sex and Gender Information Value Date Recorded Sex Assigned at Not on file Legal Sex Female 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 Gender Identity Female 11/14/2021 10:22 AM CDT Sexual Orientation Not on file 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 Not on file Not on file Not on f ile documented as of this encounter Ordered Prescriptions Prescription Sig Dispense Quantity Refills Last Filled Start Date End Date promethazine (PHENERGAN) 12.5 mg suppository Insert 1 suppository (12.5 mg total) into the rectum every 6 (six) hours as needed for nausea or vomiting 12 each 10/11/2022 3 promethazine (PHENERGAN) 25 mg tabletIndications: Threatened Take 1 tablet (25 mg total) by mouth every 6 (six) hours as needed for nausea or vomiting 30 tablet 10/11/2022 3 documented in this encounter Miscellaneous Notes * Telephone Encounter - Mel Otto MA - 10/15/2022 10:34 AM CDT Patient seen in office yesterday * Telephone Encounter - Mel Otto MA - 10/14/2022 9:01 AM CDT [phone] No answer, left a VM to call me in the [place] office, notified that here there is no VM but she can leave me a VM at the [place] office Thank you Mel * Telephone Encounter - Mel Otto MA - 10/11/2022 5:09 PM CDT Patient returned call to the office, claims that the zofran is not helping, she is extremly nauseous. Patient is crying on the phone, really upset. Just wanting to feel like herself Called CT: Phenergan 25 mg, po every 6 hrs Phenergan 12.5 mg Suppository, every 6 hrs Patient notified, verified pharmacy and sig, patient verbally understood how to use the suppositories. Notified that all the emotions are normal from the hormones/stress, once she gets through this part, she will start to feel better. Patient denies any thoughts of self harm to self or others Claims that she keeps company with her so she is never alone. Patient is scheduled to be seen in [facility] office on Friday, Enc to call Dr Adams if she needs anything over the weekend. Patient verbally understood. Thank you Mel * Telephone Encounter - Mel Otto MA - 10/11/2022 4:59 PM CDT [phone] No answer, left a VM - calling to check on her to see how she is before leaving for the weekend. Enc to call CT if she needs anything and that we will see her in the [place] office on Friday Thank you Mel * Telephone Encounter - Mel Otto MA - 10/11/2022 4:31 PM CDT Received fax, verified w/ CT Co-signed and faxed back to [phone], received confirmation and scanned into media Thank you Mel * Telephone Encounter - Mel Otto MA - 10/11/2022 11:18 AM CDT Alan trotter/ Ifeanyi Andres called into the office, states that they received the specimen products of conception but they need a consent for deposition form to be completed by physician. States that one of the three boxes need to be checked, patient signature is NOT required but the physicians is. Claims that this form will tell them what they need to do with the specimen after they are finishedtesting. Verified fax number, requesting to be completed today and faxed back to number on form and ATTN Alan -waiting for fax Thank you Mel * Telephone Encounter - Mel Otto MA - 10/11/2022 11:05 AM CDT Patient returned call to the office. Notified that she is ok to take the Zofran, patient agrees to take to see if it helps the nausea Patient states that she is very emotional - unsure if it is due to all the hormones being out of control, claims that it is worse today (denies thoughts of self harm to self or others) Will f/u again w/ pt before leaving, enc to call if she needs anything before Dr Angie TUTTLE Thank you Mel * Telephone Encounter - Mel Otto MA - 10/11/2022 9:50 AM CDT [phone] No answer, left a VM for patient to rc to the office Thank you Mel * Telephone Encounter - Mel Otto MA - 10/11/2022 9:35 AM CDT [phone] Spoke w/ patient Claims that she has been very exhausted, has slept for 13 hours. Feels that they medication is working this time around. Been very nauseous - has some zofran: ok to take? Was vomiting last night, unable to hold anything down This AM the vomiting is better - been taking it very slow but has been able to hold things down. Bleeding, a lot of clots yesterday w/ cramping, better today Spoke w/ Dr Adams: ok to take Zofran. Thank you Mel documented in this encounter Plan of Treatment Not on file documented as of this encounter Visit Diagnoses Diagnosis Threatened documented in this encounter Discontinued Medications Medication Sig Discontinue Reason Start Date End Da te promethazine (PHENERGAN) 25 mg tabletIndications:Threa tened Take 1 tablet (25 mg total) by mouth every 6 (six) hours as needed for nausea or vomiting Reorder 09/23/2022 10/11/2022 documented as of this encounter Care Teams Tea Leaf Reader Relationship Specialty Start Date End Date Guilherme Michelle MD [address] [place] [address] PCP - General Family Medicine 07/06/21 Tiago Randle MD [address] [place] [address] Referring Physician Obstetrics and Gynecology 07/11/21 Thalia Hopper 07/11/21 documented as of this encounter
--- OUTSIDE RECORDS SUMMARY | 2024-04-12 22:26 | XMS_ITS | Encounter Summary ---
Author Organization [facility] Address [address] [facility] [address] [place] [address] Care Team Providers Care Insurance Office Supervisor Name Role Phone Guilherme Michelle MD Primary Care Provider [phone] Tiago Randle MD Unavailable [phone] Encounter Details Date Type Department Care Team (Late st Contact Info) Description 09/25/2022 Telephone [facility] [address] [facility] [address] [place] [address] Racheal Adams MD 4 [facility] [address] [place] [address] Social History Tobacco Use Types [...] Master's degree (e.g., ALEX, MS, Verenice, MEd, MANAGER KNOWLEDGE, GIOVANNI) 07/11/2021 Comments Yes Sex and Gender Information Value Date Recorded Sex Assigned at Not on file Legal Sex Female 8:21 AM SOCIAL MEDIA EDITOR Gender Identity Female 11/14/2021 10:22 AM CDT Sexual Orientation Not on file 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 Order entered in Epic * Telephone Encounter - Mel Otto MA - 09/25/2022 10:22 AM CDT [phone] No answer, left a detailed VM (HIPAA approved) to remind patient to complete lab order today and then USG & appointment tomorrow Thank you Mel * Telephone Encounter - Mel Otto MA - 09/25/2022 10:20 AM CDT ----- Message from Racheal Adams MD sent at 09/24/2022 6:04 AM CDT ----- She is supposed to repeat this Friday and come for usg . documented in this encounter Plan of Treatment Not on file documented as of this encounter Results * Ferritin (09/25/2022 3:20 PM CDT) Ferritin 19 15 - 150 ng/mL [facility] Blood 09/25/2022 3:20 PM CDT 09/25/2022 7:42 PM CDT us Racheal Adams MD LAB BLOOD ORDERABLE S Final Result Performing Organization Address [facility] de Phone Number [facility] [address] [facility] [place] [address] * (ABNORMAL) Iron profile w/ IBC (09/25/2022 3:20 PM CDT) Iron 38 35 - 145 mcg/dl [facility] TIBC 348 250 - 400 mcg/dL [facility] Transferrin saturation 11(L) 20 - 50 % [facility] Blood 09/25/2022 3:20 PM CDT 09/25/2022 7:42 PM CDT us Racheal Adams MD LAB BLOOD ORDERABLE S Final Result Performing Organization Address [facility] de Phone Number [facility] [address] [facility] [place] [address] documented in this encounter Visit Diagnoses Diagnosis Healthcare maintenance- Primary documented in this encounter Care Teams Insurance Office Supervisor Relationship Specialty Start Date End Date Guilherme Michelle MD [address] [place] [address] PCP - General Family Medicine 07/06/21 Tiago Randle MD [address] [place] [address] Referring Physician Obstetrics and Gynecology 07/11/21 Thalia Hopper 07/11/21 documented as of this encounter
--- OUTSIDE RECORDS SUMMARY | 2024-04-12 22:26 | XMS_ITS | Encounter Summary ---
Author Organization [facility] Address [address] [facility] [address] [place] [address] Care Team Providers Care Tax Intern Name Role Phone Guilherme Michelle MD Primary Care Provider [phone] Tiago Randle MD Unavailable [phone] Encounter Details Date Type Department Care Team (Late st Contact Info) Description 09/23/2022 3:45 PM CDT Lab [facility] Medical [facility] at [address] [address] Threatened (Primary Dx) Social History Tobacco Use [...] Master's degree (e.g., MA, MS, Verenice, MEd, ACTIVITIES VOLUNTEER, GIOVANNI) 07/11/2021 Comments Yes Sex and Gender Information Value Date Recorded Sex Assigned at Not on file Legal Sex Female 8:21 AM BROKERAGE CLERK Gender Identity Female 11/14/2021 10:22 AM CDT Sexual Orientation Not on file 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
--- OUTSIDE RECORDS SUMMARY | 2024-04-12 22:26 | XMS_ITS | Encounter Summary ---
Author Organization [facility] Address [address] [facility] [address] [place] [address] Care Team Providers Care Sales Associate Cashier Name Role Phone Guilherme Michelle MD Primary Care Provider [phone] Tiago Randle MD Unavailable [phone] Encounter Details Date Type Department Care Team (Late st Contact Info) Description 07/13/2021 Orders Only [facility] Primary Care at [place] [id number] [place] [address] Guilherme Michelle MD [address] [place] [address] [address] [place] [address] Social History Tobacco Use Types [...] Master's degree (e.g., MA, MS, Verenice, MEd, MOTORCYCLE RACER, GIOVANNI) 07/11/2021 Comments Unknown Sex and Gender Information Value Date Recorded Sex Assigned at Not on file Legal Sex Female 8:21 AM FOLDING MACHINE SETTER Gender Identity Female 11/14/2021 10:22 AM CDT Sexual Orientation Not on file 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 on file Not on file Not on f ile documented as of this encounter Ordered Prescriptions Prescription Sig Dispense Quantity Refills Last Filled Start Date End Date ergocalciferol (VITAMIN D) 50,000 unit capsule Take 1 capsule (50,000 Units total) by mouth once a week 8 capsule 07/13/2021 2 documented in this encounter Plan of Treatment Not on file documented as of this encounter Visit Diagnoses Not on filedocumented in this encounter Care Teams Sales Associate Cashier Relationship Specialty Start Date End Date Guilherme Michelle MD [address] [place] [address] PCP - General Family Medicine 07/06/21 Tiago Randle MD [address] [place] [address] Referring Physician Obstetrics and Gynecology 07/11/21 Thalia Hopper 07/11/21 documented as of this encounter
--- OUTSIDE RECORDS SUMMARY | 2024-04-12 22:26 | XMS_ITS | Encounter Summary ---
Author Organization [facility] Address [address] [facility] [address] [place] [address] Care Team Providers Care Bed Spring Maker Name Role Phone Guilherme Michelle MD Primary Care Provider [phone] Tiago Randle MD Unavailable [phone] Reason for Visit * Reason Comments Follow-up Encounter Details Date Type Department Care Team (Late st Contact Info) Description 10/09/2022 9:00 AM CDT Office Visit [facility] [address] [facility] [address] [place] [address] Racheal Adams MD [address] [place] [address] [address] [place] [address] Incomplete (Primary Dx) Social History Tobacco Use [...] Master's degree (e.g., MA, MS, Verenice, MEd, CENTRAL OFFICE MECHANIC, GIOVANNI) 07/11/2021 Comments No Sex and Gender Information Value Date Recorded Sex Assigned at Not on file Legal Sex Female 8:21 AM FORGING MACHINE HAND Gender Identity Female 11/14/2021 10:22 AM CDT Sexual Orientation Not on file 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 file Not on file Not on f ile documented as of this encounter Last Filed Vital Signs Vital Sign Reading Time Taken Comments Blood Pressure 110/72 10/09/2022 8:59 AM CDT Pulse 80 10/09/2022 8:59 AM CDT Temperature - - Respiratory Rate - - Oxygen Saturation - - Inhaled Oxygen Concentration - - Weight 65.3 kg (144 lb) 10/09/2022 8:59 AM CDT Height - - Body Mass Index 25.51 09/26/2022 9:20 AM CDT documented in this encounter Ordered Prescriptions Prescription Sig Dispense Quantity Refills Last Filled Start Date End Date miSOPROStoL (CYTOTEC) 200 mcg tabletIndications: incomplete ab Take 4 tablets (800 mcg total) by mouth daily May repeat in 24 hours per doctors instructions. 8 tablet 10/09/2022 3 documented in this encounter Progress Notes * Racheal Adams MD - 10/09/2022 9:00 AM CDT Images from the original note were not included. Chairman Visit Follow-up Subjective: Leanna Kaur is a 32 y.o. year old female who presents for f/u of threatened ab. She has been having a lot of bleeding changing pads q 2-3 hours. Cramping is better No dizziness. Emotional Patient's last menstrual period was 08/18/2022 (approximate). [...] 8 oz) F Vag-Spont Living Objective: BP 110/72 (BP Location: Left arm, Patient Position: Sitting) Pulse 80 Wt 144 lb (65.3 kg) LMP08/18/2022 (Approximate) Unknown BMI 25.51 kg/m?? Physical Exam: Physical Exam Vitals reviewed. Exam conducted with a parts casting machine operator present. Constitutional: Appearance: Normal appearance. She is normal weight. HENT: Head: Normocephalic and atraumatic. Genitourinary: Pelvic exam was performed with patient supine. Rectum normal, vagina normal and uterus normal. Right labia: normal. Left Labia: normal. Right adnexa: normal. Left adnexa: normal. Cervix: Normal exam. Genitourinary Comments: BUS negative The vault was full of blood She has blood all the way down her legs and on the step After clearing it away, there appeared to products vs clot at the os. It was grasped with a ring forceps and removed. There was no significant bleeding noted afterwards. The os was opened 1cm immediately after the removal. Musculoskeletal: Right lower leg: No edema. Left lower leg: No edema. Neurological: Mental Status: She is alert. Psychiatric: Mood and Affect: Mood normal. Behavior: Behavior normal. Thought Content: Thought content normal. Judgment: Judgment normal. Assessment and Plan: Diagnoses and all orders for this visit: Incomplete (Primary) Assessment & Plan: Options discussed She would like to try the cytotec Use reviewed and outcomes discussed We discussed that this is not an pill Bleeding precautions given Rto tomorrow at 9am. Orders: - Surgical pathology; Future Other orders - miSOPROStoL (CYTOTEC) 200 mcg tablet; Take 4 tablets (800 mcg total) by mouth daily May repeat in24 hours per doctors instructions. No follow-ups on file. Racheal Adams MD 10/09/2022 documented in this encounter Miscellaneous Notes * Assessment & Plan Note - Racheal Adams MD - 10/09/2022 9:45 AM CDTAssociated Problem(s): Incomplete Options discussed She would like to try the cytotec Use reviewed and outcomes discussed We discussed that this is not an pill Bleeding precautions given Rto tomorrow at 9am. documented in this encounter Plan of Treatment Not on file documented as of this encounter Visit Diagnoses Diagnosis Incomplete - Primary Legally unspecified , incomplete, without mention of complication documented in this encounter Care Teams Bed Spring Maker Relationship Specialty Start Date End Date Guilherme Michelle MD [address] [place] [address] PCP - General Family Medicine 07/06/21 Tiago Randle MD [address] [place] [address] Referring Physician Obstetrics and Gynecology 07/11/21 Thalia Hopper 07/11/21 documented as of this encounter
--- OUTSIDE RECORDS SUMMARY | 2024-04-12 22:26 | XMS_ITS | Encounter Summary ---
Author Organization [facility] Address [address] [place] [address] Care Team Providers Care Causticiser Name Role Phone Guilherme Michelle MD Primary Care Provider [phone] Tiago Randle MD Unavailable [phone] Encounter Details Date Type Department Care Team (Late st Contact Info) Description 04/14/2023 11:15 AM CHIEF PROGRAM OFFICER Lab [facility] Outpatient Lab at [address] [address] Vitamin D deficiency (Primary Dx); Encounter for medical examination to establish care Social History Tobacco Use [...] Master's degree (e.g., MA, MS, Verenice, MEd, CEMENT WORKER, GIOVANNI) 07/11/2021 Comments Unknown Sex and Gender Information Value Date Recorded Sex Assigned at Not on file Legal Sex Female 8:21 AM CHIEF PROGRAM OFFICER Gender Identity Female 11/14/2021 10:22 AM CDT Sexual Orientation Not on file 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
--- OUTSIDE RECORDS SUMMARY | 2024-04-12 22:26 | XMS_ITS | Encounter Summary ---
Author Organization [facility] Address [address] [facility] [address] [place] [address] Care Team Providers Care Marine Machinist Name Role Phone Guilherme Michelle MD Primary Care Provider [phone] Tiago Randle MD Unavailable [phone] Reason for Visit * Reason Comments Miscarriage * Diagnostic Imaging (Routine) - Closed Specialty Diagnoses / Procedures Referred By Contlorne t Referred To Contact Diagnoses SAB (spontaneous ) Procedures US Transvaginal US Ob Under 14 Weeks Racheal Adams MD [address] [place] [address] [facility] [address] [place] [address] Phone: tel: Charli Devi [address] [place] [address] [facility] [address] [place] [address] Phone: tel: fax: Referral ID Status Reason Start Date Expiration Date Visits Re quested Visits Authorized [id number] Closed 10/10/2022 11/09/2023 1 1 Encounter Details Date Type Department Care Team (Latest Contact Info) Description 10/10/2022 9:30 AM CDT Ancillary Procedure Charli Devi [address] [place] [address] [facility] [address] [place] [address] Threatened ; SAB (spontaneous ) Social History Tobacco Use Types Packs/Day Years [...] Master's degree (e.g., MA, MS, Verenice, MEd, WASHING MACHINE ASSEMBLER, GIOVANNI) 07/11/2021 Comments No Sex and Gender Information Value Date Recorded Sex Assigned at Not on file Legal Sex Female 8:21 AM ART DIRECTOR Gender Identity Female 11/14/2021 10:22 AM CDT Sexual Orientation Not on file 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 ??Thickened endometrium. ??There is minimal change form the last ultrasound dated 10/10/22 so I suspect there are still retained products of conception. ??2. ??Normal appearing ovaries. ?? Narrative Procedure Note Racheal Adams MD - 10/14/2022 IMPRESSION: 1. Thickened endometrium. There is minimal change form the lastultrasound dated 10/10/22 so I suspect there are still retained products ofconception. 2. Normal appearing ovaries. us Racheal Adams MD IMG US PROCEDURES F inal Result documented in this encounter Visit Diagnoses Diagnosis Threatened SAB (spontaneous ) Unspecified spontaneous without mention of complication documented in this encounter Care Teams Marine Machinist Relationship Specialty Start Date End Date Guilherme Michelle MD [address] [place] [address] PCP - General Family Medicine 07/06/21 Tiago Randle MD [address] [place] [address] Referring Physician Obstetrics and Gynecology 07/11/21 Thalia Hopper 07/11/21 documented as of this encounter
--- OUTSIDE RECORDS SUMMARY | 2024-04-12 22:26 | XMS_ITS | Encounter Summary ---
Author Organization [facility] Address [address] [facility] [address] [place] [address] Care Team Providers Care Insurance Agent Name Role Phone Guilherme Michelle MD Primary Care Provider [phone] Tiago Randle MD [facility] [phone] Encounter Details Date Type Department Care Team (Late st Contact Info) Description 09/26/2022 Telephone [facility] [address] [facility] [address] [place] [address] Racheal Adams MD 4 [facility] [address] [place] [address] Social History Tobacco Use Types [...] Master's degree (e.g., ALEX, MS, Verenice, MEd, GRADUATE ASSISTANT ATHLETIC TRAINER, GIOVANNI) 07/11/2021 Comments Yes Sex and Gender Information Value Date Recorded Sex Assigned at Not on file Legal Sex Female 8:21 AM REHABILITATION COORDINATOR Gender Identity Female 11/14/2021 10:22 AM CDT Sexual Orientation Not on file 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 Bleeding precautions given She has f/u appt 10/07 Declines to do usg before She can message through my chart if she has questions or wants to schedule usg. It seem like her attitude towards the has shifted. 09/26/22 @ 5:04 PM Racheal Adams MD documented in this encounter Plan of Treatment Not on file documented as of this encounter Visit Diagnoses Not on filedocumented in this encounter Care Teams Insurance Agent Relationship Specialty Start Date End Date Guilherme Michelle MD [address] [place] [address] PCP - General Family Medicine 07/06/21 Tiago Randle MD [address] [place] [address] Referring Physician Obstetrics and Gynecology 07/11/21 Thalia Hopper 07/11/21 documented as of this encounter
--- OUTSIDE RECORDS SUMMARY | 2024-04-12 22:26 | XMS_ITS | Encounter Summary ---
Author Organization [facility] Address [address] [place] [address] Care Team Providers Care Resource Engineer Name Role Phone Guilherme Michelle MD Primary Care Provider [phone] Tiago Randle MD [facility] [phone] Encounter Details Date Type Department Care Team (Late st Contact Info) Description 04/16/2023 Telephone [employer] [address] [facility] [address] [place] [address] Racheal Adams MD [address] [place] [address] [address] [place] [address] Social History Tobacco Use Types [...] Master's degree (e.g., MA, MS, Verenice, MEd, EMERGENCY MEDICINE, GIOVANNI) 07/11/2021 Comments Unknown Sex and Gender Information Value Date Recorded Sex Assigned at Not on file Legal Sex Female 8:21 AM SHOT CORE DRILL OPERATOR HELPER Gender Identity Female 11/14/2021 10:22 AM CDT Sexual Orientation Not on file 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 30 capsule 11 04/18/2023 documented in this encounter Miscellaneous Notes * Telephone Encounter - Mel Otto MA - 04/18/2023 3:34 PM SHOT CORE DRILL OPERATOR HELPER [phone] Spoke with pt about low vit D. Informed pt that vit D was sent in to her pharmacy. Confirmed correct pharmacy. Scheduled wwe 05/12/23. Indy MCGILL/Mel WHITE CORE DRILL OPERATOR HELPER * Telephone Encounter - Mel Otto MA - 04/16/2023 10:49 AM SHOT CORE DRILL OPERATOR HELPER [phone] No answer, left a VM for pt to return call to the office. Patient needs to schedule a WWE, NS last appt. Thank you Mel CORE DRILL OPERATOR HELPER * Telephone Encounter - Mel Otto MA - 04/16/2023 10:49 AM SHOT CORE DRILL OPERATOR HELPER ----- Message from Racheal Adams MD sent at 04/15/2023 1:59 PM SHOT CORE DRILL OPERATOR HELPER ----- Please start her on vit d CORE DRILL OPERATOR HELPER documented in this encounter Plan of Treatment Not on file documented as of this encounter Visit Diagnoses Not on filedocumented in this encounter Care Teams Resource Engineer Relationship Specialty Start Date End Date Guilherme Michelle MD [address] [place] [address] PCP - General Family Medicine 07/06/21 Tiago Randle MD [address] [place] [address] Referring Physician Obstetrics and Gynecology 07/11/21 Thalia Hopper 07/11/21 documented as of this encounter
--- OUTSIDE RECORDS SUMMARY | 2024-04-12 22:26 | XMS_ITS | Encounter Summary ---
Author Organization [facility] Address [address] [facility] [address] [place] [address] Care Team Providers Care Em Physician Name Role Phone Guilherme Michelle MD Primary Care Provider [phone] Tiago Randle MD Unavailable [phone] Reason for Visit * Reason Comments Abdominal Pain Pt is c/o abd pain. Started about 3 days ago Cough Pt is c/o chronic co ugh for 2 mo. Encounter Details Date Type Department Care Team (Late st Contact Info) Description 07/10/2022 10:15 AM CDT Office Visit 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 Gender Identity Female 11/14/2021 10:22 AM CDT Sexual Orientation Not on file 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 Not on file Not on file Not on f ile documented as of this encounter Last Filed Vital Signs Vital Sign Reading Time Taken Comments Blood Pressure 122/76 07/10/2022 10:15 AM CDT Pulse 84 07/10/2022 10:15 AM CDT Temperature 36.8 ??C (98.3 ??F) 07/10/2022 10:15 AM C DT Respiratory Rate - - Oxygen Saturation 98% 07/10/2022 10:15 AM CDT Inhaled Oxygen Concentration - - Weight 65 kg (143 lb 3.2 oz) 07/10/2022 10:15 AM CDT Height 162.6 cm (5' 4 ) 07/10/2022 10:15 AM CDT Body Mass Index 24.58 07/10/2022 10:15 AM CDT documented in this encounter Patient Instructions * Patient Instructions* Guilherme Michelle MD - 07/10/2022 10:15 AM CDT Urinalysis repeat showed a change, with leukocyte activity different from that 2 days ago. Curious if now there is more reason to suspect UTI; we will re-culture Empiric azithromycin and PRN benzonatate sent May use OTC's like coricidin HBP for symptoms as well Thanks for coming in today! My medical assistants and I are thankful you have trusted us with your care, and hope that you received EXCELLENT care today! Please do not hesitate to call if you have any questions or concerns at [phone]. You may receive a phone call, text, MYCHART message, or e-mail asking about your care today. We would love to hear your feedback on how EXCELLENT your care wastoday! Wishing you better health, always. Dr. Michelle * Attachments The following attachments cannot be sent through Care Everywhere. * Strep Throat (General Information) (Lithuanian) documented in this encounter Ordered Prescriptions Prescription Sig Dispense Quantity Refills Last Filled Start Date End Date venlafaxine XR (EFFEXOR-XR) 75 mg 24 hr capsuleIndications :major depressive disorder Take 1 capsule (75 mg total) by mouth daily 90 capsule 3 07/10/2022 3 benzonatate (TESSALON) 100 mg capsuleIndications :Cough Take 1 capsule (100 mg total) by mouth 3 (three) times a day as needed for cough 42 capsule 07/10/2022 3 azithromycin (ZITHROMAX) 250 mg tabletIndications: Pharyngitis, unspecified etiology Take 2 tabs (500 mg) by mouth today, than 1 tab (250 mg) daily for 4 days. 6 tablet 07/10/2022 3 documented in this encounter Progress Notes * Guilherme Michelle MD - 07/10/2022 10:15 AM CDT Images from the original note were not included. Subjective/Objective Patient ID: Leanna Kaur is a 32 y.o. female. Chief Complaint Abdominal Pain (Pt is c/o abd pain. Started about 3 days ago) and Cough (Pt is c/o chronic cough for 2 mo. ) 2 weeks ago her kids had strep throat (both treated with antibiotics) Abdominal Pain The pain is located in the right flank. Pertinent negatives include no constipation, diarrhea, dysuria, frequency, headaches, hematochezia, hematuria, melena, nausea or vomiting. Cough This is a chronic problem. The current episode started more than 1 month ago. The cough is Non-productive. Associated symptoms include nasal congestion and a sore throat. Pertinent negatives include no chest pain, ear congestion, headaches, postnasal drip, rash, rhinorrhea, shortness of breath or wheezing. Current Outpatient Medications: fluticasone propionate (FLONASE) 50 mcg/actuation nasal spray, Administer 1 spray into each nostrildaily, Disp: , Rfl: venlafaxine XR (EFFEXOR-XR) 75 mg 24 hr capsule, Take 1 capsule (75 mg total) by mouth daily, Disp:90 capsule, Rfl: 3 ergocalciferol (VITAMIN D) 50,000 unit capsule, Take 1 capsule (50,000 Units total) by mouth once aweek (Patient not taking: Reported on 07/10/2022), Disp: 8 capsule, Rfl: 0 Review of Systems HENT: Positive for sore throat. Negative for postnasal drip and rhinorrhea. Respiratory: Positive for cough. Negative for shortness of breath and wheezing. Cardiovascular: Negative for chest pain. Gastrointestinal: Positive for abdominal pain. Negative for constipation, diarrhea, hematochezia, melena, nausea and vomiting. Genitourinary: Negative for dysuria, frequency and hematuria. Skin: Negative for rash. Neurological: Negative for headaches. BP 122/76 (BP Location: Left arm, Patient Position: Sitting) Pulse 84 Temp 36.8 ??C (98.3 ??F) (Oral) Ht 162.6 cm (5' 4 ) Wt 65 kg (143 lb 3.2 oz) SpO2 98% BMI 24.58 kg/m?? Physical Exam Constitutional: Appearance: She is normal weight. HENT: Head: Normocephalic. Salivary Glands: Right salivary gland is not diffusely enlarged. Left salivary gland is not diffusely enlarged. Mouth/Throat: Pharynx: Posterior oropharyngeal erythema present. No pharyngeal swelling, oropharyngeal exudate oruvula swelling. Tonsils: No tonsillar abscesses. Pulmonary: Breath sounds: No wheezing, rhonchi or rales. Abdominal: General: Abdomen is flat. Palpations: Abdomen is soft. Tenderness: There is no abdominal tenderness. There is no right CVA tenderness or left CVA tenderness. Lymphadenopathy: Cervical: Right cervical: No superficial, deep or posterior cervical adenopathy. Left cervical: No superficial, deep or posterior cervical adenopathy. Neurological: Mental Status: She is alert. Office Visit on 07/10/2022 Component Date Value Ref Range Status Color, Urine, POC 07/10/2022 Yellow Final Clarity, ur, POC 07/10/2022 Clear Clear Final Glucose, ur, POC 07/10/2022 Negative Negative MG/DL Final Bilirubin, ur, POC 07/10/2022 Negative Negative, Small, Moderate, Large Final Ketones, ur, POC 07/10/2022 Negative Negative Final Specific [place], POC 07/10/2022 1.015 1.005 - 1.030 Final Blood, ur, POC 07/10/2022 Negative Negative Final pH, ur, POC 07/10/2022 7.5 5.0 - 8.0 Final Protein, ur, POC 07/10/2022 Negative Negative Final Urobilinogen, Urine, POC 07/10/2022 0.2 mg/dL Final Leukocytes, ur, POC 07/10/2022 Trace (A) Negative Final Nitrite, ur, POC 07/10/2022 Negative Negative Final Appearance, fld 07/10/2022 Clear Clear Final Hospital Outpatient Visit on 07/08/2022 Component Date Value Ref Range Status COVID-19 RNA 07/08/2022 Negative Negative Final Influenza A RNA 07/08/2022 Negative Negative Final Influenza B RNA 07/08/2022 Negative Negative Final RSV RNA 07/08/2022 Negative Negative Final Comment: Interpretive data: This test is performed using the Digitickert Xpress CoV-2/Flu/RSV plus assay. This is a [...] out infection. Interpretive Data last revised 2021. Report 07/08/2022 Final Value:Final Report: No growth of pathogens. Testing performed by: [facility], [address] [place]., [address] Report 07/08/2022 Final Value:Final Report: Less than 100,000 colonies/mL (clinically insignificant growth based on current clinical standards) Testing performed by: [facility], [address] [place]., [address] Organism 07/08/2022 (CLINICALLY INSIGNIFICANT GROWTH Final Office Visit on 07/08/2022 Component Date Value Ref Range Status Rapid Strep A, POC 07/08/2022 Negative Negative Final Color, Urine, POC 07/08/2022 [place] Final Clarity, ur, POC 07/08/2022 Clear Clear Final Glucose, ur, POC 07/08/2022 Negative Negative MG/DL Final Bilirubin, ur, POC 07/08/2022 Negative Negative, Small, Moderate, Large Final Ketones, ur, POC 07/08/2022 Negative Negative Final Specific [place], POC 07/08/2022 1.005 1.005 - 1.030 Final Blood, ur, POC 07/08/2022 Negative Negative Final pH, ur, POC 07/08/2022 5.5 5.0 - 8.0 Final Protein, ur, POC 07/08/2022 Negative Negative Final Urobilinogen, Urine, POC 07/08/2022 0.2 mg/dL Final Leukocytes, ur, POC 07/08/2022 Negative Negative Final Nitrite, ur, POC 07/08/2022 Negative Negative Final Appearance, fld 07/08/2022 Clear Clear Final Assessment/Plan Diagnoses and all orders for this visit: Pharyngitis, unspecified etiology (Primary) Comments: throat culture was negative, but we will start empiric abx benzonatate PRN for cough as well; if not improving we will get CXR Orders: - azithromycin (ZITHROMAX) 250 mg tablet; Take 2 tabs (500 mg) by mouth today, than 1 tab (250 mg) daily for 4 days. - benzonatate (TESSALON) 100 mg capsule; Take 1 capsule (100 mg total) by mouth 3 (three) times a day as needed for cough Mood disorder of depressed type Comments: refilled Effexor XR Orders: - venlafaxine XR (EFFEXOR-XR) 75 mg 24 hr capsule; Take 1 capsule (75 mg total) by mouth daily Urinary frequency Comments: leuk esterase now positive; will re-culture Orders: - POCT UA, AUTO W/O SCOPE - Urine culture Urine, clean voided; Future Guilherme Michelle MD This office note has been partially dictated using [employer]i software, and as a result portions of the record may have been created with this software. Occasional wrong-word or '[id number]' substitutions may have occurred due to the inherent limitations of voice recognition software. Read the chartcarefully and recognize, using context, where substitutions have occurred. documented in this encounter Plan of Treatment Not on file documented as of this encounter Procedures Procedure Name Priority Date/Time Associated Diagnosis Comments POCT URINALYSIS, AUTO W/O SCOPE Routine 07/10/2022 10:33 AM CDT Urinary frequency documented in this encounter Results * Urine culture Urine, clean voided (07/10/2022 10:35 AM CDT) Report Final Report: Less than 100,000 colonies/mL (clinically insignificant growth based on current clinical standards) ALLYN KILPATRICK Comment:Testing performed by : [facility], [address] [place] [address] Organism (CLINICALLY INSIGNIFICANT GROWTH ALLYN Urine, clean voided 07/10/2022 10:35 AM CDT 07/10/2022 10:54 PM CDT Narrative ALLYN KILPATRICK - 07/12/2022 7:59 AM CDT Testing performed by [facility] ([phone]) Guilherme Michelle MD LAB MICROBIOLOGY - GENERAL ORDERABLES Final Result [facility] [address] [place] [address] * (ABNORMAL) POCT UA, AUTO W/O SCOPE (07/10/2022 10:33 AM CDT) Color, Urine, POC Yellow Clarity, ur, POC Clear Clear Glucose, ur, POC Negative Negative MG/DL Bilirubin, ur, POC Negative Negative, Small, Moderate, Large Ketones, ur, POC Negative Negative Specific [place], POC 1.015 1.005 - 1.030 Blood, ur, POC Negative Negative pH, ur, POC 7.5 5.0 - 8.0 Protein, ur, POC Negative Negative Urobilinogen, Urine, POC 0.2 mg/dL Leukocytes, ur, POC Trace(A) Negative Nitrite, ur, POC Negative Negative Appearance, fld Clear Clear Urine, clean voided 07/10/2022 10:33 AM CDT Guilherme Michelle MD POINT OF CARE TEST ORDERABL ES Final Result documented in this encounter Visit Diagnoses Diagnosis Pharyngitis, unspecified etiology- Primary Mood disorder of depressed type Urinary frequency Urinary frequency documented in this encounter Discontinued Medications Medication Sig Discontinue Reason Start Date End Da te venlafaxine XR (EFFEXOR-XR) 75 mg 24 hr capsuleIndications:major depressive disorder Take 1 capsule (75 mg total) by mouth daily Reorder 03/06/2022 07/10/2022 documented as of this encounter Care Teams Em Physician Relationship Specialty Start Date End Date Guilherme Michelle MD [address] [place] [address] PCP - General Family Medicine 07/06/21 Tiago Randle MD [address] [place] [address] Referring Physician Obstetrics and Gynecology 07/11/21 Thalia Hopper 07/11/21 documented as of this encounter
--- OUTSIDE RECORDS SUMMARY | 2024-04-12 22:26 | XMS_ITS | Encounter Summary ---
Author Organization [facility] Healthcare Address [address] [place] [address] Care Team Providers Care Medical Translator Name Role Phone Guilherme Michelle MD Primary Care Provider [phone] Tiago Randle MD Unavailable [phone] Encounter Details Date Type Department Care Team (Late st Contact Info) Description 02/04/2023 Orders Only [facility] Primary Care at [address] [address] Guilherme Michelle MD [address] [place] [address] [address] [place] [address] Social History Tobacco Use Types [...] Master's degree (e.g., MA, MS, Verenice, MEd, SPRING SETTER, GIOVANNI) 07/11/2021 Comments Unknown Sex and Gender Information Value Date Recorded Sex Assigned at Not on file Legal Sex Female 8:21 AM BLOCKMASON Gender Identity Female 11/14/2021 10:22 AM CDT Sexual Orientation Not on file 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 Not on file Not on f ile documented as of this encounter Ordered Prescriptions Prescription Sig Dispense Quantity Refills Last Filled Start Date End Date cyclobenzaprine (FLEXERIL) 5 mg tablet Take 1 tablet (5 mg total) by mouth 3 (three) times a day as needed for muscle spasms 45 tablet 02/04/2023 02/09/2024 documented in this encounter Plan of Treatment Not on file documented as of this encounter Visit Diagnoses Not on filedocumented in this encounter Care Teams Medical Translator Relationship Specialty Start Date End Date Guilherme Michelle MD [address] [place] [address] PCP - General Family Medicine 07/06/21 Tiago Randle MD [address] [place] [address] Referring Physician Obstetrics and Gynecology 07/11/21 Thalia Hopper 07/11/21 documented as of this encounter
--- OUTSIDE RECORDS SUMMARY | 2024-04-12 22:26 | XMS_ITS | Encounter Summary ---
Author Organization [facility] Medical Group Address [address] [facility] [address] [place] [address] Care Team Providers Care Internal Control Manager Name Role Phone Guilherme Michelle MD Primary Care Provider [phone] Tiago Randle MD Unavailable [phone] Encounter Details Date Type Department Care Team (Late st Contact Info) Description 09/25/2022 3:45 PM CDT Lab [facility] Medical [facility] Outpatient Lab at [address] [address] Threatened (Primary Dx) Social History [...] Master's degree (e.g., MA, MS, Verenice, MEd, DOOR FRAME BUILDER, GIOVANNI) 07/11/2021 Comments Yes Sex and Gender Information Value Date Recorded Sex Assigned at Not on file Legal Sex Female 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 Gender Identity Female 11/14/2021 10:22 AM CDT Sexual Orientation Not on file 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
--- OUTSIDE RECORDS SUMMARY | 2024-04-12 22:26 | XMS_ITS | Encounter Summary ---
Author Organization [facility] Medical Group Address [address] [facility] [address] [place] [address] Care Team Providers Care Petroleum Geologist Name Role Phone Guilherme Michelle MD Primary Care Provider [phone] Tiago Randle MD Unavailable [phone] Reason for Visit * Reason Onset Date Comments ultrasound request 09/23/2022 Encounter Details Date Type Department Care Team (Late st Contact Info) Description 09/23/2022 Telephone [facility] Medical [facility] Primary Care at [address] [address] Guilherme Michelle MD [address] [place] [address] [address] [place] [address] ultrasound request Social History Tobacco Use Types Packs/Day Years [...] Master's degree (e.g., MA, MS, Verenice, MEd, EXERCISE EQUIPMENT SPECIALIST, GIOVANNI) 07/11/2021 Comments Yes Sex and Gender Information Value Date Recorded Sex Assigned at Not on file Legal Sex Female 8:21 AM WELL DRILLER Gender Identity Female 11/14/2021 10:22 AM CDT Sexual Orientation Not on file 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 * Telephone Encounter - Ignacio Pereira - 09/23/2022 1:09 PM CDT Patient calling in wanting a order for a ultrasound if you could please call her back at [phone] documented in this encounter Plan of Treatment Not on file documented as of this encounter Visit Diagnoses Not on filedocumented in this encounter Care Teams Petroleum Geologist Relationship Specialty Start Date End Date Guilherme Michelle MD [address] [place] [address] PCP - General Family Medicine 07/06/21 Tiago Randle MD [address] [place] [address] Referring Physician Obstetrics and Gynecology 07/11/21 Thalia Hopper 07/11/21 documented as of this encounter
--- OUTSIDE RECORDS SUMMARY | 2024-04-12 22:26 | XMS_ITS | Encounter Summary ---
Author Organization [facility] Medical Group Address [address] [facility] [address] [place] [address] Care Team Providers Care Bondactor Machine Operator Name Role Phone Guilherme Michelle MD Primary Care Provider [phone] Tiago Randle MD Unavailable [phone] Reason for Visit * Reason Comments Ultrasound * Diagnostic Imaging (Routine) - Closed Specialty Diagnoses / Procedures Referred By Contac t Referred To Contact Diagnoses Threatened Procedures US OB Under 14 Weeks W Endovaginal US OB Limited US Ob Under 14 Weeks Racheal Adams MD [address] [place] [address] [address] [place] [address] Phone: tel: [facility] [address] [place] [address] [address] [place] [address] Phone: tel: fax: Referral ID Status Reason Start Date Expiration Date Visits Re quested Visits Authorized [id number] Closed 10/07/2022 11/06/2023 1 1 Encounter Details Date Type Department Care Team (Latest Contact Info) Description 10/07/2022 2:30 PM CDT Ancillary Procedure [facility] [address] [place] [address] Threatened Social History Tobacco Use [...] Master's degree (e.g., MA, MS, Verenice, MEd, MANAGER STRATEGY & ACCOUNT, GIOVANNI) 07/11/2021 Comments Yes Sex and Gender Information Value Date Recorded Sex Assigned at Not on file Legal Sex Female 8:21 AM ROTARY FILTER OPERATOR Gender Identity Female 11/14/2021 10:22 AM CDT Sexual Orientation Not on file 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 There is likely products of conception in the cervix and the patient is bleeding. She reports having passed large clots last night/this morning. [facility] Endometrial Thickness 16.1 mm&millim eters [facility] Anatomical Region Laterality Modality Abdomen N/A Ultrasound 10/07/2022 2:33 PM CDT Impressions 10/09/2022 9:05 AM CDT 1. ??Normal sized uterus without evidence of viable gestation. ??As the products may be in the cervix, clinical evaluation recommended.2. ??Normal appearing ovaries. ?? Narrative Procedure Note Racheal Adams MD - 10/09/2022 IMPRESSION: 1. Normal sized uterus without evidence of viable gestation. As theproducts may be in the cervix, clinical evaluation recommended.2. Normalappearing ovaries. Racheal Adams MD IMG OB US PROCEDURE S Final Result documented in this encounter Visit Diagnoses Diagnosis Threatened documented in this encounter Care Teams Bondactor Machine Operator Relationship Specialty Start Date End Date Guilherme Michelle MD [address] [place] [address] PCP - General Family Medicine 07/06/21 Tiago Randle MD [address] [place] [address] Referring Physician Obstetrics and Gynecology 07/11/21 Thalia Hopper 07/11/21 documented as of this encounter
--- OUTSIDE RECORDS SUMMARY | 2024-04-12 22:26 | XMS_ITS | Encounter Summary ---
Author Organization [facility] Healthcare Address [address] [place] [address] Care Team Providers Care Utilization Engineer Name Role Phone Guilherme Michelle MD Primary Care Provider [phone] Tiago Randle MD [facility] [phone] Encounter Details Date Type Department Care Team (Late st Contact Info) Description 05/19/2023 2:10 PM SUBSTATION SUPERVISOR Lab [address] Missed period Social History Tobacco Use Types Packs/Day Years [...] Master's degree (e.g., MA, MS, Verenice, MEd, VB NET DEVELOPER, GIOVANNI) 07/11/2021 Comments Unknown Sex and Gender Information Value Date Recorded Sex Assigned at Not on file Legal Sex Female 8:21 AM SUBSTATION SUPERVISOR Gender Identity Female 11/14/2021 10:22 AM CDT Sexual Orientation Not on file 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 file Not on file Not on f ile documented as of this encounter Plan of Treatment Not on file documented as of this encounter Procedures Procedure Name Priority Date/Time Associated Diagnosis Comments PROGESTERONE Routine 05/19/2023 2:09 PM SUBSTATION SUPERVISOR Missed period HCG, BLOOD, QUANTITATIVE Routine 05/19/2023 2:09 PM SUBSTATION SUPERVISOR Missed period documented in this encounter Results * (ABNORMAL) hCG, blood, quantitative (05/19/2023 2:09 PM SUBSTATION SUPERVISOR) hCG, quant 875.0(H) 0.0 - 5.0 IUnits/L [facility] ([facility]) Comment: Interpretive Data Male: < 5 IU/L Non- premenopausal Female: <5 IU/L The [employer]ider hCG Beta Quant assay procedure was used. Results from different manufacturers or methods may not be comparable. ??Serial testing should be performed using the same method. Interpretive Data was last revised on 2023 Blood 05/19/2023 2:09 PM SUBSTATION SUPERVISOR 05/19/2023 3:55 PM SUBSTATION SUPERVISOR us Racheal Adams MD LAB BLOOD ORDERABLE S Edited Result - Final [facility] ([facility]) [address] [facility] [place] [address] * Progesterone (05/19/2023 2:09 PM SUBSTATION SUPERVISOR) Progesterone 10.60 ng/mL [facility] ([facility]) Comment: Interpretive Data Males: ?<0.15 ng/mL Females: ??Follicular ?<0.20 ng/mL ??Ovulation ? <4.1 ng/mL ??Luteal ?4.1 - ??14.5 ng/mL ??1st Trimester ?? 11.0 - ??44.0 ng/mL ??2nd Trimester ?? 25.0 - ??83.0 ng/mL ??3rd Trimester ?? 59.0 - 214.0 ng/mL ??Postmenopausal ??<0.13 ng/mL Current interpretive data was last revised 2021. Testing performed by: [facility], [address] [facility], [place]., [address] Blood 05/19/2023 2:09 PM SUBSTATION SUPERVISOR 05/19/2023 8:22 PM SUBSTATION SUPERVISOR us Racheal Adams MD LAB BLOOD ORDERABLE S Final Result Performing Organization Address City/State/[facility] Co de Phone Number [facility] ([facility]) [address] [facility] [place] [address] documented in this encounter Visit Diagnoses Diagnosis Missed period documented in this encounter Care Teams Utilization Engineer Relationship Specialty Start Date End Date Guilherme Michelle MD [address] [place] [address] PCP - General Family Medicine 07/06/21 Tiago Randle MD [address] [place] [address] Referring Physician Obstetrics and Gynecology 07/11/21 Thalia Hopper 07/11/21 documented as of this encounter
--- OUTSIDE RECORDS SUMMARY | 2024-04-12 22:26 | XMS_ITS | Encounter Summary ---
Author Organization [facility] Healthcare Address [address] [place] [address] Care Team Providers Care Knockout Machine Operator Name Role Phone Guilherme Michelle MD Primary Care Provider [phone] Tiago Randle MD [facility] [phone] Encounter Details Date Type Department Care Team (Latest Contact Info) Description 04/14/2023 11:26 AM COMPUTER ASSISTANT - 04/14/2023 11:59 PM COMPUTER ASSISTANT Hospital Encounter [address] [id number] Weight gain; SAB (spontaneous ) Discharge Disposition: Discharge to home or self [...] Master's degree (e.g., MA, MS, Verenice, MEd, KEG FILLER, GIOVANNI) 07/11/2021 Comments Unknown Sex and Gender Information Value Date Recorded Sex Assigned at Not on file Legal Sex Female 8:21 AM COMPUTER ASSISTANT Gender Identity Female 11/14/2021 10:22 AM CDT Sexual Orientation Not on file 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 106 tablet 02/08/2023 4 cyclobenzaprine (FLEXERIL) 5 mg tablet Take 1 tablet (5 mg total) by mouth 3 (three) times a day as needed for muscle spasms 45 tablet 02/04/2023 4 norgestimate-ethinyl estradioL (ORTHO-CYCLEN) 0.25-35 mg-mcg per tablet Take 1 tablet by mouth daily 28 tablet 2 01/10/2023 4 venlafaxine XR (EFFEXOR-XR) 37.5 mg 24 hr capsuleIndications:m ajor depressive disorder Take 2 capsules (75 mg total) by mouth daily for 7 days, THEN 1 capsule (37.5 mg total) daily for 7 days. 21 capsule 02/04/2023 4 documented as of this encounter Discharge Disposition Disposition Code Departure Means Destination Discharge to home or self care documented in this encounter Plan of Treatment Not on file documented as of this encounter Procedures Procedure Name Priority Date/Time Associated Diagnosis Comments VITAMIN D 25 HYDROXY Routine 04/14/2023 11:26 AM COMPUTER ASSISTANT Weight gain HCG, BLOOD, QUANTITATIVE Routine 04/14/2023 11:26 AM COMPUTER ASSISTANT SAB (spontaneous ) TSH Routine 04/14/2023 11:26 AM COMPUTER ASSISTANT Weight gain documented in this encounter Results * hCG, blood, quantitative (04/14/2023 11:26 AM COMPUTER ASSISTANT) hCG, quant <0.1 0.0 - 5.0 IUnits/L [facility] Comment: Interpretive Data Non- Female premenopausal: < [...] on 2021. Blood 04/14/2023 11:2 6 AM COMPUTER ASSISTANT 04/14/2023 7:56 PM COMPUTER ASSISTANT Racheal Adams MD LAB BLOOD ORDERABLE S Final Result Performing Organization Address [facility] de Phone Number [facility] [address] [place] [address] * TSH (04/14/2023 11:26 AM COMPUTER ASSISTANT) Pathologist [facility] Thyroid Stimulating Hormone 0.56 0.30 - 4.20 mcIUnit/mL [facility] Blood 04/14/2023 11:2 6 AM COMPUTER ASSISTANT 04/14/2023 7:56 PM COMPUTER ASSISTANT Racheal Adams MD LAB BLOOD ORDERABLE S Final Result Performing Organization Address [facility] de Phone Number [facility] [address] [facility] [employer] [place] [address] * (ABNORMAL) Vitamin D 25 hydroxy (04/14/2023 11:26 AM COMPUTER ASSISTANT) Vitamin D 25-OH 20(L) 30 - 80 ng/mL [facility] Blood 04/14/2023 11:2 6 AM COMPUTER ASSISTANT 04/14/2023 7:56 PM COMPUTER ASSISTANT us Racheal Adams MD LAB BLOOD ORDERABLE S Final Result [facility] [address] Department [place] [address] documented in this encounter Visit Diagnoses Diagnosis Weight gain Other symptoms concerning nutrition, metabolism, and development SAB (spontaneous ) Unspecified spontaneous without mention of complication documented in this encounter Care Teams Knockout Machine Operator Relationship Specialty Start Date End Date Guilherme Michelle MD [address] [place] [address] PCP - General Family Medicine 07/06/21 Tiago Randle MD [address] [place] [address] Referring Physician Obstetrics and Gynecology 07/11/21 Thalia Hopper 07/11/21 documented as of this encounter
--- OUTSIDE RECORDS SUMMARY | 2024-04-12 22:26 | XMS_ITS | Encounter Summary ---
Author Organization [facility] Address [address] [place] [address] Care Team Providers Care Facilities Specialist Name Role Phone Guilherme Michelle MD Primary Care Provider [phone] Tiago Randle MD Unavailable [phone] Reason for Visit * Reason Comments Ultrasound * Diagnostic Imaging (Routine) - Closed Specialty Diagnoses / Procedures Referred By Contlorne t Referred To Contact Diagnoses Threatened Procedures US OB Transvaginal US Ob Under 14 Weeks Racheal Adams MD [address] [place] [address] [address] Phone: tel: [facility] [address] [place] [address] [address] [place] [address] Phone: tel: fax: Referral ID Status Reason Start Date Expiration Date Visits Re quested Visits Authorized [id number] Closed 09/23/2022 10/23/2023 1 1 Encounter Details Date Type Department Care Team (Latest Contact Info) Description 09/26/2022 8:00 AM CDT Ancillary Procedure [facility] [address] [place] [address] [address] [place] [address] Threatened Social History Tobacco Use [...] degree (e.g., MA, MS, Verenice, MEd, BUSINESS PERFORMANCE MANAGER, GIOVANNI) 07/11/2021 Comments Yes Sex and Gender Information Value Date Recorded Sex Assigned at Not on file Legal Sex Female 8:21 AM STONECUTTER HAND Gender Identity Female 11/14/2021 10:22 AM CDT Sexual Orientation Not on file 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 on file Not on file Not on f ile documented as of this encounter Plan of Treatment Not on file documented as of this encounter Procedures Procedure Name Priority Date/Time Associated Diagnosis Comments US OB TRANSVAGINAL Schedule Routine, Read Routine (OP Routine) 09/26/2022 8:26 AM CDT Threatened documented in this encounter Results [...] Threatened documented in this encounter Care Teams Facilities Specialist Relationship Specialty Start Date End Date Guilherme Michelle MD [address] [place] [address] PCP - General Family Medicine 07/06/21 Tiago Randle MD [address] [place] [address] Referring Physician Obstetrics and Gynecology 07/11/21 Thalia Hopper 07/11/21 documented as of this encounter
--- OUTSIDE RECORDS SUMMARY | 2024-04-12 22:26 | XMS_ITS | Encounter Summary ---
Author Organization [facility] Address [address] [facility] [address] [place] [address] Care Team Providers Care Underground Heavy Equipment Operator Name Role Phone Guilherme Michelle MD Primary Care Provider [phone] Tiago Randle MD Unavailable [phone] Reason for Visit * Reason Comments Follow-up Pt is concerned abou t weight gain and irregular periods, mood swings, fatigue for about 18 months Encounter Details Date Type Department Care Team (Late st Contact Info) Description 03/06/2022 11:15 AM RADIO SALES ACCOUNT EXECUTIVE Office Visit [facility] Medical [facility] Primary Care at [address] [address] Guilherme Michelle MD [address] [place] [address] [address] [place] [address] Mood disorder of depressed type (Primary Dx); Mild episode of recurrent major depressive disorder (HCC); Dysmenorrhea; Vitamin D deficiency Social History Tobacco Use Types Packs/Day Years [...] Master's degree (e.g., MA, MS, Verenice, MEd, RETAIL BUSINESS ANALYST, GIOVANNI) 07/11/2021 Comments No Sex and Gender Information Value Date Recorded Sex Assigned at Not on file Legal Sex Female 8:21 AM RADIO SALES ACCOUNT EXECUTIVE Gender Identity Female 11/14/2021 10:22 AM CDT Sexual Orientation Not on file 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 on file Not on file Not on f ile documented as of this encounter Last Filed Vital Signs Vital Sign Reading Time Taken Comments Blood Pressure 110/76 03/06/2022 11:26 AM RADIO SALES ACCOUNT EXECUTIVE Pulse 64 03/06/2022 11:26 AM RADIO SALES ACCOUNT EXECUTIVE Temperature - - Respiratory Rate 18 03/06/2022 11:26 AM RADIO SALES ACCOUNT EXECUTIVE Oxygen Saturation 98% 03/06/2022 11:26 AM RADIO SALES ACCOUNT EXECUTIVE Inhaled Oxygen Concentration - - Weight 65.3 kg (144 lb) 03/06/2022 11:26 AM RADIO SALES ACCOUNT EXECUTIVE Height 162.6 cm (5' 4 ) 03/06/2022 11:26 AM RADIO SALES ACCOUNT EXECUTIVE Body Mass Index 24.72 03/06/2022 11:26 AM RADIO SALES ACCOUNT EXECUTIVE documented in this encounter Ordered Prescriptions Prescription Sig Dispense Quantity Refills Last Filled Start Date End Date venlafaxine XR (EFFEXOR-XR) 75 mg 24 hr capsuleIndications :major depressive disorder Take 1 capsule (75 mg total) by mouth daily 90 capsule 3 03/06/2022 3 documented in this encounter Progress Notes * Guilherme Michelle MD - 03/06/2022 11:15 AM CST Images from the original note were not included. Subjective/Objective Patient ID: Leanna Kaur is a 31 y.o. female. Chief Complaint Follow-up (Pt is concerned about weight gain and irregular periods, mood swings, fatigue for about 18 months) Just had her first period in 3 months, heavy. She saw her gyne 3 times last year, but hasn't be back because they never did anything . She claims she eats healthily, exercises 3 days a week ([employer]el[employer]). She says it's making me crazy , denies SI/HI. Sleeps too much (10 hours a night) Depression Visit Type: initial Onset of symptoms: more than 1 year ago Progression since onset: gradually worsening Patient presents with the following symptoms: anhedonia, depressed mood, fatigue, feelings of hopelessness, hypersomnia, irritability, nervousness/anxiety, psychomotor retardation and weight gain. Patient is not experiencing: chest pain, confusion, decreased concentration, dizziness, dry mouth, excessive worry, feelings of worthlessness, insomnia, memory impairment, muscle tension, obsessions,palpitations, panic, psychomotor agitation, shortness of breath, suicidal ideas, suicidal planning,thoughts of and weight loss. Treatment tried: SSRI Current Outpatient Medications: fluticasone propionate (FLONASE) 50 mcg/actuation nasal spray, Administer 1 spray into each nostrildaily, Disp: , Rfl: venlafaxine XR (EFFEXOR-XR) 37.5 mg 24 hr capsule, Take 1 capsule (37.5 mg total) by mouth daily, Disp: 90 capsule, Rfl: 3 ascorbic acid (VITAMIN C ORAL), Take by mouth (Patient not taking: Reported on 03/06/2022), Disp: ,Rfl: chlorhexidine (PERIDEX) 0.12 % solution, SWISH AND SPIT 15 ML THREE TIMES DAILY (Patient not taking: Reported on 03/06/2022), Disp: , Rfl: ergocalciferol (VITAMIN D) 50,000 unit capsule, Take 1 capsule (50,000 Units total) by mouth once aweek, Disp: 8 capsule, Rfl: 0 Review of Systems Constitutional: Positive for irritability and weight gain. Negative for fatigue, fever and weight loss. Respiratory: Negative for shortness of breath. Cardiovascular: Negative for palpitations. Genitourinary: Positive for menstrual problem. Psychiatric/Behavioral: Positive for dysphoric mood and sleep disturbance (hypersomnolent). Negative for agitation, behavioral problems, confusion, decreased concentration, hallucinations, self-injury and suicidal ideas. The patient is nervous/anxious. The patient does not have insomnia and is not h yperactive. BP 110/76 (BP Location: Right arm, Patient Position: Sitting) Pulse 64 Resp 18 Ht 162.6 cm (5' 4 ) Wt 65.3 kg (144 lb) SpO2 98% BMI 24.72 kg/m?? Physical Exam Vitals reviewed. Constitutional: Appearance: She is normal weight. HENT: Head: Normocephalic and atraumatic. Cardiovascular: Rate and Rhythm: Normal rate and regular rhythm. Heart sounds: No murmur heard. No friction rub. No gallop. Pulmonary: Breath sounds: No wheezing, rhonchi or rales. Neurological: Mental Status: She is alert. Psychiatric: Attention and Perception: Attention and perception normal. Mood and Affect: Affect is labile. Thought Content: Thought content does not include suicidal ideation. Thought content does not include suicidal plan. Cognition and Memory: Cognition and memory normal. No visits with results within 1 Month(s) from this visit. Latest known visit with results is: Lab on 08/16/2021 Component Date Value Ref Range Status Report 08/16/2021 Final Value:Final Report: Less than 100,000 colonies/mL (clinically insignificant growth based on current clinical standards) Testing performed by: [facility], [address] [place]., [address] Organism 08/16/2021 (CLINICALLY INSIGNIFICANT GROWTH Final Assessment/Plan Diagnoses and all orders for this visit: Mood disorder of depressed type (Primary) Comments: increasing Effexor XR to 75 mg daily Orders: - venlafaxine XR (EFFEXOR-XR) 75 mg 24 hr capsule; Take 1 capsule (75 mg total) by mouth daily - TSH reflex to free T4; Future Mild episode of recurrent major depressive disorder (HCC) Comments: as above Dysmenorrhea Comments: referral to gyne Orders: - LH; Future - Follicle stimulating hormone; Future - Ambulatory referral to Gynecology; Future Vitamin D deficiency - Vitamin D 25 hydroxy; Future Guilherme Michelle MD This office note has been partially dictated using [employer] software, and as a result portions of the record may have been created with this software. Occasional wrong-word or '[id number]' substitutions may have occurred due to the inherent limitations of voice recognition software. Read the chartcarefully and recognize, using context, where substitutions have occurred. O SALES ACCOUNT EXECUTIVE documented in this encounter Plan of Treatment Not on file documented as of this encounter Visit Diagnoses Diagnosis Mood disorder of depressed type- Primary Mild episode of recurrent major depressive disorder (HCC) Dysmenorrhea Vitamin D deficiency documented in this encounter Discontinued Medications Medication Sig Discontinue Reason Start Date End Da te chlorhexidine (PERIDEX) 0.12 % solution SWISH AND SPIT 15 ML THREE TIMES DAILY 12/20/2021 03/06/2022 ascorbic acid (VITAMIN C ORAL) Take by mouth 03/06/2022 venlafaxine XR (EFFEXOR-XR) 37.5 mg 24 hr capsule Take 1 capsule (37.5 mg total) by mouth daily 10/17/2021 03/06/2022 documented as of this encounter Historical Medications * This list may reflect changes made after this encounter. chlorhexidine (PERIDEX) 0.12 % solution SWISH AND SPIT 15 ML THREE TIMES DAILY 12/20/2021 03/06/2022 added in this encounter Care Teams Underground Heavy Equipment Operator Relationship Specialty Start Date End Date Guilherme Michelle MD [address] [place] [address] PCP - General Family Medicine 07/06/21 Tiago Randle MD [address] [place] [address] Referring Physician Obstetrics and Gynecology 07/11/21 Thalia Hopper 07/11/21 documented as of this encounter
--- OUTSIDE RECORDS SUMMARY | 2024-04-12 22:26 | XMS_ITS | Encounter Summary ---
Author Organization [facility] Healthcare Address [address] [place] [address] Care Team Providers Care Casting Trucker Name Role Phone Guilherme Michelle MD Primary Care Provider [phone] Tiago Randle MD [facility] [phone] Encounter Details Date Type Department Care Team (Latest Contact Info) Description 07/10/2022 10:35 AM CDT - 07/10/2022 11:59 PM CDT Hospital Encounter [address] [id number] Urinary frequency Discharge Disposition: Discharge to home [...] Master's degree (e.g., MA, MS, Verenice, MEd, SPECIAL EDUCATION SECRETARY, GIOVANNI) 07/11/2021 Comments No Sex and Gender Information Value Date Recorded Sex Assigned at Not on file Legal Sex Female 8:21 AM ELECTROENCEPHALOGRAPHIC TECHNOLOGIST Gender Identity Female 11/14/2021 10:22 AM CDT Sexual Orientation Not on file 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 6 tablet 07/10/2022 3 benzonatate (TESSALON) 100 mg capsuleIndication s:Cough Take 1 capsule (100 mg total) by mouth 3 (three) times a day as needed for cough 42 capsule 07/10/2022 3 ergocalciferol (VITAMIN D) 50,000 unit capsule Take 1 capsule (50,000 Units total) by mouth once a week 8 capsule 09/20/2021 3 fluticasone propionate (FLONASE) 50 mcg/actuation nasal spray Administer 1 spray into each nostril daily 3 venlafaxine XR (EFFEXOR-XR) 75 mg 24 hr capsuleIndication s:major depressive disorder Take 1 capsule (75 mg total) by mouth daily 90 capsule 3 07/10/2022 3 documented as of this encounter Discharge Disposition Disposition Code Departure Means Destination Discharge to home or self care documented in this encounter Plan of Treatment Not on file documented as of this encounter Procedures Procedure Name Priority Date/Time Associated Diagnosis Comments URINE CULTURE Routine 07/10/2022 10:35 AM CDT Urinary frequency documented in this encounter Results * Urine culture Urine, clean voided (07/10/2022 10:35 AM CDT) Report Final Report: Less than 100,000 colonies/mL (clinically insignificant growth based on current clinical standards) [facility] Comment:Testing performed by : [facility], [address] [facility], [place]., [address] Organism (CLINICALLY INSIGNIFICANT GROWTH [facility] Urine, clean voided 07/10/2022 10:35 AM CDT 07/10/2022 10:54 PM CDT Narrative [facility] - 07/12/2022 7:59 AM CDT Testing performed by [facility] ([phone]) us Guilherme Michelle MD LAB MICROBIOLOGY - GENERAL ORDERABLES Final Result Performing Organization Address City/State/ZIP [place] Phone Number [facility] [id number] [address] Department [place] [address] documented in this encounter Visit Diagnoses Diagnosis Urinary frequency documented in this encounter Care Teams Casting Trucker Relationship Specialty Start Date End Date Guilherme Michelle MD [address] [place] [address] PCP - General Family Medicine 07/06/21 Tiago Randle MD [address] [place] [address] Referring Physician Obstetrics and Gynecology 07/11/21 Thalia Hopper 07/11/21 documented as of this encounter
--- OUTSIDE RECORDS SUMMARY | 2024-04-12 22:27 | XMS_ITS | Encounter Summary ---
Author Organization [facility] Healthcare Address [address] [place] [address] Care Team Providers Care Supervisor Crack Off Name Role Phone Guilherme Michelle MD Primary Care Provider [phone] Tiago Randle MD [facility] [phone] Encounter Details Date Type Department Care Team (Late st Contact Info) Description 07/11/2021 1:45 PM CDT Lab [address] [address] Encounter for medical examination to establish care; Screening, lipid; History of vitamin D deficiency; Screening for thyroid disorder; Pharyngitis, chronic Social History Tobacco Use Types Packs/Day Years [...] Master's degree (e.g., MA, MS, Verenice, MEd, SKIN PEELING MACHINE OPERATOR, GIOVANNI) 07/11/2021 Comments Unknown Sex and Gender Information Value Date Recorded Sex Assigned at Not on file Legal 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 Gender Identity Female 11/14/2021 10:22 AM CDT Sexual Orientation Not on file 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 Not on file Not on file Not on f ile documented as of this encounter Plan of Treatment Not on file documented as of this encounter Procedures Procedure Name Priority Date/Time Associated Diagnosis Comments EGFR Routine 07/11/2021 10:30 AM CDT Encounter for medical examination to establish care DIFFERENTIAL AUTO Routine 07/11/2021 10: 30 AM CDT Encounter for medical examination to establish care THYROID FUNCTION CASCADE Routine 07/11/2021 10:30 AM CDT Screening for thyroid disorder CBC WITH AUTO DIFFERENTIAL Routine 07/11/2021 10:30 AM CDT Encounter for medical examination to establish care EDUARDO-BENÍTEZ VIRUS VCA ANTIBODY PANEL Routine 07/11/2021 10:30 AM CDT Pharyngitis, chronic VITAMIN D 25 HYDROXY Routine 07/11/2021 10:30 AM CDT History of vitamin D deficiency LIPID PANEL Routine 07/11/2021 10:30 AM CDT Screening, lipid COMPREHENSIVE METABOLIC PANEL Routine 07/11/2021 10:30 AM CDT Encounter for medical examination to establish care documented in this encounter Results * eGFR (07/11/2021 10:30 AM CDT) [facility] eGFR 126 mL/min/1. 73 m2 [facility]PAT[facility] Comment: Interpretive Data Reference Interval Normal ?>/= 90 mL/min/1.73m2 Mildly decreased* ? 60 - 89 mL/min/1.73m2 Mildly to moderately decreased ?45 - 59 mL/min/1.73m2 Moderately to severely decreased ??30 - 44 mL/min/1.73m2 Severely decreased ?15 - 29 mL/min/1.73m2 Kidney Failure ?< 15 ??mL/min/1.73m2 *Relative to young adult level Estimated glomerular filtration rate is determined by the 2020 CKD-EPI equation recommended by the National Kidney Foundation (A Unifying Approach to GFR Estimation: Recommendations of the NKF-ASK Task Force on Reassessing the Inclusion of Race in Diagnosing Kidney Disease, JASN 2020). The CKD-EPI equation should not be used for patients with unstable renal function and has not been validated in children and those over 70. Current interpretive data was last reviewed 2021. Blood 07/11/2021 10:3 0 AM CDT 07/11/2021 3:14 PM CDT us Guilherme Michelle MD LAB BLOOD ORDERABLES Final Result Performing Organization Address City/State/[facility] Co nv Phone Number [facility] [address] Department of Laboratories [place], [place] [id number] * Differential, auto (07/11/2021 10:30 AM CDT) Neutrophil abs 3.6 1.7 - 6.5 K/cumm [facility] Imm gran abs 0.0 0.0 - 0.1 K/cumm [facility] Lymphocyte abs 1.7 0.8 - 3.3 K/cumm [facility] Monocyte abs 0.4 0.2 - 0.8 K/cumm [facility] Eosinophil abs 0.1 0.0 - 0.5 K/cumm [facility] Basophil abs 0.1 0.0 - 0.1 K/cumm [facility] Neutrophil pct 62.3 % [facility] Comment: Interpretive Data Percent cell count reference ranges are not reported, since discordance with absolute values may lead to misinterpretation of CBC data. Current Interpretive Data was last revised on 2017. Imm gran pct 0.3 % [facility] Comment: Interpretive Data Percent cell count reference ranges are not reported, since discordance with absolute values may lead to misinterpretation of CBC data. Current Interpretive Data was last revised on 2017. Lymphocyte pct 28.4 % [facility] Comment: Interpretive Data Percent cell count reference ranges are not reported, since discordance with absolute values may lead to misinterpretation of CBC data. Current Interpretive Data was last revised on 2017. Monocyte pct 6.9 % [facility] Comment: Interpretive Data Percent cell count reference ranges are not reported, since discordance with absolute values may lead to misinterpretation of CBC data. Current Interpretive Data was last revised on 2017. Eosinophil pct 1.2 % [facility] Comment: Interpretive Data Percent cell count reference ranges are not reported, since discordance with absolute values may lead to misinterpretation of CBC data. Current Interpretive Data was last revised on 2017. Basophil pct 0.9 % [facility] Comment: Interpretive Data Percent cell count reference ranges are not reported, since discordance with absolute values may lead to misinterpretation of CBC data. Current Interpretive Data was last revised on 2017. Blood 07/11/2021 10:3 0 AM CDT 07/11/2021 2:34 PM CDT us Guilherme Michelle MD LAB BLOOD ORDERABLES Final Result [facility] [address] [place] [address] * (ABNORMAL) Eduardo-Benítez virus VCA antibody panel (07/11/2021 10:30 AM CDT) EBV nuclear Ab Positive(A) Negative [facility] Comment: Interpretive Data Results ? Interpretation Negative ?No detectable IgG antibody to EBV Nuclear ?Antigen. Equivocal ? Presence or absence of detectable IgG ?antibody to EBV Nuclear Antigen cannot be ?determined and the test should be repeated. Positive ?Indicates the presence of detectable IgG ?antibody to EBV Nuclear Antigen. Interpretive data revised 07/02/2016. Testing performed by: [facility], [address] [facility], [id number] EBV VCA IgG Positive(A) Negative [facility] Comment: Interpretive Data Results ? Interpretation Negative ?No detectable antibody to VCA IgG ?antibody. Equivocal ? Uncertain immune status, suggest ?sending additional sample. Positive ?Indicates the presence of antibody; ?90% of the adult population will ?have been infected with EBV sometime ?in the past. Interpretive data revised 07/02/2016. Testing performed by: [facility], [address] [facility], [address] EBV VCA IgM Negative Negative [facility] Comment: Interpretive Data Results ? Interpretation Negative ?No detectable IgM antibody to EBV-VCA. ?A negative result indicates no current ?infection with EBV. If clinical suspicion ?of acute EBV infection is present, testing ?should be repeated after one week. Equivocal ? If the sample is equivocal, recommend ?repeating the test with a second sample ?within one week. Positive ?A positive test result indicates a current ?or reactivated infection with EBV. Interpretive data revised 07/02/2016. Testing performed by: [facility], [address] [facility], [address] EBV interp Past infection [facility] Comment:Testing performed by : [facility], [address] [place]., [address] Blood 07/11/2021 10:3 0 AM CDT 07/11/2021 9:59 PM CDT Guilherme Michelle MD LAB MICROBIOLOGY - GENERAL ORDERABLES Final Result Performing Organization Address [facility] de Phone Number [facility] [address] Department [place] [address] * TSH reflex to free T4 (07/11/2021 10:30 AM CDT) TSH 0.94 0.30 - 4.20 mcIUnit/mL [facility] Blood 07/11/2021 10:3 0 AM CDT 07/11/2021 2:34 PM CDT Guilherme Michelle MD LAB BLOOD ORDERABLES Final Result Performing Organization Address [facility] Co de Phone Number [facility] [address] [place] [address] * (ABNORMAL) Vitamin D 25 hydroxy (07/11/2021 10:30 AM CDT) Vitamin D 25-OH 19(L) 30 - 80 ng/mL [facility] Blood 07/11/2021 10:3 0 AM CDT 07/11/2021 2:34 PM CDT Guilherme Michelle MD LAB BLOOD ORDERABLES Final Result Performing Organization Address [facility] Co de Phone Number [facility] [address] Department [place] [address] * (ABNORMAL) Lipid panel (07/11/2021 10:30 AM CDT) Cholesterol 214(H) 30 - 199 mg/dL [facility] Comment: Interpretive Data Ages < or = 19 years ??Acceptable: ? <170 mg/dL ??Borderline high: ??170-199 mg/dL ??High: ? >or= 200 mg/dL Ages > or = 20 years ??Desirable: ?<200 mg/dL ??Borderline high: ??200-239 mg/dL ??High: ? >or= 240 mg/dL Literature References: 1. Expert Panel on Integrated Guidelines for Cardiovascular Health and Risk Reduction in Children and Adolescents. Pediatrics 2011;128:S213 2. NCEP Expert Panel. Circulation 2004;110:227 Current Interpretive Data was last revised on 2017. Triglycerides 45 <=149 mg/dL [facility] Comment: Interpretive Data Ages < or = 9 years ??Acceptable: ? <75 mg/dL ??Borderline high: ??75-99 mg/dL ??High: ? >or= 100 mg/dL Ages 10 to 20 years ??Acceptable: ? <90 mg/dL ??Borderline high: ??90-129 mg/dL ??High: ? >or= 130 mg/dL Ages > or = 20 years ??Desirable: ?<150 mg/dL ??Borderline high: ??150-199 mg/dL ??High: ? 200-499 mg/dL ?Very high: ?? >or= 499 mg/dL Literature References: 1. Expert Panel on Integrated Guidelines for Cardiovascular Health and Risk Reduction in Children and Adolescents. Pediatrics 2011;128:S213 2. NCEP Expert Panel. Circulation 2004;110:227 Current Interpretive Data was last revised on 2017. HDL 87 >=40 mg/dL [facility]PAT[facility] Comment: Interpretive Data Ages < or = 19 years ??Acceptable: ? >45 mg/dL ??Borderline low: ?? 40-45 mg/dL ??Low: ? <40 mg/dL Ages > or = 20 years ??Desirable: ?>or= 60 mg/dL ??Low: ? <40 mg/dL Literature References: 1. Expert Panel on Integrated Guidelines for Cardiovascular Health and Risk Reduction in Children and Adolescents. Pediatrics 2011;128:S213 2. NCEP Expert Panel. Circulation 2004;110:227 Current Interpretive Data was last revised on 2017. LDL, calculated 118 <=129 mg/dL [facility] Comment: Interpretive Data Ages < or = 19 years ??Acceptable: ? <110 mg/dL ??Borderline high: ??110-129 mg/dL ??High: ?>or= 130 mg/dL Ages > or = 20 years ??Optimal: ? <100 mg/dL ??Near optimal: ?100-129 mg/dL ??Borderline high: ?? 130-159 mg/dL ??High: ?>160 mg/dL Literature References: 1. Expert Panel on Integrated Guidelines for Cardiovascular Health and Risk Reduction in Children and Adolescents. Pediatrics 2011;128:S213 2. NCEP Expert Panel. Circulation 2004;110:227 Current Interpretive Data was last revised on 2017. Non-HDL Cholesterol 127 mg/dL [facility] Comment: Interpretive Data Ages < or = 19 years ??Acceptable: ?<120 mg/dL ??Borderline high: ??120-144 mg/dL ??High: ?>145 mg/dL Ages > or = 20 years ??When triglycerides are >200 mg/dL, Non-HDL cholesterol is a secondary target of ? therapy with treatment goals that are 30 mg/dL greater than the LDL cholesterol target. ? Literature References: 1. Expert Panel on Integrated Guidelines for Cardiovascular Health and Risk Reduction in Children and Adolescents. Pediatrics 2011;128:S213 2. NCEP Expert Panel. Circulation 2004;110:227 Current Interpretive Data was last revised on 2017. Chol/HDL ratio 2 [facility] Blood 07/11/2021 10:3 0 AM CDT 07/11/2021 2:34 PM CDT us Guilherme Michelle MD LAB BLOOD ORDERABLES Final Result [facility] [address] Department [place] [address] * (ABNORMAL) Comprehensive metabolic panel (07/11/2021 10:30 AM CDT) Sodium 139 135 - 145 mmol/L [facility] Potassium, pl 4.4 3.3 - 4.9 mmol/L [facility] Chloride 101 97 - 110 mmol/L [facility] CO2 26 22 - 32 mmol/L [facility] Anion gap 12 2 - 15 mmol/L [facility] BUN 7(L) 8 - 25 mg/dL [facility] Creatinine 0.55(L) 0.60 - 1.10 mg/dL [facility] Glucose 92 70 - 199 mg/dL [facility] Comment: Interpretive Data Fasting glucose >/= 126 mg/dl is diagnostic for diabetes. ?? Fasting is defined as no caloric intake for at least 8 hours. Fasting glucose between 100 mg/dl to 125 mg/dl is diagnostic of prediabetes. In a patient with classic symptoms of hyperglycemia or hyperglycemic crisis, a random glucose >/= 200 mg/dl is diagnostic for diabetes. In the absence of unequivocal hyperglycemia, results should be confirmed by repeat testing. The classification and Diagnosis of Diabetes Diabetes Care 2017;40 (Suppl. 1):S11. Current interpretive data was last revised 2017. Calcium 9.4 8.5 - 10.3 mg/dL [facility] Bilirubin, total 0.3 0.1 - 1.2 mg/dL [facility] Protein, pl 7.8 6.5 - 8.5 g/dL [facility] Albumin 4.7 3.5 - 5.0 g/dL [facility] Alk phos 57 40 - 130 Units/L [facility] ALT 23 7 - 45 Units/L [facility] AST 25 10 - 45 Units/L [facility] Blood 07/11/2021 10:3 0 AM CDT 07/11/2021 2:34 PM CDT Guilherme Michelle MD LAB [place]LO[place] [address] [address] Department [place] [address] * CBC with auto differential (07/11/2021 10:30 AM CDT) WBC 5.8 3.8 - 9.9 K/cumm [facility] Hgb 14.5 11.9 - 15.5 g/dL [facility] Hct 44.4 35.6 - 45.5 % [facility] Plt 327 150 - 400 K/cumm [facility] MPV 9.2 9.1 - 12.3 fL [facility] RBC 4.89 3.90 - 5.20 M/cumm [facility] MCV 90.8 81.3 - 96.4 fL [facility] MCH 29.7 27.1 - 33.3 pg [facility] MCHC 32.7 32.3 - 35.7 g/dL [facility] RDW CV 13.2 11.1 - 14.9 % [facility] RDW SD 44.1 35.7 - 48.1 fL [facility] NRBC abs 0.00 0.00 - 0.01 K/cumm [facility] CH Blood 07/11/2021 10:3 0 AM CDT 07/11/2021 2:34 PM CDT us Guilherme Michelle MD LAB BLOOD ORDERABLES Final Result Performing Organization Address City/[facility] Co de Phone Number [facility] [address] Department [place] [address] documented in this encounter Visit Diagnoses Diagnosis Encounter for medical examination to establish care Screening, lipid History of vitamin D deficiency Screening for thyroid disorder Pharyngitis, chronic Chronic pharyngitis documented in this encounter Care Teams Supervisor Crack Off Relationship Specialty Start Date End Date Guilherme Michelle MD [address] [place] [address] PCP - General Family Medicine 07/06/21 Tiago Randle MD [address] [place] [address] Referring Physician Obstetrics and Gynecology 07/11/21 Thalia Hopper 07/11/21 documented as of this encounter
--- OUTSIDE RECORDS SUMMARY | 2024-04-12 22:27 | XMS_ITS | Encounter Summary ---
Author Organization [facility] Healthcare Address [address] [place] [address] Care Team Providers Care Manager Lpn Name Role Phone AleksandrasalvatoreGabriel DO Primary Care Provider [phone] Encounter Details Date Type Department Care Team (Late st Contact Info) Description 05/19/2021 11:35 PM CITY LIBRARY DIRECTOR Lab [address] [address] Pharyngitis, unspecified etiology Social History Tobacco Use Types Packs/Day Years Used Date Smoking Tobacco: Never Smokeless Tobacco: Never Comments Unknown Sex and Gender Information Value Date Recorded Sex Assigned at Not on file Legal 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 Patient should continue tylenol/ibuprofen as directed for discomfort and f/u with PCP if symptoms persist. LIBRARY DIRECTOR documented in this encounter Plan of Treatment Not on file documented as of this encounter Procedures Procedure Name Priority Date/Time Associated Diagnosis Comments THROAT CULTURE Routine 05/19/2021 4:22 PM CITY LIBRARY DIRECTOR Pharyngitis, unspecified etiology documented in this encounter Results * Throat culture Throat (05/19/2021 4:22 PM CITY LIBRARY DIRECTOR) Report Final Report: No growth of pathogens. [facility] Comment:Testing performed by : [facility], [address] [facility], [place]., [address] Throat 05/19/2021 4:22 PM CITY LIBRARY DIRECTOR 05/20/2021 5:30 AM CITY LIBRARY DIRECTOR Narrative [facility]ILPATRICK - 05/21/2021 7:04 AM CITY LIBRARY DIRECTOR Testing performed by [facility] ([phone]). Maria Perez WAREHOUSE ORDER FILLER LAB MICROBIOLOGY - GENER AL ORDERABLES Final Result [facility] [address] Department [place] [address] documented in this encounter Visit Diagnoses Diagnosis Pharyngitis, unspecified etiology documented in this encounter Care Teams Manager Lpn Relationship Specialty Start Date End Date Gabriel Oh DO PCP - General Internal Medicine 04/13/21 07/05/21 documented as of this encounter
--- OUTSIDE RECORDS SUMMARY | 2024-04-12 22:27 | XMS_ITS | Encounter Summary ---
Author Organization [facility] Medical Group Address [address] [facility] [address] [place] [id number] Care Team Providers Care Anthropological Linguist Name Role Phone Guilherme Michelle MD Primary Care Provider [phone] Tiago Randle MD Unavailable [phone] Reason for Visit * Reason Comments New Patient New patient Encounter Details Date Type Department Care Team (Late st Contact Info) Description 07/11/2021 9:30 AM CDT Office Visit [facility] Medical 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 Gender Identity Female 11/14/2021 10:22 AM CDT Sexual Orientation Not on file 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 on file Not on file Not on f ile documented as of this encounter Last Filed Vital Signs Vital Sign Reading Time Taken Comments Blood Pressure 100/64 07/11/2021 9:34 AM CDT Pulse 74 07/11/2021 9:34 AM CDT Temperature 36.2 ??C (97.1 ??F) 07/11/2021 9:34 AM CD T Respiratory Rate 16 07/11/2021 9:34 AM CDT Oxygen Saturation 96% 07/11/2021 9:34 AM CDT Inhaled Oxygen Concentration - - Weight 61.7 kg (136 lb) 07/11/2021 9:34 AM CDT Height 162.6 cm (5' 4 ) 07/11/2021 9:34 AM CDT Body Mass Index 23.34 07/11/2021 9:34 AM CDT documented in this encounter Patient Instructions * Patient Instructions* Guilherme Michelle MD - 07/11/2021 9:30 AM CDT Images from the original note were not included. Patient Education Wellness Visit for Adults WHAT YOU NEED TO KNOW: What is a wellness visit? A wellness visit is when you see your healthcare provider to get screenedfor health problems. Your healthcare provider will also give you advice on how to stay healthy. Write down your questions so you remember to ask them. Ask your healthcare provider how often you should have a wellness visit. What happens at a wellness visit? Your healthcare provider will ask about your health, and your family history of health problems. This includes high blood pressure, heart disease, and cancer. He or she will ask if you have symptoms that concern you, if you smoke, and about your mood. You may also be asked about your intake of medicines, supplements, food, and alcohol. Any of the following may bedone: ?? Your weight will be checked. Your height may also be checked so your body mass index (BMI) can be calculated. Your BMI shows if you are at a healthy weight. ?? Your blood pressure and heart rate will be checked. Your temperature may also be checked. ?? Blood and urine tests may be done. Blood tests may be done to check your cholesterol levels. Abnormal cholesterol levels increase your risk for heart disease and stroke. You may also need a blood or urine test to check for diabetes if you are at increased risk. Urine tests may be done to look for signs of an infection or kidney disease. ?? A physical exam includes checking your heartbeat and lungs with a stethoscope. Your healthcare provider may also check your skin to look for sun damage. ?? Screening tests may be recommended. A screening test is done to check for diseases that may not cause symptoms. The screening tests you may need depend on your age, gender, family history, and lifestyle habits. For example, colorectal screening may be recommended if you are 50 years old or older. What screening tests do I need if I am a woman? ?? A Pap smear is used to screen for cervical cancer. Pap smears are usually done every 3 to 5 years depending on your age. You may need them more often if you have had abnormal Pap smear test results in the past. Ask your healthcare provider how often you should have a Pap smear. ?? A mammogram is an x-ray of your breasts to screen for breast cancer. Experts recommend mammograms every 2 years starting at age 50 years. You may need a mammogram at age 49 years or younger if youhave an increased risk for breast cancer. Talk to your healthcare provider about when you should start having mammograms and how often you need them. What vaccines might I need? ?? Get an influenza vaccine every year. The influenza vaccine protects you from the flu. Several types of viruses cause the flu. The viruses exchange trouble shooter time, so new vaccines are made each year. ?? Get a tetanus-diphtheria (Td) booster vaccine every 10 years. This vaccine protects you against tetanus and diphtheria. Tetanus is a severe infection that may cause painful muscle spasms and lockjaw. Diphtheria is a severe bacterial infection that causes a thick covering in the back of your mouth and throat. ?? Get a human papillomavirus (HPV) vaccine if you are female and aged 19 to 26 or male 19 to 21 and never received it. This vaccine protects you from HPV infection. HPV is the most common infection spread by sexual contact. HPV may also cause vaginal, penile, and anal cancers. ?? Get a pneumococcal vaccine if you are aged 65 years or older. The pneumococcal vaccine is an injection given to protect you from pneumococcal disease. Pneumococcal disease is an infection caused by pneumococcal bacteria. The infection may cause pneumonia, meningitis, or an ear infection. ?? Get a shingles vaccine if you are aged 60 or older, even if you have had shingles before. The shingles vaccine is an injection to protect you from the varicella-zoster virus. This is the same virus that causes chickenpox. Shingles is a painful rash that develops in people who had chickenpox or have been exposed to the virus. How can I eat healthy? My Plate is a model for planning healthy meals. It shows the types and amounts of foods that should go on your plate. Fruits and vegetables make up about half of your plate, and grains and protein make up the other half. A serving of dairy is included on the side of your plate. The amount of calories and serving sizes you need depends on your age, gender, weight, and height. Examples of healthy foods are listed below: ?? Eat a variety of vegetables such as dark green, red, and orange vegetables. You can also includecanned vegetables low in sodium (salt) and frozen vegetables without added butter or sauces. ?? Eat a variety of fresh fruits , canned fruit in 100% juice, frozen fruit, and dried fruit. ?? Include whole grains. At least half of the grains you eat should be whole grains. Examples include whole-wheat bread, wheat pasta, brown rice, and whole- grain cereals such as oatmeal. ?? Eat a variety of protein foods such as seafood (fish and shellfish), lean meat, and poultry without skin (turkey and chicken). Examples of lean meats include pork leg, shoulder, or tenderloin, andbeef round, sirloin, tenderloin, and extra lean ground beef. Other protein foods include eggs and egg substitutes, beans, peas, soy products, nuts, and seeds. ?? Choose low-fat dairy products such as skim or 1% milk or low-fat yogurt, cheese, and cottage cheese. ?? Limit unhealthy fats such as butter, hard margarine, and shortening. How much exercise do I need? Exercise at least 30 minutes per day on most days of the week. Some examples of exercise include walking, biking, dancing, and swimming. You can also fit in more physicalactivity by taking the stairs instead of the elevator or parking farther away from stores. Include muscle strengthening activities 2 days each week. Regular exercise provides many health benefits. Ithelps you manage your weight, and decreases your risk for type 2 diabetes, heart disease, stroke, and high blood pressure. Exercise can also help improve your mood. Ask your healthcare provider aboutthe best exercise plan for you. What are some general health and safety guidelines I should follow? ?? Do not smoke. Nicotine and other chemicals in cigarettes and cigars can cause lung damage. Ask your healthcare provider for information if you currently smoke and need help to quit. E-cigarettes or smokeless tobacco still contain nicotine. Talk to your healthcare provider before you use these products. ?? Limit alcohol. A drink of alcohol is 12 ounces of beer, 5 ounces of wine, or 1?? ounces of liquor. ?? Lose weight, if needed. Being overweight increases your risk of certain health conditions. Theseinclude heart disease, high blood pressure, type 2 diabetes, and certain types of cancer. ?? Protect your skin. Do not sunbathe or use tanning beds. Use sunscreen with a SPF 15 or higher. Apply sunscreen at least 15 minutes before you go outside. Reapply sunscreen every 2 hours. Wear protective clothing, hats, and sunglasses when you are outside. ?? Drive safely. Always wear your seatbelt. Make sure everyone in your car wears a seatbelt. A seatbelt can save your life if you are in an accident. Do not use your cell phone when you are driving. This could distract you and cause an accident. overlock hemmer if you need to make a call or send a text message. ?? Practice safe sex. Use latex condoms if are sexually active and have more than one partner. Yourhealthcare provider may recommend screening tests for sexually transmitted infections (STIs). ?? Wear helmets, lifejackets, and protective gear. Always wear a helmet when you ride a bike or motorcycle, go skiing, or play sports that could cause a head injury. Wear protective equipment when you play sports. Wear a lifejacket when you are on a boat or doing water sports. CARE AGREEMENT: You have the right to help plan your care. Learn about your health condition and how it may be treated. Discuss treatment options with your caregivers to decide what care you want to receive. You always have the right to refuse treatment. The above information is an shower maid only. It is not intended as medical advice for individual conditions or treatments. Talk to your doctor, nurse or pharmacist before following any medical regimen to see if it is safe and effective for you. ?? 2017 [employer] Information is for End User's use only and may not be sold, redistributed or otherwise used for commercial purposes. All illustrations and images included in CareNotes?? are the copyrighted property of [employer] or [employer] Awaiting labs. EBV test ordered, possible the pharyngitis caused by that virus (or CMV, which I might test for if it is negative) ENT referral is likely Thyroid dysfunction will be ruled out (it could be possibly causative for menstrual dysfunction, weight gain, fatigue) Thanks for coming in today! My medical assistants and I are thankful you have trusted us with your care, and hope that you received EXCELLENT care today! Please do not hesitate to call if you have any questions or concerns at [phone]. You may receive a phone call, text, MYCHART message, or e-mail asking about your care today. We would love to hear your feedback on how EXCELLENT your care wastoday! Wishing you better health, always. Dr. Michelle documented in this encounter Progress Notes * Guilherme Michelle MD - 07/11/2021 9:30 AM CDT SUBJECTIVE: 31 y.o. female who presents today to establish care with me. She gets counseling through [facility] [facility]) She has been on venlafaxine since 2018, it has helped Has had 4 episodes of pharyngitis treated in the past year, no positive Strep in that time, however. She notes pervasive fatigue as well. g Current Outpatient Medications Medication Sig Dispense Refill ??? fluticasone propionate (FLONASE) 50 mcg/actuation nasal spray Administer 1 spray into each nostril daily ??? venlafaxine XR (EFFEXOR-XR) 37.5 mg 24 hr capsule Take 37.5 mg by mouth daily No current facility-administered medications for this visit. Allergies: Patient has no known allergies. Patient's last menstrual period was 06/05/2021 (approximate). Past Medical History: Diagnosis Date ??? Anxiety ??? Depression ??? Dysmenorrhea as of 2021, workup has been noncontributory Past Surgical History: Procedure Laterality Date ??? BREAST SURGERY augmentation ??? TRANSUMBILICAL AUGMENTATION MAMMAPLASTY 2019 silicon ??? WISDOM TOOTH EXTRACTION 2011 Family History Problem Relation Age of Onset ??? Bipolar disorder Mother ??? Breast cancer Mother 64 stage 4; on Hospice ??? Diabetes Mother ??? Stroke Mother 45 ??? Heart disease Mother ??? Schizophrenia Mother ??? Cerebral aneurysm Mother 55 ??? Depression Father ??? Depression Sister ??? Depression Brother ??? Depression Sister ??? No Known Problems Maternal Grandmother ??? No Known Problems Maternal Grandfather ??? No Known Problems Paternal Grandmother ??? No Known Problems Paternal Grandfather Social History Tobacco Use ??? Smoking status: Never Smoker ??? Smokeless tobacco: Never Used Substance Use Topics ??? Drug use: Yes Types: Alcohol, Marijuana Review of Systems Constitutional: Positive for malaise/fatigue. HENT: Positive for sore throat (has had recurrent sore throats through the year). Eyes: Positive for blurred vision. Negative for double vision and photophobia. Respiratory: Negative. Cardiovascular: Negative. Negative for chest pain. Gastrointestinal: Negative. Genitourinary: Negative. Positive for dysmenorrhea Musculoskeletal: Negative. Skin: Negative. Neurological: Positive for headaches (with aura; nonpulsatile, bilateral occipital staritng, moves forward. 1ce per month). Endo/Heme/Allergies: Negative. Psychiatric/Behavioral: Negative. Negative for depression. OBJECTIVE: The patient appears well, alert, oriented x 3, in no distress. BP 100/64 (BP Location: Right arm, Patient Position: Sitting) Pulse 74 Temp 36.2 ??C (97.1 ??F)(Temporal) Resp 16 Ht 162.6 cm (5' 4 ) Wt 61.7 kg (136 lb) LMP 06/05/2021 (Approximate) SpO2 96% BMI 23.34 kg/m?? Physical Exam Vitals reviewed. Constitutional: Appearance: Normal appearance. She is well-developed and normal weight. She is not ill-appearing. HENT: Head: Normocephalic and atraumatic. Right Ear: External ear normal. Left Ear: External ear normal. Mouth/Throat: Mouth: Mucous membranes are moist. Pharynx: Oropharynx is clear. No oropharyngeal exudate or posterior oropharyngeal erythema. Eyes: Conjunctiva/sclera: Conjunctivae normal. Pupils: Pupils are equal, round, and reactive to light. Cardiovascular: Rate and Rhythm: Normal rate and regular rhythm. Heart sounds: Normal heart sounds. No murmur heard. No friction rub. No gallop. Pulmonary: Effort: Pulmonary effort is normal. Breath sounds: Normal breath sounds. Abdominal: General: Bowel sounds are normal. Palpations: Abdomen is soft. Tenderness: There is no abdominal tenderness. Musculoskeletal: General: Normal range of motion. Cervical back: Normal range of motion and neck supple. Skin: General: Skin is warm and dry. Capillary Refill: Capillary refill takes less than 2 seconds. Neurological: Mental Status: She is alert and oriented to person, place, and time. Psychiatric: Behavior: Behavior normal. Diagnoses and all orders for this visit: Encounter for medical examination to establish care (Primary) Assessment & Plan: A initial well visit to establish care has been performed today. Leanna Kaur is not up to date on screening tests. She is in need of Cervical cancer screening- these have been ordered. She is not upto date on needed preventative vaccinations; She is in need of Covid-19 (booster). These have been o rdered/arranged unless otherwise indicated. Awaiting labs. EBV test ordered, possible the pharyngitis caused by that virus (or CMV, which I might test for if it is negative) ENT referral is likely Thyroid dysfunction will be ruled out (it could be possibly causative for menstrual dysfunction, weight gain, fatigue) Orders: - Comprehensive metabolic panel; Future - CBC with auto differential; Future History of vitamin D deficiency - Vitamin D 25 hydroxy; Future Screening, lipid - Lipid panel; Future Screening for thyroid disorder - TSH reflex to free T4; Future Pharyngitis, chronic - Cyndie-Martínez virus VCA antibody panel; Future * Brittany Shrestha MA - 07/11/2021 9:30 AM CDT Requested records documented in this encounter Miscellaneous Notes * Assessment & Plan Note - Guilherme Michelle MD - 07/13/2021 10:25 AM CDT Associated Problem(s): Encounter for medical examination to establish care A initial well visit to establish care has been performed today. Leanna Kaur is not up to date on screening tests. She is in need of Cervical cancer screening- these have been ordered. She is not upto date on needed preventative vaccinations; She is in need of Covid-19 (booster). These have been o rdered/arranged unless otherwise indicated. Awaiting labs. EBV test ordered, possible the pharyngitis caused by that virus (or CMV, which I might test for if it is negative) ENT referral is likely Thyroid dysfunction will be ruled out (it could be possibly causative for menstrual dysfunction, weight gain, fatigue) documented in this encounter Plan of Treatment Not on file documented as of this encounter Results * CBC with auto differential (07/11/2021 10:30 AM CDT) WBC 5.8 3.8 - 9.9 K/cumm [facility] Hgb 14.5 11.9 - 15.5 g/dL [facility] Hct 44.4 35.6 - 45.5 % [facility] Plt 327 150 - 400 K/cumm [facility] MPV 9.2 9.1 - 12.3 fL [facility] RBC 4.89 3.90 - 5.20 M/cumm [facility] MCV 90.8 81.3 - 96.4 fL [facility] MCH 29.7 27.1 - 33.3 pg [facility] MCHC 32.7 32.3 - 35.7 g/dL [facility] RDW CV 13.2 11.1 - 14.9 % [facility] RDW SD 44.1 35.7 - 48.1 fL [facility] NRBC abs 0.00 0.00 - 0.01 K/cumm [facility] Blood 07/11/2021 10:3 0 AM CDT 07/11/2021 2:34 PM CDT us Guilherme Michelle MD LAB BLOOD ORDERABLES Final Result [facility] [id number] [address] Department [place] [address] * (ABNORMAL) Comprehensive metabolic panel (07/11/2021 10:30 AM CDT) Sodium 139 135 - 145 mmol/L [facility] Potassium, pl 4.4 3.3 - 4.9 mmol/L [facility] Chloride 101 97 - 110 mmol/L [facility] CO2 26 22 - 32 mmol/L [facility] Anion gap 12 2 - 15 mmol/L [facility] BUN 7(L) 8 - 25 mg/dL [facility] Creatinine 0.55(L) 0.60 - 1.10 mg/dL [facility] Glucose 92 70 - 199 mg/dL [facility] Comment: Interpretive Data Fasting glucose >/= 126 [...] BLOOD ORDERABLES Final Result Performing Organization Address [place] [phone] [address] Department [place] [address] * (ABNORMAL) Lipid panel (07/11/2021 10:30 AM CDT) Cholesterol 214(H) 30 - 199 mg/dL [facility] Comment: Interpretive Data Ages [...] revised on 2017. Triglycerides 45 <=149 mg/dL [facility] Comment: Interpretive Data Ages [...] on 2017. LDL, calculated 118 <=129 mg/dL [facility] Comment: Interpretive Data Ages [...] on 2017. Non-HDL Cholesterol 127 mg/dL [facility] Comment: Interpretive Data Ages < or = [...] last revised on 2017. Chol/HDL ratio 2 [facility] Blood 07/11/2021 10:3 0 AM CDT 07/11/2021 2:34 PM CDT Guilherme Michelle MD LAB BLOOD ORDERABLES Final Result Performing Organization Address [facility] de Phone Number [facility] [phone] [address] [place] [address] * (ABNORMAL) Vitamin D 25 hydroxy (07/11/2021 10:30 AM CDT) Pathologist [facility] Vitamin D 25-OH 19(L) 30 - 80 ng/mL [facility] Blood 07/11/2021 10:3 0 AM CDT 07/11/2021 2:34 PM CDT Guilherme Michelle MD LAB BLOOD ORDERABLES Final Result Performing Organization Address [facility] Co de Phone Number [facility] [id number] [address] Department [place] [address] * TSH reflex to free T4 (07/11/2021 10:30 AM CDT) [facility] TSH 0.94 0.30 - 4.20 mcIUnit/mL [facility] Blood 07/11/2021 10:3 0 AM CDT 07/11/2021 2:34 PM CDT us Guilherme Michelle MD LAB BLOOD ORDERABLES Final Result Performing Organization Address City/State/[facility] Co tn Phone Number [facility] [phone] [address] Department [place] [address] * (ABNORMAL) Cyndie-Martínez virus VCA antibody panel (07/11/2021 10:30 AM CDT) [facility] EBV nuclear Ab Positive(A) Negative [facility] Comment: Interpretive Data Results ? Interpretation Negative ?No detectable IgG antibody to EBV Nuclear ?Antigen. Equivocal ? Presence or absence of detectable IgG ?antibody to EBV Nuclear Antigen cannot be ?determined and the test should be repeated. Positive ?Indicates the presence of detectable IgG ?antibody to EBV Nuclear Antigen. Interpretive data revised 07/02/2016. Testing performed by: [facility], [address] [place]., [address] EBV VCA IgG Positive(A) Negative [facility] Comment: Interpretive Data Results ? Interpretation Negative ?No detectable antibody to VCA IgG ?antibody. Equivocal ? Uncertain immune status, suggest ?sending additional sample. Positive ?Indicates the presence of antibody; ?90% of the adult population will ?have been infected with EBV sometime ?in the past. Interpretive data revised 07/02/2016. Testing performed by: [facility], [address] [place]., [address] EBV VCA IgM Negative Negative [facility] Comment: Interpretive Data Results ? Interpretation Negative [...] Interpretive data revised 07/02/2016. Testing performed by: [facility], [address] [place]., [address] EBV interp Past infection [facility] Comment:Testing performed by : [facility], [address] [place]., [address] Blood 07/11/2021 10:3 0 AM CDT 07/11/2021 9:59 PM CDT us Guilherme Michelle MD LAB MICROBIOLOGY - GENERAL ORDERABLES Final Result [facility] [id number] [address] Department [place] [address] documented in this encounter Visit Diagnoses Diagnosis Encounter for medical examination to establish care- Primary History of vitamin D deficiency Screening, lipid Screening for thyroid disorder Pharyngitis, chronic Chronic pharyngitis documented in this encounter Historical Medications * This list may reflect changes made after this encounter. fluticasone propionate (FLONASE) 50 mcg/actuation nasal spray Administer 1 spray into each nostril daily 3 venlafaxine XR (EFFEXOR-XR) 37.5 mg 24 hr capsule Take 37.5 mg by mouth daily 07/11/2017 2 added in this encounter Care Teams Anthropological Linguist Relationship Specialty Start Date End Date Guilherme Michelle MD [address] [place] [address] PCP - General Family Medicine 07/06/21 Tiago Randle MD [address] [place] [address] Referring Physician Obstetrics and Gynecology 07/11/21 Thalia Hopper 07/11/21 documented as of this encounter
--- OUTSIDE RECORDS SUMMARY | 2024-04-12 22:27 | XMS_ITS | Encounter Summary ---
Author Organization [facility] Address [address] [facility] [address] [place] [id number] Care Team Providers Care Dealership Manager Name Role Phone Guilherme Michelle MD Primary Care Provider [phone] Tiago Randle MD Unavailable Encounter Details Date Type Department Care Team (Late st Contact Info) Description 07/11/2021 10:30 AM CDT Lab [facility] Medical [facility] at [address] [id number] Encounter for medical examination to establish care; History of vitamin D deficiency; Lipid screening; Screening for thyroid disorder; Pharyngitis, chronic Social [...] Master's degree (e.g., MA, MS, Verenice, MEd, FISH CULTURIST, GIOVANNI) 07/11/2021 Comments Unknown Sex and Gender Information Value Date Recorded Sex Assigned at Not on file 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 Gender Identity Female 11/14/2021 10:22 AM CDT Sexual Orientation Not on file 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 Not on file Not on file Not on f ile documented as of this encounter Plan of Treatment Not on file documented as of this encounter Visit Diagnoses Diagnosis Encounter for medical examination to establish care History of vitamin D deficiency Lipid screening Screening for lipoid disorders Screening for thyroid disorder Pharyngitis, chronic Chronic pharyngitis documented in this encounter Care Teams Dealership Manager Relationship Specialty Start Date End Date Guilherme Michelle MD [address] [place] [address] PCP - General Family Medicine 07/06/21 Tiago Randle MD [address] [place] [address] Referring Physician Obstetrics and Gynecology 07/11/21 Thalia Hopper 07/11/21 documented as of this encounter
--- OUTSIDE RECORDS SUMMARY | 2024-04-12 22:27 | XMS_ITS | Encounter Summary ---
Author Organization 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 Out[facility] [address] [phone] Maria Perez, CHERYL [address] [facility] [address] [place] [address] Pharyngitis, unspecified etiology (Primary Dx) Social History Tobacco Use Types Packs/Day Years Used Date Smoking Tobacco: Never Smokeless Tobacco: Never Comments Unknown Sex and Gender Information Value Date Recorded Sex Assigned at Not on file Legal Sex Female 8:21 AM STAMPING MACHINE OPERATOR Gender Identity Female 11/14/2021 10:22 AM CDT Sexual Orientation Not on file documented as of this encounter Last Filed Vital Signs Vital Sign Reading Time Taken Comments Blood Pressure 104/72 05/19/2021 3:52 PM STAMPING MACHINE OPERATOR Pulse 72 05/19/2021 3:52 PM STAMPING MACHINE OPERATOR Temperature 37.1 ??C (98.7 ??F) 05/19/2021 3:52 PM CS T Respiratory Rate - - Oxygen Saturation 95% 05/19/2021 3:52 PM STAMPING MACHINE OPERATOR Inhaled Oxygen Concentration - - Weight 62.1 kg (137 lb) 05/19/2021 3:52 PM STAMPING MACHINE OPERATOR Height 162.6 cm (5' 4.02 ) 05/19/2021 3:52 PM CS T Body Mass Index 23.5 05/19/2021 3:52 PM STAMPING MACHINE OPERATOR documented in this encounter Patient Instructions * Patient Instructions* Maria Perez PALLIATIVE CARE COORDINATOR - 05/19/2021 4:00 PM STAMPING MACHINE OPERATOR We will notify you of your throat culture Take amoxicillin as prescribed You may gargle with warm salt water, suck on throat lozenges, or throat sprays Use a decongestant for your congestion. You can dry up your runny nose with an antihistamine Elevate your pillow at night when you are sleeping to reduce the drainage down your throat. You may use a cool mist humidifier at night Please follow up with your PCP if you are not getting any betterPatient Education Pharyngitis AESTHETICS INSTRUCTOR: Pharyngitis , or sore throat, is inflammation of the tissues and structures in your pharynx (throat). Pharyngitis is most often caused by bacteria. It may also be caused by a cold or flu virus. Othercauses include smoking, allergies, or acid reflux. Signs and symptoms that may occur with pharyngitis: ?? Sore throat or pain when you swallow ?? Fever, chills, and body aches ?? Hoarse or raspy voice ?? Cough, runny or stuffy nose, itchy or watery eyes ?? Headache ?? Upset stomach and loss of appetite ?? Mild neck stiffness ?? Swollen glands that feel like hard lumps when you touch your neck ?? White and yellow pus-filled blisters in the back of your throat Call 911 for any of the following: ?? You have trouble breathing or swallowing because your throat is swollen or sore. Seek care immediately if: ?? You are drooling because it hurts too much to swallow. ?? Your fever is higher than 102?F (39?C) or lasts longer than 3 days. ?? You are confused. ?? You taste blood in your throat. Contact your healthcare provider if: ?? Your throat pain gets worse. ?? You have a painful lump in your throat that does not go away after 5 days. ?? Your symptoms do not improve after 5 days. ?? You have questions or concerns about your condition or care. Treatment for pharyngitis: Viral pharyngitis will go away on its own without treatment. Your sore throat should start to feel better in 3 to 5 days for both viral and bacterial infections. You may need any of the following: ?? Antibiotics treat a bacterial infection. ?? NSAIDs , such as ibuprofen, help decrease swelling, pain, and fever. NSAIDs can cause stomach bleeding or kidney problems in certain people. If you take blood thinner medicine, always ask your healthcare provider if NSAIDs are safe for you. Always read the medicine label and follow directions. ?? Acetaminophen decreases pain and fever. It is available without a doctor's order. Ask how much to take and how often to take it. Follow directions. Acetaminophen can cause liver damage if not taken correctly. Manage your symptoms: ?? Gargle salt water. Mix ?? teaspoon salt in an 8 ounce glass of warm water and gargle. This may help decrease swelling in your throat. ?? Drink liquids as directed. You may need to drink more liquids than usual. Liquids may help soothe your throat and prevent dehydration. Ask how much liquid to drink each day and which liquids are best for you. ?? Use a cool-steam humidifier to help moisten the air in your room and calm your cough. ?? Soothe your throat with cough drops, ice, soft foods, or popsicles. Prevent the spread of pharyngitis: Cover your mouth and nose when you cough or sneeze. Do not sharefood or drinks. Wash your hands often. Use soap and water. If soap and water are unavailable, use an alcohol based hand event executive. Follow up with your healthcare provider as directed: Write down your questions so you remember to ask them during your visits. ?? 2017 [employer] Information is for End User's use only and may not be sold, redistributed or otherwise used for commercial purposes. All illustrations and images included in CareNotes?? are the copyrighted property of [employer] or [employer]. The above information is an educational resource coordinator only. It is not intended as medical advice for individual conditions or treatments. Talk to your doctor, nurse or pharmacist before following any medical regimen to see if it is safe and effective for you. PING MACHINE OPERATOR PING MACHINE OPERATOR documented in this encounter Ordered Prescriptions Prescription Sig Dispense Quantity Refills Last Filled Start Date End Date amoxicillin (AMOXIL) 875 mg tablet Take 1 tablet (875 mg total) by mouth 2 (two) times a day for 10 days 20 tablet 05/19/2021 05/29/2021 documented in this encounter Progress Notes * Maria Perez NP - 05/19/2021 4:00 PM CST Images from the original note were not included. Patient ID: Leanna Kaur is a 31 y.o. female followed by Gabriel Oh DO Patient was wearing the following PPE: mask. Provider was wearing the following PPE: mask, gown, and gloves. Chief Complaint Patient presents with ??? Sore Throat Swollen lymph nodes, left side, 5 days, white spots Patient presents with a sore throat that started 5 days ago. She has white spots in her throat. Shereports getting sick every month for the past 6 months. Review of Systems HENT: Positive for congestion, postnasal drip and sore throat. Respiratory: Negative for cough and shortness of breath. Social History Tobacco Use Smoking Status Never Smoker Smokeless Tobacco Never Used Vitals: 05/19/21 1552 BP: 104/72 BP Location: Left arm Patient Position: Sitting Pulse: 72 Temp: 37.1 ??C (98.7 ??F) TempSrc: Oral SpO2: 95% Weight: 62.1 kg (137 lb) Height: 162.6 cm (5' 4.02 ) Recent Results (from the past 24 hour(s)) POCT rapid strep A Collection Time: 05/19/21 4:08 PM Result Value Ref Range Rapid Strep A, POC Negative Physical Exam Constitutional: Appearance: She is well-developed and normal weight. HENT: Right Ear: Tympanic membrane and ear canal normal. Left Ear: Tympanic membrane and ear canal normal. Nose: Congestion present. Mouth/Throat: Pharynx: Oropharyngeal exudate and posterior oropharyngeal erythema present. Tonsils: Tonsillar exudate and tonsillar abscess present. 1+ on the right. 1+ on the left. Cardiovascular: Rate and Rhythm: Normal rate and regular rhythm. Heart sounds: Normal heart sounds. Pulmonary: Effort: Pulmonary effort is normal. Breath sounds: Normal breath sounds. Musculoskeletal: Cervical back: Normal range of motion and neck supple. Lymphadenopathy: Cervical: Cervical adenopathy present. Skin: General: Skin is warm and dry. Neurological: Mental Status: She is alert. Psychiatric: Mood and Affect: Mood normal. Behavior: Behavior normal. Assessment/Plan Take amoxicillin as prescribed You may gargle with warm salt water, suck on throat lozenges, or throat sprays Use a decongestant for your congestion. You can dry up your runny nose with an antihistamine Elevate your pillow at night when you are sleeping to reduce the drainage down your throat. You may use a cool mist humidifier at night Please follow up with your PCP if you are not getting any better Diagnoses and all orders for this visit: Pharyngitis, unspecified etiology (Primary) - POCT rapid strep A - Throat culture Throat; Future Other orders - amoxicillin (AMOXIL) 875 mg tablet; Take 1 tablet (875 mg total) by mouth 2 (two) times a day for10 days Lungs CTA, low suspicion for pneumonia at this time. Will recommend supportive care for symptoms with f/u precautions including signs/symptoms warranting ER evaluation. ??? Discussed home self-care, follow up needs, and signs and symptoms that warrant immediate medical attention/ER evaluation including worsening fever, increased shortness of breath, severe N/V/D, orany other worrisome symptoms ??? Reviewed isolation/quarantine protocols ??? Discussed symptomatic relief of symptoms ??? Advised to rest and increase oral fluid intake ??? Advised to stay out of work and work release given explaining when patient can return to work Orders Placed This Encounter Procedures ??? Throat culture Throat Standing Status: Future Standing Expiration Date: 05/19/2022 ??? POCT rapid strep A PING MACHINE OPERATOR documented in this encounter Plan of Treatment Not on file documented as of this encounter Procedures Procedure Name Priority Date/Time Associated Diagnosis Comments POCT RAPID STREP Routine 05/19/2021 4:08 PM STAMPING MACHINE OPERATOR Pharyngitis, unspecified etiology documented in this encounter Results * Throat culture Throat (05/19/2021 4:22 PM STAMPING MACHINE OPERATOR) Report Final Report: No growth of pathogens. ALLYN KILPATRICK Comment:Testing performed by : [facility], [address] [place]., [address] Throat 05/19/2021 4:22 PM STAMPING MACHINE OPERATOR 05/20/2021 5:30 AM STAMPING MACHINE OPERATOR Narrative ALLYN - 05/21/2021 7:04 AM STAMPING MACHINE OPERATOR Testing performed by [facility] ([phone]). Maria Perez NP LAB MICROBIOLOGY - GENER AL ORDERABLES Final Result ALLYN [id number] [address] [place] [address] * POCT rapid strep A (05/19/2021 4:08 PM STAMPING MACHINE OPERATOR) Rapid Strep A, POC Negative Swab 05/19/2021 4:08 PM STAMPING MACHINE OPERATOR Maria Perez NP POINT OF CARE TEST ORDER FELICITAS Final Result documented in this encounter Visit Diagnoses Diagnosis Pharyngitis, unspecified etiology- Primary Pharyngitis, unspecified etiology documented in this encounter Care Teams Cook Frozen Dessert Relationship Specialty Start Date End Date Gabriel Oh DO PCP - General Internal Medicine 04/13/21 07/05/21 documented as of this encounter
--- OUTSIDE RECORDS SUMMARY | 2024-04-12 22:27 | XMS_ITS | Encounter Summary ---
Author Organization [facility] Medical Group Address [address] [address] Care Team Providers Care Grants Director Name Role Phone Gabriel Oh DO Primary Care Provider [phone] Reason for Visit * Reason Comments Nasal Congestion cough runny nose ons et friday/ exp vaccinated Cough Encounter Details Date Type Department Care Team (Latest Contact Info) Description 04/13/2021 10:30 AM DIALYSIS REGISTERED NURSE Office Visit [facility] [address] [id number] Celi Bella NP [address] [place] [address] [address] [place], [place] [id number] Acute nasopharyngitis (Primary Dx) Social History Tobacco Use Types Packs/Day Years Used Date Smoking Tobacco: Never Assessed Comments Unknown Sex and Gender Information Value Date Recorded Sex Assigned at Not on file Legal Sex Female 8:21 AM DIALYSIS REGISTERED NURSE Gender Identity Female 11/14/2021 10:22 AM CDT Sexual Orientation Not on file documented as of this encounter Last Filed Vital Signs Vital Sign Reading Time Taken Comments Blood Pressure 114/76 04/13/2021 10:33 AM DIALYSIS REGISTERED NURSE Pulse 75 04/13/2021 10:33 AM DIALYSIS REGISTERED NURSE Temperature 36.8 ??C (98.2 ??F) 04/13/2021 10:[address] Respiratory Rate 14 04/13/2021 10:33 AM DIALYSIS REGISTERED NURSE Oxygen Saturation 98% 04/13/2021 10:33 AM DIALYSIS REGISTERED NURSE Inhaled Oxygen Concentration - - Weight 60.8 kg (134 lb) 04/13/2021 10:33 AM DIALYSIS REGISTERED NURSE Height 162.6 cm (5' 4 ) 04/13/2021 10:33 AM DIALYSIS REGISTERED NURSE Body Mass Index 23 04/13/2021 10:33 AM DIALYSIS REGISTERED NURSE documented in this encounter Patient Instructions * Patient Instructions* Vangie Collazo, ALEX - 04/13/2021 10:30 AM DIALYSIS REGISTERED NURSE Results for orders placed or performed in visit on 04/13/21 POC Influenza A/B, COVID-19 antigen Result Value Ref Range Inflenza A Ag, POC Negative Influenza B Ag, POC Negative COVID-19 Ag POC Presumptive Negative Presumptive Negative, Invalid Patient Education Cold Symptoms GROUNDSKEEPER: Cold symptoms include sneezing, dry throat, a stuffy nose, headache, watery eyes, and a cough. Yourcough may be dry, or you may cough up mucus. You may also have muscle aches, joint pain, and tiredness. Rarely, you may have a fever. Cold symptoms occur from inflammation in your upper respiratory system caused by a virus. Most colds go away without treatment. Seek care immediately if: ?? You have increased tiredness and weakness. ?? You are unable to eat. ?? Your heart is beating much faster than usual for you. ?? You see white spots in the back of your throat and your neck is swollen and sore to the touch. ?? You see pinpoint or larger reddish-purple dots on your skin. Contact your healthcare provider if: ?? You have a fever higher than 102??F (38.9??C). ?? You have new or worsening shortness of breath. ?? You have thick nasal drainage for more than 2 days. ?? Your symptoms do not improve or get worse within 5 days. ?? You have questions or concerns about your condition or care. Treatment for cold symptoms may include NSAIDS to decrease muscle aches and fever. Cold medicines may also be given to decrease coughing, nasal stuffiness, sneezing, and a runny nose. Manage your cold symptoms: The following may help relieve cold symptoms, such as a dry throat and congestion: ?? Gargle with mouthwash or warm salt water as directed. ?? Suck on throat lozenges or hard candy. ?? Use a cold or warm vaporizer or humidifier to ease your breathing. ?? Rest for at least 2 days and then as needed to decrease tiredness and weakness. ?? Use petroleum based jelly around your nostrils to decrease irritation from blowing your nose. ?? Drink plenty of liquids. Liquids will help thin and loosen thick mucus so you can cough it up. Liquids will also keep you hydrated. Ask your healthcare provider which liquids are best for you and how much to drink each day. Prevent the spread of germs by washing your hands often. You can spread your cold germs to others for at least 3 days after your symptoms start. Do not share items, such as eating utensils. Cover your nose and mouth when you cough or sneeze using the crook of your elbow instead of your hands. Throwused tissues in the garbage. Do not smoke: Smoking may worsen your symptoms and increase the length of time you feel sick. Talk with your healthcare provider if you need help to stop smoking. Follow up with your healthcare provider as directed: Write down your questions so you remember to ask them during your visits. ?? 2017 [employer] Information is for End User's use only and may not be sold, redistributed or otherwise used for commercial purposes. All illustrations and images included in CareNotes?? are the copyrighted property of [employer]. or [employer]. The above information is an ortho/prosthetic aide only. It is not intended as medical advice for individual conditions or treatments. Talk to your doctor, nurse or pharmacist before following any medical regimen to see if it is safe and effective for you. YSIS REGISTERED NURSE YSIS REGISTERED NURSE documented in this encounter Progress Notes * Celi Bella NP - 04/13/2021 10:30 AM CST Images from the original note were not included. Subjective/Objective Patient ID: Leanna Kaur is a 30 y.o. female. Chief Complaint Nasal Congestion (cough runny nose onset friday/ exp vaccinated ) and Cough URI This is a new problem. Episode onset: friday04/09/21. The problem has been unchanged. There has beenno fever. Associated symptoms include congestion, coughing and rhinorrhea. Pertinent negatives include no abdominal pain, chest pain, diarrhea, ear pain, headaches, nausea, neck pain, rash, shortnessof breath, sinus pain, sneezing, sore throat, vomiting or wheezing. Treatments tried: sudafed, flonase and zrytec. The treatment provided moderate relief. 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 Negative for appetite change, chills, diaphoresis and fever. HENT: Positive for congestion and rhinorrhea. Negative for ear discharge, ear pain, postnasal drip,sinus pressure, sinus pain, sneezing and sore throat. Respiratory: Positive for cough. Negative for chest tightness, shortness of breath and wheezing. Cardiovascular: Negative for chest pain. Gastrointestinal: Negative for abdominal pain, diarrhea, nausea and vomiting. Musculoskeletal: Negative for myalgias, neck pain and neck stiffness. Skin: Negative for rash. Neurological: Negative for dizziness and headaches. Hematological: Negative for adenopathy. Physical Exam Vitals and nursing note reviewed. Constitutional: General: She is awake. She is not in acute distress. Appearance: Normal appearance. HENT: Head: Normocephalic and atraumatic. Right Ear: Tympanic membrane and ear canal normal. Left Ear: Tympanic membrane and ear canal normal. Nose: Congestion and rhinorrhea present. Rhinorrhea is clear. Right Sinus: No maxillary sinus tenderness or frontal sinus tenderness. Left Sinus: No maxillary sinus tenderness or frontal sinus tenderness. Mouth/Throat: Lips: [place]. Mouth: Mucous membranes are moist. Tongue: Tongue does not deviate from midline. Pharynx: Uvula midline. No pharyngeal swelling, oropharyngeal exudate, posterior oropharyngeal erythema or uvula swelling. Tonsils: No tonsillar exudate or tonsillar abscesses. Eyes: General: Lids are normal. Pupils: Pupils are equal, round, and reactive to light. Cardiovascular: Rate and Rhythm: Normal rate and regular rhythm. Pulses: Normal pulses. Heart sounds: Normal heart sounds. Pulmonary: Effort: Pulmonary effort is normal. No respiratory distress. Breath sounds: Normal breath sounds. No decreased breath sounds, wheezing, rhonchi or rales. Comments: No cough noted on exam or with deep breaths Musculoskeletal: Cervical back: Full passive range of motion without pain, normal range of motion and neck supple. Lymphadenopathy: Cervical: No cervical adenopathy. Skin: General: Skin is warm and dry. Neurological: Mental Status: She is alert and oriented to person, place, and time. Gait: Gait normal. Psychiatric: Behavior: Behavior is cooperative. Vitals: 04/13/21 1033 BP: 114/76 BP Location: Left arm Patient Position: Sitting Pulse: 75 Resp: 14 Temp: 36.8 ??C (98.2 ??F) TempSrc: Oral SpO2: 98% Weight: 60.8 kg (134 lb) Height: 162.6 cm (5' 4 ) Assessment/Plan Diagnoses and all orders for this visit: Acute nasopharyngitis (Primary) - POC Influenza A/B, COVID-19 antigen - COVID-19 Coronavirus RNA Nasopharyngeal; Future Recent Results (from the past 4 hour(s)) POC Influenza A/B, COVID-19 antigen Collection Time: 04/13/21 10:53 AM Result Value Ref Range Inflenza A Ag, POC Negative Influenza B Ag, POC Negative COVID-19 Ag POC Presumptive Negative Presumptive Negative, Invalid Patient Education: Sinus Infection -Take and finish your antibiotic prescription as directed. -You may try: ??? Nasal saline wash, either Neti Pot or Sinus Rinse DAILY or a saline nasal spray 3-4 times a day. ??? Guaifenesin expectorants (Maximum Strength Mucinex, Robitussin, store brand) to loosen secretions. ??? For cough you can use dextromethorphan (Delsym syrup, Robitussin cough capsules or store brand). Dextromethorphan is considered safe for and breast feeding women. ??? You may try decongestants such as Sudafed (purchase at pharmacy) or Sudafed PE for congestion relief. Decongestants can keep you awake at night. Do not use decongestants if you have high blood pressure or if you are . If you have high blood pressure you can take otc Coricidin per package directions -Increase fluid intake: drink 2 liters (2 quarts) of non-caffeinated, non- alcoholic beverages daily, drinking alcohol causes nasal and sinus membranes to swell -Steam inhalation and warm compress to face often help relieve pressure -Avoid allergens and excessively dry heat -Sleep with head of bed elevated to encourage drainage. -Use of a humidifier if environment is heated by dry forced - air system -Avoid smoking, second-hand smoke and air pollutants. -If you are not improving or worsening, or develop facial swelling, in the next 7-10 days you must RETURN to the clinic, go to your PCP, or Urgent Care/ER to be SEEN and reevaluated. No further prescriptions or refills will be given by phone without another evaluation. While waiting for your COVID-19 test result or if your COVID-19 test is positive: ISOLATE: Stay home except to get medical care! Separate yourself from other people and pets in [facility]: ??? Do not go to work, school, or public areas, such as stores or social gatherings. ??? Do not use public transportation. ??? If available, stay in a separate bedroom and use a separate bathroom. ??? Ask others to care for your pets. (If possible) ??? Wear a facemask when around other people or pets. ??? Cover your mouth and nose with a tissue when you cough or sneeze. If a tissue is not available,cough or sneeze into your upper sleeve (not your hands). ??? Throw tissues away in trash-can that has a bag in it. Empty your trash daily. ??? Always wash your hands after you throw away the tissue or garbage. If you test Positive for COVID-19 Given what we currently know about COVID-19 and the Omicron variant, CDC is shortening the recommended time for isolation from 10 days for people with COVID-19 to 5 days, if asymptomatic, followed by5 days of wearing a mask when around others. The change is motivated by science demonstrating that the majority of SARS-CoV-2 transmission occurs early in the course of illness, generally in the 1-2 days prior to onset of symptoms and the 2-3 days after. Therefore, people who test positive should isolate for 5 days and, if asymptomatic at that time, they may leave isolation if they can continue to mask for 5 days to minimize the risk of infecting others. Quarantine for those exposed to COVID-19 Additionally, CDC is updating the recommended quarantine period for those exposed to COVID-19. For people who are unvaccinated or are more than six months out from their second mRNA dose (or more than 2 months after the J&J vaccine) and not yet boosted, CDC now recommends quarantine for 5 days followed by strict mask use for an additional 5 days. Alternatively, if a 5-day quarantine is not feasible, it is imperative that an exposed person wear a well-fitting mask at all times when around others for 10 days after exposure. Individuals who have received their booster shot do not need to quarantine following an exposure, but should wear a mask for 10 days after the exposure. For all those exposed, best practice would also include a test for SARS-CoV-2 at day 5 after exposure. If symptomsoccur, individuals should immediately quarantine until a negative test confirms symptoms are not attributable to COVID-19. Isolation relates to behavior after a confirmed infection. Isolation for 5 days followed by wearinga well-fitting mask will minimize the risk of spreading the virus to others. Quarantine refers to the time following exposure to the virus or close contact with someone known to have COVID-19. Both updates come as the Omicron variant continues to spread throughout the [place] and reflects the current science on when and for how long a person is maximally infectious. If You Were Exposed to Someone with COVID-19 (Quarantine) If you: Have been boosted OR Completed the primary series of Pfizer or Moderna vaccine within the last 6 months OR Completed the primary series of J&J vaccine within the last 2 months Wear a mask around others for 10 days. Test on day 5, if possible. If you develop symptoms get a test and stay home. If you: Completed the primary series of Pfizer or Moderna vaccine over 6 months ago and are not boosted OR Completed the primary series of J&J over 2 months ago and are not boosted OR Are unvaccinated Stay home for 5 days. After that continue to wear a mask around others for 5 additional days. If you can???t quarantine you must wear a mask for 10 days. Test on day 5 if possible. If you develop symptoms get a test and stay home If You Test Positive for COVID-19 (Isolate) Everyone, regardless of vaccination status. Stay home for 5 days. If you have no symptoms or your symptoms are resolving after 5 days, you can leave your house. Continue to wear a mask around others for 5 additional days. If you have a fever, continue to stay home until your fever resolves. Self-care: ??? Rest as much as possible. Slowly start to do more each day. ??? Take the medicines recommended by your doctor for fever, body aches, cough, or headaches. (Tylenol or Ibuprofen for aches/pains/fever as needed) (Antihistamines like Claritin or Benadryl as needed for drainage) (Delsym and cough drops/throat lozenges as needed for cough) ??? Drink more liquids as directed to help thin and loosen mucus so it is easier to cough up. Liquids such as water, fruit juice, and broth also help keep you hydrated. ??? Soothe a sore throat by gargling with warm salt water. Make salt water by dissolving ?? teaspoon salt in 1 cup warm water (8 ounces). Older children and adults can also use throat lozenges, ice chips, or sore throat spray. ??? Use a humidifier or vaporizer to increase air moisture in your home. This may make it easier tobreathe and help decrease coughing. ??? Use saline nasal drops as directed to relieve congestion. ??? Apply petroleum-based jelly around the outside of nostrils to decrease irritation from blowing your nose. ??? DO NOT smoke or vape. Nicotine and other chemicals in cigarettes and cigars can make your symptoms worse. Monitor your symptoms: ??? Seek medical attention right away if your symptoms get worse, such as if you are having difficulty breathing, shortness of breath, new confusion or inability to arouse, or bluish lips or face. ??? If you have a pulse ox monitor at home, monitor your oxygen saturations with this device. If you find your Oxygen Saturation is falling 92% or below please notify your PCP right away or seek medical attention. Or if you experience fever uncontrolled with antipyretics, shortness of breath, chestdiscomfort, uncontrolled n/v/d ??? If you have a medical emergency, call 911 and notify the EMS personnel that you have or are being evaluated for COVID-19. Put on a facemask before emergency medical services arrive -briefly discussed monoclonal antibody therapy, if you meet criteria, call your PCP for more information Disposition ??? Treatment plan including expectations, follow up, and return precautions discussed with patient/parent, verbalizes understanding. ??? Medication dosage, use, and potential adverse reactions discussed with patient/parent. ??? Advised to follow up with PCP if symptoms do not resolve as expected or sooner if condition worsens. ??? Signs/symptoms warranting ER evaluation reviewed. ??? Patient and/or guardian was given an opportunity to ask questions, questions answered. Celi Bella NP 04/13/21 11:15 AM Cosigned by Gabriel Monte MD at 04/13/2021 12:14 PM DIALYSIS REGISTERED NURSE YSIS REGISTERED NURSE YSIS REGISTERED NURSE documented in this encounter Plan of Treatment Not on file documented as of this encounter Procedures Procedure Name Priority Date/Time Associated Diagnosis Comments POC INFLUENZA A/B, COVID-19 ANTIGEN Routine 04/13/2021 10:53 AM DIALYSIS REGISTERED NURSE Acute nasopharyngitis documented in this encounter Results * COVID-19 Coronavirus RNA Nasopharyngeal (04/13/2021 11:13 AM DIALYSIS REGISTERED NURSE) COVID-19 RNA Negative Negative [facility] First COVID-19 test? No [facility] Employeed in healthcare? No [facility] status? No [facility] Group care resident? No [facility] Hospitalized? No [facility] Is patient in ICU? No [facility] Symptomatic as defined by CDC? Yes [facility] Nasopharyngeal 04/13/2021 11 :13 AM DIALYSIS REGISTERED NURSE 04/13/2021 3:13 PM DIALYSIS REGISTERED NURSE Narrative [facility] - 04/13/2021 5:59 PM DIALYSIS REGISTERED NURSE What is the reason for testing?->Symptomatic patients within 5 days of symptom onset Date of Symptom Onset->04/09/21 ?? Interpretive data: Synonyms for this test include: PCR and NAAT . ??This test is performed using the [employer] Xpert Xpress assay. This is a real-time RT-PCR test intended for the qualitative detection of nucleic acid from the SARS-CoV-2. This assay has been reviewed by the FDA for Emergency Use Authorization (EUA). The performance characteristics have been verified by the performing laboratory. Results must be considered in the clinical context and a negative result does not rule out infection. Interpretive data last revised May 11, 2020. us Celi Bella NP LAB MICROBIOLOGY - [facility] Final Result [facility] [id number] Department [place] [address] * POC Influenza A/B, COVID-19 antigen (04/13/2021 10:53 AM DIALYSIS REGISTERED NURSE) Influenza A Ag, POC Negative [facility] Influenza B Ag, POC Negative [facility] COVID-19 Ag POC Presumptive Negative Presumptive Negative, Invalid [facility] Nasal 04/13/2021 10:5 3 AM DIALYSIS REGISTERED NURSE Celi Bella NP POINT OF CARE TEST ORDERABLES F inal Result Performing Organization Address [facility] Co de Phone Number [facility] [address] [place] [address] documented in this encounter Visit Diagnoses Diagnosis Acute nasopharyngitis- Primary Acute nasopharyngitis (common cold) Acute nasopharyngitis Acute nasopharyngitis (common cold) documented in this encounter Additional Health Concerns Infection Onset Date Last Indicated Resolved Time COVID: Suspected 04/13/2021 04/13/2021 04/13/2021 10:54 AM DIALYSIS REGISTERED NURSE COVID: Suspected 04/13/2021 04/13/2021 04/13/2021 6:00 PM DIALYSIS REGISTERED NURSE documented as of this encounter Care Teams Grants Director Relationship Specialty Start Date End Date Gabriel Oh DO PCP - General Internal Medicine 04/13/21 07/05/21 documented as of this encounter
--- OUTSIDE RECORDS SUMMARY | 2024-04-12 22:27 | XMS_ITS | Encounter Summary ---
Author Organization [facility] Healthcare Address [address] [place] [address] Care Team Providers Care Pad Extractor Tender Name Role Phone Gabriel Oh DO Primary Care Provider [phone]- [phone] Encounter Details Date Type Department Care Team (Late st Contact Info) Description 04/13/2021 2:05 PM [facility]OE [facility]ILDER Lab [address] [address] Acute nasopharyngitis Social History Tobacco Use Types Packs/Day Years Used Date Smoking Tobacco: Never Assessed Comments Unknown Sex and Gender Information Value Date Recorded Sex Assigned at Not on file Legal Sex Female 8:21 AM CANOE BUILDER Gender Identity Female 11/14/2021 10:22 AM CDT Sexual Orientation Not on file documented as of this encounter Miscellaneous Notes * Result Encounter Note - Celi Bella NP - 04/13/2021 6:00 PM CST Please notify patient of negative covid-19 results. E BUILDER documented in this encounter Plan of Treatment Not on file documented as of this encounter Procedures Procedure Name Priority Date/Time Associated Diagnosis Comments COVID-19 CORONAVIRUS RNA Routine 04/13/2021 11:13 AM CANOE BUILDER Acute nasopharyngitis documented in this encounter Results * COVID-19 Coronavirus RNA Nasopharyngeal (04/13/2021 11:13 AM CANOE BUILDER) COVID-19 RNA Negative Negative [facility] First COVID-19 test? No [facility] Employeed in healthcare? No [facility] status? [facility]? No [facility] Hospitalized? No [facility] Is patient in ICU? No [facility] Symptomatic as defined by CDC? Yes [facility] Nasopharyngeal 04/13/2021 11 :13 AM CANOE BUILDER 04/13/2021 3:13 PM CANOE BUILDER Narrative [facility] - 04/13/2021 5:59 PM CANOE BUILDER What is the reason for testing?->Symptomatic patients within 5 days of symptom onset Date of Symptom Onset->04/09/21 ?? Interpretive data: Synonyms for this test include: PCR and NAAT . ??This test is performed using the [employer] Xpert Xpress assay. This is a real-time [...] Interpretive data last revised May 11, 2020. Celi Bella CELL OPERATION SUPERVISOR LAB [facility]OLOGY - [facility] Final Result [facility] [id number] Department of Laboratories [place], [place] [id number] documented in this encounter Visit Diagnoses Diagnosis Acute nasopharyngitis Acute nasopharyngitis (common cold) documented in this encounter Additional Health Concerns Infection Onset Date Last Indicated Resolved Time COVID: Suspected 04/13/2021 04/13/2021 04/13/2021 6:00 PM CANOE BUILDER documented as of this encounter Care Teams Pad Extractor Tender Relationship Specialty Start Date End Date Gabriel Oh DO PCP - General Internal Medicine 04/13/21 07/05/21 documented as of this encounter
== END 2024-04-05 14:36 | disposition home or self-care (01) ==
PROVIDERS: Emergency Provider Physician Assistant; PCP Family Medicine
DX: O03.9 Complete or unspecified spontaneous abortion without complication (principal); R42 Dizziness and giddiness; E28.2 Polycystic ovarian syndrome; F32.A Depression, unspecified; F41.9 Anxiety disorder, unspecified; Z79.899 Other long term (current) drug therapy
CPT/HCPCS: 36415; 76801; 76817; 80053; 81001; 84702; 85025; 85461; 85610; 85730; 86850; 86900; 86901; 96361; 96374; 99284; J2405; J7030